=== PATIENT | female | born 1980 | race Caucasian/White ===

== ENCOUNTER 2016-09-23 16:18 | Emergency (ER) | payer OTHER ==
[~2016-09-23] VITALS: Ht 167.6 cm; Wt 101.0 kg
[~2016-09-23 16:18] MED LIST: ATV/1 PO; CHLO100T8 PO; FLUO40CA8 PO; PRVHFAIN INH; TRAM-10 PO
[2016-09-23 16:26] VITALS: TEMP 36.9; Ht 167.6 cm; Wt 101.0 kg
[2016-09-23] MEDS ORDERED: KETOROLAC TROMETHAMINE 30 MG/ML VIAL IV STA (18:27)
--- NOTE | 2016-09-23 18:39 | EMERGENCY ROOM VISIT NOTE ---
History Report prepared by Chris: Fran Campos Under the Supervision of: Dr. Fran Tate M.D. First contact with patient: 18:19 Chief Complaint: HYPERTENSION Stated Complaint: HTN, RT KNEE PAIN History of Present Illness The patient is a 35 year old female who presents to the Emergency Room with complaints of an episode of hypertension occurring earlier today. She notes she had right knee pain and had gone to the [facility] walk-in clinic. They noticed her blood pressure was elevated around 150/100. They told her to call her PCP. She notes her PCP was not able to see her until a few days from today and advised her to come to the ER. The patient notes she takes propanol 80 mg BID for her blood pressure management. She states she took her medications today, and that there have not been any recent changes in her medications. She notes she feels lightheaded, and that she has had swelling in her hands and feet for a couple of days. She reports having surgery of her right knee about 2.5 years ago, and has not re-injured it since the surgery. Source of History: patient Onset: earlier today Position: other (global) Symptom Intensity: blood pressure around 150/100 Quality: other (hypertension) Timing: other (episode) Note: The patient notes feeling lightheaded, and having swelling in her hands and feet. Review of Systems See HPI for pertinent positives & negatives. A total of 10 systems reviewed and were otherwise negative. 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 Nurse's notes were reviewed and I agree with. Family History Hypertension Kidney disease or stones Social History Smoking Status: Current Every Day Smoker Alcohol Use: none Marital Status: Housing Status: lives with significant other Occupation Status: disabled Current/Historical Medications Scheduled Clonazepam (Klonopin), 0.5 MG PO TID Propranolol (Inderal), 80 MG PO BID Scheduled PRN Albuterol (Ventolin Hfa), 3-4 PUFFS INH QID PRN for Shortness of Breath Oxycodone Immediate Rel Tab (Roxicodone Ir), 1-2 TAB PO Q4H PRN for Severe Pain Allergies Coded Allergies: Sulfa Drugs (Verified Allergy, Unknown, RASH, NAUSEA, 06/15/16) Physical Exam Vital Signs Date Time Temp Pulse Resp B/P Pulse Ox O2 Delivery O2 Flow Rate FiO2 09/23/16 21:19 86 18 142/100 96 Room Air 09/23/16 19:43 90 18 131/96 94 Room Air 09/23/16 18:20 104 20 165/115 95 Room Air 09/23/16 16:26 36.9 85 20 151/97 Physical Exam General: Non ill appearing young female in no acute distress. HEENT: Normal cephalic atraumatic. Pupils are equal round and reactive to light. Extraocular movements are intact. Oropharynx is pink with moist mucous membranes. No swelling of the mouth lips or tongue. Neck: Supple with a midline trachea. No meningeal signs or stiffness, no JVD or bruits. No Stridor. Chest: Clear to auscultation bilaterally. No wheezes or rhonchi. No increased work of breathing. Heart: regular rate and rhythm. Abdomen: Soft nontender, nondistended without rebound guarding or rigidity. Extremities: Right knee is not red or warm; tenderness to the medial aspect of right knee. No significant calf swelling or tenderness. FROM of right knee. Spine/Back. Non tender to palpation. No CVA tenderness Skin: Good turgor without rashes. Neurologic exam: Cranial nerves two through 12 are intact. Motor and sensation are intact and symmetrical throughout. Medical Decision & Procedures ER Provider Diagnostic Interpretation: X ray results as stated below per my interpretation and radiologist interpretation. Other radiology results as stated below per my review and radiologist interpretation: RIGHT KNEE 2 VIEWS FINDINGS: There is no fracture or dislocation. Soft tissues are unremarkable. Patellofemoral joint prosthesis remains intact. There is a trace knee effusion. IMPRESSION: No fractures. Trace knee effusion. Electronically signed by: Diego Cheng M.D. 09/23/2016 7:06 PM Dictated Date/Time: 09/23/2016 7:04 PM Laboratory Results 09/23/16 18:38 Red Blood Count 4.26, Mean Corpuscular Volume 90.8, Mean Corpuscular Hemoglobin 31.2, Mean Corpuscular Hemoglobin Concent 34.4, Mean Platelet Volume 9.4, Neutrophils (%) (Auto) 54.6, Lymphocytes (%) (Auto) 33.9, Monocytes (%) (Auto) 10.5, Eosinophils (%) (Auto) 0.0, Basophils (%) (Auto) 0.9, Neutrophils # (Auto ) 3.64, Lymphocytes # (Auto) 2.26, Monocytes # (Auto) 0.70, Eosinophils # (Auto ) 0.00, Basophils # (Auto) 0.06 09/23/16 18:38 Test 09/23/16 18:38 White Blood Count 6.67 K/uL (4.8-10.8) Red Blood Count 4.26 M/uL (4.2-5.4) Hemoglobin 13.3 g/dL (12.0-16.0) Hematocrit 38.7 % (37-47) Mean Corpuscular Volume 90.8 fL (80-100) Mean Corpuscular Hemoglobin 31.2 pg (25-34) Mean Corpuscular Hemoglobin Concent 34.4 g/dl (32-36) Platelet Count 365 K/uL (130-400) Mean Platelet Volume 9.4 fL (7.4-10.4) Neutrophils (%) (Auto) 54.6 % Lymphocytes (%) (Auto) 33.9 % Monocytes (%) (Auto) 10.5 % Eosinophils (%) (Auto) 0.0 % Basophils (%) (Auto) 0.9 % Neutrophils # (Auto) 3.64 K/uL (1.4-6.5) Lymphocytes # (Auto) 2.26 K/uL (1.2-3.4) Monocytes # (Auto) 0.70 K/uL (0.11-0.59) Eosinophils # (Auto) 0.00 K/uL (0-0.5) Basophils # (Auto) 0.06 K/uL (0-0.2) RDW Standard Deviation 44.2 fL (36.4-46.3) RDW Coefficient of Variation 13.4 % (11.5-14.5) Immature Granulocyte % (Auto) 0.1 % Immature Granulocyte # (Auto) 0.01 K/uL (0.00-0.02) Red Blood Cell Morphology Unremarkable Erythrocyte Sedimentation Rate 31 mm/hr (0-21) Anion Gap 9.0 mmol/L (3-11) Est Creatinine Clear Calc Drug Dose 131.4 ml/min Estimated GFR () 127.0 Estimated GFR (Non- 109.6 BUN/Creatinine Ratio 16.5 (10-20) Calcium Level 9.4 mg/dl (8.5-10.1) Total Bilirubin 0.3 mg/dl (0.2-1) Direct Bilirubin < 0.1 mg/dl (0-0.2) Aspartate Amino Transf (AST/SGOT) 16 U/L (15-37) Alanine Aminotransferase (ALT/SGPT) 25 U/L (12-78) Alkaline Phosphatase 87 U/L (45-117) Total Protein 7.9 gm/dl (6.4-8.2) Albumin 4.0 gm/dl (3.4-5.0) Lipase 123 U/L (73-393) Laboratory studies as stated above per my review. Medications Administered Medications (Trade) Dose Ordered Sig/Carol Route Start Time Stop Time Status Last Admin Dose Admin Ketorolac Tromethamine (Toradol Inj) 30 mg NOW STAT IV 09/23/16 18:27 09/23/16 18:31 DC 09/23/16 18:46 30 MG Oxycodone HCl (Roxicodone Immediate Rel 5MG Home Pack) 1 homepack UD ONCE PO 09/23/16 21:15 09/23/16 21:16 DC 09/23/16 21:25 1 HOMEPACK ED Course 1819: Past medical records reviewed. The patient was evaluated in room C6, and a complete history and physical examination were performed. 1826: Ordered Toradol Inj 30 mg IV. 2114: Ordered Oxycodone HCl 1 homepack PO. 2119: Upon reevaluation, the patient is doing well. I discussed the results and treatment plan with the patient. She verbalized agreement of the treatment plan. The patient was discharged home. Medical Decision Differentials include hypertensive urgency, electrolyte or metabolic abnormality , infection, or arthritis. This patient comes in as described above. She was placed in room C6. She has 2 problems. #1 she has knee pain and she's had this chronically. And the second is high blood pressure which she is also being treated for. She looks well on exam. She has no evidence to suggest any end organ damage from her high blood pressure and no evidence of a hypertensive emergency. Her blood pressure does seem to go up and down. She is on medication for this. Her knee is not red or warm and is minimally tenderness here and she has nothing to suggest infection or neurologically neurovascular compromise. She was observed in the ER. Blood work was obtained and she has nothing to suggest infection or electrolyte or metabolic abnormalities. She has nothing to suggest acute or cardiac disease acutely. She was given Toradol 30 mg IV for pain is resting comfortably. I recommend she keep her appointment with her doctor on Thursday and check her blood pressure frequently log it to get a trend and therefore they could see her blood pressures at home. She can use ibuprofen for the pain in her knee and for breakthrough pain shecan use OxyIR 5 mg, one or 2 pills every 4-6 hours as needed. She was warned that this could make her drowsy and do not take before drinking, driving, working. She should be careful getting up and down. She should return if: numbness weakness, worsening symptoms, fever chills, any new problems concerns. She is happy with plan and discharged to home. Impression Primary Impression: Right knee pain Additional Impression: Hypertension Scribe Attestation The scribe's documentation has been prepared under my direction and personally reviewed by me in its entirety. I confirm that the note above accurately reflects all work, treatment, procedures, and medical decision making performed by me. Departure Information Dispostion Home / Self-Care Prescriptions Oxycodone Immediate Rel Tab (ROXICODONE IR) 5 Mg Tab 1-2 TAB PO Q4H Y for Severe Pain, #14 TAB Prov: Fran Tate M.D. 09/23/16 Referrals Osvaldo Park M.D. (PCP) Patient Instructions My [facility] Additional Instructions Rest Drink plenty of fluids Use Nick wrap as needed For pain, use OxyIR 5 mg, one or 2 pills every 4-6 hours as needed OxyIR may make you drowsy and do not take before drinking, driving, working Check-in and log you blood pressures frequently and follow-up with your doctor on Thursday. You may ultimately need to increase her blood pressure medicines. Return to ER if: Fever, worsening symptoms, any new problems concerns. Problem Qualifiers
[2016-09-23 18:52] LABS: HEMATOCRIT 38.7 % (37-47); MEAN CELL VOLUME 90.8 fL (80-100); MEAN CORPUSCULAR HEMOGLOBIN 31.2 pg (25-34); MEAN CORPUSCULAR HGB CONC 34.4 g/dl (32-36); MEAN PLATELET VOLUME 9.4 fL (7.4-10.4); PLATELET COUNT 365 K/uL (130-400); RED BLOOD COUNT 4.26 M/uL (4.2-5.4); WHITE BLOOD COUNT 6.67 K/uL (4.8-10.8)
--- NOTE | 2016-09-23 19:07 | DIAGNOSTIC IMAGING REPORT ---
RIGHT KNEE 2 VIEWS HISTORY: eval for knee pain Right COMPARISON: Right knee 12/21/2013. FINDINGS: There is no fracture or dislocation. Soft tissues are unremarkable. Patellofemoral joint prosthesis remains intact. There is a trace knee effusion. IMPRESSION: No fractures. Trace knee effusion. Electronically signed by: Diego Cheng M.D. 09/23/2016 7:06 PM Dictated Date/Time: 09/23/2016 7:04 PM
[2016-09-23 19:10] LABS: ALT/SGPT 25 U/L (12-78); AST/SGOT 16 U/L (15-37); BLOOD UREA NITROGEN 12 mg/dl (7-18); BUN/CREATININE RATIO 16.5 (10-20); CALCIUM 9.4 mg/dl (8.5-10.1); CARBON DIOXIDE 29 mmol/L (21-32); CHLORIDE 99 mmol/L (98-107); CREATININE 0.71 mg/dl (0.60-1.20); GLUCOSE 88 mg/dl (70-99); POTASSIUM 3.8 mmol/L (3.5-5.1); SODIUM 137 mmol/L (136-145)
[2016-09-23 19:13] LABS: ALKALINE PHOSPHATASE 87 U/L (45-117)
[2016-09-23 19:31] LABS: BASO % 0.9 %; BASO ABS # 0.06 K/uL (0-0.2); COMPLETE YES; IG% 0.1 %; LYMPH % 33.9 %; LYMPH ABS # 2.26 K/uL (1.2-3.4); MONO % 10.5 %; NEUT % 54.6 %
[2016-09-23] MEDS ORDERED: OXYC1TAB3 PO (21:14)
[2016-09-23] MEDS ORDERED: OXYCODONE IR HOME PACK PO ONE (21:15)
[2016-09-23 21:19] VITALS: BP 142/100; PULSE 86; O2SAT 96
[2016-12-22] MEDS ORDERED: BUPR200T2 PO (10:57)
[2016-12-22] MEDS ORDERED: ATV/1 PO (10:57)
[2017-01-08] MEDS ORDERED: OXYC-57 PO (09:45)
[2017-01-31] MEDS ORDERED: ATOR10TA88 PO (10:57)
[2017-01-31] MEDS ORDERED: MAGN1TAB41 PO (10:57)
[2017-01-31] MEDS ORDERED: CHLO100T8 PO (10:57)
[2017-01-31] MEDS ORDERED: LURA80TA PO (10:57)
[2017-01-31] MEDS ORDERED: PROP80TA2 PO (13:48)
== END 2016-09-23 21:26 | disposition home or self-care (01) ==
LOC: C.EDB 16:19 → C.EDC 21:26
DX: M25.561 Pain in right knee (principal); I10 Essential (primary) hypertension; Z98.890 Other specified postprocedural states; Z90.710 Acquired absence of both cervix and uterus; F17.200 Nicotine dependence, unspecified, uncomplicated; Z88.2 Allergy status to sulfonamides

== ENCOUNTER 2016-10-10 15:42 | Emergency (ER) | payer OTHER ==
[~2016-10-10] VITALS: Ht 167.6 cm; Wt 96.8 kg
[~2016-10-10 15:42] MED LIST changes: -ATV/1 PO; -CHLO100T8 PO; -FLUO40CA8 PO; +OXYC1TAB3 PO; -PRVHFAIN INH; -TRAM-10 PO
[2016-10-10 15:45] VITALS: Ht 167.6 cm; Wt 96.8 kg
[2016-10-10] MEDS ORDERED: LSN5 PO (16:05)
[2016-10-10] MEDS ORDERED: BUPRTAB51 PO (16:05)
--- NOTE | 2016-10-10 16:14 | EMERGENCY ROOM VISIT NOTE ---
History Report prepared by Chris: Xuan Gallegos Under the Supervision of: Dr. Hilario Mortensen M.D. First contact with patient: 15:49 Chief Complaint: HYPERTENSION Stated Complaint: LIGHTHEADED,HIGH BP History of Present Illness The patient is a 35 year old female who presents to the Emergency Room with complaints of persistent hypertension for the past week. The patient notes a history of hypertension and states that she was evaluated in [facility] last week for her hypertension. She states that each time she stands up she becomes lightheaded and additionally has difficulty catching her breath. The patient notes a blood pressure reading of 150/100 mmHg. She states that she was supposed to see a ship construction teacher for a stress test, but states that the ship construction teacher had an emergency and her appointment got cancelled. The patient states that she has been on propranolol for her hypertension for several years and states that she was recently started on 5 mg of Lisinopril daily. She states that today she feels increasingly weak. The patient additionally notes increased swelling to her bilateral ankles. She states that she is on 20 mg of Lasix twice per week, but states that the swelling has worsened with her hypertension. Source of History: patient Onset: past week Position: other (global) Symptom Intensity: 150/100 mmHg Quality: other (hypertension) Timing: other (persistent) Associated Symptoms: + SOB, + weakness Note: Associated Symptoms: increased swelling to bilateral ankles, lightheaded Review of Systems All systems have been listed, reviewed, and are negative other than those previously mentioned. Please see Additional Medical History Sheet. 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 (5) Kidney stone (6) Kidney stone (7) Left knee DJD (8) Migraine (9) Painful orthopaedic hardware (10) Somnolence (11) UTI (urinary tract infection) Surgical Problems: (1) Robotic hysterectomy (2) S/P hysterectomy Family History Cancer Diabetes mellitus Gallbladder disease Heart disease Hypertension Kidney disease or stones Lung disease Seizures Social History Smoking Status: Current Every Day Smoker Alcohol Use: none Marital Status: Housing Status: lives with significant other Occupation Status: disabled Current/Historical Medications Scheduled Bupropion (Wellbutrin-Xl), 300 MG PO DAILY Clonazepam (Klonopin), 0.5 MG PO TID Lisinopril (Lisinopril), 5 MG PO DAILY Propranolol (Inderal), 80 MG PO BID Scheduled PRN Albuterol (Ventolin Hfa), 3-4 PUFFS INH QID PRN for Shortness of Breath Allergies Coded Allergies: Sulfa Drugs (Verified Allergy, Unknown, RASH, NAUSEA, 06/15/16) Physical Exam Vital Signs Date Time Temp Pulse Resp B/P Pulse Ox O2 Delivery O2 Flow Rate FiO2 10/10/16 17:19 95 18 93/61 100 10/10/16 16:24 101 18 105/72 100 Room Air 10/10/16 16:22 98 Room Air 10/10/16 16:22 93 107/67 99 105/72 105 90/71 10/10/16 15:45 103 18 95/66 96 Room Air Physical Exam GENERAL: Patient awake, alert, oriented x 3. Patient follows commands. Patient does not appear toxic. Patient is adequately hydrated and well- nourished. SKIN: No erythema, pallor, cyanosis or rash HEENT: Normal head, pupils equal, reactive to light and accommodation. Neck: Without adenopathy, no neck vein distention. LUNGS: Clear to auscultation. No wheezes, no rales, no rhonchi. HEART: No murmurs. No gallops. No rubs ABDOMEN: Obese. No masses, no rebound, no hepatomegaly or splenomegaly. EXTREMITIES: No signs of trauma. No pedal or pretibial edema. No calf or thigh tenderness. NEUROLOGIC: Cranial nerves II-XII within normal limits. No gross motor sensory function deficits. Medical Decision & Procedures Laboratory Results 10/10/16 16:05 10/10/16 16:05 Test 10/10/16 16:05 Red Blood Count 4.43 M/uL (4.2-5.4) Mean Corpuscular Volume 90.7 fL (80-100) Mean Corpuscular Hemoglobin 33.0 pg (25-34) Mean Corpuscular Hemoglobin Concent 36.3 g/dl (32-36) RDW Standard Deviation 43.4 fL (36.4-46.3) RDW Coefficient of Variation 13.1 % (11.5-14.5) Mean Platelet Volume 9.8 fL (7.4-10.4) Anion Gap 11.0 mmol/L (3-11) Est Creatinine Clear Calc Drug Dose 82.9 ml/min Estimated GFR () 74.8 Estimated GFR (Non- 64.5 BUN/Creatinine Ratio 15.2 (10-20) Calcium Level 9.5 mg/dl (8.5-10.1) Troponin I < 0.015 ng/ml (0-0.045) Laboratory results as stated above per my review. ECG Indication: other (hypertension) Rate (beats per minute): 93 Rhythm: normal sinus Findings: nonspecific-ST abn, prolonged QT, no ectopy ED Course 1551: Past medical records reviewed. The patient was evaluated in room C7. A complete history and physical examination was performed. 1706: I reevaluated the patient and she is resting comfortably. I discussed the exam findings with her and I discussed the treatment plan. She verbalized complete understanding and agreement. She is ready to go home. Medical Decision Nurses notes reviewed. Medical history sheet reviewed. Differential diagnosis includes but is not limited to: hypertension, hypotension, orthostasis, anemia, metabolic disorder. The patient complains of lightheadedness and weakness which she attributes to hypertension but in fact she is hypotensive. The patient's blood pressure falls to 90/71 when she stands up. Blood work and EKG were evaluated. Please see above. The patient is safe to return home. We will stop the lisinopril. She'll continue taking metoprolol. She is to have her blood pressure rechecked next week. Impression Primary Impression: Hypotension, iatrogenic Scribe Attestation The scribe's documentation has been prepared under my direction and personally reviewed by me in its entirety. I confirm that the note above accurately reflects all work, treatment, procedures, and medical decision making performed by me. Departure Information Dispostion Home / Self-Care Referrals Osvaldo Park M.D. (PCP) Forms HOME CARE DOCUMENTATION FORM, IMPORTANT VISIT INFORMATION Patient Instructions My [facility] Additional Instructions Stop lisinopril. Continue taking metoprolol as prescribed. Have your blood pressure rechecked within the next 5 days.
[2016-10-10 16:25] LABS: HEMATOCRIT 40.2 % (37-47); MEAN CELL VOLUME 90.7 fL (80-100); MEAN CORPUSCULAR HGB CONC 36.3 g/dl (32-36); MEAN PLATELET VOLUME 9.8 fL (7.4-10.4); PLATELET COUNT 346 K/uL (130-400); RED BLOOD COUNT 4.43 M/uL (4.2-5.4); WHITE BLOOD COUNT 14.89 K/uL (4.8-10.8)
[2016-10-10 16:42] LABS: BLOOD UREA NITROGEN 17 mg/dl (7-18); BUN/CREATININE RATIO 15.2 (10-20); CALCIUM 9.5 mg/dl (8.5-10.1); CARBON DIOXIDE 23 mmol/L (21-32); CHLORIDE 99 mmol/L (98-107); GLUCOSE 98 mg/dl (70-99); POTASSIUM 3.8 mmol/L (3.5-5.1); SODIUM 133 mmol/L (136-145)
[2016-10-10 17:19] VITALS: BP 93/61; PULSE 95; O2SAT 100
[2016-10-10] MEDS ORDERED: CLON0.5T3 PO (19:52)
[2016-12-22] MEDS ORDERED: ATV/1 PO (10:57)
[2016-12-22] MEDS ORDERED: BUPR200T2 PO (10:57)
[2017-01-08] MEDS ORDERED: OXYC-57 PO (09:45)
[2017-01-31] MEDS ORDERED: ATOR10TA88 PO (10:57)
[2017-01-31] MEDS ORDERED: MAGN1TAB41 PO (10:57)
[2017-01-31] MEDS ORDERED: LURA80TA PO (10:57)
[2017-01-31] MEDS ORDERED: CHLO100T8 PO (10:57)
[2017-01-31] MEDS ORDERED: PROP80TA2 PO (13:48)
== END 2016-10-10 17:19 | disposition home or self-care (01) ==
LOC: C.EDB 15:43 → C.EDC 17:19
DX: I95.89 Other hypotension (principal); F31.9 Bipolar disorder, unspecified; Z87.442 Personal history of urinary calculi; M17.9 Osteoarthritis of knee, unspecified; G43.909 Migraine, unspecified, not intractable, without status migrainosus; Z80.9 Family history of malignant neoplasm, unspecified; Z83.3 Family history of diabetes mellitus; Z83.79 Family history of other diseases of the digestive system; Z82.49 Family history of ischemic heart disease and other diseases of the circulatory system; Z83.6 Family history of other diseases of the respiratory system; F17.210 Nicotine dependence, cigarettes, uncomplicated; Z79.899 Other long term (current) drug therapy

== ENCOUNTER → 2016-11-11 | Outpatient (CLI) | payer OTHER ==
[~2016-11-11] MED LIST changes: +ACET-1256 PO; +ATOR10TA82 PO; +ATV/1 PO; +BUPR200T2 PO; +BUPRTAB51 PO; +CHLO100T8 PO; +CLON0.5T3 PO; +HYDR-5688 PO; +IBUP-1050 PO; +LEVO-366 PO; +LSN5 PO; +LURA80TA PO; +MAGN1TAB41 PO; +ONDA4TAB10 SL; +OXCA150T2 PO; +OXCA300T4 PO; +OXYC-57 PO; +PENI500T2 PO; +PROP80TA2 PO; +PRVHFAIN INH
--- NOTE | 2016-11-11 08:06 | DIAGNOSTIC IMAGING REPORT ---
CT SCAN OF THE PARANASAL SINUSES CLINICAL HISTORY: Chronic sinusitis. COMPARISON STUDY: MRI of the brain dated 01/16/2016. TECHNIQUE: High-resolution CT scan of the paranasal sinuses is performed. Images are reviewed in the axial, sagittal, and coronal planes. IV contrast was not administered for this examination. CT DOSE: 797.61 mGy.cm FINDINGS: Postoperative change: There are changes from bilateral maxillary antrectomy with antrostomy formation as well as ethmoid sinus resection. Maxillary antra: There is trace mucosal thickening within the maxillary antra bilaterally. A 2.4 cm retention cyst is noted on the left. Ethmoid cavities: Clear. Sphenoid sinuses: Clear. Frontal sinuses: Clear. Ostiomeatal complexes: The antrostomies are widely patent bilaterally. Frontoethmoidal and sphenoethmoidal recesses: Patent bilaterally. Carotid arteries: The carotid arteries are protuberant but covered and without septal attachments. Ethmoid roofs: The ethmoid roofs are symmetric. Nasal turbinates: Normal in appearance. Nasal septum: There is minimal rightward deviation of the bony nasal septum. There is a bony defect in the nasal septum seen on axial image #170. Optic nerves: Covered. Orbits: The bony orbits are intact. Orbital contents are normal in appearance. Calvarium: The imaged calvarium is normal in appearance Mastoid air cells: Well pneumatized. Brain parenchyma: Partially visualized brain parenchyma is within normal limits. IMPRESSION: Postoperative change and minimal paranasal sinus disease as above. Electronically signed by: Prem Rao M.D. 11/11/2016 8:04 AM Dictated Date/Time: 11/11/2016 8:01 AM
== END | disposition home or self-care (01) ==
LOC: C.CTS 07:48
PROVIDERS: ATTEND Otolaryngology
DX: J32.9 Chronic sinusitis, unspecified (principal)

== ENCOUNTER → 2017-01-08 | Day surgery (SDC) | payer OTHER ==
[2016-12-22 10:58] VITALS: Ht 167.6 cm; Wt 88.2 kg
[~2017-01-08] VITALS: Ht 167.6 cm; Wt 88.2 kg
[~2017-01-08] MED LIST changes: +ATROPINE SULFATE 0.1 MG/ML 5ML SYR IV PRN; -BUPRTAB51 PO; +CEFAZOLIN 2000 MG/60 ML D5W IV SCH; -CLON0.5T3 PO; +DEXAMETHASONE SOD INJ 4 MG/ML VIAL ONE; +EpHEDrine SULFATE INJ 50 MG/ML AMP IV PRN; +EpINEphrine INJ 1MG/ML AMP 1 MG/ML AMP ONE; +FENTANYL CITRATE INJ 50 MCG/1 ML 2 ML VIAL ONE; +FLUMAZENIL 0.1 MG/1 ML 10 ML VIAL IV PRN; +HYDROCODONE/ACETAMOPHEN 5/325MG TAB PO PRN; +LABETALOL HCL IV 5 MG/ML 20ML IV PRN; +LACTATED RINGER'S 1000ML 1,000 ML IV SCH; +LIDO 2%/EPINEPHRINE 1:100000 20 ML VIAL INFIL ONE; +LIDOCAINE 4% MPF SOAK 5 ML = 1 DOSE TOP ONE; +LIDOCAINE HCL 2% 2 ML VIAL (20MG/ML) ONE; -LSN5 PO; +MIDAZOLAM HCL 1 MG/ML 2ML VIAL ONE; +NALOXONE HCL 0.4 MG/1 ML VIAL/CARP IV PRN; +ONDANSETRON INJ 2 MG/ML 2 ML VIAL IV PRN; +ONDANSETRON INJ 2 MG/ML 2 ML VIAL ONE; +PROMETHAZINE HCL INJ 12.5 MG in SODIUM CHLORIDE 0.9% 50ML 50 ML IV PRN; +PROPOFOL IV EMULSION 10 MG/ML 20 ML VIAL IV ONE; +SODIUM CHLORIDE 0.9% 1000ML 1,000 ML IV SCH; +SUCCINYLCHOLINE CHLORIDE 20 MG/ML 10 ML VIAL IV ONE
--- NOTE | 2017-01-08 08:07 | History and Physical: Surg Cnt ---
History & Physical Date Jan 08, 2017. 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 (5) Kidney stone (6) Kidney stone (7) Left knee DJD (8) Migraine (9) Painful orthopaedic hardware (10) Somnolence (11) UTI (urinary tract infection) Surgical Problems: (1) Robotic hysterectomy (2) S/P hysterectomy Additional History Hepatic Disease: No Endocrine Disorder: No Kidney Disease: No Hypertension: No Heart Disease: No Bleeding Tendencies: No Infectious Diseases: No Allergies Coded Allergies: Sulfa Drugs (Verified Allergy, Unknown, RASH, NAUSEA, 01/08/17) Home Medications Scheduled Atorvastatin (Lipitor), 10 MG PO QAM Bupropion (Wellbutrin Sr), 200 MG PO QAM Chlorpromazine Hcl (Thorazine), 300 MG PO HS Lurasidone Hcl (Latuda), 80 MG PO QAM Magnesium Oxide (Magnesium), 1 TAB PO QAM Propranolol (Inderal), 80 MG PO BID Scheduled PRN Albuterol (Ventolin Hfa), 3-4 PUFFS INH QID PRN for Shortness of Breath Lorazepam (Ativan), 1 MG PO TID PRN for Anxiety Physical Examination Skin: warm/dry, no rash Eyes: normal inspection, EOMI, sclerae normal ENT: normal ENT inspection, pharynx normal Head: normocephalic, atraumatic Neck: supple, no adenopathy, trachea midline Respiratory/Chest: lungs clear, normal breath sounds, no respiratory distress Cardiovascular: regular rate, rhythm, no edema, no murmur Abdomen / GI: normal bowel sounds, non tender Back: normal inspection Extremities: normal inspection, normal range of motion Neurologic/Psych: no motor/sensory deficits, alert, normal reflexes, oriented x 3 Plan of Treatment endoscopic sinus surgery
--- NOTE | 2017-01-08 08:08 | History & Physical Bridge Note ---
H&P Re-Evaluation Bridge Note: I have examined the patient, reviewed the History & Physical and in the interval since the performance of the History & Physical I have noted the following changes of clinical significance: No changes noted
--- NOTE | 2017-01-08 09:47 | Discharge Instructions-SurgCtr ---
Discharge Instructions Date of Service Jan 08, 2017. Visit Reason for Visit: Chronic Sinusitis Discharge Discharge Diagnosis / Problem: same Discharge Goals Goal(s): Therapeutic intervention Activity Recommendations Activity Limitations: resume your previous activity Anesthesia . Post Anesthesia Instructions: If you have had General Anesthesia or IV Sedation: * Do not drive today. * Resume driving when surgeon permits. * Do not make important decisions or sign legal documents today. * Call surgeon for: 1. Temperature elevations greater than 101 degrees F. 2. Uncontrollable pain. 3. Excessive bleeding. 4. Persistent nausea and vomiting. 5. Medication intolerance (nausea, vomiting or rash). * For nausea and vomiting use only clear liquids such as: tea, soda, bouillon until nausea subsides, then gradually increase diet as tolerated. * If you have any concerns or questions, call your surgeon's office. If physician is unavailable and it is an emergency, call 911 or go to the nearest emergency room. . Instructions / Follow-Up Instructions / Follow-Up ACTIVITY RECOMMENDATIONS: * Being up and around is good, but no strenuous activity, heavy lifting or physical exertion for one week. * Keep your head elevated 30 degrees when lying down or sleeping. * Do not blow your nose for 48 hours, sniff back instead. * Avoid hot showers. OVER THE COUNTER MEDICATIONS: * You may use Tylenol * Avoid aspirin or aspirin containing products, e.g. as they may increase bleeding. SPECIAL CARE INSTRUCTIONS: * Expect to have bloody drainage from your nose and/or down your throat for one to three days. Change drip pad as needed. * Begin irrigating your nose with saline solution today, at least six to ten times per day and sniff back to help remove old clots or crust. * You may experience nasal and facial congestion, pain and pressure, this is normal. * Please call with any significant and/or progressive pain, redness, swelling around the eyes, visual changes, fever of 101.5 degrees F, active bleeding or any problems or concerns. * If active bleeding occurs, spray the nose three times at one minute intervals with Afrin spray and call or cell phone: . If unable to reach the doctor, go to the nearest Emergency Department. Special Diet: * Avoid extremely hot fluids. FOLLOW UP VISIT: Follow-up Visit with Dr. Hollis If not already scheduled, please call to schedule. Diet Recommendations Home Diet: no limitations Procedures Procedures Performed: Endoscopic Sinus Surgery, Right & Left Frontal Sinus, Right & Left Total Ethmoidectomies Pending Studies Studies pending at discharge: no Medical Emergencies . Who to Call and When: Medical Emergencies: If at any time you feel your situation is an emergency, please call 911 immediately. . Non-Emergent Contact Non-Emergency issues call your: Primary Care Provider . . "Provider Documentation" section prepared by Quiana Hollis. .
[2017-01-08] MEDS: FENTANYL CITRATE INJ 50 MCG/1 ML 2 ML VIAL IV PRN ×2 (10:01→10:13)
[2017-01-08 10:35] VITALS: TEMP 36.7
--- NOTE | 2017-01-08 10:36 | Anesthesia Progress Nt - [facility] ---
Anesthesia Post Op Note Date & Time Jan 08, 2017 at 10:36 Vital Signs Pain Intensity: 4 Vital Signs Past 12 Hours Date Time Temp Pulse Resp B/P (MAP) Pulse Ox O2 Delivery O2 Flow Rate FiO2 01/08/17 10:29 80 19 94 01/08/17 10:29 80 19 01/08/17 10:27 142/93 01/08/17 10:27 142/93 01/08/17 10:24 87 25 01/08/17 10:24 90 25 95 01/08/17 10:24 90 25 95 01/08/17 10:24 87 25 01/08/17 10:24 36.3 81 16 142/93 94 Room Air 01/08/17 10:22 133/99 01/08/17 10:22 133/99 01/08/17 10:19 83 20 96 01/08/17 10:19 85 20 01/08/17 10:19 83 20 96 01/08/17 10:19 85 20 01/08/17 10:17 139/94 01/08/17 10:17 139/94 01/08/17 10:14 72 23 01/08/17 10:14 72 23 100 01/08/17 10:14 72 23 01/08/17 10:14 72 23 100 01/08/17 10:12 144/91 01/08/17 10:12 144/91 01/08/17 10:09 88 28 100 01/08/17 10:09 88 28 100 01/08/17 10:09 89 28 01/08/17 10:09 89 28 01/08/17 10:07 142/98 01/08/17 10:07 142/98 01/08/17 10:04 78 21 100 01/08/17 10:04 78 21 01/08/17 10:04 78 21 01/08/17 10:04 78 21 100 01/08/17 10:02 141/83 01/08/17 10:02 141/83 01/08/17 10:00 131/84 01/08/17 10:00 131/84 01/08/17 09:59 79 23 100 01/08/17 09:59 79 23 01/08/17 09:59 79 23 100 01/08/17 09:59 79 23 01/08/17 09:54 79 20 01/08/17 09:54 79 20 01/08/17 09:54 78 20 100 01/08/17 09:54 78 20 100 01/08/17 09:52 144/90 01/08/17 09:52 144/90 01/08/17 09:49 78 17 01/08/17 09:49 75 17 100 01/08/17 09:49 75 17 100 01/08/17 09:49 78 17 01/08/17 09:47 141/94 01/08/17 09:47 141/94 01/08/17 09:44 86 18 01/08/17 09:44 86 18 100 01/08/17 09:44 86 18 100 01/08/17 09:44 86 18 01/08/17 09:43 130/84 01/08/17 09:41 36.3 81 16 130/84 100 Humidified Oxygen Mask 01/08/17 06:52 36.4 87 18 131/89 (103) 96 Room Air Notes Mental Status: alert / awake / arousable, participated in evaluation Pt Amnestic to Procedure: Yes Nausea / Vomiting: adequately controlled Pain: adequately controlled Airway Patency, RR, SpO2: stable & adequate BP & HR: stable & adequate Hydration State: stable & adequate Anesthetic Complications: no major complications apparent
--- NOTE | 2017-01-08 10:55 | OPERATIVE REPORT ---
DATE OF OPERATION: 01/08/2017 PREOPERATIVE DIAGNOSIS: Chronic sinusitis. POSTOPERATIVE DIAGNOSIS: Same. PROCEDURE: Right and left frontal, right and left total ethmoid, and right and left maxillary sinus antrostomies. SURGEON: Dr. Hollis. ANESTHESIA: General endotracheal. COMPLICATIONS: None. BLOOD LOSS: 50 mL HISTORY: A 36-year-old lady with recurrent chronic sinusitis. She had turbinate resection and antrostomies in 1999 and then had to have revision surgery by me in 2003, but again has recurrent acute sinusitis with persistent frontal headaches. PROCEDURE IN DETAIL: The patient brought to the operating room and placed in supine position. General endotracheal anesthesia was induced, prepped and draped in usual sterile manner. Nose was decongested using topical anesthetic solution. Injection of 2% Xylocaine with 1:100,000 strength epinephrine was also used. [employer] device calibrated and used for the entire procedure. The left nasofrontal duct was stenotic. This was cannulated with a guidewire with [employer] computer guidance and then dilated using the 6 mm balloon. The guidewire was left in place as a marker and frontal sinusotomy was performed by removing the residual anterior wall and then the residual posterior wall of the agger nasi cell. There were adhesions from the middle turbinate laterally. These adhesions were lysed using the shaver, opening up the maxillary ostia, opening up the anterior and posterior ethmoid air cells. There was residual ethmoid air cell laterally toward the lamina papyracea. This was located using the [employer] device and then opened using the seeker and then using the shaver, opening up the entire ethmoid cavity. Maxillary sinus was opened by removing the adhesions extending to the middle turbinate. This was wide antrostomy from the previous surgery. The right frontal sinusotomy, total ethmoidectomy, and maxillary sinus antrostomy were performed in a similar manner. Propel stents were placed. There was a Contour stent in the nasofrontal ducts, one on each side, and then regular Propel stents in the middle meatus area and the ethmoid area. The patient tolerated the procedure well and was taken to recovery area in satisfactory condition. I attest to the content of the Intraoperative Record and any orders documented therein. Any exception s are noted below.
--- NOTE | 2017-01-08 11:05 | HISTORY & PHYSICAL EXAMINATION ---
DATE OF ADMISSION: 01/08/2017 DIAGNOSIS: Chronic sinusitis. HISTORY OF PRESENT ILLNESS: This 36-year-old lady presented with recurrent chronic sinusitis. She had sinus surgery in the year 1999 by another surgeon with a septoplasty and submucous resection of middle and inferior turbinates and also antrostomies. This required a revision by me in 2003; however, she continued to have recurrent acute sinusitis and desires definitive treatment because of the persistent headaches. PAST MEDICAL HISTORY: MEDICAL PROBLEMS: Hypertension, hypercholesterolemia and depression. MEDICATIONS: Thorazine, Ativan, Neurontin, Lipitor, Lasix and Latuda. SURGERIES: Hysterectomy, tubal ligation, hernia repair, knee surgeries and also endoscopic sinus surgery in 1999 and also 2003. ALLERGIES: SULFA. FAMILY HISTORY: Negative. SOCIAL HISTORY: Positive for smoking 1 pack per day. REVIEW OF SYSTEMS: Positive for obesity and neck problems. PHYSICAL EXAMINATION: GENERAL: WNWD female. VITAL SIGNS: 5 feet, 6 inches, 222 pounds. HEAD: Normocephalic. EYES: Normal. EARS: Tympanic membranes intact. NOSE: Nasal passages - there is a blocked left nasofrontal duct that could not be cannulated with the guidewire. THROAT: Oropharynx normal. NECK: Supple. HEART: RRR. LUNGS: Clear. ABDOMEN: Soft. GENITOURINARY: Deferred. EXTREMITIES: Full range of motion. IMPRESSION: Chronic sinusitis. PLAN: For endoscopic sinus surgery.
[2017-01-08 11:08] VITALS: BP 127/81; PULSE 75; O2SAT 95
== END | disposition home or self-care (01) ==
LOC: X.SURG 06:32
PROVIDERS: ATTEND Otolaryngology
DX: J32.9 Chronic sinusitis, unspecified (principal); F31.9 Bipolar disorder, unspecified; Z79.899 Other long term (current) drug therapy

== ENCOUNTER 2017-01-31 18:53 | Emergency (ER) | payer OTHER ==
[~2017-01-31] VITALS: Ht 167.6 cm; Wt 100.1 kg
[~2017-01-31 18:53] MED LIST changes: -ACET-1256 PO; -ATOR10TA82 PO; +ATOR10TA88 PO; -ATROPINE SULFATE 0.1 MG/ML 5ML SYR IV PRN; -CEFAZOLIN 2000 MG/60 ML D5W IV SCH; -DEXAMETHASONE SOD INJ 4 MG/ML VIAL ONE; -EpHEDrine SULFATE INJ 50 MG/ML AMP IV PRN; -EpINEphrine INJ 1MG/ML AMP 1 MG/ML AMP ONE; -FENTANYL CITRATE INJ 50 MCG/1 ML 2 ML VIAL ONE; -FLUMAZENIL 0.1 MG/1 ML 10 ML VIAL IV PRN; -HYDR-5688 PO; -HYDROCODONE/ACETAMOPHEN 5/325MG TAB PO PRN; -IBUP-1050 PO; -LABETALOL HCL IV 5 MG/ML 20ML IV PRN; -LACTATED RINGER'S 1000ML 1,000 ML IV SCH; -LEVO-366 PO; -LIDO 2%/EPINEPHRINE 1:100000 20 ML VIAL INFIL ONE; -LIDOCAINE 4% MPF SOAK 5 ML = 1 DOSE TOP ONE; -LIDOCAINE HCL 2% 2 ML VIAL (20MG/ML) ONE; -MIDAZOLAM HCL 1 MG/ML 2ML VIAL ONE; -NALOXONE HCL 0.4 MG/1 ML VIAL/CARP IV PRN; -ONDA4TAB10 SL; -ONDANSETRON INJ 2 MG/ML 2 ML VIAL IV PRN; -ONDANSETRON INJ 2 MG/ML 2 ML VIAL ONE; -OXCA150T2 PO; -OXCA300T4 PO; -OXYC1TAB3 PO; -PENI500T2 PO; -PROMETHAZINE HCL INJ 12.5 MG in SODIUM CHLORIDE 0.9% 50ML 50 ML IV PRN; -PROPOFOL IV EMULSION 10 MG/ML 20 ML VIAL IV ONE; -PRVHFAIN INH; -SODIUM CHLORIDE 0.9% 1000ML 1,000 ML IV SCH; -SUCCINYLCHOLINE CHLORIDE 20 MG/ML 10 ML VIAL IV ONE
[2017-01-31 18:55] VITALS: TEMP 36.7; Ht 167.6 cm; Wt 100.1 kg
[2017-01-31] MEDS ORDERED: ACET-1256 PO (19:08)
[2017-01-31] MEDS ORDERED: IBUP-1050 PO (19:08)
[2017-01-31] MEDS ORDERED: OXYC1TAB3 PO (19:15)
[2017-01-31] MEDS ORDERED: OXYCODONE IR HOME PACK PO ONE (19:15)
[2017-01-31] MEDS ORDERED: PENI500T2 PO (19:15)
[2017-01-31] MEDS ORDERED: PENICILLIN V POTASSIUM 250 MG TAB PO ONE (19:15)
--- NOTE | 2017-01-31 19:22 | EMERGENCY ROOM VISIT NOTE ---
History Report prepared by Chris: Elke Hughes Under the Supervision of: Dr. Rashawn Hewitt M.D. First contact with patient: 19:04 Chief Complaint: DENTAL PAIN Stated Complaint: BAD TOOTHACHE Nursing Triage Summary: Right lower toothache, ongoing for 1 week. Pt trying otc meds, Orajel with no relief. Dentist cannot get pt in until end of January. History of Present Illness The patient is a 36 year old female who presents to the Emergency Room with complaints of constant dental pain beginning 1 week ago. The patient states that she has a right lower toothache that is worsened with chewing or hot or cold liquids. She notes that she had sinus surgery on January 08 and has had some vomiting after the surgery. The patient denies any fever or injury to the tooth. She notes that she does have a filling in the tooth. She reports a history of hypertension. Source of History: patient Onset: 1 week ago Position: other (right lower tooth) Timing: constant Modifying Factors (Worsening): other (chewing) Associated Symptoms: + vomiting, No fevers Review of Systems See HPI for pertinent positives & negatives. A total of 4 systems reviewed and were otherwise negative. 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 (5) Kidney stone (6) Kidney stone (7) Left knee DJD (8) Migraine (9) Painful orthopaedic hardware (10) Somnolence (11) UTI (urinary tract infection) Surgical Problems: (1) Robotic hysterectomy (2) S/P hysterectomy Family History Cancer Diabetes mellitus Gallbladder disease Heart disease Hypertension Kidney disease or stones Lung disease Seizures Social History Smoking Status: Current Every Day Smoker Alcohol Use: none Marital Status: Housing Status: lives with significant other Occupation Status: disabled Current/Historical Medications Scheduled Atorvastatin (Lipitor), 10 MG PO QAM Chlorpromazine Hcl (Thorazine), 300 MG PO HS Lurasidone Hcl (Latuda), 80 MG PO QAM Magnesium Oxide (Magnesium), 400 MG PO QAM Penicillin V Potassium (Veetids), 500 MG PO TID Propranolol (Inderal), 80 MG PO BID Scheduled PRN Acetaminophen (Tylenol), 1,000 MG PO Q6H PRN for Pain Albuterol (Ventolin Hfa), 3-4 PUFFS INH QID PRN for Shortness of Breath Ibuprofen (Advil), 400-600 MG PO Q6H PRN for Pain Oxycodone Ir (Roxicodone Ir), 5 MG PO Q4H PRN for Pain Allergies Coded Allergies: Sulfa Drugs (Verified Allergy, Unknown, RASH, NAUSEA, 01/08/17) Physical Exam Vital Signs Date Time Temp Pulse Resp B/P (MAP) Pulse Ox O2 Delivery O2 Flow Rate FiO2 01/31/17 18:55 36.7 81 16 134/91 97 Room Air Physical Exam Constitutional: Vital signs reviewed. Eyes: Pupils are equal round reactive to light. Conjunctiva are noninjected. ENT: Pharynx is clear without erythema or exudate. Mucous membranes are moist. Minimal percussion tenderness to the right maxillary molar. Filling is in place. No gingival hyperemia or swelling. No swelling to the neck or face. Neck supple without meningeal signs. Neurological: The patient is awake and alert. No focal deficits. Psychiatric: Normal affect. Medical Decision & Procedures ED Course 1903: The patient was evaluated in room D7. A complete history and physical exam was performed. 1914: Veetids Tab 500mg PO, Oxycodone HCl 1 homepack PO. 1918: Upon reevaluation, the patient appeared to have improvement of her symptoms. I discussed tonight's findings with the patient. She verbalized agreement of the treatment plan. The patient was discharged home. Medical Decision This is a 36-year-old female who presents with a toothache. Differential diagnoses considered included periapical abscess and dental caries I did perform a limited focused review of portions of the patient's old chart on the electronic medical record. The patient had sinus surgery on January 08. Medication Reconciliation: I attest that I have personally reviewed the patient' s current medication list. Blood Pressure Screening: Patient was found to have an elevated blood pressure and was referred to their primary doctor for recheck and further treatment. I did evaluate the patient as noted above. The patient has pain to her right maxillary molar. She has no facial swelling or signs of obvious abscess. I did recommend treatment with antibiotics and follow up with her dentist as soon as possible. She was given a prescription for penicillin and OxyIR for breakthrough pain. She was given precautions regarding this medication. She was discharged in good condition. [place] Drug Monitoring Program Search Results: patient reviewed within database Drug Monitoring Findings: The patient got 12 tablets of Tylenol with Codeine on January 29 and 30 tablets of Percocet on January 08. Impression Primary Impression: Odontalgia Scribe Attestation The scribe's documentation has been prepared under my direct and personally reviewed by me in its entirety. I confirm that the note above accurately reflects all work, treatment, procedures, and medical decision making performed by me. Departure Information Dispostion Home / Self-Care Prescriptions Oxycodone Ir (Roxicodone Ir) 5 Mg Tab 5 MG PO Q4H Y for Pain, #14 TAB Prov: Rashawn Hewitt M.D. 01/31/17 Penicillin V Potassium (VEETIDS) 500 Mg Tab 500 MG PO TID for 10 Days, #30 TAB Prov: Rashawn Hewitt M.D. 01/31/17 Referrals No Doctor, Assigned (PCP) Forms HOME CARE DOCUMENTATION FORM, IMPORTANT VISIT INFORMATION Patient Instructions My [facility], Toothache - [facility] Additional Instructions You have been examined and treated today on an emergency basis only. This is not a substitute for, or an effort to provide, complete comprehensive medical care. It is impossible to recognize and treat all injuries or illnesses in a single emergency department visit. It is therefore important that you follow up closely with your dentist. Call as soon as possible for an appointment. Return for worsening symptoms or if you develop fever, facial swelling, difficulty swallowing or breathing or any other concerning symptoms.
[2017-01-31 19:28] VITALS: BP 131/79; PULSE 73; O2SAT 98
[2017-01-31] MEDS ORDERED: PRVHFAIN INH (19:52)
== END 2017-01-31 19:25 | disposition home or self-care (01) ==
LOC: C.EDB 18:54 → C.EDD 19:25
DX: K08.89 Other specified disorders of teeth and supporting structures (principal); R11.10 Vomiting, unspecified; F31.9 Bipolar disorder, unspecified; Z79.899 Other long term (current) drug therapy; Z87.440 Personal history of urinary (tract) infections; Z87.442 Personal history of urinary calculi; Z82.0 Family history of epilepsy and other diseases of the nervous system; Z82.49 Family history of ischemic heart disease and other diseases of the circulatory system; Z83.3 Family history of diabetes mellitus; Z83.79 Family history of other diseases of the digestive system; Z83.6 Family history of other diseases of the respiratory system; Z84.1 Family history of disorders of kidney and ureter

== ENCOUNTER 2017-05-24 13:53 | Emergency (ER) | payer OTHER ==
[~2017-05-24] VITALS: Ht 167.6 cm; Wt 101.3 kg
[~2017-05-24 13:53] MED LIST changes: +ACET-1256 PO; +ATOR10TA82 PO; -ATOR10TA88 PO; -ATV/1 PO; -BUPR200T2 PO; +IBUP-1050 PO; -OXYC-57 PO; +OXYC1TAB3 PO; +PRVHFAIN INH
[2017-05-24 14:10] VITALS: TEMP 36.5; Ht 167.6 cm; Wt 101.3 kg
[2017-05-24] MEDS ORDERED: SODIUM CHLORIDE 0.9% 1000ML 1,000 ML IV STA (15:25)
[2017-05-24 15:39] LABS: BASO % 0.1 %; BASO ABS # 0.02 K/uL (0-0.2); COMPLETE YES; HEMATOCRIT 39.2 % (37-47); IG% 0.4 %; LYMPH % 6.9 %; LYMPH ABS # 1.16 K/uL (1.2-3.4); MEAN CELL VOLUME 94.5 fL (80-100); MEAN CORPUSCULAR HEMOGLOBIN 32.3 pg (25-34); MEAN CORPUSCULAR HGB CONC 34.2 g/dl (32-36); MEAN PLATELET VOLUME 9.1 fL (7.4-10.4); MONO % 2.4 %; NEUT % 90.2 %; PLATELET COUNT 303 K/uL (130-400); RED BLOOD COUNT 4.15 M/uL (4.2-5.4)
--- NOTE | 2017-05-24 15:52 | DIAGNOSTIC IMAGING REPORT ---
CHEST ONE VIEW PORTABLE CLINICAL HISTORY: Flank pain hematuria COMPARISON STUDY: 04/22/2016 FINDINGS: The cardiac and mediastinal contours are normal. There is no evidence of focal pulmonary consolidation. There is no evidence of failure. No pleural effusions are visualized.[ IMPRESSION: No active disease in the chest. Electronically signed by: Osbaldo Pino M.D. 05/24/2017 3:51 PM Dictated Date/Time: 05/24/2017 3:50 PM
[2017-05-24 15:56] LABS: ALT/SGPT 37 U/L (12-78); BLOOD UREA NITROGEN 9 mg/dl (7-18); BUN/CREATININE RATIO 8.9 (10-20); CALCIUM 8.6 mg/dl (8.5-10.1); CARBON DIOXIDE 24 mmol/L (21-32); CHLORIDE 106 mmol/L (98-107); CREATININE 0.99 mg/dl (0.60-1.20); GLUCOSE 198 mg/dl (70-99); POTASSIUM 3.5 mmol/L (3.5-5.1); SODIUM 139 mmol/L (136-145)
[2017-05-24 15:59] LABS: ALKALINE PHOSPHATASE 91 U/L (45-117); AST/SGOT 17 U/L (15-37)
[2017-05-24] MEDS ORDERED: ATV/1 PO (16:00)
[2017-05-24] MEDS ORDERED: OXCA150T2 PO (16:00)
[2017-05-24 16:01] LABS: URINE APPEARANCE CLEAR (CLEAR); URINE BILIRUBIN NEG (NEG); URINE COLOR YELLOW; URINE NITRITE NEG (NEG); URINE SPECIFIC GRAVITY 1.015 (1.000-1.030); UROBILINOGEN NEG (NEG)
[2017-05-24 16:03] LABS: MANUAL MICROSCOPIC REQUIRED? NO; REVIEW REQ? NO
--- NOTE | 2017-05-24 16:10 | DIAGNOSTIC IMAGING REPORT ---
CT SCAN OF THE ABDOMEN AND PELVIS WITHOUT CONTRAST CLINICAL HISTORY: Right flank pain COMPARISON STUDY: 05/19/2016 TECHNIQUE: CT scan of the abdomen and pelvis was performed from the lung bases to the proximal femurs. Images are reviewed in the axial, sagittal, and coronal planes. IV contrast was not administered for this examination. A dose lowering technique was utilized adhering to the principles of ALARA. CT DOSE: 1693.12 mGy.cm FINDINGS: Lower chest: There are trace bilateral pleural effusions Liver: There is borderline hepatomegaly. No hepatic masses are visualized in this noncontrast study. Gallbladder: Unremarkable. Spleen: Normal in size and attenuation. Pancreas: Unremarkable. Adrenal glands: Unremarkable. Kidneys: There are 2 lower pole left renal calculi, the largest of which measures 3 mm. There is a punctate lower pole right renal calculus. No ureteral or bladder calculi are visualized area there is mild prominence the right renal pelvis unchanged from the prior 2015 study. There is no significant perinephric edema. Bowel: There are no transition zones indicate bowel obstruction. The appendix appears normal. There is no acute diverticulitis. Peritoneum: There is no intraperitoneal free air or abdominal ascites. Vasculature: The abdominal aorta is normal in course and caliber. Adenopathy: None. Pelvic viscera: The uterus appears surgically absent. Skeletal structures: No destructive osseous lesions are seen. IMPRESSION: 1. Bilateral nonobstructing renal calculi 2. No evidence of bowel obstruction. No evidence of free air 3. Normal appendix. No evidence of diverticulitis. Electronically signed by: Osbaldo Pino M.D. 05/24/2017 4:09 PM Dictated Date/Time: 05/24/2017 4:05 PM
[2017-05-24] MEDS ORDERED: CEFTRIAXONE SOD INJ 1 GM ADDVIAL IV STA (16:32)
[2017-05-24] MEDS ORDERED: LEVO-366 PO (16:53)
[2017-05-24] MEDS ORDERED: OXYCODONE IR HOME PACK PO ONE (17:00)
[2017-05-24] MEDS ORDERED: PHENERGAN 25MG HOMEPACK PO ONE (17:00)
[2017-05-24 17:48] VITALS: BP 139/87; PULSE 105; O2SAT 95
--- NOTE | 2017-05-24 18:38 | EMERGENCY ROOM VISIT NOTE ---
History Report prepared by Chris: Aguila Ocampo Under the Supervision of: Dr. Juancho Sanchez M.D. First contact with patient: 15:09 Chief Complaint: BACK PAIN Stated Complaint: BACK PAIN,COUGH History of Present Illness The patient is a 36 year old female with a history of kidney stones who presents to the Emergency Room with complaints of persistent low right back pain that started a week ago. She notes that she then started having burning with urination a couple days after the back pain started. She adds that the low back pain feels like putting "Icy-Hot on it". The patient says that she has never had anything like this before. She adds that the pain radiates down her right leg. She states that the symptoms came "out of the blue". The patient notes that she has been dealing with bronchitis over the past month, and has been treated twice for it with Amoxicillin and Augmentin. Pt denies LOC, headache, fevers, chills, diaphoresis, visual changes, neck pain, chest pain, breathing difficulties, nausea, vomiting, abdominal pain, melena, hematochezia, numbness, weakness, lymphadenopathy, rash, or other complaints. Source of History: patient Onset: A week ago Position: back (low right) Timing: other (persistent) Associated Symptoms: + urinary symptoms Note: Associated symptoms: Pain radiating down right leg. Review of Systems See HPI for pertinent positives and negatives. A total of ten systems were reviewed and were otherwise negative. 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 (5) Kidney stone (6) Kidney stone (7) Left knee DJD (8) Migraine (9) Painful orthopaedic hardware (10) Somnolence (11) UTI (urinary tract infection) Surgical Problems: (1) Robotic hysterectomy (2) S/P hysterectomy Family History Cancer Diabetes mellitus Gallbladder disease Heart disease Hypertension Kidney disease or stones Lung disease Seizures Social History Smoking Status: Current Every Day Smoker Alcohol Use: none Marital Status: Housing Status: lives with significant other Occupation Status: disabled Current/Historical Medications Scheduled Atorvastatin (Lipitor), 10 MG PO QAM Chlorpromazine Hcl (Thorazine), 300 MG PO HS Levofloxacin (Levaquin), 500 MG PO DAILY Oxcarbazepine (Trileptal), 150 MG PO BID Propranolol (Inderal), 80 MG PO BID Scheduled PRN Acetaminophen (Tylenol), 1,000 MG PO Q6H PRN for Pain Albuterol (Ventolin Hfa), 3-4 PUFFS INH QID PRN for Shortness of Breath Ibuprofen (Advil), 400-600 MG PO Q6H PRN for Pain Lorazepam (Ativan), 1 MG PO Q6H PRN for Anxiety Oxycodone Ir (Roxicodone Ir), 5 MG PO Q4H PRN for Pain Allergies Coded Allergies: Sulfa Drugs (Verified Allergy, Unknown, RASH, NAUSEA, 05/24/17) Tramadol (Unverified Allergy, Unknown, RASH,NAUSEA, 05/24/17) Physical Exam Vital Signs Date Time Temp Pulse Resp B/P (MAP) Pulse Ox O2 Delivery O2 Flow Rate FiO2 05/24/17 17:48 105 20 139/87 95 05/24/17 17:09 109 20 133/89 94 Room Air 05/24/17 16:11 105 05/24/17 16:10 106 18 137/83 96 Room Air 05/24/17 14:10 36.5 112 20 127/78 97 Room Air Physical Exam GENERAL: Awake, alert, uncomfortable-appearing, in no distress HENT: Normocephalic, atraumatic. Oropharynx unremarkable. EYES: Normal conjunctiva. Sclera non-icteric. NECK: Supple. No nuchal rigidity. FROM. No JVD. RESPIRATORY: Scattered rhonchi. CARDIAC: Regular rate, normal rhythm. Extremities warm and well perfused. Pulses equal. ABDOMEN: Soft, non-distended. No tenderness to palpation. No rebound or guarding. No masses. RECTAL: Deferred. MUSCULOSKELETAL: Chest examination reveals no tenderness. The back is symmetrical on inspection without obvious abnormality. There is right CVA and right flank tenderness. No joint edema. LOWER EXTREMITIES: Calves are equal size bilaterally and non-tender. No edema. No discoloration. NEURO: Normal sensorium. No sensory or motor deficits noted. SKIN: No rash or jaundice noted. Medical Decision & Procedures ER Provider Diagnostic Interpretation: Radiology results as stated below per my review and radiologist interpretation: CHEST ONE VIEW PORTABLE CLINICAL HISTORY: Flank pain hematuria COMPARISON STUDY: 04/22/2016 FINDINGS: The cardiac and mediastinal contours are normal. There is no evidence of focal pulmonary consolidation. There is no evidence of failure. No pleural effusions are visualized.[ IMPRESSION: No active disease in the chest. Electronically signed by: Osbaldo Pino M.D 05/24/2017 3:51 PM Dictated Date/Time: 05/24/2017 3:[address] SCAN OF THE ABDOMEN AND PELVIS WITHOUT CONTRAST CLINICAL HISTORY: Right flank pain COMPARISON STUDY: 05/19/2016 TECHNIQUE: CT scan of the abdomen and pelvis was performed from the lung bases to the proximal femurs. Images are reviewed in the axial, sagittal, and coronal planes. IV contrast was not administered for this examination. A dose lowering technique was utilized adhering to the principles of ALARA. CT DOSE: 1693.12 mGy.cm FINDINGS: Lower chest: There are trace bilateral pleural effusions Liver: There is borderline hepatomegaly. No hepatic masses are visualized in this noncontrast study. Gallbladder: Unremarkable. Spleen: Normal in size and attenuation. Pancreas: Unremarkable. Adrenal glands: Unremarkable. Kidneys: There are 2 lower pole left renal calculi, the largest of which measures 3 mm. There is a punctate lower pole right renal calculus. No ureteral or bladder calculi are visualized area there is mild prominence the right renal pelvis unchanged from the prior 2016 study. There is no significant perinephric edema. Bowel: There are no transition zones indicate bowel obstruction. The appendix appears normal. There is no acute diverticulitis. Peritoneum: There is no intraperitoneal free air or abdominal ascites. Vasculature: The abdominal aorta is normal in course and caliber. Adenopathy: None. Pelvic viscera: The uterus appears surgically absent. Skeletal structures: No destructive osseous lesions are seen. IMPRESSION: 1. Bilateral nonobstructing renal calculi 2. No evidence of bowel obstruction. No evidence of free air 3. Normal appendix. No evidence of diverticulitis. Electronically signed by: Osbaldo Pino M.D. 05/24/2017 4:09 PM Dictated Date/Time: 05/24/2017 4:05 PM Laboratory Results 05/24/17 15:30 Red Blood Count 4.15, Mean Corpuscular Volume 94.5, Mean Corpuscular Hemoglobin 32.3, Mean Corpuscular Hemoglobin Concent 34.2, Mean Platelet Volume 9.1, Neutrophils (%) (Auto) 90.2, Lymphocytes (%) (Auto) 6.9, Monocytes (%) (Auto) 2.4, Eosinophils (%) (Auto) 0.0, Basophils (%) (Auto) 0.1, Neutrophils # (Auto) 15.24, Lymphocytes # (Auto) 1.16, Monocytes # (Auto) 0.41, Eosinophils # (Auto) 0.00, Basophils # (Auto) 0.02 05/24/17 15:30 Test 05/24/17 15:30 05/24/17 15:35 White Blood Count 16.90 K/uL (4.8-10.8) Red Blood Count 4.15 M/uL (4.2-5.4) Hemoglobin 13.4 g/dL (12.0-16.0) Hematocrit 39.2 % (37-47) Mean Corpuscular Volume 94.5 fL (80-100) Mean Corpuscular Hemoglobin 32.3 pg (25-34) Mean Corpuscular Hemoglobin Concent 34.2 g/dl (32-36) Platelet Count 303 K/uL (130-400) Mean Platelet Volume 9.1 fL (7.4-10.4) Neutrophils (%) (Auto) 90.2 % Lymphocytes (%) (Auto) 6.9 % Monocytes (%) (Auto) 2.4 % Eosinophils (%) (Auto) 0.0 % Basophils (%) (Auto) 0.1 % Neutrophils # (Auto) 15.24 K/uL (1.4-6.5) Lymphocytes # (Auto) 1.16 K/uL (1.2-3.4) Monocytes # (Auto) 0.41 K/uL (0.11-0.59) Eosinophils # (Auto) 0.00 K/uL (0-0.5) Basophils # (Auto) 0.02 K/uL (0-0.2) RDW Standard Deviation 48.0 fL (36.4-46.3) RDW Coefficient of Variation 14.0 % (11.5-14.5) Immature Granulocyte % (Auto) 0.4 % Immature Granulocyte # (Auto) 0.07 K/uL (0.00-0.02) Anion Gap 10.0 mmol/L (3-11) Est Creatinine Clear Calc Drug Dose 93.4 ml/min Estimated GFR () 84.4 Estimated GFR (Non- 72.8 BUN/Creatinine Ratio 8.9 (10-20) Calcium Level 8.6 mg/dl (8.5-10.1) Total Bilirubin 0.1 mg/dl (0.2-1) Direct Bilirubin < 0.1 mg/dl (0-0.2) Aspartate Amino Transf (AST/SGOT) 17 U/L (15-37) Alanine Aminotransferase (ALT/SGPT) 37 U/L (12-78) Alkaline Phosphatase 91 U/L (45-117) Total Protein 7.6 gm/dl (6.4-8.2) Albumin 3.7 gm/dl (3.4-5.0) Lipase 181 U/L (73-393) Urine Color YELLOW Urine Appearance CLEAR (CLEAR) Urine pH 6.0 (4.5-7.5) Urine Specific [place] 1.015 (1.000-1.030) Urine Protein NEG (NEG) Urine Glucose (UA) 1+ (NEG) Urine Ketones NEG (NEG) Urine Occult Blood 1+ (NEG) Urine Nitrite NEG (NEG) Urine Bilirubin NEG (NEG) Urine Urobilinogen NEG (NEG) Urine Leukocyte Esterase TRACE (NEG) Urine WBC (Auto) 1-5 /hpf (0-5) Urine RBC (Auto) 0-4 /hpf (0-4) Urine Hyaline Casts (Auto) 0 /lpf (0-5) Urine Epithelial Cells (Auto) 10-20 /lpf (0-5) Urine Bacteria (Auto) NEG (NEG) Urine Test NEG (NEG) Laboratory results reviewed by me Medications Administered Medications (Trade) Dose Ordered Sig/Carol Route Start Time Stop Time Status Last Admin Dose Admin Sodium Chloride 1,000 ml @ 999 mls/hr Q1H1M STAT IV 05/24/17 15:25 05/24/17 16:25 DC 05/24/17 15:37 999 MLS/HR Ceftriaxone Sodium (Rocephin Inj) 1 gm NOW STAT IV 05/24/17 16:32 05/24/17 16:33 DC 05/24/17 16:45 1 GM Oxycodone HCl (Roxicodone Immediate Rel 5MG Home Pack) 1 homepack UD ONCE PO 05/24/17 17:00 05/24/17 17:01 DC 05/24/17 17:42 1 HOMEPACK Promethazine HCl (Phenergan 25MG Home Pack) 1 homepack UD ONCE PO 05/24/17 17:00 05/24/17 17:01 DC 05/24/17 17:43 1 HOMEPACK ED Course 1524: The patient was evaluated in room B2. A complete history and physical exam was performed. 1525: Ordered NSS 1000 ml @ 999 mls/hr IV. 1632: Ordered Rocephin Inj 1 gm IV. I reevaluated the patient and she is doing better, and will follow-up in the office this week. Discussed results and discharge instructions: she verbalized understanding and agreement. The patient is ready for discharge. 1700: Ordered Phenergan 25MG Home Pack 1 homepack PO, Roxicodone Immediate Rel 5MG Home Pack 1 homepack PO. Medical Decision Triage Nursing notes reviewed. The patient's presentation and history were concerning for flank pain and urinary symptoms Etiologies such as renal colic, appendicitis, diverticulitis, mesenteric ischemia, aortic pathology, infections, inflammatory bowel disease, PUD, biliary pathology, UTI, as well as others were entertained. The patient was evaluated. She was uncomfortable. She had right CVA tenderness. Her urinary symptoms were concerning that infection may be present. She has had a moderate cough. This is been going on and did not respond to Augmentin as an outpatient. She is a smoker. The patient had chest x-ray performed and there is no evidence of pneumonia. I suspect a chronic bronchitis given her history of smoking and her examination. The patient had a leukocytosis on CBC. Her chemistry panel was unremarkable except for mild hyperglycemia. The patient had a slightly abnormal urinalysis but given the symptoms a culture was sent. She was hydrated. She did drive herself to the emergency department and therefore pain medicine was not given in the Emergency Room. She was given a dose of IV Rocephin. The patient will be treated with Levaquin as an outpatient. This will cover both her kidney and pulmonary symptoms. She is allergic to sulfa. The patient was given a home pack of oxycodone. She was instructed not to mix this with her outpatient psychiatric medications. She will need close outpatient follow-up. She will also need a repeat glucose check her PCP. The patient was notified. By the evaluation outlined above other emergent etiologies such as those listed in the differential, as well as others, were deemed relatively unlikely. The patient was educated about the findings as listed above. All questions were answered and the patient was pleased with the treatment. Return instructions were outlined and the patient was discharged in stable condition. The patient was referred to to her PCP for follow-up for a recheck of the current condition. [place] Drug [place] Search Results: patient reviewed within database Drug Monitoring Findings: Patient has multiple prescriptions noted, most of them are from her psychiatrist. Medication Reconcilliation Current Medication List: was personally reviewed by me Blood Pressure Screening Patient's blood pressure: Elevated blood pressure Blood pressure disposition: Elevated BP felt to be situational Impression Primary Impression: Pyelonephritis Additional Impression: Bronchitis Scribe Attestation The scribe's documentation has been prepared under my direction and personally reviewed by me in its entirety. I confirm that the note above accurately reflects all work, treatment, procedures, and medical decision making performed by me. Departure Information Dispostion Home / Self-Care Prescriptions Levofloxacin (Levaquin) 500 Mg Tab 500 MG PO DAILY for 7 Days, #7 TAB Prov: Juancho Sanchez MD 05/24/17 Referrals No Doctor, Assigned (PCP) Jocelyne Burr D.O. Forms HOME CARE DOCUMENTATION FORM, IMPORTANT VISIT INFORMATION, Work Instructions Patient Instructions My [facility] Additional Instructions Levaquin 500mg: Take one pill daily. All antibiotics can cause diarrhea. If this occurs and you feel worse or it does not resolve in 1-2 days follow up with your doctor or return to the Emergency Department as this could be signs of serious underlying problems. If you experience any pain in your tendons or any tendon injury return to the ER for re-evaluation. Any medication can cause an allergic reaction, stop the pills immediately and return to the ER for rash, hives, breathing difficulties, or swelling. Oxycodone (OxyIR) 5mg: Take 1-2 pills every four hours as needed for breakthrough pain. Avoid alcohol, operating machinery or dangerous equipment, working on ladders or roofs, DRIVING, or situations where being under the influence may be dangerous. It is recommended to use a stool softener such as Colace, 100mg twice daily while taking this medication to avoid constipation. Phenergan 25mg tabs, one every six hours for nausea. Ibuprofen(Motrin, Advil) may be used for fever or pain. Use 600mg every six hours as needed. Take with food. Avoid using more than 2400mg in a 24 hour period. Do not use 2400mg per day for more than three consecutive days without physician direction. Prolonged inappropriate use can lead to stomach upset or ulcers. (AND/OR) Acetaminophen(Tylenol) may be used for fever or pain. Use 1000mg every six hours as needed. Avoid using more than 4000mg in a 24 hour period. Use your inhaler 2 puffs 4 times a day for the next 5 days. Stop smoking. Rest and drink plenty of fluids. Continue current medications. Return to the ER immediately for worsening or persistent abdominal pain, vomiting, fevers, back or flank pain, worsening of your condition, or as needed. Follow up with your primary physician within 2-3 days for a recheck of the current condition. Problem Qualifiers
[2017-06-09] MEDS ORDERED: OXCA300T4 PO (14:21)
[2017-06-09] MEDS ORDERED: HYDR-5688 PO (16:07)
[2017-06-09] MEDS ORDERED: ONDA4TAB10 SL (16:07)
== END 2017-05-24 17:50 | disposition home or self-care (01) ==
LOC: C.EDB 13:55
DX: N12 Tubulo-interstitial nephritis, not specified as acute or chronic (principal); J40 Bronchitis, not specified as acute or chronic; F31.9 Bipolar disorder, unspecified; M17.12 Unilateral primary osteoarthritis, left knee; F17.200 Nicotine dependence, unspecified, uncomplicated; Z87.442 Personal history of urinary calculi; Z90.710 Acquired absence of both cervix and uterus; Z83.3 Family history of diabetes mellitus; Z82.49 Family history of ischemic heart disease and other diseases of the circulatory system; Z84.1 Family history of disorders of kidney and ureter; Z82.0 Family history of epilepsy and other diseases of the nervous system

== ENCOUNTER → 2017-06-15 | Outpatient (CLI) | payer OTHER ==
[~2017-06-15] MED LIST changes: -ACET-1256 PO; +ATV/1 PO; +HYDR-5688 PO; -IBUP-1050 PO; -LURA80TA PO; -MAGN1TAB41 PO; +ONDA4TAB10 SL; +OXCA300T4 PO; -OXYC1TAB3 PO
[2017-06-19 00:33] LABS: CHLAMYDIA TRACH RNA*** NOT DETECTED (NOT DETECTED); GC (NEIS GONORRHOEAE)RNA** NOT DETECTED (NOT DETECTED); TRICHOMONAS VAGINALIS RNA** DETECTED (NOT DETECTED)
== END | disposition home or self-care (01) ==
LOC: C.LABSPEC 15:36
PROVIDERS: ATTEND Obstetrics & Gynecology
DX: R10.2 Pelvic and perineal pain (principal)

== ENCOUNTER 2017-12-02 08:55 | Emergency (ER) | payer OTHER ==
[~2017-12-02] VITALS: Ht 167.6 cm; Wt 100.0 kg
[2017-12-02 09:04] VITALS: Ht 167.6 cm; Wt 100.0 kg
[2017-12-02] MEDS ORDERED: DiphenhydrAMINE HCL 50 MG/ML VIAL IV STA (09:21)
[2017-12-02] MEDS ORDERED: SODIUM CHLORIDE 0.9% 500ML 500 ML IV STA (09:21)
[2017-12-02] MEDS ORDERED: KETOROLAC TROMETHAMINE 30 MG/ML VIAL IV STA (09:21)
[2017-12-02] MEDS ORDERED: METOCLOPRAMIDE HCL INJ 5 MG/ML 2 ML VIAL IV. STA (09:21)
--- NOTE | 2017-12-02 09:27 | EMERGENCY ROOM VISIT NOTE ---
History Report prepared by Grayibkrystian: Arianne Hawk Under the Supervision of: Dr. Tavon Orona M.D. First contact with patient: 09:05 Chief Complaint: NECK PAIN Stated Complaint: NECK STIFFNESS, PAIN History of Present Illness The patient is a 37 year old white female with a past medical history of migraine headaches who presents to the ED with a cc of persistent neck pain beginning 1 week ago. She rates her pain as an 8/10 in severity and describes it as feeling "sharp" in nature. Positive recent cough from bronchitis. Negative fevers, chills, abdominal pain, recent trauma, heavy lifting or known injuries. The patient notes she did recently have an MRI of the neck and is scheduled to see a headache specialist this coming fall. 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 A total of ten systems were reviewed and were otherwise negative. 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 (5) Kidney stone (6) Kidney stone (7) Left knee DJD (8) Migraine (9) Painful orthopaedic hardware (10) Somnolence (11) UTI (urinary tract infection) Surgical Problems: (1) Robotic hysterectomy (2) S/P hysterectomy Family History Cancer Diabetes mellitus Gallbladder disease Heart disease Hypertension Kidney disease or stones Lung disease Seizures Social History Smoking Status: Current Every Day Smoker Alcohol Use: none Drug Use: none Marital Status: Housing Status: lives with significant other Occupation Status: disabled Current/Historical Medications Scheduled Amitriptyline HCl (Amitriptyline HCl), 1 TAB HS Atorvastatin (Lipitor), 10 MG PO QAM Lamotrigine (Lamictal), 100 MG PO DAILY Propranolol (Inderal), 80 MG PO BID Scheduled PRN Albuterol (Ventolin Hfa), 3-4 PUFFS INH QID PRN for Shortness of Breath Lorazepam (Ativan), 1 MG PO Q6H PRN for Anxiety Allergies Coded Allergies: Sulfa Drugs (Verified Allergy, Unknown, RASH, NAUSEA, 12/02/17) Tramadol (Unverified Allergy, Unknown, RASH,NAUSEA, 12/02/17) Physical Exam Vital Signs Date Time Temp Pulse Resp B/P (MAP) Pulse Ox O2 Delivery O2 Flow Rate FiO2 12/02/17 11:11 36.7 77 18 106/64 96 12/02/17 10:41 77 18 106/64 96 Room Air 12/02/17 10:02 79 18 101/61 95 Room Air 12/02/17 09:04 36.7 77 16 147/90 96 Room Air Physical Exam GENERAL: Awake, alert, obese-appearing, NAD HENT: Normocephalic, atraumatic. EYES: Normal conjunctiva. Sclera non-icteric. PERRL. No anisocoria. NECK: Supple. No nuchal rigidity. FROM. Some paraspinal cervical discomfort, pain along right trapezius. RESPIRATORY: CTAB, no rhonchi, wheezing, crackles CARDIAC: RRR, no MRG ABDOMEN: Soft, NTND, BS+ MSK: No chest wall TTP, no LE edema NEURO: CN 2-12 intact, 5/5 upper and lower extremity strength, no dysmetria, no drift, good finger to nose, no sensory deficits. Finger count grossly normal. SKIN: No rash or jaundice noted. B/l incisional scars over anterior knees, CDI Medical Decision & Procedures Medications Administered Medications (Trade) Dose Ordered Sig/Carol Route Start Time Stop Time Status Last Admin Dose Admin Diphenhydramine HCl (Benadryl Inj) 25 mg NOW STAT IV 12/02/17 09:21 12/02/17 09:23 DC 12/02/17 09:44 25 MG Metoclopramide HCl (Reglan Inj) 10 mg NOW STAT IV. 12/02/17 09:21 12/02/17 09:23 DC 12/02/17 09:43 10 MG Ketorolac Tromethamine (Toradol Inj) 30 mg NOW STAT IV 12/02/17 09:21 12/02/17 09:23 DC 12/02/17 09:44 30 MG Sodium Chloride 500 ml @ 999 mls/hr Q31M STAT IV 12/02/17 09:21 12/02/17 09:51 DC 12/02/17 09:43 999 MLS/HR Cyclobenzaprine HCl (Flexeril Tab) 10 mg ONE STAT PO 12/02/17 10:11 12/02/17 10:12 DC 12/02/17 10:15 10 MG ED Course 0913: The patient was evaluated in room B9. A complete history and physical exam was performed. 1015: I reevaluated the patient. She is still in some pain but feeling a little better. 1038: Nursing informed me the patient is feeling better. 1045: I reevaluated the patient. She is feeling well and resting comfortably. I discussed her results and discharge instructions and she verbalized complete understanding and agreement. Medical Decision The patient is a 37 year old white female with a past medical history of migraine headaches who presents to the ED with a cc of persistent neck pain beginning 1 week ago. Triage Nursing notes reviewed. The patient's presentation and history were concerning for neck pain. Differential diagnosis: Etiologies such as fracture, dislocation, neurovascular compromise, compartment syndrome, soft tissue injury, as well as others were entertained. Nursing notes reviewed. Ancillary studies and prior records reviewed. Patient was seen and evaluated the bedside. Patient does have a prior history of migraine headaches. Patient noted that she has had some persistent neck pain located in the lateral area of the C-spine on the right side. On exam she does have some paraspinal cervical spine tenderness as well as some right trapezius tenderness. Patient does have an issue that with her neck pain she will develop migraine headaches. Patient is scheduled to see a headache specialist and does follow with neurology. On exam the patient otherwise has a nonfocal neurologic exam. The patient has good range of motion no signs of meningismus. I do not believe the patient requires imaging as she had a recent MRI that she states did not have any acute findings. Patient denies trauma and has a nonfocal neurologic exam. I do not believe that she requires any imaging or blood work at this time. Patient was stating that she still was not feeling as comfortable. Patient was given some Flexeril. Patient was told that she needs to follow-up with pain management as well as her headache specialist. Patient was given strict follow- up, discharge, and return precautions. All questions were answered. Patient was deemed suitable for outpatient follow-up at this time. Patient agreed with the plan of care and was safely discharged home. [place] Results: patient reviewed within database, no issues identified Medication Reconcilliation Current Medication List: was personally reviewed by me Blood Pressure Screening Patient's blood pressure: Elevated blood pressure Blood pressure disposition: Elevated BP felt to be situational Impression Primary Impression: Neck pain Additional Impression: Encounter for smoking cessation counseling Scribe Attestation The scribe's documentation has been prepared under my direction and personally reviewed by me in its entirety. I confirm that the note above accurately reflects all work, treatment, procedures, and medical decision making performed by me. Departure Information Dispostion Home / Self-Care Referrals Jocelyne Burr D.O. (PCP) Patient Instructions ED Smoking Cessation, My [facility] Additional Instructions Please return to the emergency department if you have worsening or recurrent symptoms not amenable to at-home treatment. Please call for a follow-up appointment with her primary care physician. Please take your medications as prescribed. If you have other concerns and/or complaints please feel free to also call your primary care physician's office or return the ED for further evaluation, management, and treatment. You may take 800 mg Ibuprofen every 6 hours as needed for pain/fever with food unless told by your physician not to take NSAIDs. You may take tylenol 1000 mg every 6 hours as needed for pain/fever unless told by your physician to not take it or have liver problems. You may take motrin and tylenol separately or at the same time. Take your medications as prescribed. Consider moist heat. Please follow-up with your PCP and discuss further treatments with pain management. Please follow-up with her headache specialist. You have been examined and treated today on an emergency basis only. This is not a substitute for, or an effort to provide, complete comprehensive medical care. It is impossible to recognize and treat all injuries or illnesses in a single emergency department visit. It is therefore important that you follow up closely with [facility], your PCP, and/or your specialist(s). Call as soon as possible for an appointment. Thank you for your time and consideration. I look forward to speaking with you again soon. Please don't hesitate to call us if you have any questions. Problem Qualifiers
[2017-12-02] MEDS ORDERED: CYCLOBENZAPRINE HCL 5 MG TAB PO STA (10:11)
[2017-12-02] MEDS ORDERED: AMT25 (10:11)
[2017-12-02] MEDS ORDERED: LAMO100T16 PO (10:12)
[2017-12-02 11:11] VITALS: BP 106/64; PULSE 77; TEMP 36.7; O2SAT 96
== END 2017-12-02 11:05 | disposition home or self-care (01) ==
LOC: C.EDB 08:56
DX: M54.2 Cervicalgia (principal); Z71.6 Tobacco abuse counseling; F31.9 Bipolar disorder, unspecified; M17.12 Unilateral primary osteoarthritis, left knee; Z87.440 Personal history of urinary (tract) infections; Z90.710 Acquired absence of both cervix and uterus; Z87.442 Personal history of urinary calculi; Z80.9 Family history of malignant neoplasm, unspecified; Z83.3 Family history of diabetes mellitus; Z82.49 Family history of ischemic heart disease and other diseases of the circulatory system; Z84.1 Family history of disorders of kidney and ureter; Z82.0 Family history of epilepsy and other diseases of the nervous system; Z79.899 Other long term (current) drug therapy; Z88.2 Allergy status to sulfonamides; Z88.8 Allergy status to other drugs, medicaments and biological substances

== ENCOUNTER 2017-12-16 16:11 | Emergency (ER) | payer OTHER ==
[~2017-12-16] VITALS: Ht 167.6 cm; Wt 106.5 kg
[~2017-12-16 16:11] MED LIST changes: +AMT25; -CHLO100T8 PO; -HYDR-5688 PO; +LAMO100T16 PO; -ONDA4TAB10 SL; -OXCA300T4 PO
[2017-12-16 16:14] VITALS: TEMP 36.7; Ht 167.6 cm; Wt 106.5 kg
[2017-12-16] MEDS ORDERED: ALBUT/IPRATROP 3MG/0.5MG NEB 3 ML VIAL INH STA (16:32)
--- NOTE | 2017-12-16 16:39 | EMERGENCY ROOM VISIT NOTE ---
History Report prepared by Chris: Melvin Lam Under the Supervision of: Dr. Mark Anthony Portillo D.O. First contact with patient: 16:29 Chief Complaint: COUGH Stated Complaint: COUGH, WHEEZING, CHEST TIGHT Nursing Triage Summary: c/o cough, sob, tightness in chest, wheezing, headache. History of Present Illness The patient is a 37 year old female who presents to the Emergency Room with complaints of a persistent dry cough beginning four days ago. The patient states that she thinks that she may have bronchitis as she has a cough, chest tightness, and SOB. She notes that her chest tightness worsens when she coughs. She reports that she has had bronchitis before and has similar symptoms. The patient states that when she had bronchitis, she was started on prednisone and Augmentin, but did not receive any breathing treatments. She notes that she has been using Robitussin and a rescue inhaler at home with no relief of her symptoms. She denies any fever, rhinorrhea, sore throat, and known sick contacts. She reports that she does not have a history of blood clots and cancer , but has had a hysterectomy. The patient states that she smokes cigarettes but does not drink alcohol. Source of History: patient Onset: four days ago Position: chest Quality: other (dry cough) Timing: other (persistent) Associated Symptoms: + SOB, No fevers, No sorethroat Note: The patient also complains of chest tightness. She denies any rhinorrhea. Review of Systems See HPI for pertinent positives & negatives. A total of 10 systems reviewed and were otherwise negative. 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 (12) Migraine (13) Painful orthopaedic hardware (14) Somnolence (15) UTI (urinary tract infection) Surgical Problems: (1) Robotic hysterectomy (2) S/P hysterectomy Family History Cancer Diabetes mellitus Gallbladder disease Heart disease Hypertension Kidney disease or stones Lung disease Seizures Social History Smoking Status: Current Some Day Smoker Alcohol Use: none Drug Use: none Marital Status: Housing Status: lives with significant other Occupation Status: disabled Current/Historical Medications Scheduled Albuterol Hfa (Ventolin Hfa), 1 PUFF INH Q4 Amitriptyline HCl (Amitriptyline HCl), 1 TAB HS Amoxicillin & Pot Clavulanate (Augmentin 875-125 mg), 875 MG PO BID Atorvastatin (Lipitor), 10 MG PO QAM Lamotrigine (Lamictal), 100 MG PO DAILY Prednisone (Prednisone Tab), 40 MG PO DAILY Propranolol (Inderal), 80 MG PO BID Scheduled PRN Albuterol (Ventolin Hfa), 3-4 PUFFS INH QID PRN for Shortness of Breath Lorazepam (Ativan), 1 MG PO Q6H PRN for Anxiety Allergies Coded Allergies: Sulfa Drugs (Verified Allergy, Unknown, RASH, NAUSEA, 12/02/17) Tramadol (Unverified Allergy, Unknown, RASH,NAUSEA, 12/02/17) Physical Exam Vital Signs Date Time Temp Pulse Resp B/P (MAP) Pulse Ox O2 Delivery O2 Flow Rate FiO2 12/16/17 17:13 96 18 136/85 96 12/16/17 16:39 Room Air 12/16/17 16:14 36.7 99 18 120/73 97 Room Air Physical Exam GENERAL: Patient is awake, alert, and in no acute distress. Patient is resting comfortably and showing no signs of anxiety EYES: The conjunctivae are clear. The pupils are round and reactive. EARS, NOSE, MOUTH AND THROAT: The nose is without any evidence of any deformity. Mucous membranes are moist tongue is midline NECK: The neck is nontender and supple. RESPIRATORY: Diminished breath sounds throughout with expiratory wheezing in both lung zamora, no pursed lip breathing noted. CARDIOVASCULAR: Regular rate and rhythm noted there no murmurs rubs or gallops normal S1 normal S2 GASTROINTESTINAL: The abdomen is soft. Bowel sounds are present in all quadrants. Abdomen is nontender MUSCULOSKELETAL/EXTREMITIES: There is no evidence of gross deformity full range of motion is noted in the hips and shoulders SKIN: There is no obvious evidence of any rash. There are no petechiae, pallor or cyanosis noted. NEUROLOGIC: Patient is awake alert and oriented x3 Medical Decision & Procedures ER Provider Diagnostic Interpretation: Radiology results as stated below per my review and radiologist interpretation: CHEST 2 VIEWS ROUTINE FINDINGS: The lungs are clear. Cardiac silhouette is normal in size. No pleural effusions. No pneumothorax. IMPRESSION: No acute process. Electronically signed by: Diego Cheng M.D. 12/16/2017 5:13 PM Medications Administered Medications (Trade) Dose Ordered Sig/Carol Route Start Time Stop Time Status Last Admin Dose Admin Prednisone (PredniSONE TAB) 60 mg NOW STAT PO 12/16/17 16:32 12/16/17 16:34 DC 12/16/17 16:36 60 MG Amoxicillin/ Clavulanate Potassium (Augmentin Tab) 875 mg ONE ONCE PO 12/16/17 16:45 12/16/17 16:46 DC 12/16/17 16:36 875 MG Albuterol/ Ipratropium (Duoneb) 3 ml NOW STAT INH 12/16/17 16:32 12/16/17 16:34 DC 12/16/17 16:36 3 ML ED Course 1630: The patient was evaluated in room B12. A complete history and physical examination were performed. 1632: DuoNeb 3ml INH, Prednisone 60mg PO 1645: Augmentin Tab 875mg PO 1707: Upon reevaluation, the patient is stable. I discussed the results and treatment plan with her. She verbalized agreement of the treatment plan. The patient was discharged home. Medical Decision Prior records/ancillary studies reviewed. Triage Nursing notes reviewed. Additional history obtained from the family. The patient's PERC score was zero. The patient's history was concerning for respiratory difficulties. Differential diagnosis: Etiologies such as infections, reactive airway disease, pneumonia, pneumothorax , COPD, CHF, cardiac ischemia, pulmonary embolism, musculoskeletal, gastrointestinal, as well as others were entertained. The patient is a 37-year-old female who presented to the emergency department for an evaluation of cough. The patient had a nonproductive cough. Her history and physical exam appear to be consistent with a bronchospastic process. She states that she has had problems with bronchitis in the past. The patient was not tachycardic. She was not hypoxic. She was treated with bronchodilator therapy as well as prednisone and Augmentin in the emergency department. I discussed patient's radiographic studies with her. She was encouraged to rest and avoid any strenuous activity. She was also encouraged to continue all medications as prescribed and follow-up with her primary care physician as soon as possible. She was encouraged to return the emergency department immediately if symptoms change worsen or the need arises. Medication Reconcilliation Current Medication List: was personally reviewed by me Blood Pressure Screening Patient's blood pressure: Normal blood pressure Blood pressure disposition: Did not require urgent referral Impression Primary Impression: Bronchitis Scribe Attestation The scribe's documentation has been prepared under my direction and personally reviewed by me in its entirety. I confirm that the note above accurately reflects all work, treatment, procedures, and medical decision making performed by me. Departure Information Dispostion Home / Self-Care Prescriptions Amoxicillin & Pot Clavulanate (Augmentin 875-125 mg) 1 Tab Tab 875 MG PO BID for 7 Days, #14 TAB Prov: Mark Anthony Portillo, DO 12/16/17 Prednisone (Prednisone Tab) 20 Mg Tab 40 MG PO DAILY, #10 TAB Prov: Mark Anthony Portillo, DO 12/16/17 Albuterol Hfa (VENTOLIN HFA) 200 Puffs/86167 Mcg Aers 1 PUFF INH Q4, #1 INHALER Prov: Mark Anthony Portillo, DO 12/16/17 Referrals Jocelyne Burr D.O. (PCP) Forms HOME CARE DOCUMENTATION FORM, IMPORTANT VISIT INFORMATION Patient Instructions My [facility] Additional Instructions Continue all medications as prescribed. Continue using Tylenol as directed for pain. Rest and avoid any strenuous activity. Follow-up with your family doctor this week for reevaluation. Return to the emergency department immediately if symptoms change worsen or the need arises.
[2017-12-16] MEDS ORDERED: AMOXICILLIN/CLAVULANATE TAB 875 MG TAB PO ONE (16:45)
[2017-12-16] MEDS ORDERED: PRED20TA2 PO (16:51)
[2017-12-16] MEDS ORDERED: VNTHFA/IN INH (16:51)
[2017-12-16] MEDS ORDERED: AMOX875T PO (16:51)
[2017-12-16 17:13] VITALS: BP 136/85; PULSE 96; O2SAT 96
--- NOTE | 2017-12-16 17:14 | DIAGNOSTIC IMAGING REPORT ---
CHEST 2 VIEWS ROUTINE HISTORY: cough COMPARISON: Chest 05/24/2017. FINDINGS: The lungs are clear. Cardiac silhouette is normal in size. No pleural effusions. No pneumothorax. IMPRESSION: No acute process. Electronically signed by: Diego Cheng M.D. 12/16/2017 5:13 PM Dictated Date/Time: 12/16/2017 5:12 PM
== END 2017-12-16 17:15 | disposition home or self-care (01) ==
LOC: C.EDB 16:12
DX: J40 Bronchitis, not specified as acute or chronic (principal); Z90.710 Acquired absence of both cervix and uterus; F17.210 Nicotine dependence, cigarettes, uncomplicated; F41.9 Anxiety disorder, unspecified; F31.9 Bipolar disorder, unspecified; M17.10 Unilateral primary osteoarthritis, unspecified knee; Z87.442 Personal history of urinary calculi; Z87.440 Personal history of urinary (tract) infections; M79.7 Fibromyalgia; Z80.9 Family history of malignant neoplasm, unspecified; Z83.3 Family history of diabetes mellitus; Z82.49 Family history of ischemic heart disease and other diseases of the circulatory system; Z84.1 Family history of disorders of kidney and ureter; Z82.0 Family history of epilepsy and other diseases of the nervous system; Z79.899 Other long term (current) drug therapy; Z88.2 Allergy status to sulfonamides; Z88.8 Allergy status to other drugs, medicaments and biological substances

== ENCOUNTER 2019-11-25 11:27 | Observation (INO) ==
[2019-11-25] MEDS ORDERED: LORazepam 1 MG TAB SL STA (11:58)
--- NOTE | 2019-11-25 12:03 | Emergency Department Note ---
History of Present Illness General Chief complaint: Chest Pain Stated complaint: CHEST PAIN, REF'D BY Time Seen by Provider: 11/25/19 11:47 History of Present Illness Maximum Pain Intensity: 8 This is a 39-year-old female that presents to the emergency department via private vehicle referred by cardiology office with complaints of "chest pain". The patient notes that around 4-5 AM today she noticed a squeezing sensation in the chest. She describes the pain as intermittent. She states that it is a squeezing-like sensation and it is random. There is no exacerbating factors. No alleviating factors. She states that she follows with cardiology for history of abnormal EKGs. She states that she called the cardiology office and was referred here today given her symptoms. She quit smoking 2 months ago. She denies any personal history of VA or PE. No recent cough, fever or sore throat. Of additional note, she stopped taking Klonopin 2 months ago. Home Medications Home Medications Medication Instructions Recorded Confirmed Type sumatriptan succinate 6 mg SUBCUT UD PRN 09/11/18 11/25/19 History tizanidine 4 mg PO Q6H PRN 09/11/18 11/25/19 History propranolol 80 mg PO BID 10/12/18 11/25/19 History dexlansoprazole [Dexilant] 60 mg PO DAILY 10/26/18 11/25/19 History quetiapine [Seroquel] 400 mg PO HS 10/26/18 11/25/19 History acetaminophen [Tylenol Extra 500 mg PO Q6H PRN 08/15/19 11/25/19 History Strength] sertraline 200 mg PO QAM 08/15/19 11/25/19 History ibuprofen 200 mg PO Q6H PRN 08/22/19 11/25/19 History ondansetron 4 mg PO Q8H PRN #8 tab 08/22/19 11/25/19 Rx albuterol sulfate 90 mcg/actuation 1 puffs INH Q4H PRN gm 10/20/19 11/25/19 History aerosol inhaler fluticasone 250 mcg-salmeterol 50 1 puffs INH BID 10/20/19 11/25/19 History mcg/dose blistr powdr for inhalation prochlorperazine maleate 10 mg 10 mg PO UD PRN tab 10/20/19 11/25/19 History tablet topiramate 100 mg tablet 100 mg PO BID 10/20/19 11/25/19 History atorvastatin 20 mg PO DAILY 11/25/19 11/25/19 History doxepin 150 mg PO HS 11/25/19 11/25/19 History loratadine 10 mg PO QAM 11/25/19 11/25/19 History Allergies Allergy/AdvReac Type Severity Reaction Status Date / Time ketorolac [From Toradol] Allergy Mild Rash Verified 11/25/19 13:29 Sulfa (Sulfonamide Allergy Mild RASH, Verified 11/25/19 13:29 Antibiotics) NAUSEA tramadol Allergy Mild RASH,NAUSEA Verified 11/25/19 13:29 Past Med/Surg History Medical History Abdominal pain (Resolved) Abdominal pain (Resolved) Anemia (Resolved) Anxiety (Chronic) Bipolar disorder (Chronic) Bronchitis (Resolved) Constipation (Resolved) Depression (Chronic) DJD (degenerative joint disease) of knee (Resolved 09/07/13) Fibromyalgia (Chronic) Flank pain (Resolved) Headache (Resolved) Hypertension (Chronic) Kidney stone (Resolved) 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) Lumbar pain (Resolved) Migraine (Chronic) Painful orthopaedic hardware (Resolved 12/21/13) Pyelonephritis (Resolved) Right foot pain (Resolved) Right knee pain (Resolved) Sinusitis (Resolved) Somnolence (Chronic) Urinary tract infection (Resolved) Surgical History History of hysterectomy History of knee surgery (Resolved) S/P colonoscopy S/P inguinal hernia repair S/P sinus surgery Family History Daughter Allergies Depression Grandmother (Paternal) Arthritis Grandfather (Paternal) Arthritis Diabetes Grandmother (Maternal) Diabetes Hypertension Grandfather (Maternal) Diabetes Hypertension Sister Hypertension Kidney stones Mother Thyroid disorder Social History Preferred Language: Fijian Communication Ability: Effective Beliefs That Will Affect Care: None marital status: Current Living Situation: Family current occupational status: disabled Other Information That Helps Us Care for You: No Feels Safe at Home: Yes Safety Concerns: Feels Safe At This Time Smoking Status: Former smoker Cigarettes Per Day: Quit 09/2019. Smoked 0.5-1ppd x 5 years ; Second Hand Exposure: No ; Tobacco Cessation Education Requested by Patient: No Hx Alcohol Use: No Hx Substance Use: No Review of Systems A total of 10 systems reviewed and were otherwise negative Physical Exam Vital Signs Vital Signs - 24 hr 11/25/19 11:29 11/25/19 11:39 11/25/19 12:00 Temperature 36.5 C Temperature Source Oral Pulse Rate 80 76 75 Pulse Rate from SpO2 Sensor 76 75 Respiratory Rate 20 26 H 23 Respiratory Effort / Characteristics Non-Labored Spontaneous Respiratory Depth Normal Respiratory Pattern Regular Blood Pressure 149/97 H 155/94 H 132/78 Blood Pressure Mean 114 101 89 Pulse Oximetry 99 98 98 Oxygen Delivery Method Room Air Room Air Sepsis Recent Fever Within 48 Hours No Sepsis Action Taken by Nursing No Action Required 11/25/19 12:26 11/25/19 12:30 11/25/19 12:52 Temperature Temperature Source Pulse Rate 69 71 70 Pulse Rate from SpO2 Sensor 71 69 Respiratory Rate 20 24 22 Respiratory Effort / Characteristics Respiratory Depth Respiratory Pattern Blood Pressure 137/79 Blood Pressure Mean 94 Pulse Oximetry 99 97 96 Oxygen Delivery Method Room Air Room Air Sepsis Recent Fever Within 48 Hours Sepsis Action Taken by Nursing 11/25/19 12:53 11/25/19 13:00 11/25/19 13:01 Temperature Temperature Source Pulse Rate 89 74 75 Pulse Rate from SpO2 Sensor 83 76 74 Respiratory Rate 18 22 20 Respiratory Effort / Characteristics Respiratory Depth Respiratory Pattern Blood Pressure 111/67 Blood Pressure Mean 79 Pulse Oximetry 98 94 97 Oxygen Delivery Method Sepsis Recent Fever Within 48 Hours Sepsis Action Taken by Nursing 11/25/19 13:30 11/25/19 14:00 Temperature Temperature Source Pulse Rate 72 73 Pulse Rate from SpO2 Sensor 72 73 Respiratory Rate 16 23 Respiratory Effort / Characteristics Respiratory Depth Respiratory Pattern Blood Pressure 123/79 127/86 Blood Pressure Mean 91 94 Pulse Oximetry 98 97 Oxygen Delivery Method Sepsis Recent Fever Within 48 Hours Sepsis Action Taken by Nursing VITAL SIGNS - Vital signs and nursing notes were reviewed. Stable and afebrile. GENERAL -39-year-old female appearing her stated age who is in no acute distress. Communicates well with provider and answers questions appropriately. SKIN - Without rashes. No meningeal or petechial rash. HEAD - NC/AT. EYES - PERRL with EOMI bilaterally. Sclera anicteric. EARS - No deformities of external structures noted on gross examination bilaterally. NOSE - Midline and without cyanosis. No epistaxis or purulent drainage noted. MOUTH/OROPHARYNX - Without perioral cyanosis. NECK - Neck with FROM. No nuchal rigidity. LUNGS - Chest wall symmetric without accessory muscle use, intercostals retractions, or central cyanosis. Normal vesicular breath sounds CTA B/L. No wheezes, rales, or rhonchi appreciated. CARDIAC - RRR with S1/S2. No murmur, rubs, or gallops appreciated. ABDOMEN - Abdominal contour normal without pulsations or visible masses. BS normoactive all four quadrants. No tenderness, palpable masses, hepatosplenomegaly, or ascites noted. EXTREMITIES - No clubbing or peripheral cyanosis. +5/5 strength noted in UE/LE bilaterally. NEUROLOGIC - Cranial nerves II through XII grossly intact. PSYCH - A&O, and cooperates fully with examiner. Pt is very pleasant and interacts well with examiner. Course Administered Medications Discontinued Medications Aspirin (Aspirin) 324 mg PO NOW STA Stop: 11/25/19 12:41 Last Admin: 11/25/19 12:46 Dose: 324 mg Documented by: [id number] Lorazepam (Ativan) 1 mg SL NOW STA Stop: 11/25/19 11:59 Last Admin: 11/25/19 12:23 Dose: 1 mg Documented by: [id number] Morphine Sulfate (Morphine Sulfate) 4 mg IV NOW STA Stop: 11/25/19 12:41 Last Admin: 11/25/19 12:47 Dose: 4 mg Documented by: [id number] Nitroglycerin (Nitro-Bid 2%) 0.5 inch EXT NOW ONE Stop: 11/25/19 13:46 Last Admin: 11/25/19 13:52 Dose: 0.5 inch Documented by: [id number] Medical Decision Making Laboratory Data Result diagrams: 11/25/19 12:15 11/25/19 12:18 Lab Results 11/25/19 11/25/19 11/25/19 Range/Units 12:15 12:18 12:18 WBC 5.54 (4.8-10.8) K/uL RBC 3.90 L (4.2-5.4) M/uL Hgb 12.6 (12.0-16.0) g/dL Hct 36.6 L (37-47) % MCV 93.8 (80-100) fL MCH 32.3 (25-34) pg MCHC 34.4 (32-36) g/dL RDW Std Deviation 43.8 (36.4-46.3) fL RDW Coeff of Nate 12.8 (11.5-14.5) % Plt Count 345 (130-400) K/uL MPV 9.2 (7.4-10.4) fL Immature Gran % (Auto) 0.4 % Neut % (Auto) 60.4 % Lymph % (Auto) 30.9 % Dillon % (Auto) 6.9 % Eos % (Auto) 0.5 % Baso % (Auto) 0.9 % Immature Gran # (Auto) 0.02 (0.00-0.02) K/uL Neut # (Auto) 3.35 (1.4-6.5) K/uL Lymph # (Auto) 1.71 (1.2-3.4) K/uL Dillon # (Auto) 0.38 (0.11-0.59) K/uL Eos # (Auto) 0.03 (0-0.5) K/uL Baso # (Auto) 0.05 (0-0.2) K/uL PT 10.7 (9.0-12.0) Seconds INR 1.0 (0.9-1.1) APTT 31.5 H (21.0-31.0) Seconds PTT Ratio 1.1 D-Dimer 420 (0-500) ug/L FEU Sodium 138 (136-145) mmol/L Potassium 3.6 (3.5-5.1) mmol/L Chloride 110 H (98-107) mmol/L Carbon Dioxide 22 (21-32) mmol/L Anion Gap 6.0 (3-11) BUN 8 (7-18) mg/dl Creatinine 0.80 (0.6-1.2) mg/dl Est Cr Clr Drug Dosing 105.8 ml/min Est GFR ( Amer) 106.9 Est GFR (Non-Af Amer) 92.2 BUN/Creatinine Ratio 9.9 L (10-20) Glucose 108 H (70-99) mg/dl Calcium 8.7 (8.5-10.1) mg/dl Magnesium 2.1 (1.8-2.4) mg/dl Total Bilirubin 0.3 (0.2-1) mg/dl AST 16 (15-37) U/L ALT 31 (12-78) U/L Alkaline Phosphatase 94 (45-117) U/L Troponin I < 0.015 (0-0.045) ng/ml Total Protein 7.1 (6.4-8.2) gm/dl Albumin 3.6 (3.4-5.0) gm/dl Globulin 3.5 (2.5-4.0) gm/dl Albumin/Globulin Ratio 1.0 (0.9-2) Lipase 86 (73-393) U/L TSH 0.522 (0.300-4.500) uIu/ml Urine Color Urine Appearance (Clear) Urine pH (4.5-7.5) Ur Specific [place] (1.000-1.030) Urine Protein (Negative) Urine Glucose (UA) (Negative) Urine Ketones (Negative) Urine Blood (Negative) Urine Nitrite (Negative) Urine Bilirubin (Negative) Urine Urobilinogen (Negative) Ur Leukocyte Esterase (Negative) Urine WBC (Auto) (0-5) /hpf Urine RBC (Auto) (0-4) /hpf U Hyaline Cast (Auto) (0-5) /lpf U Epithel Cells (Auto) (0-5) /lpf Urine Bacteria (Auto) (Negative) Granular Casts (0) /lpf Urine Yeast 11/25/19 Range/Units 12:50 WBC (4.8-10.8) K/uL RBC (4.2-5.4) M/uL Hgb (12.0-16.0) g/dL Hct (37-47) % MCV (80-100) fL MCH (25-34) pg MCHC (32-36) g/dL RDW Std Deviation (36.4-46.3) fL RDW Coeff of Nate (11.5-14.5) % Plt Count (130-400) K/uL MPV (7.4-10.4) fL Immature Gran % (Auto) % Neut % (Auto) % Lymph % (Auto) % Dillon % (Auto) % Eos % (Auto) % Baso % (Auto) % Immature Gran # (Auto) (0.00-0.02) K/uL Neut # (Auto) (1.4-6.5) K/uL Lymph # (Auto) (1.2-3.4) K/uL Dillon # (Auto) (0.11-0.59) K/uL Eos # (Auto) (0-0.5) K/uL Baso # (Auto) (0-0.2) K/uL PT (9.0-12.0) Seconds INR (0.9-1.1) APTT (21.0-31.0) Seconds PTT Ratio D-Dimer (0-500) ug/L FEU Sodium (136-145) mmol/L Potassium (3.5-5.1) mmol/L Chloride (98-107) mmol/L Carbon Dioxide (21-32) mmol/L Anion Gap (3-11) BUN (7-18) mg/dl Creatinine (0.6-1.2) mg/dl Est Cr Clr Drug Dosing ml/min Est GFR ( Amer) Est GFR (Non-Af Amer) BUN/Creatinine Ratio (10-20) Glucose (70-99) mg/dl Calcium (8.5-10.1) mg/dl Magnesium (1.8-2.4) mg/dl Total Bilirubin (0.2-1) mg/dl AST (15-37) U/L ALT (12-78) U/L Alkaline Phosphatase (45-117) U/L Troponin I (0-0.045) ng/ml Total Protein (6.4-8.2) gm/dl Albumin (3.4-5.0) gm/dl Globulin (2.5-4.0) gm/dl Albumin/Globulin Ratio (0.9-2) Lipase (73-393) U/L TSH (0.300-4.500) uIu/ml Urine Color Yellow Urine Appearance Clear (Clear) Urine pH 6.0 (4.5-7.5) Ur Specific [place] 1.016 (1.000-1.030) Urine Protein Negative (Negative) Urine Glucose (UA) Negative (Negative) Urine Ketones Negative (Negative) Urine Blood Negative (Negative) Urine Nitrite Negative (Negative) Urine Bilirubin Negative (Negative) Urine Urobilinogen Negative (Negative) Ur Leukocyte Esterase Trace H (Negative) Urine WBC (Auto) 10-30 H (0-5) /hpf Urine RBC (Auto) 5-10 H (0-4) /hpf U Hyaline Cast (Auto) 1-5 (0-5) /lpf U Epithel Cells (Auto) >30 H (0-5) /lpf Urine Bacteria (Auto) Negative (Negative) Granular Casts 1-5 H (0) /lpf Urine Yeast Not Reportable Imaging Data Radiologist's Impression: XR chest 1V portable CLINICAL HISTORY: Chest pain. COMPARISON STUDY: Chest radiograph August 22, 2019. FINDINGS: Lung volumes are at the lower limits of normal. Lungs are clear. There is no pneumothorax or pleural effusion. Cardiac size is normal. Mediastinal contours are normal. There is no evidence for pulmonary edema. IMPRESSION: No acute cardiopulmonary findings. ACT 112: Negative or not required by law. Electronically signed by: John Donnelly M.D. 11/25/2019 12:58 PM MDM Narrative Patient was seen and evaluated as above in room C7. Review was performed of nursing notes and vital signs. I did review pertinent previous visits and patient history. After obtaining a thorough history and physical examination the above work up was performed. She presents to us today with chest pain. She was referred here by cardiology office. She has a history abnormal EKGs of which she states has been ongoing. I will note that on arrival I did review her previous EKG in our system that was performed August 222019 and compared to the EKG performed at bedside at 11:37 AM. This revealed normal sinus rhythm, there is new T wave inversion in lead II, aVF, V1 through V6. This is a significant change. This is in the setting of chest pain. Troponin and d-dimer are negative. There is no leukocytosis or significant anemia. No emergent metabolic disturbance. Urinalysis reveals likely contaminated sample. She notes a history of hysterectomy. Given the distribution of the changes on the EKG a posterior EKG was obtained. This was obtained at 12:34 PM. This revealed normal sinus rhythm at a rate of 69 bpm. This was normal. A repeat EKG was then performed at 1310. This revealed persistence of the T wave abnormalities. In the setting of the patient's chest pain with EKG change I do believe that further evaluation and management in the inpatient setting would be reasonable and in discussing this with the attending physician he was in agreement. Although I did speak with the patient about her history of abnormal EKGs and she states this has been ongoing even before August of this year, with our most recent EKG performed being abnormal compared to previous and therefore it is felt that these are indeed new changes. I did compare this to her other EKGs in the past and although some of them did have T wave inversions it is felt that with the patient's most recent EKG in our system being fairly normal and with her presentation EKG being significantly changed it is felt that she may benefit from inpatient management. I will note that the second EKG performed today it was posteriorly placed. Patient was educated upon recommendations and was in agreement. While here she was medicated with Ativan, morphine, nitroglycerin paste, and aspirin. Case discussed with the hospitalist. Please refer to further documentation regarding her stay. Case was discussed with the attending physician. EKG #1 performed at 11:37 AM was reviewed by myself and found to be Normal Sinus Rhythm at a rate of 64 bpm and per my interpretation reveals ST and 2 of abnormality, with EKG changes noted in leads II, V3 through V6. QTC is 437. No ST elevation. EKG #2 performed at 12:34 PM was reviewed by myself and found to be Normal Sinus Rhythm at a rate of 69 beats per minute and per my interpretation reveals no ST elevation. QTc 467. This is a posteriorly placed EKG. EKG #3 performed at 1310 was reviewed by myself and found to be Normal Sinus Rhythm at a rate of 73 beats per minute and per my interpretation reveals persistence of the T wave abnormality and mild ST change. There is no ST elevation. QTc 449. An order was placed for continuous cardiac monitoring. The monitor shows a rate of 73 with normal sinus rhythm. I attest that I have personally reviewed the patient medication list. I attest that I have reviewed the patient's blood pressure and it was found to be slightly elevated. GCS: 15 IMPRESSION: Chest Pain In the evaluation and treatment of this patient, the following differential diagnoses were considered: VA, ASC, Dysrhythmia, Angina, Mediastinitis, GERD, Esophagitis, PE, Pneumonia, Bronchitis, Costochondritis, Rib Fracture, Zoster. Impression & Plan Chest pain, Abnormal EKG Discharge Plan Visit Data *Final* Discharge Date/Time: 11/25/19 15:30 Chief Complaint: Chest Pain Stated Complaint: CHEST PAIN, REF'D BY ED Provider: Johnson Freedman ED Midlevel Provider: Dougie Shaver Discharge Problem: Chest pain, Abnormal EKG Patient Disposition: Admitted As Inpatient Condition: Good Discharge Instructions Interventions: ED Discharge Assessment Last Done: 11/25/19 15:30
[2019-11-25 12:35] LABS: Basophils # (auto) 0.05 K/uL (0-0.2); Basophils % (auto) 0.9 %; Eosinophils # (auto) 0.03 K/uL (0-0.5); Eosinophils % (auto) 0.5 %; Hematocrit (blood only) 36.6 % (37-47); Hemoglobin 12.6 g/dL (12.0-16.0); Immature Granulocytes # (auto) 0.02 K/uL (0.00-0.02); Immature Granulocytes % (auto) 0.4 %; Lymphocytes # (auto) 1.71 K/uL (1.2-3.4); Lymphocytes % (auto) 30.9 %; Mean Corpuscular Hemoglobin 32.3 pg (25-34); Mean Corpuscular Hgb Conc 34.4 g/dL (32-36); Mean Corpuscular Volume 93.8 fL (80-100); Mean Platelet Volume 9.2 fL (7.4-10.4); Monocytes # (auto) 0.38 K/uL (0.11-0.59); Monocytes % (auto) 6.9 %; Neutrophils # (auto) 3.35 K/uL (1.4-6.5); Neutrophils % (auto) 60.4 %; Platelet Count 345 K/uL (130-400); RDW Coefficient of Variation 12.8 % (11.5-14.5); RDW Standard Deviation 43.8 fL (36.4-46.3); White Blood Count 5.54 K/uL (4.8-10.8)
[2019-11-25] MEDS ORDERED: ASPIRIN CHEW 324 MG PO STA (12:40)
[2019-11-25] MEDS ORDERED: MoRPHine SULFATE 4 MG/ML 1 ML CARP\\VIAL IV STA (12:40)
[2019-11-25 12:52] LABS: Alanine Aminotransferase 31 U/L (12-78); Albumin Level 3.6 gm/dl (3.4-5.0); Aspartate Aminotransferase 16 U/L (15-37); BUN Creatinine Ratio 9.9 (10-20); Blood Urea Nitrogen 8 mg/dl (7-18); Calcium 8.7 mg/dl (8.5-10.1); Carbon Dioxide 22 mmol/L (21-32); Chloride 110 mmol/L (98-107); Creatinine Clr Calc Pharmacy 105.8 ml/min; Est GFR (African American) 106.9; Est GFR (Non-African American) 92.2; Glucose 108 mg/dl (70-99); Lipase 86 U/L (73-393); Magnesium 2.1 mg/dl (1.8-2.4); Potassium 3.6 mmol/L (3.5-5.1); Sodium 138 mmol/L (136-145)
[2019-11-25 12:53] LABS: D Dimer 420 ug/L FEU (0-500); Partial Thromboplastin Ratio 1.1; Partial Thromboplastin Time 31.5 Seconds (21.0-31.0); Prothrombin Time 10.7 Seconds (9.0-12.0)
--- NOTE | 2019-11-25 12:59 | XRay Report ---
XR chest 1V portable CLINICAL HISTORY: Chest pain. COMPARISON STUDY: Chest radiograph August 22, 2019. FINDINGS: Lung volumes are at the lower limits of normal. Lungs are clear. There is no pneumothorax o r pleural effusion. Cardiac size is normal. Mediastinal contours are normal. There is no evidence for pulmonary edema. IMPRESSION: No acute cardiopulmonary findings. ACT 112: Negative or not required by law. Electronically signed by: John Donnelly M.D. 11/25/2019 12:58 PM
[2019-11-25 13:04] LABS: Alkaline Phosphatase 94 U/L (45-117); Bilirubin,Total 0.3 mg/dl (0.2-1); Globulin 3.5 gm/dl (2.5-4.0); Thyroid Stimulating Hormone 0.522 uIu/ml (0.300-4.500); Total Protein 7.1 gm/dl (6.4-8.2); Troponin I < 0.015 ng/ml (0-0.045)
[2019-11-25 13:12] LABS: Appearance Urine Clear (Clear); Bacteria Urine Automated Negative (Negative); Bilirubin Urine Negative (Negative); Blood Urine Negative (Negative); Color Urine Yellow; Epithelial Cell Urine Auto >30 /lpf (0-5); Glucose Urine UA Negative (Negative); Ketones Urine Negative (Negative); Leukocyte Esterase Urine Trace (Negative); Nitrite Urine Negative (Negative); Protein Urine Negative (Negative); Specific Gravity Urine 1.016 (1.000-1.030); Urobilinogen Urine Negative (Negative)
--- NOTE | 2019-11-25 13:28 | Emergency Department Note ---
ED Visit Note The patient was seen and examined with bamat. I agree with the history, physical and findings. Please see the note for disposition and details. .
[2019-11-25] MEDS ORDERED: NITROGLYCERIN 2% OINTMENT 30GM TUBE EXT ONE (13:45)
--- NOTE | 2019-11-25 14:29 | History & Physical Report ---
Date of Service November 25, 2019 Assessment & Plan (1) Chest pain: (2) Abnormal EKG: Pt is 39 y/o F with PMH HTN, dyslipidemia, migraine, bipolar, anxiety, asthma, fibromyalgia, history of abnormal EKG presented to ER with complaint of intermittent left anterior squeezing type chest pain started around 4-5AM today. Denies associated SOB, diaphoresis, palpitations, dizziness today. H/O atypical CP and h/o abnormal EKGs. 10/2018, 11/[address] T wave abnormalities. 01/2019 stress echo negative for inducible ischemia. 01/[address] normal cardiac studies. In ER afebrile, P: 80, R: 20, BP: 149/97, 99% on RA. Today EKG T wave inversion septal anterolateral, nonspecific t wave abnormality inferior. EKG from 10/12/2018 with t wave inversion septal and anterior Negative initial troponin, D-Dimer WNL. CXR: no acute changes CHEST PAIN R/O ACS. Risk factors: HTN, hyperlipidemia, obesity, tobacco use. CP seems more atypical at this time. DDX: musculoskeletal, anxiety, -In ER CP is intermittent. Received Ativan 1mg SL, ASA 324mg po, Morphine 4mg IV, Nitropaste 0.5" with some relief of chest discomfort -Pain is reproducible upon palpation -Monitor Vitals -Repeat EKG in am -Will trend troponin -continue statin, lipid panel in am -aspirin -continue nitropaste for now -scheduled tylenol, norco prn pain -Cardiology consult (3) Abnormal urinalysis: UA with trace leuk esterase, 10-30 WBC, >30 epithelial No urinary symptoms Suspect contamination Urine culture pending (4) Hypertension: -Continue propranolol (5) Dyslipidemia: -Continue atorvastatin (6) Anxiety: -Continue Seroquel, sertraline, doxepin (7) Asthma: No acute exacerbation -Continue home inhalers (8) Migraine: -Continue topiramate (9) Chronic neck pain: -Hold muscle relaxant currently DVT Prophylaxis -Low risk, ambulate Full Code Follows with Dr Burr for routine care Pt was seen and care coordinated with Dr Cano. See addendum History of Present Illness Chief Complaint: CP Primary Care Provider: Jocelyne Burr, Pt is 39 y/o F with PMH HTN, dyslipidemia, migraine, bipolar, anxiety, asthma, fibromyalgia, history of abnormal EKG presented to ER with complaint of chest pain. Patient states this morning around 4:00-5:00 AM woke up with left-sided chest pain described as squeezing and has been intermittent all morning. Denies any associated palpitations, shortness of breath or lightheaded with this today. No prior treatment prior to ER arrival. Patient with history of atypical chest pain which she describes as constant squeezing pain. She has been seen by cardiology-Dr. Hampton in 11/2018. Has abnormal EKGs with diffuse ST T wave abnormalities. 01/2019 stress echo negative for inducible ischemia. 01/[address] normal cardiac studies. Patient reports has been having diarrhea with eating for the past week. She also reports intermittent nausea for the past several days. Has not been eating or drinking as much. States his been feeling lightheaded with standing intermittently for the past week. Denies any syncope. Patient reports chronic left-sided neck pain for at least 1 year and uses muscle relaxers as needed. She reports that she was taken off her Klonopin the beginning of October 2019 which she had been on 0.5 mg 3 times daily for many years. Reports has some swelling to BLE, left worse than right for years, no significant increased edema, no erythema or leg pain. Reports stopped smoking 2 months ago, was smoking 0.5-1ppd x 5 years. Denies fever/chills, diaphoresis, vomiting, melena, hematochezia, RIZO, syncope, vision changes, orthopnea, palpitations, cough, sore throat, choking, otalgia, rhinorrhea, abdominal pain, paresthesias, weakness, extremity weakness, rashes, urinary symptoms. Denies recent travel, ill contacts, known COVID-19 exposures. FH: grandfather "phantom heart attack" Allergies Allergy/AdvReac Type Severity Reaction Status Date / Time ketorolac [From Toradol] Allergy Mild Rash Verified 11/25/19 13:29 Sulfa (Sulfonamide Allergy Mild RASH, Verified 11/25/19 13:29 Antibiotics) NAUSEA tramadol Allergy Mild RASH,NAUSEA Verified 11/25/19 13:29 Home Medications Home Medications Medication Instructions Recorded Confirmed Type sumatriptan succinate 6 mg SUBCUT UD PRN 09/11/18 11/25/19 History tizanidine 4 mg PO Q6H PRN 09/11/18 11/25/19 History propranolol 80 mg PO BID 10/12/18 11/25/19 History dexlansoprazole [Dexilant] 60 mg PO DAILY 10/26/18 11/25/19 History quetiapine [Seroquel] 400 mg PO HS 10/26/18 11/25/19 History acetaminophen [Tylenol Extra 500 mg PO Q6H PRN 08/15/19 11/25/19 History Strength] sertraline 200 mg PO QAM 08/15/19 11/25/19 History ibuprofen 200 mg PO Q6H PRN 08/22/19 11/25/19 History ondansetron 4 mg PO Q8H PRN #8 tab 08/22/19 11/25/19 Rx albuterol sulfate 90 mcg/actuation 1 puffs INH Q4H PRN gm 10/20/19 11/25/19 History aerosol inhaler fluticasone 250 mcg-salmeterol 50 1 puffs INH BID 10/20/19 11/25/19 History mcg/dose blistr powdr for inhalation prochlorperazine maleate 10 mg 10 mg PO UD PRN tab 10/20/19 11/25/19 History tablet topiramate 100 mg tablet 100 mg PO BID 10/20/19 11/25/19 History atorvastatin 20 mg PO DAILY 11/25/19 11/25/19 History doxepin 150 mg PO HS 11/25/19 11/25/19 History loratadine 10 mg PO QAM 11/25/19 11/25/19 History Past Med/Surg History Medical History Abdominal pain (Resolved) Abdominal pain (Resolved) Anemia (Resolved) Anxiety (Chronic) Bipolar disorder (Chronic) Bronchitis (Resolved) Constipation (Resolved) Depression (Chronic) DJD (degenerative joint disease) of knee (Resolved 09/07/13) Fibromyalgia (Chronic) Flank pain (Resolved) Headache (Resolved) Hypertension (Chronic) Kidney stone (Resolved) 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) Lumbar pain (Resolved) Migraine (Chronic) Painful orthopaedic hardware (Resolved 12/21/13) Pyelonephritis (Resolved) Right foot pain (Resolved) Right knee pain (Resolved) Sinusitis (Resolved) Somnolence (Chronic) Urinary tract infection (Resolved) Surgical History History of hysterectomy History of knee surgery (Resolved) S/P colonoscopy S/P inguinal hernia repair S/P sinus surgery Family History Daughter Allergies Depression Grandmother (Paternal) Arthritis Grandfather (Paternal) Arthritis Diabetes Grandmother (Maternal) Diabetes Hypertension Grandfather (Maternal) Diabetes Hypertension Sister Hypertension Kidney stones Mother Thyroid disorder Social History Preferred Language: [place] Communication Ability: Effective Beliefs That Will Affect Care: None marital status: Current Living Situation: Family current occupational status: disabled Other Information That Helps Us Care for You: No Feels Safe at Home: Yes Safety Concerns: Feels Safe At This Time Smoking Status: Former smoker Cigarettes Per Day: Quit 09/2019. Smoked 0.5-1ppd x 5 years ; Second Hand Exposure: No ; Tobacco Cessation Education Requested by Patient: No Hx Alcohol Use: No Hx Substance Use: No Review of Systems Review of Systems: All systems reviewed & are unremarkable except as noted in HPI & below Physical Exam Physical Exam: General: no distress, overweight Head: normocephalic, atraumatic Eyes: PERRL, EOM's intact, conjunctiva non-injected, anicteric ENT: normal inspection external ears, nose, mucous membranes moist Neck: supple, trachea midline Lungs: clear, no respiratory distress, no wheezing/rhonchi/rales CV: RRR, no murmur, no pretibial edema Chest wall: No rashes, +tenderness to palpation left anterior chest Abd: normal BS, soft, non-tender Ext: no cyanosis, no calf tenderness Neuro: A&O x 3, no focal deficits noted, normal affect Skin: warm, dry Results & Data Results & Data ([facility]) Vital Signs (Past 12 Hours) Vital Signs Temp Pulse Resp BP Pulse Ox 11/25/19 13:30 72 16 123/79 98 11/25/19 13:01 75 20 111/67 97 11/25/19 13:00 74 22 94 11/25/19 12:53 89 18 98 11/25/19 12:52 70 22 137/79 96 11/25/19 12:30 71 24 97 11/25/19 12:26 69 20 99 11/25/19 12:00 75 23 132/78 98 11/25/19 11:39 76 26 H 155/94 H 98 11/25/19 11:29 36.5 C 80 20 149/97 H 99 Laboratory Results Short CBC 11/25/19 Range/Units 12:15 WBC 5.54 (4.8-10.8) K/uL Hgb 12.6 (12.0-16.0) g/dL Hct 36.6 L (37-47) % Plt Count 345 (130-400) K/uL BMP 11/25/19 12:18 Sodium 138 Potassium 3.6 Chloride 110 H Carbon Dioxide 22 BUN 8 Creatinine 0.80 Glucose 108 H Calcium 8.7 Cardiac Enzymes 11/25/19 Range/Units 12:18 Troponin I < 0.015 (0-0.045) ng/ml Liver Function 11/25/19 Range/Units 12:18 Total Bilirubin 0.3 (0.2-1) mg/dl AST 16 (15-37) U/L ALT 31 (12-78) U/L Alkaline Phosphatase 94 (45-117) U/L Albumin 3.6 (3.4-5.0) gm/dl Urine 11/25/19 Range/Units 12:50 Urine Color Yellow Urine Appearance Clear (Clear) Urine pH 6.0 (4.5-7.5) Ur Specific [place] 1.016 (1.000-1.030) Urine Protein Negative (Negative) Urine Glucose (UA) Negative (Negative) Diagnostic Findings CXR: IMPRESSION: No acute cardiopulmonary findings. ECG Rhythm: sinus rhythm Findings: + nonspecific-ST abn and + T-wave inversion (Anterolateral, septal) Supervising Physician Co-Signing Physician Notes Attending Addendum: care coordinated with KALI Velez please refer to her notes for full details, I agree with her notes patient seen and examined, records reviewed by myself as well on exam, patient seen resting in bed, not in distress states left sided chest pain seems to be improving has left posterior neck discomfort, radiating to left arm, worse with neck rotation no dyspnea, dizziness, nausea, diaphoresis no fever/chills no other symptoms VS noted and reviewed oriented x 3 , not in distress, speaks in sentences with no effort nor accessory muscle use normal rate, regular rhythm, no murmurs; chest pain not reproducible clear breath sounds bilaterally non distended, soft, nontender no bipedal edema, erythema, warmth no neuro deficits WBC 5.5 Hg 12.6 Crea 0.8 troponin negative EKG non specific T wave changes v1-v5 ASSESSMENT AND PLAN 39 year old female with history of HTN, Asthma, Depression, and other problems noted above presenting with chest pain. CHEST PAIN, R/O ACS, VASOSPASTIC ANGINA? could also be costochondritis trend troponin, echo Nitropaste ordered already given ASA at the ER PRN [facility] consulted HYPERTENSION stable continue Propranolol other diagnoses and plan of care as per KALI Velez notes Jefferson Cano MD (1) Migraine Intractability: not intractable Migraine type: unspecified Status migrainosus presence: without status migrainosus Qualified Code(s): G43.909 - Migraine, unspecified, not intractable, without status migrainosus
--- NOTE | 2019-11-25 15:31 | Electrocardiogram Report ---
Test Reason : Blood Pressure : / mmHG Vent. Rate : 069 BPM Atrial Rate : 069 BPM P-R Int : 148 ms QRS Dur : 080 ms QT Int : 436 ms P-R-T Axes : 020 009 -24 degrees QTc Int : 467 ms Normal sinus rhythm Low voltage QRS Cannot rule out Anteroseptal infarct , age undetermined Abnormal ECG When compared with ECG of 25-NOV-2019 11:37, (unconfirmed) Minimal criteria for Anteroseptal infarct are now Present ST no longer depressed in Anterior leads T wave inversion no longer evident in Anterolateral leads Confirmed by Izaiah Bishop ([id number]) on 11/25/2019 3:31:25 PM Referred By: Rashawn Hampton Confirmed By:Lit Bishop
--- NOTE | 2019-11-25 15:32 | Electrocardiogram Report ---
Test Reason : Blood Pressure : / mmHG Vent. Rate : 064 BPM Atrial Rate : 064 BPM P-R Int : 132 ms QRS Dur : 096 ms QT Int : 424 ms P-R-T Axes : 039 044 -32 degrees QTc Int : 437 ms Normal sinus rhythm Abnormal ECG When compared with ECG of 22-AUG-2019 16:45, Nonspecific T wave abnormality, worse in Inferior leads T wave inversion more evident in Anterolateral leads Confirmed by Izaiah Bishop ([id number]) on 11/25/2019 3:32:10 PM Referred By: Rashawn Hampton Confirmed By:Lit Bishop
--- NOTE | 2019-11-25 15:33 | Electrocardiogram Report ---
Test Reason : Blood Pressure : / mmHG Vent. Rate : 073 BPM Atrial Rate : 073 BPM P-R Int : 144 ms QRS Dur : 092 ms QT Int : 408 ms P-R-T Axes : 030 025 -20 degrees QTc Int : 449 ms Normal sinus rhythm Abnormal ECG When compared with ECG of 25-NOV-2019 12:34, (unconfirmed) ST now depressed in Anterior leads T wave inversion now evident in Anterior leads Confirmed by Izaiah Bishop ([id number]) on 11/25/2019 3:32:46 PM Referred By: Rashawn Hampton Confirmed By:Lit Bishop
[2019-11-25] MEDS ORDERED: HYDROCODONE/ACETAMOPHEN 5/325MG TAB PO PRN (15:54)
[2019-11-25] MEDS: ACETAMINOPHEN 325 MG TAB PO SCH ×2 (16:22→22:49)
[2019-11-25] MEDS: NITROGLYCERIN 2% OINTMENT 30GM TUBE EXT SCH (20:12)
[2019-11-25] MEDS: PROPRANOLOL HCL 80 MG TAB PO SCH (20:39)
[2019-11-25] MEDS: TOPIRAMATE 100 MG TAB PO SCH (20:41)
[2019-11-25] MEDS ORDERED: DOXEPIN HCL 75 MG CAPSULE PO SCH (21:00)
[2019-11-25] MEDS ORDERED: QUETIAPINE FUMARATE 200 MG TAB PO SCH (21:00)
[2019-11-26] MEDS: NITROGLYCERIN 2% OINTMENT 30GM TUBE EXT SCH ×3 (00:17→12:17)
[2019-11-26] MEDS: ACETAMINOPHEN 325 MG TAB PO SCH ×2 (05:16→13:07)
[2019-11-26 06:16] LABS: Hematocrit (blood only) 36.2 % (37-47); Hemoglobin 12.1 g/dL (12.0-16.0); Mean Corpuscular Hemoglobin 31.4 pg (25-34); Mean Corpuscular Hgb Conc 33.4 g/dL (32-36); Mean Platelet Volume 9.4 fL (7.4-10.4); Platelet Count 319 K/uL (130-400); RDW Coefficient of Variation 12.9 % (11.5-14.5); RDW Standard Deviation 44.4 fL (36.4-46.3); Red Blood Count 3.85 M/uL (4.2-5.4); White Blood Count 5.19 K/uL (4.8-10.8)
[2019-11-26 06:58] LABS: BUN Creatinine Ratio 12.9 (10-20); Calcium 8.8 mg/dl (8.5-10.1); Creatinine Clr Calc Pharmacy 106.3 ml/min; Est GFR (African American) 110.2; Est GFR (Non-African American) 95.1; Potassium 3.6 mmol/L (3.5-5.1)
[2019-11-26] MEDS: PROPRANOLOL HCL 80 MG TAB PO SCH (08:02)
[2019-11-26] MEDS: TOPIRAMATE 100 MG TAB PO SCH (08:02)
[2019-11-26] MEDS ORDERED: ASPIRIN 81 MG ECTAB PO SCH (09:00)
[2019-11-26] MEDS ORDERED: PANTOprazole 40 MG TAB PO SCH (09:00)
[2019-11-26] MEDS ORDERED: SERTRALINE HCL 100 MG TABLET PO SCH (09:00)
[2019-11-26] MEDS ORDERED: FLUTICASONE/VILANTEROL 200/25MCG 14 PUFFS/INHALER INH SCH (09:00)
[2019-11-26] MEDS ORDERED: LORATADINE 10 MG TAB PO SCH (09:00)
[2019-11-26] MEDS ORDERED: ATORVASTATIN 20 MG TAB PO SCH (09:00)
--- NOTE | 2019-11-26 10:58 | Cardiology Consultation ---
Date of Consultation November 26, 2019 Assessment & Plan (1) Atypical chest pain: (2) Abnormal EKG: (3) Anxiety: No evidence of acute coronary syndrome with undetectable cardiac enzymes. Her ECG is abnormal, however, unchanged dating back to October of last year which prompted cardiac evaluation as noted above. I discussed the results of her cardiac enzyme test as well as her recent cardiac CT demonstrating normal coronary arteries and January 2019. Cardiac etiology of discomfort is unlikely. Preliminary review of resting 2D transthoracic echocardiogram demonstrates normal wall motion. Recommend evaluation for noncardiac sources of discomfort including possible musculoskeletal or anxiety-induced etiologies. All questions answered to patient satisfaction. No further inpatient testing/evaluation at this time. Thank you for allowing to participate in the care of your patient. History of Present Illness Reason for Consultation: chest pain Requesting Physician: Dr. Cano Attending Physician: Jefferson Cano MD History of Present Illness 39-year-old female presented to the emergency department with chest discomfort. Patient contacted the cardiology office yesterday with complaints of waxing and waning chest discomfort for more than 4 weeks. Her prescription for benzodiazepines was discontinued approximately 6 weeks ago by her mental health professional. She has noted increased anxiety and stress. Describes chest discomfort as a tightness. Discomfort typically occurs at rest and is not associated with activity or exertion. She became increasingly anxious at home. In the emergency department patient noted to have mild to moderate intermittent chest pain. Her ECG is abnormal, however, unchanged when compared to prior ECGs dating back to October 2018. Currently patient is resting comfortably. Chest discomfort is somewhat reproducible with palpation. Denies associated shortness of breath, lightheadedness, palpitations, syncope, or near syncope. Cardiac enzymes are undetectable. Telemetry monitoring demonstrates sinus rhythm. Patient denies orthopnea, PND, lower extremity edema, claudication, or weight gain. Quit smoking cigarettes approximately 2 months ago. Symptoms recently evaluated in summer 2018 with both exercise stress echocardiography and ultimately leading to cardiac CT due to ongoing symptoms. Her cardiac CT demonstrates an Agatston score of 0 with normal coronary arteries. Allergies Allergy/AdvReac Type Severity Reaction Status Date / Time ketorolac [From Toradol] Allergy Mild Rash Verified 11/25/19 13:29 Sulfa (Sulfonamide Allergy Mild RASH, Verified 11/25/19 13:29 Antibiotics) NAUSEA tramadol Allergy Mild RASH,NAUSEA Verified 11/25/19 13:29 Home Medications Home Medications Medication Instructions Recorded Confirmed Type sumatriptan succinate 6 mg SUBCUT UD PRN 09/11/18 11/25/19 History tizanidine 4 mg PO Q6H PRN 09/11/18 11/25/19 History propranolol 80 mg PO BID 10/12/18 11/25/19 History dexlansoprazole [Dexilant] 60 mg PO DAILY 10/26/18 11/25/19 History quetiapine [Seroquel] 400 mg PO HS 10/26/18 11/25/19 History acetaminophen [Tylenol Extra 500 mg PO Q6H PRN 08/15/19 11/25/19 History Strength] sertraline 200 mg PO QAM 08/15/19 11/25/19 History ibuprofen 200 mg PO Q6H PRN 08/22/19 11/25/19 History ondansetron 4 mg PO Q8H PRN #8 tab 08/22/19 11/25/19 Rx albuterol sulfate 90 mcg/actuation 1 puffs INH Q4H PRN gm 10/20/19 11/25/19 History aerosol inhaler fluticasone 250 mcg-salmeterol 50 1 puffs INH BID 10/20/19 11/25/19 History mcg/dose blistr powdr for inhalation prochlorperazine maleate 10 mg 10 mg PO UD PRN tab 10/20/19 11/25/19 History tablet topiramate 100 mg tablet 100 mg PO BID 10/20/19 11/25/19 History atorvastatin 20 mg PO DAILY 11/25/19 11/25/19 History doxepin 150 mg PO HS 11/25/19 11/25/19 History loratadine 10 mg PO QAM 11/25/19 11/25/19 History Patient History Medical History Abdominal pain (Resolved) Abdominal pain (Resolved) Anemia (Resolved) Anxiety (Chronic) Bipolar disorder (Chronic) Bronchitis (Resolved) Constipation (Resolved) Depression (Chronic) DJD (degenerative joint disease) of knee (Resolved 09/07/13) Fibromyalgia (Chronic) Flank pain (Resolved) Headache (Resolved) Hypertension (Chronic) Kidney stone (Resolved) 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) Lumbar pain (Resolved) Migraine (Chronic) Painful orthopaedic hardware (Resolved 12/21/13) Pyelonephritis (Resolved) Right foot pain (Resolved) Right knee pain (Resolved) Sinusitis (Resolved) Somnolence (Chronic) Urinary tract infection (Resolved) Surgical History History of hysterectomy History of knee surgery (Resolved) S/P colonoscopy S/P inguinal hernia repair S/P sinus surgery Family History Daughter Allergies Depression Grandmother (Paternal) Arthritis Grandfather (Paternal) Arthritis Diabetes Grandmother (Maternal) Diabetes Hypertension Grandfather (Maternal) Diabetes Hypertension Sister Hypertension Kidney stones Mother Thyroid disorder Social History Preferred Language: [place] Communication Ability: Effective Beliefs That Will Affect Care: None marital status: Current Living Situation: Family current occupational status: disabled Other Information That Helps Us Care for You: No Feels Safe at Home: Yes Safety Concerns: Feels Safe At This Time Smoking Status: Former smoker Cigarettes Per Day: Quit 09/2019. Smoked 0.5-1ppd x 5 years ; Second Hand Exposure: No ; Tobacco Cessation Education Requested by Patient: No Hx Alcohol Use: No Hx Substance Use: No Review of Systems Review of Systems: All systems reviewed & are unremarkable except as noted in HPI & below Physical Exam Constitutional: well nourished and + obese Respiratory: normal respiratory effort; no respiratory distress and no labored breathing Auscultation: no crackles, no rales, no rhonchi and no wheezes Cardiovascular: Rate/Rhythm: regular rate and regular rhythm Heart Sounds: normal S1 and normal S2; no gallop, no murmur and no cardiac rub Palpation: normal PMI Vessels: radial pulses present; no JVD and no carotid bruit Gastrointestinal (Abdomen): Inspection/Auscultation: abdomen normal to inspection and normal bowel sounds; abdomen not distended Percussi on/Palpation: abdomen soft; abdomen nontender, no guarding and abdomen not rigid Musculoskeletal: Head/Neck/Chest: normocephalic and head atraumatic Extremities: strength 5/5 throughout; no cyanosis and no clubbing Skin: no rashes, warm and dry Neurologic: moves all extremities; no focal motor deficits Speech / Cognition: normal speech Psychiatric: Orientation: alert and oriented x 3 Mood: + anxious mood Results & Data ([facility]) Vital Signs (Past 12 Hours) Vital Signs Temp Pulse Pulse Resp BP Pulse Ox 11/26/19 07:00 36.5 C 80 18 103/69 96 11/26/19 04:00 36.7 C 93 H 17 111/74 97 11/25/19 23:12 36.5 C 90 16 101/63 96 11/25/19 23:09 82
--- NOTE | 2019-11-26 11:27 | Hospitalist Progress Note ---
Date of Service November 26, 2019 Assessment & Plan (1) Chest pain: (2) Abnormal EKG: Pt is 39 y/o F with PMH HTN, dyslipidemia, migraine, bipolar, anxiety, asthma, fibromyalgia, history of abnormal EKG presented to ER with complaint of intermittent left anterior squeezing type chest pain started around 4-5AM today. Denies associated SOB, diaphoresis, palpitations, dizziness today. H/O atypical CP and h/o abnormal EKGs. 10/2018, 11/[address] T wave abnormalities. 01/2019 stress echo negative for inducible ischemia. 01/[address] normal cardiac studies. In ER afebrile, P: 80, R: 20, BP: 149/97, 99% on RA. Today EKG T wave inversion septal anterolateral, nonspecific t wave abnormality inferior. EKG from 10/12/2018 with t wave inversion septal and anterior Negative initial troponin, D-Dimer WNL. CXR: no acute changes 11/26/19 troponins negative echo no wall motion abnormality discussed with Dr. Hampton- Bank Officer, atypical chest pain likely musculoskeletal etiology, no further cardiac testing at this time recommend PRN Tylenol, and ice pack ff up with PCP this week (3) Abnormal urinalysis: no urinary symptoms (4) Hypertension: -Continue propranolol (5) Dyslipidemia: TG 167 Cholesterol 224 LDL 138 - monitor and ff up as outpatient -Continue atorvastatin (6) Anxiety: - mood stable per patient - Continue Seroquel, sertraline, doxepin (7) Asthma: - No acute exacerbation - Continue home inhalers (8) Migraine: -Continue topiramate (9) Chronic neck pain: - resolving d/c home today ff up with PCP this week case and plan of care discussed with patient in detail and at length all questions answered she is understanding, agreeable, comfortable with the plan of care Admission and Anticipated Discharge Date Admission Date: November 25, 2019 Subjective ff up for atypical chest pain seen resting in bed, not in distress, watching video on her phone comfortable, very pleasant states chest discomfort is improved compared to yesterday, intermittent posterior neck pain improving denies dizziness, headache, cough, abdominal pain denies other symptoms re-evaluated in the afternoon states she feels better overall states she is agreeable for discharge today Review of Systems Review of Systems: All systems reviewed & are unremarkable except as noted in HPI & below Physical Exam Physical Exam: General- oriented x 3, not in distress, speaks in sentences with no effort or accessory muscle use Eyes- anicteric Neck- no JVD Lungs- clear breath sounds bilaterally, no rales/wheezes Heart- normal rate, regular rhythm; no murmurs Abdomen- normal bowel sounds, nondistended, soft, nontender Extremities- no pretibial edema, no calf tenderness Neuro- alert, oriented x 3; no gross focal neurologic deficits Skin- warm & dry Results & Data Results & Data ([facility]) Vital Signs (Past 12 Hours) Vital Signs Temp Pulse Resp BP Pulse Ox 11/26/19 11:00 36.6 C 81 14 99/65 L 98 11/26/19 07:00 36.5 C 80 18 103/69 96 11/26/19 04:00 36.7 C 93 H 17 111/74 97 (1) Migraine Intractability: not intractable Migraine type: unspecified Status migrainosus presence: without status migrainosus Qualified Code(s): G43.909 - Migraine, unspecified, not intractable, without status migrainosus
--- NOTE | 2019-11-26 12:48 | Electrocardiogram Report ---
Test Reason : Blood Pressure : / mmHG Vent. Rate : 065 BPM Atrial Rate : 065 BPM P-R Int : 148 ms QRS Dur : 096 ms QT Int : 424 ms P-R-T Axes : 036 040 -55 degrees QTc Int : 440 ms Normal sinus rhythm Abnormal ECG When compared with ECG of 25-NOV-2019 13:10, Inverted T waves have replaced nonspecific T wave abnormality in Lateral leads Confirmed by Mark Anthony Lucas ([id number]) on 11/26/2019 12:48:19 PM Referred By: Rashawn Hampton Confirmed By:Mark Anthony Lucas
--- NOTE | 2019-11-26 12:49 | Electrocardiogram Report ---
Test Reason : Blood Pressure : / mmHG Vent. Rate : 086 BPM Atrial Rate : 086 BPM P-R Int : 180 ms QRS Dur : 092 ms QT Int : 400 ms P-R-T Axes : 033 040 008 degrees QTc Int : 478 ms Normal sinus rhythm Prolonged QT Abnormal ECG When compared with ECG of 25-NOV-2019 20:09, (unconfirmed) Nonspecific T wave abnormality has replaced inverted T waves in Inferior leads Confirmed by Mark Anthony Lucas ([id number]) on 11/26/2019 12:49:29 PM Referred By: Rashawn Hampton Confirmed By:Mark Anthony Lucas
--- NOTE | 2019-11-26 13:12 | XCELERA ---
[id number]
--- NOTE | 2019-11-26 15:28 | Discharge Summary ---
Date of Service November 26, 2019 Admission HPI Per Admitting Provider Pt is 39 y/o F with PMH HTN, dyslipidemia, migraine, bipolar, anxiety, asthma, fibromyalgia, history of abnormal EKG presented to ER with complaint of chest pain. Patient states this morning around 4:00-5:00 AM woke up with left-sided chest pain described as squeezing and has been intermittent all morning. Denies any associated palpitations, shortness of breath or lightheaded with this today. No prior treatment prior to ER arrival. Patient with history of atypical chest pain which she describes as constant squeezing pain. She has been seen by cardiology-Dr. Hampton in 11/2018. Has abnormal EKGs with diffuse ST T wave abnormalities. 01/2019 stress echo negative for inducible ischemia. 01/[address] normal cardiac studies. Patient reports has been having diarrhea with eating for the past week. She also reports intermittent nausea for the past several days. Has not been eating or drinking as much. States his been feeling lightheaded with standing intermittently for the past week. Denies any syncope. Patient reports chronic left-sided neck pain for at least 1 year and uses muscle relaxers as needed. She reports that she was taken off her Klonopin the beginning of October 2019 which she had been on 0.5 mg 3 times daily for many years. Reports has some swelling to BLE, left worse than right for years, no significant increased edema, no erythema or leg pain. Reports stopped smoking 2 months ago, was smoking 0.5-1ppd x 5 years. Denies fever/chills, diaphoresis, vomiting, melena, hematochezia, RIZO, syncope, vision changes, orthopnea, palpitations, cough, sore throat, choking, otalgia, rhinorrhea, abdominal pain, paresthesias, weakness, extremity weakness, rashes, urinary symptoms. Denies recent travel, ill contacts, known COVID-19 exposures. FH: grandfather "phantom heart attack" Admission Exam Per Admitting Provider General: no distress, overweight Head: normocephalic, atraumatic Eyes: PERRL, EOM's intact, conjunctiva non-injected, anicteric ENT: normal inspection external ears, nose, mucous membranes moist Neck: supple, trachea midline Lungs: clear, no respiratory distress, no wheezing/rhonchi/rales CV: RRR, no murmur, no pretibial edema Chest wall: No rashes, +tenderness to palpation left anterior chest Abd: normal BS, soft, non-tender Ext: no cyanosis, no calf tenderness Neuro: A&O x 3, no focal deficits noted, normal affect Skin: warm, dry Principal Diagnosis ATYPICAL CHEST PAIN LIKELY MUSCULOSKELETAL PAIN, COSTOCHONDRITIS Discharge Exam General- oriented x 3, not in distress, speaks in sentences with no effort or accessory muscle use Eyes- anicteric Neck- no JVD Lungs- clear breath sounds bilaterally, no rales/wheezes Heart- normal rate, regular rhythm; no murmurs Abdomen- normal bowel sounds, nondistended, soft, nontender Extremities- no pretibial edema, no calf tenderness Neuro- alert, oriented x 3; no gross focal neurologic deficits Skin- warm & dry Discharge Data Allergies Allergy/AdvReac Type Severity Reaction Status Date / Time ketorolac [From Toradol] Allergy Mild Rash Verified 11/25/19 13:29 Sulfa (Sulfonamide Allergy Mild RASH, Verified 11/25/19 13:29 Antibiotics) NAUSEA tramadol Allergy Mild RASH,NAUSEA Verified 11/25/19 13:29 Consultations 11/25/19 13:23 ED Decision to Admit Stat 11/25/19 15:54 Consult Cardiology Routine Hospital Course (1) Chest pain: (2) Abnormal EKG: ATYPICAL CHEST PAIN, LIKELY MUSCULOSKELETAL ETIOLOGY ACUTE CORONARY SYNDROME RULED OUT per Admitting PA note: Pt is 39 y/o F with PMH HTN, dyslipidemia, migraine, bipolar, anxiety, asthma, fibromyalgia, history of abnormal EKG presented to ER with complaint of intermittent left anterior squeezing type chest pain started around 4-5AM today. Denies associated SOB, diaphoresis, palpitations, dizziness today. H/O atypical CP and h/o abnormal EKGs. 10/2018, 11/[address] T wave abnormalities. 01/2019 stress echo negative for inducible ischemia. 01/[address] normal cardiac studies. In ER afebrile, P: 80, R: 20, BP: 149/97, 99% on RA. EKG T wave inversion septal anterolateral, nonspecific t wave abnormality inferior. EKG from 10/12/2018 with t wave inversion septal and anterior Negative initial troponin, D-Dimer WNL. CXR: no acute changes troponin x 3 negative repeat EKG non specific T wave inversion in the V1-v5 echo: no significant change from prior study, LV systolic function is normal, EF 60-65%, LV wall motion is normal, no signficant valvular pathology given PRN [place], Nitropaste chest pain improved discussed with Dr. Hampton- [employer]ician, atypical chest pain likely musculoske letal etiology, no further cardiac testing at this time recommend PRN Tylenol, and ice pack ff up with PCP this week (3) Abnormal urinalysis: no urinary symptoms (4) Hypertension: -Continue propranolol (5) Dyslipidemia: TG 167 Cholesterol 224 LDL 138 - monitor and ff up as outpatient -Continue atorvastatin (6) Anxiety: - mood stable per patient - Continue Seroquel, sertraline, doxepin (7) Asthma: - No acute exacerbation - Continue home inhalers (8) Migraine: -Continue topiramate (9) Chronic neck pain: - resolving d/c home today ff up with PCP this week case and plan of care discussed with patient in detail and at length all questions answered she is understanding, agreeable, comfortable with the plan of care Total Time Total Time Spent Total Time Spent (In Minutes): 50 minutes Discharge Plan Discharge Items Patient Disposition: Home - Self-Care Reason For Visit: CHEST PAIN Discharge Diagnosis: ATYPICAL CHEST PAIN Condition on Discharge: Good Activity: As commented below Activity Comment: RESUME ACTIVITY GRADUALLY TOLERATED Lifting: Wait until after follow-up appointment Exercise/Sports: Wait until after follow-up appointment Driving/Machine Use: NO DRIVING UNTIL RE-EVALUATED AND ALLOWED BY PRIMARY CARE PHYSICIAN Non-emergency contact: Primary Care Provider Call non-emergency contact if: you have any medication questions, your symptoms worsen, your pain is not controlled, your pain is worsening, your pain is unusual for you, your pain is concerning for you and you have a fever Follow-up/Referrals: Jocelyne Burr, [Primary Care Provider] - Diet: Heart Healthy Addtl Attending Provider Instructions: YOU CAN TAKE TYLENOL (ACETAMINOPHEN) 650MG EVERY 4-6 HOURS NEEDED FOR PAIN. DO NOT TAKE MORE THAN 3,000MG OF TYLENOL (ACETAMINOPHEN) PER DAY. APPLY ICE PACK GENTLY ON THE AFFECTED AREA 2-3X A DAY. FOLLOW UP WITH PRIMARY CARE PHYSICIAN THIS WEEK. THE CLINIC WILL BE CALLING YOU FOR THE APPOINTMENT. CALL PRIMARY CARE PHYSICIAN OR RETURN TO THE ER IMMEDIATELY IF WITH WORSENING OF SYMPTOMS. Pending Studies at Discharge: No Stand-Alone Forms: My [facility], Smoking Cessation Medications and DC Order Prescriptions: Continued topiramate 100 mg tablet 100 mg PO BID RF: 0 albuterol sulfate 90 mcg/actuation HFA aerosol inhaler 1 puffs INH Q4H PRN (Reason: Shortness Of Breath Or Wheezing) RF: 0 prochlorperazine maleate [Compazine] 10 mg tablet 10 mg PO UD PRN (Reason: Nausea) RF: 0 fluticasone propion-salmeterol [Advair Diskus] 250-50 mcg/dose blister with device 1 puffs INH BID RF: 0 tizanidine 4 mg tablet 4 mg PO Q6H PRN (Reason: Muscle Spasm) RF: 0 sumatriptan succinate 6 mg/0.5 mL pen injector 6 mg subcut UD PRN (Reason: Migraine Headache) RF: 0 propranolol 80 mg tablet 80 mg PO BID RF: 0 ibuprofen 200 mg Tablet 200 mg PO Q6H PRN (Reason: Pain) RF: 0 ondansetron 4 mg tablet,disintegrating 4 mg PO Q8H PRN (Reason: nausea and vomiting) Qty: 8 RF: 0 loratadine 10 mg Tablet 10 mg PO QAM RF: 0 doxepin 150 mg capsule 150 mg PO HS RF: 0 atorvastatin 20 mg tablet 20 mg PO DAILY RF: 0 quetiapine [Seroquel] 400 mg tablet 400 mg PO HS RF: 0 Dexilant 60 mg capsule,biphase delayed releas 60 mg PO DAILY RF: 0 sertraline 100 mg tablet 200 mg PO QAM RF: 0 acetaminophen [Tylenol Extra Strength] 500 mg Tablet 500 mg PO Q6H PRN (Reason: Pain) RF: 0 Discharge Orders: Discharge Order (Routine); Ordered 11/26/19 Ordered By: Jefferson Cano Admission Data Admit Date/Time: 11/25/19 14:05 Attending Provider: Jefferson Cano Admit Provider: Jefferson Cano Primary Care Provider: Jocelyne Burr Other Providers: Jefferson Cano ; Rashawn Hampton
== END 2019-11-26 15:42 | disposition home or self-care (01) ==
LOC: 2S 11:27 → ED 11:27 → 2S 15:30

== ENCOUNTER 2019-12-02 16:30 | Inpatient (IN) ==
[2019-12-02] MEDS ORDERED: ASPIRIN CHEW 324 MG PO STA (17:07)
--- NOTE | 2019-12-02 17:11 | Emergency Department Note ---
History of Present Illness General Chief complaint: Shortness of Breath/Dyspnea Stated complaint: chest tightness, sob, dizzy Time Seen by Provider: 12/02/19 17:06 History of Present Illness Maximum Pain Intensity: 8 Home Medications Home Medications Medication Instructions Recorded Confirmed Type sumatriptan succinate 6 mg SUBCUT UD PRN 09/11/18 11/27/19 History tizanidine 4 mg PO Q6H PRN 09/11/18 11/27/19 History propranolol 80 mg PO BID 10/12/18 11/27/19 History Dexilant 60 mg PO DAILY 10/26/18 11/27/19 History quetiapine [Seroquel] 400 mg PO HS 10/26/18 11/27/19 History acetaminophen [Tylenol Extra 500 mg PO Q6H PRN 08/15/19 11/27/19 History Strength] sertraline 200 mg PO QAM 08/15/19 11/27/19 History ibuprofen 400 mg PO Q6H PRN 08/22/19 11/27/19 History ondansetron 4 mg PO Q8H PRN #8 tab 08/22/19 11/27/19 Rx albuterol sulfate 90 mcg/actuation 1 puffs INH Q4H PRN gm 10/20/19 11/27/19 History aerosol inhaler fluticasone 250 mcg-salmeterol 50 1 puffs INH BID 10/20/19 11/27/19 History mcg/dose blistr powdr for inhalation prochlorperazine maleate 10 mg 10 mg PO UD PRN tab 10/20/19 11/27/19 History tablet topiramate 100 mg tablet 100 mg PO BID 10/20/19 11/27/19 History atorvastatin 20 mg PO DAILY 11/25/19 11/27/19 History doxepin 150 mg PO HS 11/25/19 11/27/19 History loratadine 10 mg PO QAM 11/25/19 11/27/19 History Allergies Allergy/AdvReac Type Severity Reaction Status Date / Time ketorolac [From Toradol] Allergy Mild Rash Verified 11/27/19 15:46 Sulfa (Sulfonamide Allergy Mild RASH, Verified 11/27/19 15:46 Antibiotics) NAUSEA tramadol Allergy Mild RASH,NAUSEA Verified 11/27/19 15:46 Past Med/Surg History Social History Preferred Language: Emirati Communication Ability: Effective Beliefs That Will Affect Care: None marital status: Current Living Situation: Family current occupational status: disabled Feels Safe at Home: Yes Smoking Status: Never smoker Cigarettes Per Day: Quit 09/2019. Smoked 0.5-1ppd x 5 years ; Second Hand Exposure: No ; Hx Alcohol Use: No Hx Substance Use: No Physical Exam Vital Signs Vital Signs - 24 hr 12/02/19 16:36 Temperature 36.4 C L Temperature Source Oral Pulse Rate 92 H Respiratory Rate 19 Blood Pressure 129/89 Blood Pressure Mean 102 Pulse Oximetry 98 Sepsis Recent Fever Within 48 Hours No Sepsis Action Taken by Nursing No Action Required Course Course 1708: The patient was evaluated in room C4. A complete history and physical exam was performed. EMR reviewed. This is the patient's third visit to the emergency department in the last 7 days. She was admitted from November 24 to [address] For chest pain. In the last week the patient has had a negative CTA of the chest as well as negative cardiac enzymes. Patient had an echo done on November 26, 2019 which showed a systolic ejection fraction of 60 to 65% with no valvular pathology or wall motion abnormality. Patient was re-seen in the emergency department after she was discharged the day after on November 27, 2019. On that time she had a negative CT of the chest as well as CT of the head. Discharge Plan Visit Data Chief Complaint: Shortness of Breath/Dyspnea Stated Complaint: chest tightness, sob, dizzy ED Provider: Johnson Freedman Prescriptions Prescriptions: No Action topiramate 100 mg tablet 100 mg PO BID RF: 0 albuterol sulfate 90 mcg/actuation HFA aerosol inhaler 1 puffs INH Q4H PRN (Reason: Shortness Of Breath Or Wheezing) RF: 0 prochlorperazine maleate [Compazine] 10 mg tablet 10 mg PO UD PRN (Reason: Nausea) RF: 0 fluticasone propion-salmeterol [Advair Diskus] 250-50 mcg/dose blister with device 1 puffs INH BID RF: 0 tizanidine 4 mg tablet 4 mg PO Q6H PRN (Reason: Muscle Spasm) RF: 0 sumatriptan succinate 6 mg/0.5 mL pen injector 6 mg subcut UD PRN (Reason: Migraine Headache) RF: 0 propranolol 80 mg tablet 80 mg PO BID RF: 0 ibuprofen 200 mg Tablet 400 mg PO Q6H PRN (Reason: Pain) RF: 0 ondansetron 4 mg tablet,disintegrating 4 mg PO Q8H PRN (Reason: nausea and vomiting) Qty: 8 RF: 0 loratadine 10 mg Tablet 10 mg PO QAM RF: 0 doxepin 150 mg capsule 150 mg PO HS RF: 0 atorvastatin 20 mg tablet 20 mg PO DAILY RF: 0 quetiapine [Seroquel] 400 mg tablet 400 mg PO HS RF: 0 Dexilant 60 mg capsule,biphase delayed releas 60 mg PO DAILY RF: 0 sertraline 100 mg tablet 200 mg PO QAM RF: 0 acetaminophen [Tylenol Extra Strength] 500 mg Tablet 500 mg PO Q6H PRN (Reason: Pain) RF: 0
[2019-12-02 17:28] LABS: Basophils # (auto) 0.06 K/uL (0-0.2); Basophils % (auto) 0.9 %; Eosinophils # (auto) 0.04 K/uL (0-0.5); Eosinophils % (auto) 0.6 %; Hematocrit (blood only) 35.8 % (37-47); Hemoglobin 12.4 g/dL (12.0-16.0); Immature Granulocytes # (auto) 0.01 K/uL (0.00-0.02); Immature Granulocytes % (auto) 0.2 %; Lymphocytes # (auto) 2.02 K/uL (1.2-3.4); Lymphocytes % (auto) 31.7 %; Mean Corpuscular Hemoglobin 32.4 pg (25-34); Mean Corpuscular Hgb Conc 34.6 g/dL (32-36); Mean Corpuscular Volume 93.5 fL (80-100); Mean Platelet Volume 9.4 fL (7.4-10.4); Monocytes # (auto) 0.56 K/uL (0.11-0.59); Monocytes % (auto) 8.8 %; Neutrophils # (auto) 3.68 K/uL (1.4-6.5); Neutrophils % (auto) 57.8 %; Platelet Count 321 K/uL (130-400); RDW Standard Deviation 44.9 fL (36.4-46.3); Red Blood Count 3.83 M/uL (4.2-5.4); White Blood Count 6.37 K/uL (4.8-10.8)
[2019-12-02 17:39] LABS: Partial Thromboplastin Ratio 1.1; Partial Thromboplastin Time 31.9 Seconds (21.0-31.0); Prothrombin Time 10.7 Seconds (9.0-12.0)
--- NOTE | 2019-12-02 17:43 | Emergency Department Note ---
History of Present Illness General Chief Complaint: Shortness of Breath/Dyspnea Stated Complaint: chest tightness, sob, dizzy Time Seen by Provider: 12/02/19 17:06 History of Present Illness Provider Complaint: chest pain Onset (ago): week(s) Onset (Weeks): 1 Duration: intermittent Pain Location: substernal and left chest Pain Radiation: LUE Severity: moderate Maximum Pain Intensity: 8 Current Pain Intensity: 8 Quality: + tightness, + aching and + dull Relieved By: + nothing Exacerbated By: + nothing Context: no recent travel and no history of DVT/PE Associated symptoms: + nausea, + dyspnea, + syncope and + other (Shortness of breath); no fever and no cough No anosmia or loss of taste. No exposure to any known COVID-19 patient's or COVID-19 patient of interest. Patient states when she was discharged she thought she felt better however the cardiology team wanted to do more tests on her. Home Medications Home Medications Medication Instructions Recorded Confirmed Type sumatriptan succinate 6 mg SUBCUT UD PRN 09/11/18 11/27/19 History tizanidine 4 mg PO Q6H PRN 09/11/18 11/27/19 History propranolol 80 mg PO BID 10/12/18 11/27/19 History Dexilant 60 mg PO DAILY 10/26/18 11/27/19 History quetiapine [Seroquel] 400 mg PO HS 10/26/18 11/27/19 History acetaminophen [Tylenol Extra 500 mg PO Q6H PRN 08/15/19 11/27/19 History Strength] sertraline 200 mg PO QAM 08/15/19 11/27/19 History ibuprofen 400 mg PO Q6H PRN 08/22/19 11/27/19 History ondansetron 4 mg PO Q8H PRN #8 tab 08/22/19 11/27/19 Rx albuterol sulfate 90 mcg/actuation 1 puffs INH Q4H PRN gm 10/20/19 11/27/19 History aerosol inhaler fluticasone 250 mcg-salmeterol 50 1 puffs INH BID 10/20/19 11/27/19 History mcg/dose blistr powdr for inhalation prochlorperazine maleate 10 mg 10 mg PO UD PRN tab 10/20/19 11/27/19 History tablet topiramate 100 mg tablet 100 mg PO BID 10/20/19 11/27/19 History atorvastatin 20 mg PO DAILY 11/25/19 11/27/19 History doxepin 150 mg PO HS 11/25/19 11/27/19 History loratadine 10 mg PO QAM 11/25/19 11/27/19 History Allergies Allergy/AdvReac Type Severity Reaction Status Date / Time ketorolac [From Toradol] Allergy Mild Rash Verified 11/27/19 15:46 Sulfa (Sulfonamide Allergy Mild RASH, Verified 11/27/19 15:46 Antibiotics) NAUSEA tramadol Allergy Mild RASH,NAUSEA Verified 11/27/19 15:46 Past Med/Surg History Medical History Abdominal pain (Resolved) Abdominal pain (Resolved) Anemia (Resolved) Anxiety (Chronic) Bipolar disorder (Chronic) Bronchitis (Resolved) Constipation (Resolved) Depression (Chronic) DJD (degenerative joint disease) of knee (Resolved 09/07/13) Fibromyalgia (Chronic) Flank pain (Resolved) Headache (Resolved) Hypertension (Chronic) Kidney stone (Resolved) 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) Lumbar pain (Resolved) Migraine (Chronic) Painful orthopaedic hardware (Resolved 12/21/13) Pyelonephritis (Resolved) Right foot pain (Resolved) Right knee pain (Resolved) Sinusitis (Resolved) Somnolence (Chronic) Urinary tract infection (Resolved) Surgical History History of hysterectomy History of knee surgery (Resolved) S/P colonoscopy S/P inguinal hernia repair S/P sinus surgery Family History Daughter Allergies Depression Grandmother (Paternal) Arthritis Grandfather (Paternal) Arthritis Diabetes Grandmother (Maternal) Diabetes Hypertension Grandfather (Maternal) Diabetes Hypertension Sister Hypertension Kidney stones Mother Thyroid disorder Social History Preferred Language: Maltese Communication Ability: Effective Beliefs That Will Affect Care: None marital status: Current Living Situation: Family current occupational status: disabled Feels Safe at Home: Yes Smoking Status: Never smoker Cigarettes Per Day: Quit 09/2019. Smoked 0.5-1ppd x 5 years ; Second Hand Exposure: No ; Hx Alcohol Use: No Hx Substance Use: No Review of Systems A total of 10 systems reviewed and were otherwise negative Physical Exam Vital Signs Vital Signs - 24 hr 12/02/19 16:36 12/02/19 17:54 Temperature 36.4 C L Temperature Source Oral Pulse Rate 92 H Respiratory Rate 19 Blood Pressure 129/89 Blood Pressure Mean 102 Pulse Oximetry 98 97 Oxygen Delivery Method Room Air Sepsis Recent Fever Within 48 Hours No Sepsis Action Taken by Nursing No Action Required Physical Exam GENERAL: She is oriented to person, place, and time. She appears well-developed and well-nourished. She does not appear distressed. HENT: Exam performed. -Head: Normocephalic and atraumatic. -Right Ear: External ear normal. No mastoid tenderness. -Left Ear: External ear normal. No mastoid tenderness. -Mouth/Throat: The oropharynx is clear and moist. No trismus in the jaw. No dental abscesses or uvula swelling. No oropharyngeal exudate or tonsillar abscesses. EYES: Conjunctivae and EOM are normal. Pupils are equal, round, and reactive to light. Right eye exhibits no discharge. Left eye exhibits no discharge. No scleral icterus. NECK: Normal range of motion. Neck supple. No JVD present. No spinous process tenderness present. No carotid bruit present. No rigidity. No tracheal deviation and normal range of motion present. No Brudzinski's sign and no Kernig's sign noted. CV: Normal rate, regular rhythm, normal heart sounds and intact distal pulses. There is no peripheral edema. Palpable radial pulses bue. PULM/CHEST: Effort normal and breath sounds normal. No respiratory distress. No stridor. She has no wheezes. She has no rales. -Chest Wall: She exhibits no tenderness. ABD: The abdomen is soft. Bowel sounds are normal. She has no distension. No mass is present. There is no tenderness. There is no rebound, no guarding, no Archibald's sign and no tenderness at McBurney's point. Rovsig negative MUSC/SKEL: Normal range of motion. There is no peripheral edema, tenderness or deformity. LYMPH: No cervical adenopathy. NEURO: She is alert and oriented to person, place, and time. She has normal strength. No cranial nerve deficit or sensory deficit. Coordination and gait normal. GCS eye subscore is 4. GCS verbal subscore is 5. GCS motor subscore is 6. Cerebellar tests wnl. SKIN: Skin is warm and dry. She is not diaphoretic. PSYCH: She has a normal mood and affect. Behavior is normal. Judgment and thought content normal. Course Course 1707: The patient was evaluated in room C4. A complete history and physical exam was performed. EMR reviewed. This is the patient's third visit to the emergency department in the last 7 days. She was admitted from November 24 to November 25. For chest pain. In the last week the patient has had a negative CTA of the chest as well as negative cardiac enzymes. Patient had an echo done on November 26, 2019 which showed a systolic ejection fraction of 60 to 65% with no valvular pathology or wall motion abnormality. Patient was re-seen in the emergency department after she was discharged the day after on November 27, 2019. On that time she had a negative CT of the chest as well as CT of the head. EKG done today shows no change from her EKG on November 27, 2019. Cardiac monitoring: An order was placed for continuous cardiac monitoring. The monitor shows a rate of 96 with sinus rhythm 1804: Vital signs stable. Labs within normal limits with the exception of potassium of 3.2. Replaced in the emergency department. Troponin negative. Patient will be admitted to the hospitalist service for cardiology consultation and possible stress test as well as possible cardiac catheterization. Patient is in agreement with this plan. Discussed with Shanika Lindsey who states to admit to Dr. Millan Administered Medications Discontinued Medications Aspirin (Aspirin) 324 mg PO NOW STA Stop: 12/02/19 17:08 Last Admin: 12/02/19 17:27 Dose: 324 mg Documented by: [id number] Medical Decision Making Laboratory Data Result diagrams: 12/02/19 17:18 12/02/19 17:18 Labs: Lab Results 12/02/19 12/02/19 12/02/19 Range/Units 17:18 17:18 17:18 WBC 6.37 (4.8-10.8) K/uL RBC 3.83 L (4.2-5.4) M/uL Hgb 12.4 (12.0-16.0) g/dL Hct 35.8 L (37-47) % MCV 93.5 (80-100) fL MCH 32.4 (25-34) pg MCHC 34.6 (32-36) g/dL RDW Std Deviation 44.9 (36.4-46.3) fL RDW Coeff of Nate 13.0 (11.5-14.5) % Plt Count 321 (130-400) K/uL MPV 9.4 (7.4-10.4) fL Immature Gran % (Auto) 0.2 % Neut % (Auto) 57.8 % Lymph % (Auto) 31.7 % Shackelford % (Auto) 8.8 % Eos % (Auto) 0.6 % Baso % (Auto) 0.9 % Immature Gran # (Auto) 0.01 (0.00-0.02) K/uL Neut # (Auto) 3.68 (1.4-6.5) K/uL Lymph # (Auto) 2.02 (1.2-3.4) K/uL Shackelford # (Auto) 0.56 (0.11-0.59) K/uL Eos # (Auto) 0.04 (0-0.5) K/uL Baso # (Auto) 0.06 (0-0.2) K/uL PT 10.7 (9.0-12.0) Seconds INR 1.0 (0.9-1.1) APTT 31.9 H (21.0-31.0) Seconds PTT Ratio 1.1 Sodium 135 L (136-145) mmol/L Potassium 3.2 L (3.5-5.1) mmol/L Chloride 107 (98-107) mmol/L Carbon Dioxide 19 L (21-32) mmol/L Anion Gap 10.0 (3-11) BUN 7 (7-18) mg/dl Creatinine 0.96 (0.6-1.2) mg/dl Est Cr Clr Drug Dosing 87.9 ml/min Est GFR ( Amer) 85.7 Est GFR (Non-Af Amer) 74.0 BUN/Creatinine Ratio 7.7 L (10-20) Glucose 118 H (70-99) mg/dl Calcium 8.3 L (8.5-10.1) mg/dl Troponin I < 0.015 (0-0.045) ng/ml Lipase 94 (73-393) U/L Imaging Data Chest x-ray: Radiologist's impression: XR chest 1V portable CLINICAL HISTORY: Chest Pain COMPARISON STUDY: Chest radiograph and chest CT November 27, 2019. FINDINGS: Lung volumes are at the lower limits of normal. Lungs are clear. There is no pneumothorax or pleural effusion. Cardiac size is normal. Mediastinal contours are normal. There is no evidence for pulmonary edema. IMPRESSION: No acute cardiopulmonary findings. ACT 112: Negative or not required by law. Electronically signed by: John Donnelly M.D. 12/02/2019 5:41 PM Dictated: 12/02/191739 Transcribed: 12/02/191739 ECG Data Rate (beats per minute): 79 Rhythm: normal sinus Findings: + T-wave inversion (Leads II, III, aVF, V2 through V6); no ST depression and no ST elevation Change: no significant change (From the EKG done on November 27, 2019.) [facility] Narrative 1708: The patient was evaluated in room C4. A complete history and physical exam was performed. EMR reviewed. This is the patient's third visit to the emergency department in the last 7 days. She was admitted from November 24 to November 25. For chest pain. In the last week the patient has had a negative CTA of the chest as well as negative cardiac enzymes. Patient had an echo done on November 26, 2019 which showed a systolic ejection fraction of 60 to 65% with no valvular pathology or wall motion abnormality. Patient was re-seen in the emergency department after she was discharged the day after on November 27, 2019. On that time she had a negative CT of the chest as well as CT of the head. EKG done today shows no change from her EKG on November 27, 2019. Cardiac monitoring: An order was placed for continuous cardiac monitoring. The monitor shows a rate of 96 with sinus rhythm 1804: Vital signs stable. Labs within normal limits with the exception of potassium of 3.2. Replaced in the emergency department. Troponin negative. Patient will be admitted to the hospitalist service for cardiology consultation and possible stress test as well as possible cardiac catheterization. Patient is in agreement with this plan. Discussed with Shanika Lindsey who states to admit to Dr. Millan Impression & Plan Chest pain, Acute hypokalemia Discharge Plan Visit Data Chief Complaint: Shortness of Breath/Dyspnea Stated Complaint: chest tightness, sob, dizzy ED Provider: Johnson Freedman Discharge Problem: Chest pain, Acute hypokalemia Patient Disposition: Being Evaluated by Hospitalist Forms Stand Alone Forms: My [facility] Prescriptions Prescriptions: No Action topiramate 100 mg tablet 100 mg PO BID RF: 0 albuterol sulfate 90 mcg/actuation HFA aerosol inhaler 1 puffs INH Q4H PRN (Reason: Shortness Of Breath Or Wheezing) RF: 0 prochlorperazine maleate [Compazine] 10 mg tablet 10 mg PO UD PRN (Reason: Nausea) RF: 0 fluticasone propion-salmeterol [Advair Diskus] 250-50 mcg/dose blister with device 1 puffs INH BID RF: 0 tizanidine 4 mg tablet 4 mg PO Q6H PRN (Reason: Muscle Spasm) RF: 0 sumatriptan succinate 6 mg/0.5 mL pen injector 6 mg subcut UD PRN (Reason: Migraine Headache) RF: 0 propranolol 80 mg tablet 80 mg PO BID RF: 0 ibuprofen 200 mg Tablet 400 mg PO Q6H PRN (Reason: Pain) RF: 0 ondansetron 4 mg tablet,disintegrating 4 mg PO Q8H PRN (Reason: nausea and vomiting) Qty: 8 RF: 0 loratadine 10 mg Tablet 10 mg PO QAM RF: 0 doxepin 150 mg capsule 150 mg PO HS RF: 0 atorvastatin 20 mg tablet 20 mg PO DAILY RF: 0 quetiapine [Seroquel] 400 mg tablet 400 mg PO HS RF: 0 Dexilant 60 mg capsule,biphase delayed releas 60 mg PO DAILY RF: 0 sertraline 100 mg tablet 200 mg PO QAM RF: 0 acetaminophen [Tylenol Extra Strength] 500 mg Tablet 500 mg PO Q6H PRN (Reason: Pain) RF: 0 Referrals Referrals: Bryce Magana MD [Primary Care Provider] - Discharge Problem: Chest pain Qualifiers: Chest pain type: unspecified Qualified Code(s): R07.9 - Chest pain, unspecified
[2019-12-02 17:44] LABS: BUN Creatinine Ratio 7.7 (10-20); Blood Urea Nitrogen 7 mg/dl (7-18); Calcium 8.3 mg/dl (8.5-10.1); Carbon Dioxide 19 mmol/L (21-32); Chloride 107 mmol/L (98-107); Creatinine Clr Calc Pharmacy 87.9 ml/min; Est GFR (African American) 85.7; Glucose 118 mg/dl (70-99); Lipase 94 U/L (73-393); Potassium 3.2 mmol/L (3.5-5.1); Sodium 135 mmol/L (136-145)
[2019-12-02 17:49] LABS: Troponin I < 0.015 ng/ml (0-0.045)
[2019-12-02] MEDS ORDERED: POTASSIUM CHLORIDE 10 MEQ TABCR PO STA (18:06)
--- NOTE | 2019-12-02 18:52 | History & Physical Report ---
Date of Service December 02, 2019 Assessment & Plan (1) Atypical chest pain: This is a 39 year old F with a significant PMH of HTN, dyslipidemia, migraine, bipolar, anxiety, asthma, fibromyalgia, history of abnormal EKG presented to ER with complaint of chest pain, sob, lightheaded and dizziness that started this morning. In ED pt remained hemodynamically stable. Lab work notable for Sodium 135, K3.2, BUN 7, creatinine 0.96, glucose 118, troponin WNL, lipase WNL. H&H stable at 12.4 and 35.8. She received ASA 325mg in ED along with potassium supplementation ECG continues to revealed T wave inversions anterior, laterally and inferiorly with a mild prolonged QTC at 474ms admit to PCU IVF 100cc/hr +KCL cycle troponin and repeat ecg had echocardiogram 1 week ago which was WNL EF 55-60% consult cardiology obtain ESR, CRP, Mag pt already on PPI therapy does not appear to be MSK etiology She does not appear to be overtly anxious and no acute lung pathology noted (2) Lightheadedness: may be secondary to orthostasis obtain orthostatic VS continue IVF, GERARDO stockings monitor (3) Acute hypokalemia: received 40meq KCL in ED continue IVF +20meq KCL monitor (4) Asthma: no acute exacerbation continue advair (5) Bipolar I disorder, single manic episode: continue topamax, seroquel, doxepin mood is stable (6) Dyslipidemia: continue statin recent lipid profile 11/2019 Total chol 224, Trig 167, LDL 130, HDL 53 (7) Hypertension: blood pressure stable in ED reports +orthostasis in clinic this past week which resulted in a reduction of her propranolol 80mg bid to 40mg bid States she has been on for years (8) Fibromyalgia: stable (9) Migraine: continue topamax prn imitrex (10) DVT prophylaxis: SCD/TEDS Disposition: admit to TELE Follow up: PCP Dr. Magana upon discharge Pt was seen and examined in collaboration with Dr. Millan, please see addendum History of Present Illness Chief Complaint: Chest pain and SOB x several hours Primary Care Provider: Bryce Magana MD This is a 39 year old F with a significant PMH of HTN, dyslipidemia, migraine, bipolar, anxiety, asthma, fibromyalgia, history of abnormal EKG presented to ER with complaint of chest pain, sob, lightheaded and dizziness that started this morning. Patient states that she awoke this morning with substernal chest pain lasting minutes. She complains of having a constant chest pressure but will get intermittent chest pain that last several minutes. Symptoms can occur at rest or with exertion. She also complains of PEÑA even with minimal exertion. She also gets substernal chest pain with minimal exertion. Symptoms usually resolve immediately with rest. She also complains of dizziness, lightheadedness, chills, nausea and one episode of diarrhea today. Over the past few weeks she has not felt well. She was recently admitted and discharged approximately 1 week ago for similar symptoms. Her EKG at that time revealed worsening T wave inversions. ACS was ruled out and she had echocardiogram which was unremarkable. Her symptoms improved and she was discharged home in good condition. Unfortunately 2 days after she represented back to the ED secondary to a syncopal episode. "I am not exactly sure if I passed out." She explains feeling dizzy and lightheaded and having tunnel vision which resulted in her blacking out for several seconds. She came to ED where she had CT scan of head which was unremarkable, CTA of chest which was negative for PE and work-up was generally unremarkable therefore she was discharged back to home. Unfortunately due to her recurrence of chest pain she presents again today at the recommendation of cardiology. She did seen provider in PCP office 4 days ago who discontinued her zanaflex and reduced her propranolol to 40mg bid due to orthostatic hypotension. She also reached out to cardiology who recommend she try compression stockings at HS which she states she has. Of significance she has been seen by cardiology-Dr. Hampton in 11/2018. Had abnormal EKGs with diffuse ST T wave abnormalities. 01/2019 stress echo negative for inducible ischemia. 01/[address] normal cardiac studies. She reports she stopped smoking 2 months ago cold turkey, was smoking 0.5-1ppd x 5 years. Denies recent travel, ill contacts, known COVID-19 exposures. FH: grandfather "phantom heart attack" Allergies Allergy/AdvReac Type Severity Reaction Status Date / Time ketorolac [From Toradol] Allergy Mild Rash Verified 11/27/19 15:46 Sulfa (Sulfonamide Allergy Mild RASH, Verified 11/27/19 15:46 Antibiotics) NAUSEA tramadol Allergy Mild RASH,NAUSEA Verified 11/27/19 15:46 Home Medications Home Medications Medication Instructions Recorded Confirmed Type sumatriptan succinate 6 mg SUBCUT UD PRN 09/11/18 12/02/19 History propranolol 40 mg PO BID 10/12/18 12/02/19 History Dexilant 60 mg PO DAILY 10/26/18 12/02/19 History quetiapine [Seroquel] 400 mg PO HS 10/26/18 12/02/19 History acetaminophen [Tylenol Extra 500 mg PO Q6H PRN 08/15/19 12/02/19 History Strength] sertraline 200 mg PO QAM 08/15/19 12/02/19 History ibuprofen 400 mg PO Q6H PRN 08/22/19 12/02/19 History ondansetron 4 mg PO Q8H PRN #8 tab 08/22/19 12/02/19 Rx albuterol sulfate 90 mcg/actuation 1 puffs INH Q4H PRN gm 10/20/19 12/02/19 History aerosol inhaler fluticasone 250 mcg-salmeterol 50 1 puffs INH BID 10/20/19 12/02/19 History mcg/dose blistr powdr for inhalation prochlorperazine maleate 10 mg 10 mg PO UD PRN tab 10/20/19 12/02/19 History tablet topiramate 100 mg tablet 100 mg PO BID 10/20/19 12/02/19 History atorvastatin 20 mg PO DAILY 11/25/19 12/02/19 History doxepin 150 mg PO HS 11/25/19 12/02/19 History loratadine 10 mg PO QAM 11/25/19 12/02/19 History Past Med/Surg History Medical History (Updated 12/03/19 @ 00:00 by Shelley Salinas) Anxiety (Chronic) Constipation (Resolved) Depression (Chronic) DJD (degenerative joint disease) of knee (Resolved 09/07/13) Fibromyalgia (Chronic) Headache (Resolved) Hypertension (Chronic) Kidney stone (Resolved) 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) Lumbar pain (Resolved) Migraine (Chronic) Painful orthopaedic hardware (Resolved 12/21/13) Pyelonephritis (Resolved) Urinary tract infection (Resolved) Surgical History History of hysterectomy History of knee surgery (Resolved) History of tubal ligation S/P colonoscopy S/P inguinal hernia repair S/P sinus surgery Family History Daughter Allergies Depression Grandmother (Paternal) Arthritis Grandfather (Paternal) Arthritis Diabetes Grandmother (Maternal) Diabetes Hypertension Grandfather (Maternal) Diabetes Hypertension Sister Hypertension Kidney stones Mother Thyroid disorder Social History Preferred Language: Telugu Communication Ability: Effective [employer] Worker Required: No Beliefs That Will Affect Care: None marital status: Current Living Situation: Family current occupational status: disabled Other Information That Helps Us Care for You: No Feels Safe at Home: Yes Safety Concerns: Feels Safe At This Time Smoking Status: Former smoker Cigarettes Per Day: Quit 09/2019. Smoked 0.5-1ppd x 5 years ; Second Hand Exposure: No ; Hx Alcohol Use: No Hx Substance Use: No Review of Systems Review of Systems: All systems reviewed & are unremarkable except as noted in HPI & below Physical Exam Physical Exam: Constitutional: WD/WN, ill appearing, vitals as above, NAD, lying in bed but upon leaning forward she got dizzy, pleasant, conversing easily Head: Normocephalic, Atraumatic Eyes: PERRL, conjunctivae normal, anicteric sclerae ENMT: external ear and nose normal, oropharynx normal Neck: trachea midline, no thyromegaly normal visual inspection Respiratory: normal respiratory effort, lungs clear to auscultation, no wheeze, rales, rhonchi. Normal insp/exp effort, no accessory muscle use Cardiovascular: RRR, no murmur, no edema Vessels: no JVD or carotid bruit Chest: normal inspection of chest Abdomen: normal bowel sounds, soft, nontender, no hepatosplenomegaly Musculoskeletal: no cyanosis or clubbing, extremities motor strength 5/5 Skin: no rashes, warm and dry normal turgor, + tattoos b/l Neurologic: PERRL, EOMI, accommodation nl, no face palsy, no dysarthria CN's II-XI intact bilaterally and moves all extremities Psychiatric: A+Ox3, euthymic affect Lymphatic: no cervical or axillary lymphadenopathy : deferred Results & Data Results & Data ([facility]) Vital Signs (Past 12 Hours) Vital Signs Temp Pulse Resp BP BP Pulse Ox 12/02/19 18:42 19 136/75 97 12/02/19 17:54 97 12/02/19 16:36 36.4 C L 92 H 19 129/89 98 Laboratory Results Short CBC 12/02/19 Range/Units 17:18 WBC 6.37 (4.8-10.8) K/uL Hgb 12.4 (12.0-16.0) g/dL Hct 35.8 L (37-47) % Plt Count 321 (130-400) K/uL [facility] 12/02/19 17:18 Sodium 135 L Potassium 3.2 L Chloride 107 Carbon Dioxide 19 L BUN 7 Creatinine 0.96 Glucose 118 H Calcium 8.3 L Cardiac Enzymes 12/02/19 Range/Units 17:18 Troponin I < 0.015 (0-0.045) ng/ml Diagnostic Findings CXR: IMPRESSION: No acute cardiopulmonary findings. Medications Administered Short CBC 12/02/19 Range/Units 17:18 WBC 6.37 (4.8-10.8) K/uL Hgb 12.4 (12.0-16.0) g/dL Hct 35.8 L (37-47) % Plt Count 321 (130-400) K/uL [facility] 12/02/19 17:18 Sodium 135 L Potassium 3.2 L Chloride 107 Carbon Dioxide 19 L BUN 7 Creatinine 0.96 Glucose 118 H Calcium 8.3 L Cardiac Enzymes 12/02/19 Range/Units 17:18 Troponin I < 0.015 (0-0.045) ng/ml Code Status & VTE Plan Code Status Full Code VTE Prophylaxis Plan VTE Prophylaxis will be ordered: Yes Supervising Physician Co-Signing Physician Notes Attending addendum Patient is seen and examined in emergency room on 12/02/2019 She was brought into the ER with complaints of chest pain/pressure which has been going on for the last 2 days The symptoms are associated with dizziness and near syncope episode as well She has had recent hospital admission for chest pain and relevant investigations were unremarkable Denies any symptoms during examination in the emergency room On examination No apparent distress at rest Hemodynamically stable with blood pressure at the lower side of normal Chest-clear to auscultate bilaterally Heart-S1-S2, regular, no murmur appreciated Abdomen-benign Extremities-negative for any edema Admission labs, EKG and imaging studies reviewed Has atypical chest pain with recurrence of symptoms, to rule out ACS and cardiology evaluation Presyncope likely secondary to postural hypotension-has been on propranolol for blood pressure control Agree with assessment and plan as outlined above by CORINA Portillo DR (1) Migraine Intractability: not intractable Migraine type: unspecified Status migrainosus presence: without status migrainosus Qualified Code(s): G43.909 - Migraine, unspecified, not intractable, without status migrainosus
[2019-12-02] MEDS ORDERED: ALBUTEROL HFA 8 GM INHALER INH PRN (19:55)
[2019-12-02] MEDS ORDERED: POLYETHYLENE (MIRALAX) 17 GM PACK PO PRN (19:55)
[2019-12-02] MEDS ORDERED: ALUMINUM/MAGNESIUM SUSP 30 ML UDC PO PRN (19:55)
[2019-12-02] MEDS ORDERED: ONDANSETRON INJ 2 MG/ML 2 ML VIAL IV PRN (19:55)
[2019-12-02] MEDS ORDERED: NITROGLYCERIN SL 0.4 MG/TAB TAB SL PRN (19:55)
[2019-12-02 20:01] LABS: C Reactive Protein < 0.29 mg/dl (0-0.29); Magnesium 1.7 mg/dl (1.8-2.4)
[2019-12-02] MEDS: TOPIRAMATE 100 MG TAB PO SCH (21:12)
[2019-12-02] MEDS: QUETIAPINE FUMARATE 200 MG TAB PO SCH (21:12)
[2019-12-02] MEDS: PROPRANOLOL HCL 80 MG TAB PO SCH (21:13)
[2019-12-02] MEDS: DOXEPIN HCL 75 MG CAPSULE PO SCH (21:13)
[2019-12-02] MEDS: NSS + 20MEQ KCL 20 MEQ/1,000 ML BAG IV SCH (22:44)
[2019-12-03 07:19] LABS: Estimated Average Glucose 111 mg/dl; Hemoglobin A1C 5.5 % (4.5-5.6)
[2019-12-03] MEDS: LORATADINE 10 MG TAB PO SCH (07:53)
--- NOTE | 2019-12-03 07:53 | Electrocardiogram Report ---
Test Reason : Blood Pressure : / mmHG Vent. Rate : 079 BPM Atrial Rate : 079 BPM P-R Int : 132 ms QRS Dur : 094 ms QT Int : 414 ms P-R-T Axes : 048 056 263 degrees QTc Int : 474 ms Normal sinus rhythm Abnormal ECG When compared with ECG of 27-NOV-2019 17:21, No significant change was found Confirmed by Zane Garnica ([id number]) on 12/03/2019 7:53:04 AM Referred By: REFERRED SELF Confirmed By:Zane Garnica
[2019-12-03] MEDS: SERTRALINE HCL 100 MG TABLET PO SCH (07:54)
[2019-12-03] MEDS: ATORVASTATIN 20 MG TAB PO SCH (07:54)
[2019-12-03] MEDS: PANTOprazole 40 MG TAB PO SCH (07:54)
[2019-12-03] MEDS: TOPIRAMATE 100 MG TAB PO SCH ×2 (07:54→22:02)
[2019-12-03] MEDS: PROPRANOLOL HCL 80 MG TAB PO SCH (07:54)
[2019-12-03] MEDS: FLUTICASONE/VILANTEROL 200/25MCG 14 PUFFS/INHALER INH SCH (07:55)
--- NOTE | 2019-12-03 10:51 | Hospitalist Progress Note ---
Date of Service December 03, 2019 Assessment & Plan (1) Atypical chest pain: This is a 39 year old F with a significant PMH of HTN, dyslipidemia, migraine, bipolar, anxiety, asthma, fibromyalgia, history of abnormal EKG presented to ER with complaint of chest pain, sob, lightheaded and dizziness t hat started in the morning of admission Serial troponins have been negative and EKG remains unchanged compared with prior Has had echocardiogram 1 week ago which was WNL EF 55-60% Recent cardiac CT unremarkable Inflammatory markers ESR and CRP have been negative Has been taking antipsychotic medications from outpatient psychiatrist and her medications have been reevaluated in late April She will keep an appointment with a psychiatrist as an outpatient on discharge Awaiting cardiology evaluation for further guidance (2) Lightheadedness: May be secondary to orthostasis No orthostatic hypotension noted Continue IVF, GERARDO stockings Please advise increase ambulation (3) Acute hypokalemia: received 40meq KCL in ED continue IVF +20meq KCL We will check PRP (4) Asthma: no acute exacerbation continue advair (5) Bipolar I disorder, single manic episode: Continue topamax, seroquel, doxepin Mood is stable We will have outpatient appointment with her psychiatrist to adjust antipsychotic medications (6) Dyslipidemia: continue statin recent lipid profile 11/2019 Total chol 224, Trig 167, LDL 130, HDL 53 (7) Hypertension: blood pressure stable in ED reports +orthostasis in clinic this past week which resulted in a reduction of her propranolol 80mg bid to 40mg bid States she has been on for years (8) Fibromyalgia: stable (9) Migraine: continue topamax prn imitrex (10) DVT prophylaxis: SCD/TEDS-we will start heparin subcu Disposition: admit to TELE Follow up: PCP Dr. Magana upon discharge Admission and Anticipated Discharge Date Admission Date: December 02, 2019 Subjective 12/03/2019 The patient was seen and examined in telemetry unit She is a 39 year old F with a significant PMH of HTN, dyslipidemia, migraine, bipolar, anxiety, asthma, fibromyalgia, history of abnormal EKG presented to ER with complaint of chest pain, sob, lightheaded and dizziness that started since the morning of admission Still has precordial discomfort without any shortness of breath and/or palpitation Review of Systems Review of Systems: All systems reviewed and are unremarkable except as noted below Cardiovascular: + problem reported (Precordial chest pressure and discomfort without any significant pain); no palpitations Physical Exam Physical Exam: Lying in bed comfortably Constitutional: well developed and well nourished; no acute distress and not ill appearing Eyes: PERRL, conjunctivae normal, anicteric sclerae ENMT: external ear and nose normal, oropharynx normal Neck: trachea midline, no thyromegaly Respiratory: normal respiratory effort; no respiratory distress Auscultation: lungs clear to auscultation bilaterally Cardiovascular: Rate/Rhythm: regular rate and regular rhythm Heart Sounds: no murmur Extremities: no edema Gastrointestinal (Abdomen): Inspection/Auscultation: abdomen normal to inspection and normal bowel sounds; abdomen not distended Percussion/Palpation: abdomen soft; abdomen nontender Musculoskeletal: Tenderness over costochondral junctions more on the left than the right side Neurologic: moves all extremities; no focal motor deficits Results & Data Results & Data ([facility]) Vital Signs (Past 12 Hours) Vital Signs Temp Pulse Pulse Resp BP Pulse Ox 12/03/19 08:00 98 H 12/03/19 06:56 36.6 C 20 98 12/03/19 03:19 36.4 C L 76 18 102/65 96 12/02/19 23:12 36.6 C 76 16 111/61 99 Laboratory Results Short CBC 12/02/19 Range/Units 17:18 WBC 6.37 (4.8-10.8) K/uL Hgb 12.4 (12.0-16.0) g/dL Hct 35.8 L (37-47) % Plt Count 321 (130-400) K/uL BMP 12/02/19 17:18 Sodium 135 L Potassium 3.2 L Chloride 107 Carbon Dioxide 19 L BUN 7 Creatinine 0.96 Glucose 118 H Calcium 8.3 L Cardiac Enzymes 12/02/19 12/02/19 12/03/19 Range/Units 17:18 22:42 04:29 Troponin I < 0.015 < 0.015 < 0.015 (0-0.045) ng/ml Medications Administered Current Inpatient Medications Acetaminophen (Tylenol) 650 mg PO Q4H PRN PRN Reason: Pain or Fever Stop: 01/01/20 19:54 Al Hydrox/Mg Hydrox/Simethicone (Maalox) 15 ml PO Q4H PRN PRN Reason: Dyspepsia Stop: 01/01/20 19:54 Last Admin: 12/03/19 07:59 Dose: 15 ml Documented by: Albuterol (Ventolin Hfa) 1 puffs INH Q4H PRN; Protocol PRN Reason: Shortness Of Breath Or Wheezin Stop: 01/01/20 19:54 Atorvastatin Calcium (Lipitor) 20 mg PO DAILY [facility] Stop: 01/02/20 08:59 Last Admin: 12/03/19 07:54 Dose: 20 mg Documented by: Doxepin HCl (Sinequan) 150 mg PO HS [facility] Stop: 01/01/20 20:59 Last Admin: 12/02/19 21:13 Dose: 150 mg Documented by: Fluticasone/Vilanterol (Breo Ellipta 200/25 Mcg Inh) 1 puffs INH DAILY [facility] Stop: 01/02/20 08:59 Last Admin: 12/03/19 07:55 Dose: 1 puffs Documented by: Potassium Chloride/Sodium Chloride (Normal Saline W/20 Meq Kcl) 20 meq in 1,000 mls @ 75 mls/hr IV .[id number] [facility] Stop: 12/03/19 22:34 Last Admin: 12/02/19 22:44 Dose: 75 mls/hr Documented by: Loratadine (Claritin) 10 mg PO QAM [facility] Stop: 01/02/20 08:59 Last Admin: 12/03/19 07:53 Dose: 10 mg Documented by: Nitroglycerin (Nitrostat) 0.4 mg SL UD PRN PRN Reason: Chest Pain Stop: 01/01/20 19:54 Ondansetron HCl (Zofran) 4 mg IV Q6H PRN PRN Reason: Nausea Stop: 01/01/20 19:54 Pantoprazole Sodium (Protonix) 40 mg PO DAILY [facility] Stop: 01/02/20 08:59 Last Admin: 12/03/19 07:54 Dose: 40 mg Documented by: Polyethylene Glycol (Miralax Powder Packet) 17 gm PO DAILY PRN PRN Reason: Constipation Stop: 01/01/20 19:54 Propranolol HCl (Inderal) 40 mg PO BID [facility] Stop: 01/01/20 20:59 Last Admin: 12/03/19 07:54 Dose: 40 mg Documented by: Quetiapine Fumarate (Seroquel) 400 mg PO HS [facility] Stop: 01/01/20 20:59 Last Admin: 12/02/19 21:12 Dose: 400 mg Documented by: Sertraline HCl (Zoloft) 200 mg PO QAM [facility] Stop: 01/02/20 08:59 Last Admin: 12/03/19 07:54 Dose: 200 mg Documented by: Topiramate (Topamax) 100 mg PO BID [facility] Stop: 01/01/20 20:59 Last Admin: 12/03/19 07:54 Dose: 100 mg Documented by: (1) Migraine Intractability: not intractable Migraine type: unspecified Status migrainosus presence: without status migrainosus Qualified Code(s): G43.909 - Migraine, unspecified, not intractable, without status migrainosus
[2019-12-03] MEDS: NSS + 20MEQ KCL 20 MEQ/1,000 ML BAG IV SCH (10:57)
[2019-12-03 11:55] LABS: BUN Creatinine Ratio 10.6 (10-20); Calcium 8.3 mg/dl (8.5-10.1); Creatinine Clr Calc Pharmacy 120.7 ml/min; Est GFR (African American) 125.6; Est GFR (Non-African American) 108.4; Magnesium 2.1 mg/dl (1.8-2.4)
--- NOTE | 2019-12-03 14:08 | Cardiology Consultation ---
Date of Consultation December 03, 2019 Assessment & Plan (1) Non-cardiac chest pain: Patient once again presents with jabbing sharp chest pain not consistent with acute ischemia in the setting of well evaluated past cardiac history. Cardiac enzymes as in past negative for injury or ischemia. EKG with chronic ST segment abnormalities. Laboratory studies reflect hypokalemia on presentation blood pressure is labile Recommendations: Discontinue propanolol, add Toprol-XL 25 mg/day for blood pre ssure control, spironolactone 25 mg p.o. daily. If blood pressure increases further would likely add low-dose calcium channel tanya with amlodipine 2.5 mg/day Patient still using Zanaflex, will need to review current medications she is on multiple therapies which can lead increase QT prolongation No indications for diagnostic cardiac catheterization (2) Lightheadedness: (3) Abnormal EKG: History of Present Illness Reason for Consultation: Sharp chest pain Requesting Physician: Dr. Millan Attending Physician: Jaya Millan MD History of Present Illness Patient is a 39-year-old female complex constellation of issues which include 1. Chronic fibromyalgia 2. Hypertension 3. Chronically abnormal EKG 4. Chronic atypical chest discomfort with past extensive evaluations including stress testing and cardiac CTA with normal finding 5. Chronic anxiety Please further recent full evaluation in chart 11/26/2019. Patient re-presents with symptoms of weakness fatigue sharp jabbing chest pain and shoulder and neck. Blood pressures were low as an outpatient on recent evaluation and recommendations made to reduce propanolol and discontinue Zanaflex. She does note she still taking Zanaflex. She denies fevers chills or productive cough. Notes no bleeding difficulties notes no melena medication dysuria hematuria Chronic pain remains an issue neck shoulders and back as well as chest wall. Patient strongly concerned regarding chronically abnormal EKG. Allergies Allergy/AdvReac Type Severity Reaction Status Date / Time ketorolac [From Toradol] Allergy Mild Rash Verified 11/27/19 15:46 Sulfa (Sulfonamide Allergy Mild RASH, Verified 11/27/19 15:46 Antibiotics) NAUSEA tramadol Allergy Mild RASH,NAUSEA Verified 11/27/19 15:46 Home Medications Home Medications Medication Instructions Recorded Confirmed Type sumatriptan succinate 6 mg SUBCUT UD PRN 09/11/18 12/02/19 History propranolol 40 mg PO BID 10/12/18 12/02/19 History Dexilant 60 mg PO DAILY 10/26/18 12/02/19 History quetiapine [Seroquel] 400 mg PO HS 10/26/18 12/02/19 History acetaminophen [Tylenol Extra 500 mg PO Q6H PRN 08/15/19 12/02/19 History Strength] sertraline 200 mg PO QAM 08/15/19 12/02/19 History ibuprofen 400 mg PO Q6H PRN 08/22/19 12/02/19 History ondansetron 4 mg PO Q8H PRN #8 tab 08/22/19 12/02/19 Rx albuterol sulfate 90 mcg/actuation 1 puffs INH Q4H PRN gm 10/20/19 12/02/19 History aerosol inhaler fluticasone 250 mcg-salmeterol 50 1 puffs INH BID 10/20/19 12/02/19 History mcg/dose blistr powdr for inhalation prochlorperazine maleate 10 mg 10 mg PO UD PRN tab 10/20/19 12/02/19 History tablet topiramate 100 mg tablet 100 mg PO BID 10/20/19 12/02/19 History atorvastatin 20 mg PO DAILY 11/25/19 12/02/19 History doxepin 150 mg PO HS 11/25/19 12/02/19 History loratadine 10 mg PO QAM 11/25/19 12/02/19 History Patient History Medical History Anxiety (Chronic) Constipation (Resolved) Depression (Chronic) DJD (degenerative joint disease) of knee (Resolved 09/07/13) Fibromyalgia (Chronic) Headache (Resolved) Hypertension (Chronic) Kidney stone (Resolved) 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) Lumbar pain (Resolved) Migraine (Chronic) Painful orthopaedic hardware (Resolved 12/21/13) Pyelonephritis (Resolved) Urinary tract infection (Resolved) Surgical History History of hysterectomy History of knee surgery (Resolved) History of tubal ligation S/P colonoscopy S/P inguinal hernia repair S/P sinus surgery Family History Daughter Allergies Depression Grandmother (Paternal) Arthritis Grandfather (Paternal) Arthritis Diabetes Grandmother (Maternal) Diabetes Hypertension Grandfather (Maternal) Diabetes Hypertension Sister Hypertension Kidney stones Mother Thyroid disorder Social History Preferred Language: [place] Communication Ability: Effective Supervising 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 Smoked 0.5-1ppd x 5 years ; Second Hand Exposure: No ; Hx Alcohol Use: No Hx Substance Use: No Physical Exam Constitutional: + obese; no acute distress Eyes: PERRL, conjunctivae normal, anicteric sclerae ENMT: external ear and nose normal, oropharynx normal Neck: trachea midline, no thyromegaly Respiratory: normal respiratory effort, lungs clear to auscultation Cardiovascular: Rate/Rhythm: regular rate and regular rhythm Heart Sounds: normal S1 and normal S2; no gallop, no murmur and no cardiac rub Palpation: no heave Vessels: normal peripheral pulses; no JVD, no carotid bruit, no abdominal aortic bruit and no femoral bruit Extremities: no edema Gastrointestinal (Abdomen): normal bowel sounds, soft, nontender, no hepatosplenomegaly Musculoskeletal: Tenderness to chest on palpation Skin: no rashes, warm and dry Results & Data ([facility]) Vital Signs (Past 12 Hours) Vital Signs Temp Pulse Pulse Resp BP Pulse Ox 12/03/19 12:00 37.0 C 68 20 107/64 96 12/03/19 08:00 98 H 12/03/19 06:56 36.6 C 20 98 12/03/19 03:19 36.4 C L 76 18 102/65 96 Laboratory Results Laboratory Results - last 24 hr 12/02/19 12/02/19 12/02/19 17:18 17:18 17:18 WBC 6.37 RBC 3.83 L Hgb 12.4 Hct 35.8 L MCV 93.5 MCH 32.4 MCHC 34.6 RDW Std Deviation 44.9 RDW Coeff of Nate 13.0 Plt Count 321 MPV 9.4 Immature Gran % (Auto) 0.2 Neut % (Auto) 57.8 Lymph % (Auto) 31.7 [place] % (Auto) 8.8 Eos % (Auto) 0.6 Baso % (Auto) 0.9 Immature Gran # (Auto) 0.01 Neut # (Auto) 3.68 Lymph # (Auto) 2.02 [place] # (Auto) 0.56 Eos # (Auto) 0.04 Baso # (Auto) 0.06 ESR PT 10.7 INR 1.0 APTT 31.9 H PTT Ratio 1.1 Sodium 135 L Potassium 3.2 L Chloride 107 Carbon Dioxide 19 L Anion Gap 10.0 BUN 7 Creatinine 0.96 Est Cr Clr Drug Dosing 87.9 Est GFR ( Amer) 85.7 Est GFR (Non-Af Amer) 74.0 BUN/Creatinine Ratio 7.7 L Glucose 118 H Estimat Average Glucose Hemoglobin A1c Calcium 8.3 L Phosphorus Magnesium 1.7 L Troponin I < 0.015 C-Reactive Protein < 0.29 Lipase 94 12/02/19 12/02/19 12/02/19 17:18 17:18 22:42 WBC RBC Hgb Hct MCV MCH MCHC RDW Std Deviation RDW Coeff of Nate Plt Count MPV Immature Gran % (Auto) Neut % (Auto) Lymph % (Auto) [place] % (Auto) Eos % (Auto) Baso % (Auto) Immature Gran # (Auto) Neut # (Auto) Lymph # (Auto) [place] # (Auto) Eos # (Auto) Baso # (Auto) ESR 19 PT INR APTT PTT Ratio Sodium Potassium Chloride Carbon Dioxide Anion Gap BUN Creatinine Est Cr Clr Drug Dosing Est GFR ( Amer) Est GFR (Non-Af Amer) BUN/Creatinine Ratio Glucose Estimat Average Glucose Hemoglobin A1c Calcium Phosphorus Magnesium Cancelled Troponin I < 0.015 C-Reactive Protein Cancelled Lipase 12/03/19 12/03/19 12/03/19 04:29 04:29 11:22 WBC RBC Hgb Hct MCV MCH MCHC RDW Std Deviation RDW Coeff of Nate Plt Count MPV Immature Gran % (Auto) Neut % (Auto) Lymph % (Auto) [place] % (Auto) Eos % (Auto) Baso % (Auto) Immature Gran # (Auto) Neut # (Auto) Lymph # (Auto) [place] # (Auto) Eos # (Auto) Baso # (Auto) ESR PT INR APTT PTT Ratio Sodium 141 Potassium 4.0 D Chloride 113 H Carbon Dioxide 24 Anion Gap 4.0 BUN 7 Creatinine 0.70 Est Cr Clr Drug Dosing 120.7 Est GFR ( Amer) 125.6 Est GFR (Non-Af Amer) 108.4 BUN/Creatinine Ratio 10.6 Glucose 104 H Estimat Average Glucose 111 Hemoglobin A1c 5.5 Calcium 8.3 L Phosphorus 2.0 L Magnesium 2.1 Troponin I < 0.015 C-Reactive Protein Lipase
[2019-12-03] MEDS: ACETAMINOPHEN 325 MG TAB PO PRN (15:23)
[2019-12-03] MEDS ORDERED: methylPREDNISolone 20 MG in SYRINGE 0 ML IV ONE (17:15)
[2019-12-03] MEDS: METOPROLOL SUCC 25MG EXT REL TAB PO SCH (21:59)
[2019-12-03] MEDS: QUETIAPINE FUMARATE 200 MG TAB PO SCH (22:01)
[2019-12-03] MEDS: DOXEPIN HCL 75 MG CAPSULE PO SCH (22:03)
[2019-12-04] MEDS ORDERED: LORazepam 0.5 MG TAB PO STA (01:48)
[2019-12-04] MEDS ORDERED: LORazepam 0.5 MG TAB ONE (01:51)
[2019-12-04] MEDS: ACETAMINOPHEN 325 MG TAB PO PRN ×2 (02:03→15:51)
[2019-12-04] MEDS: SPIRONOLACTONE 25 MG TAB PO SCH (08:15)
[2019-12-04] MEDS: ATORVASTATIN 20 MG TAB PO SCH (08:16)
[2019-12-04] MEDS: LORATADINE 10 MG TAB PO SCH (08:16)
[2019-12-04] MEDS: PANTOprazole 40 MG TAB PO SCH (08:17)
[2019-12-04] MEDS ORDERED: SODIUM PHOSPHATE 3 MMOL/1 ML 5 ML VIAL IV ONE (08:17)
[2019-12-04] MEDS: TOPIRAMATE 100 MG TAB PO SCH ×2 (08:17→20:06)
[2019-12-04] MEDS: METOPROLOL SUCC 25MG EXT REL TAB PO SCH ×2 (08:18→20:07)
[2019-12-04] MEDS: SERTRALINE HCL 100 MG TABLET PO SCH (08:18)
[2019-12-04] MEDS: FLUTICASONE/VILANTEROL 200/25MCG 14 PUFFS/INHALER INH SCH (08:22)
[2019-12-04] MEDS ORDERED: SODIUM PHOSPHATE 30 MMOL in SODIUM CHLORIDE 0.9% 500 ML IV ONE (08:30)
--- NOTE | 2019-12-04 08:53 | Electrocardiogram Report ---
Test Reason : Blood Pressure : / mmHG Vent. Rate : 077 BPM Atrial Rate : 077 BPM P-R Int : 140 ms QRS Dur : 092 ms QT Int : 400 ms P-R-T Axes : 036 052 007 degrees QTc Int : 453 ms Poor data quality, interpretation may be adversely affected Normal sinus rhythm Abnormal ECG When compared with ECG of 02-DEC-2019 16:43, (unconfirmed) T wave inversion no longer evident in Inferior leads Confirmed by Zane Garnica ([id number]) on 12/04/2019 8:53:29 AM Referred By: REFERRED SELF Confirmed By:Zane Garnica
[2019-12-04] MEDS: NITROGLYCERIN 2% OINTMENT 30GM TUBE EXT SCH ×3 (09:45→21:46)
--- NOTE | 2019-12-04 09:52 | Electrocardiogram Report ---
Test Reason : Blood Pressure : / mmHG Vent. Rate : 083 BPM Atrial Rate : 083 BPM P-R Int : 138 ms QRS Dur : 088 ms QT Int : 402 ms P-R-T Axes : 045 038 004 degrees QTc Int : 472 ms Normal sinus rhythm Prolonged QT Abnormal ECG When compared with ECG of 03-DEC-2019 06:37, (unconfirmed) No significant change was found Confirmed by Zane Garnica ([id number]) on 12/04/2019 9:52:09 AM Referred By: REFERRED SELF Confirmed By:Zane Garnica
--- NOTE | 2019-12-04 10:52 | Hospitalist Progress Note ---
Date of Service December 04, 2019 Assessment & Plan (1) Atypical chest pain: This is a 39 year old F with a significant PMH of HTN, dyslipidemia, migraine, bipolar, anxiety, asthma, fibromyalgia, history of abnormal EKG presented to ER with complaint of chest pain, sob, lightheaded and dizziness t hat started in the morning of admission Serial troponins have been negative and EKG remains unchanged compared with prior Has had echocardiogram 1 week ago which was WNL EF 55-60% Recent cardiac CT unremarkable Inflammatory markers ESR and CRP have been negative Has been taking antipsychotic medications from outpatient psychiatrist and her medications have been reevaluated in late April She will keep an appointment with a psychiatrist as an outpatient on discharge Appreciate cardiology input and recommendation Medications have been adjusted Continues to have chest pain-we will try small dose of Nitropaste Advised more ambulation and likely discharge tomorrow (2) Lightheadedness: May be secondary to orthostasis No orthostatic hypotension noted Continue IVF, GERARDO stockings Advised more ambulation (3) Acute hypokalemia: received 40meq KCL in ED continue IVF +20meq KCL We will check PRP (4) Asthma: no acute exacerbation continue advair (5) Bipolar I disorder, single manic episode: Continue topamax, seroquel, doxepin Mood is stable We will have outpatient appointment with her psychiatrist to adjust antipsychotic medications (6) Dyslipidemia: continue statin recent lipid profile 11/2019 Total chol 224, Trig 167, LDL 130, HDL 53 (7) Hypertension: blood pressure stable in ED reports +orthostasis in clinic this past week which resulted in a reduction of her propranolol 80mg bid to 40mg bid States she has been on for years (8) Fibromyalgia: stable (9) Migraine: continue topamax prn imitrex (10) DVT prophylaxis: SCD/TEDS-we will start heparin subcu Disposition: admit to TELE Follow up: PCP Dr. Magana upon discharge Likely discharge tomorrow Admission and Anticipated Discharge Date Admission Date: December 02, 2019 Subjective 12/03/2019 The patient was seen and examined in telemetry unit She is a 39 year old F with a significant PMH of HTN, dyslipidemia, migraine, bipolar, anxiety, asthma, fibromyalgia, history of abnormal EKG presented to ER with complaint of chest pain, sob, lightheaded and dizziness that started since the morning of admission Still has precordial discomfort without any shortness of breath and/or palpitation 12/04/2019 The patient was seen and examined in telemetry unit She complains today of ongoing upper chest pressure/pain No associated symptoms with the pain No improvement with single dose of intravenous Solu-Medrol and cannot take any anti-inflammatory medications which do not work Will try small dose of Nitropaste Review of Systems Review of Systems: All systems reviewed and are unremarkable except as noted below Cardiovascular: + problem reported (Precordial chest pressure and discomfort without any significant pain); no palpitations Physical Exam Physical Exam: Lying in bed comfortably Constitutional: well developed, well nourished and + ill appearing; no acute distress Eyes: PERRL, conjunctivae normal, anicteric sclerae ENMT: external ear and nose normal, oropharynx normal Neck: trachea midline, no thyromegaly Respiratory: normal respiratory effort; no respiratory distress Auscultation: lungs clear to auscultation bilaterally Cardiovascular: Rate/Rhythm: regular rate and regular rhythm Heart Sounds: no murmur Extremities: no edema Gastrointestinal (Abdomen): Inspection/Auscultation: abdomen normal to inspection and normal bowel sounds; abdomen not distended Percussion/Palpation: abdomen soft; abdomen nontender Musculoskeletal: Precordial tenderness on palpation. No acute arthritis involving any joints Neurologic: moves all extremities; no focal motor deficits Results & Data Results & Data ([facility]) Vital Signs (Past 12 Hours) Vital Signs Temp Pulse Resp BP BP Pulse Ox 12/04/19 09:40 90 16 122/87 96 12/04/19 07:15 36.4 C L 89 18 130/87 97 12/04/19 04:00 36.5 C 86 16 121/81 98 12/03/19 23:21 36.7 C 70 22 95 Laboratory Results [facility] 12/03/19 11:22 Sodium 141 Potassium 4.0 D Chloride 113 H Carbon Dioxide 24 BUN 7 Creatinine 0.70 Glucose 104 H Calcium 8.3 L Medications Administered Current Inpatient Medications Acetaminophen (Tylenol) 650 mg PO Q4H PRN PRN Reason: Pain or Fever Stop: 01/01/20 19:54 Last Admin: 12/04/19 02:03 Dose: 650 mg Documented by: Al Hydrox/Mg Hydrox/Simethicone (Maalox) 15 ml PO Q4H PRN PRN Reason: Dyspepsia Stop: 01/01/20 19:54 Last Admin: 12/03/19 07:59 Dose: 15 ml Documented by: Albuterol (Ventolin Hfa) 1 puffs INH Q4H PRN; Protocol PRN Reason: Shortness Of Breath Or Wheezin Stop: 01/01/20 19:54 Atorvastatin Calcium (Lipitor) 20 mg PO DAILY [facility] Stop: 01/02/20 08:59 Last Admin: 12/04/19 08:16 Dose: 20 mg Documented by: Doxepin HCl (Sinequan) 150 mg PO HS [facility] Stop: 01/01/20 20:59 Last Admin: 12/03/19 22:03 Dose: 150 mg Documented by: Fluticasone/Vilanterol (Breo Ellipta 200/25 Mcg Inh) 1 puffs INH DAILY [facility] Stop: 01/02/20 08:59 Last Admin: 12/04/19 08:22 Dose: 1 puffs Documented by: Sodium Phosphate 30 mmol/ (Sodium Chloride) 510 mls @ 88 mls/hr IV ONE ONE Stop: 12/04/19 14:17 Last Admin: 12/04/19 09:30 Dose: 88 mls/hr Documented by: Loratadine (Claritin) 10 mg PO QAM [facility] Stop: 01/02/20 08:59 Last Admin: 12/04/19 08:16 Dose: 10 mg Documented by: Metoprolol Succinate (Toprol Xl) 25 mg PO DAILY [facility] Stop: 01/02/20 20:49 Last Admin: 12/04/19 08:18 Dose: 25 mg Documented by: Nitroglycerin (Nitrostat) 0.4 mg SL UD PRN PRN Reason: Chest Pain Stop: 01/01/20 19:54 Nitroglycerin (Nitro-Bid 2%) 0.5 inch EXT Q6H LUIS M Stop: 01/03/20 09:59 Last Admin: 12/04/19 09:45 Dose: 0.5 inch Documented by: Ondansetron HCl (Zofran) 4 mg IV Q6H PRN PRN Reason: Nausea Stop: 01/01/20 19:54 Pantoprazole Sodium (Protonix) 40 mg PO DAILY [facility] Stop: 01/02/20 08:59 Last Admin: 12/04/19 08:17 Dose: 40 mg Documented by: Polyethylene Glycol (Miralax Powder Packet) 17 gm PO DAILY PRN PRN Reason: Constipation Stop: 01/01/20 19:54 Quetiapine Fumarate (Seroquel) 400 mg PO [facility] Stop: 01/01/20 20:59 Last Admin: 12/03/19 22:01 Dose: 400 mg Documented by: Sertraline HCl (Zoloft) [facility] Stop: 01/02/20 08:59 Last Admin: 12/04/19 08:18 Dose: 200 mg Documented by: Spironolactone (Aldactone) 25 mg PO QAM [facility] Stop: 01/03/20 08:59 Last Admin: 12/04/19 08:15 Dose: 25 mg Documented by: Topiramate (Topamax) 100 mg PO BID [facility] Stop: 01/01/20 20:59 Last Admin: 12/04/19 08:17 Dose: 100 mg Documented by: (1) Migraine Intractability: not intractable Migraine type: unspecified Status migrainosus presence: without status migrainosus Qualified Code(s): G43.909 - Migraine, unspecified, not intractable, without status migrainosus
--- NOTE | 2019-12-04 13:23 | Cardiology Progress Note ---
Date of Service December 04, 2019 Assessment & Plan (1) Non-cardiac chest pain: Patient once again presents with jabbing sharp chest pain not consistent with acute ischemia in the setting of well evaluated past cardiac history. Cardiac enzymes as in past negative for injury or ischemia. EKG with chronic ST segment abnormalities. Laboratory studies reflect hypokalemia on presentation blood pressure is labile Recommendations: Increase Toprol-XL 25 mg twice per day, continue spironolactone for chronic hypokalemia Topical nitrates ordered likely changed to amlodipine on discharge (2) Lightheadedness: (3) Abnormal EKG: Subjective Patient seen and examined, chart, medications, telemetry reviewed. Still with multiple concerns including fleeting jabbing chest discomfort difficulty sleeping, headache. Heart rates variable Physical Exam Constitutional: + obese; no acute distress Eyes: PERRL, conjunctivae normal, anicteric sclerae ENMT: external ear and nose normal, oropharynx normal Neck: trachea midline, no thyromegaly Respiratory: normal respiratory effort, lungs clear to auscultation Cardiovascular: Rate/Rhythm: regular rate and regular rhythm Heart Sounds: normal S1 and normal S2; no gallop, no murmur and no cardiac rub Palpation: no heave Vessels: normal peripheral pulses; no JVD, no carotid bruit, no abdominal aortic bruit and no femoral bruit Extremities: no edema Gastrointestinal (Abdomen): normal bowel sounds, soft, nontender, no hepatosplenomegaly Skin: no rashes, warm and dry Results & Data Vital Signs (Past 12 Hours) Vital Signs Temp Pulse Resp BP BP Pulse Ox 12/04/19 11:44 36.3 C L 111 H 18 139/95 98 12/04/19 09:40 90 16 122/87 96 12/04/19 07:15 36.4 C L 89 18 130/87 97 12/04/19 04:00 36.5 C 86 16 121/81 98
[2019-12-04] MEDS: QUETIAPINE FUMARATE 200 MG TAB PO SCH (20:06)
[2019-12-04] MEDS: DOXEPIN HCL 75 MG CAPSULE PO SCH (20:06)
[2019-12-05] MEDS: NITROGLYCERIN 2% OINTMENT 30GM TUBE EXT SCH (03:35)
[2019-12-05 05:43] LABS: Basophils # (auto) 0.06 K/uL (0-0.2); Basophils % (auto) 0.9 %; Eosinophils # (auto) 0.03 K/uL (0-0.5); Eosinophils % (auto) 0.5 %; Hematocrit (blood only) 37.1 % (37-47); Hemoglobin 12.3 g/dL (12.0-16.0); Immature Granulocytes # (auto) 0.03 K/uL (0.00-0.02); Immature Granulocytes % (auto) 0.5 %; Lymphocytes # (auto) 2.54 K/uL (1.2-3.4); Lymphocytes % (auto) 38.4 %; Mean Corpuscular Hemoglobin 31.3 pg (25-34); Mean Corpuscular Hgb Conc 33.2 g/dL (32-36); Mean Corpuscular Volume 94.4 fL (80-100); Mean Platelet Volume 9.6 fL (7.4-10.4); Monocytes # (auto) 0.62 K/uL (0.11-0.59); Monocytes % (auto) 9.4 %; Neutrophils # (auto) 3.34 K/uL (1.4-6.5); Neutrophils % (auto) 50.3 %; Platelet Count 287 K/uL (130-400); RDW Coefficient of Variation 13.1 % (11.5-14.5); RDW Standard Deviation 45.4 fL (36.4-46.3); Red Blood Count 3.93 M/uL (4.2-5.4); White Blood Count 6.62 K/uL (4.8-10.8)
[2019-12-05 06:09] LABS: BUN Creatinine Ratio 12.1 (10-20); Calcium 8.6 mg/dl (8.5-10.1); Creatinine Clr Calc Pharmacy 114.5 ml/min; Est GFR (African American) 119.4; Magnesium 2.2 mg/dl (1.8-2.4); Potassium 3.7 mmol/L (3.5-5.1)
[2019-12-05] MEDS: PANTOprazole 40 MG TAB PO SCH (08:44)
[2019-12-05] MEDS: FLUTICASONE/VILANTEROL 200/25MCG 14 PUFFS/INHALER INH SCH (08:44)
[2019-12-05] MEDS: METOPROLOL SUCC 25MG EXT REL TAB PO SCH (08:44)
[2019-12-05] MEDS: SPIRONOLACTONE 25 MG TAB PO SCH (08:45)
[2019-12-05] MEDS: SERTRALINE HCL 100 MG TABLET PO SCH (08:45)
[2019-12-05] MEDS: ATORVASTATIN 20 MG TAB PO SCH (08:45)
[2019-12-05] MEDS: LORATADINE 10 MG TAB PO SCH (08:45)
[2019-12-05] MEDS: TOPIRAMATE 100 MG TAB PO SCH (08:45)
[2019-12-05] MEDS ORDERED: AMLODIPINE BESYLATE 5 MG TAB PO SCH (09:30)
--- NOTE | 2019-12-05 11:35 | Hospitalist Progress Note ---
Date of Service December 05, 2019 Assessment & Plan (1) Atypical chest pain: This is a 39 year old F with a significant PMH of HTN, dyslipidemia, migraine, bipolar, anxiety, asthma, fibromyalgia, history of abnormal EKG presented to ER with complaint of chest pain, sob, lightheaded and dizziness t hat started in the morning of admission Serial troponins have been negative and EKG remains unchanged compared with prior Has had echocardiogram 1 week ago which was WNL EF 55-60% Recent cardiac CT unremarkable Inflammatory markers ESR and CRP have been negative Has been taking antipsychotic medications from outpatient psychiatrist and her medications have been reevaluated in late April She will keep an appointment with a psychiatrist as an outpatient on discharge Appreciate cardiology input and recommendation Medications have been adjusted Continues to have chest pain-we will try small dose of Nitropaste Advised more ambulation and likely discharge tomorrow No more chest pain since last night Will DC Nitropaste and start with amlodipine 5 mg a day Likely discharge this afternoon (2) Lightheadedness: May be secondary to orthostasis No orthostatic hypotension noted Continue IVF, GERARDO stockings Advised more ambulation Denies any more lightheadedness (3) Acute hypokalemia: received 40meq KCL in ED continue IVF +20meq KCL We will check PRP-electrolytes have been normal (4) Asthma: no acute exacerbation continue advair (5) Bipolar I disorder, single manic episode: Continue topamax, seroquel, doxepin Mood is stable We will have outpatient appointment with her psychiatrist to adjust antipsychotic medications (6) Dyslipidemia: continue statin recent lipid profile 11/2019 Total chol 224, Trig 167, LDL 130, HDL 53 (7) Hypertension: blood pressure stable in ED reports +orthostasis in clinic this past week which resulted in a reduction of her propranolol 80mg bid to 40mg bid States she has been on for years Blood pressure medications have been changed to Toprol-XL 25 twice daily and amlodipine 5 mg daily (8) Fibromyalgia: stable (9) Migraine: continue topamax prn imitrex (10) DVT prophylaxis: SCD/TEDS-we will start heparin subcu Disposition: admit to TELE Follow up: PCP Dr. Magana upon discharge Likely discharge this afternoon Admission and Anticipated Discharge Date Admission Date: December 04, 2019 Subjective 12/03/2019 The patient was seen and examined in telemetry unit She is a 39 year old F with a significant PMH of HTN, dyslipidemia, migraine, bipolar, anxiety, asthma, fibromyalgia, history of abnormal EKG presented to ER with complaint of chest pain, sob, lightheaded and dizziness that started since the morning of admission Still has precordial discomfort without any shortness of breath and/or palpitation 12/04/2019 The patient was seen and examined in telemetry unit She complains today of ongoing upper chest pressure/pain No associated symptoms with the pain No improvement with single dose of intravenous Solu-Medrol and cannot take any anti-inflammatory medications which do not work Will try small dose of Nitropaste 12/05/2019 The patient was seen and examined in telemetry unit She denies any more chest pain and/or palpitation She has been ambulating without any difficulty She will be discharged home this afternoon Review of Systems Review of Systems: All systems reviewed and are unremarkable except as noted below Cardiovascular: no palpitations and no problem reported (Precordial chest pressure and discomfort without any significant pain) Physical Exam Physical Exam: Lying in bed comfortably Constitutional: well developed and well nourished; no acute distress and not ill appearing Eyes: PERRL, conjunctivae normal, anicteric sclerae ENMT: external ear and nose normal, oropharynx normal Neck: trachea midline, no thyromegaly Respiratory: normal respiratory effort; no respiratory distress Auscultation: lungs clear to auscultation bilaterally Cardiovascular: Rate/Rhythm: regular rate and regular rhythm Heart Sounds: no murmur Extremities: no edema Gastrointestinal (Abdomen): Inspection/Auscultation: abdomen normal to inspection and normal bowel sounds; abdomen not distended Percussion/Palpation: abdomen soft; abdomen nontender Musculoskeletal: No acute arthritis involving any joints Neurologic: moves all extremities; no focal motor deficits Results & Data Results & Data ([facility]) Vital Signs (Past 12 Hours) Vital Signs Temp Pulse Pulse Resp BP BP Pulse Ox 12/05/19 11:15 36.7 C 82 16 138/86 98 12/05/19 08:00 85 12/05/19 07:02 36.4 C L 89 18 138/88 137/97 98 12/05/19 03:51 36.6 C 100 H 18 142/93 H 96 12/04/19 23:43 36.7 C 98 H 17 144/101 H 96 Laboratory Results Short CBC 12/05/19 Range/Units 05:28 WBC 6.62 (4.8-10.8) K/uL Hgb 12.3 (12.0-16.0) g/dL Hct 37.1 (37-47) % Plt Count 287 (130-400) K/uL BMP 12/05/19 05:28 Sodium 140 Potassium 3.7 Chloride 111 H Carbon Dioxide 23 BUN 9 Creatinine 0.73 Glucose 94 Calcium 8.6 Medications Administered Current Inpatient Medications Acetaminophen (Tylenol) 650 mg PO Q4H PRN PRN Reason: Pain or Fever Stop: 01/01/20 19:54 Last Admin: 12/04/19 15:51 Dose: 650 mg Documented by: Al Hydrox/Mg Hydrox/Simethicone (Maalox) 15 ml PO Q4H PRN PRN Reason: Dyspepsia Stop: 01/01/20 19:54 Last Admin: 12/03/19 07:59 Dose: 15 ml Documented by: Albuterol (Ventolin Hfa) 1 puffs INH Q4H PRN; Protocol PRN Reason: Shortness Of Breath Or Wheezin Stop: 01/01/20 19:54 Amlodipine Besylate (Norvasc) 5 mg PO QAM [facility] Stop: 01/04/20 09:29 Last Admin: 12/05/19 09:27 Dose: 5 mg Documented by: Atorvastatin Calcium (Lipitor) 20 mg PO DAILY [facility] Stop: 01/02/20 08:59 Last Admin: 12/05/19 08:45 Dose: 20 mg Documented by: Doxepin HCl (Sinequan) 150 mg PO HS [facility] Stop: 01/01/20 20:59 Last Admin: 12/04/19 20:06 Dose: 150 mg Documented by: Fluticasone/Vilanterol (Breo Ellipta 200/25 Mcg Inh) 1 puffs INH DAILY [facility] Stop: 01/02/20 08:59 Last Admin: 12/05/19 08:44 Dose: 1 puffs Documented by: Loratadine (Claritin) 10 mg PO QAM [facility] Stop: 01/02/20 08:59 Last Admin: 12/05/19 08:45 Dose: 10 mg Documented by: Metoprolol Succinate (Toprol Xl) 25 mg PO BID [facility] Stop: 01/03/20 20:59 Last Admin: 12/05/19 08:44 Dose: 25 mg Documented by: Nitroglycerin (Nitrostat) 0.4 mg SL UD PRN PRN Reason: Chest Pain Stop: 01/01/20 19:54 Ondansetron HCl (Zofran) 4 mg IV Q6H PRN PRN Reason: Nausea Stop: 01/01/20 19:54 Pantoprazole Sodium (Protonix) 40 mg PO DAILY [facility] Stop: 01/02/20 08:59 Last Admin: 12/05/19 08:44 Dose: 40 mg Documented by: Polyethylene Glycol (Miralax Powder Packet) 17 gm PO DAILY PRN PRN Reason: Constipation Stop: 01/01/20 19:54 Quetiapine Fumarate (Seroquel) 400 mg PO HS [facility] Stop: 01/01/20 20:59 Last Admin: 12/04/19 20:06 Dose: 400 mg Documented by: Sertraline HCl (Zoloft) 200 mg PO QAM [facility] Stop: 01/02/20 08:59 Last Admin: 12/05/19 08:45 Dose: 200 mg Documented by: Spironolactone (Aldactone) 25 mg PO QAM [facility] Stop: 01/03/20 08:59 Last Admin: 12/05/19 08:45 Dose: 25 mg Documented by: Topiramate (Topamax) 100 mg PO BID [facility] Stop: 01/01/20 20:59 Last Admin: 12/05/19 08:45 Dose: 100 mg Documented by: (1) Migraine Intractability: not intractable Migraine type: unspecified Status migrainosus presence: without status migrainosus Qualified Code(s): G43.909 - Migraine, unspecified, not intractable, without status migrainosus
--- NOTE | 2019-12-06 08:11 | Discharge Summary ---
Date of Service December 06, 2019 Admission HPI Per Admitting Provider This is a 39 year old F with a significant PMH of HTN, dyslipidemia, migraine, bipolar, anxiety, asthma, fibromyalgia, history of abnormal EKG presented to ER with complaint of chest pain, sob, lightheaded and dizziness that started this morning. Patient states that she awoke this morning with substernal chest pain lasting minutes. She complains of having a constant chest pressure but will get intermittent chest pain that last several minutes. Symptoms can occur at rest or with exertion. She also complains of PEÑA even with minimal exertion. She also gets substernal chest pain with minimal exertion. Symptoms usually resolve immediately with rest. She also complains of dizziness, lightheadedness, chills, nausea and one episode of diarrhea today. Over the past few weeks she has not felt well. She was recently admitted and discharged approximately 1 week ago for similar symptoms. Her EKG at that time revealed worsening T wave inversions. ACS was ruled out and she had echocardiogram which was unremar kable. Her symptoms improved and she was discharged home in good condition. Unfortunately 2 days after she represented back to the ED secondary to a syncopal episode. "I am not exactly sure if I passed out." She explains feeling dizzy and lightheaded and having tunnel vision which resulted in her blacking out for several seconds. She came to ED where she had CT scan of head which was unremarkable, CTA of chest which was negative for PE and work-up was generally unremarkable therefore she was discharged back to home. Unfortunately due to her recurrence of chest pain she presents again today at the recommendation of cardiology. She did seen provider in PCP office 4 days ago who discontinued her zanaflex and reduced her propranolol to 40mg bid due to orthostatic hypotension. She also reached out to cardiology who recommend she try compression stockings at HS which she states she has. Of significance she has been seen by cardiology-Dr. Hampton in 11/2018. Had abnormal EKGs with diffuse ST T wave abnormalities. 01/2019 stress echo negative for inducible ischemia. 01/[address] normal cardiac studies. She reports she stopped smoking 2 months ago cold turkey, was smoking 0.5-1ppd x 5 years. Denies recent travel, ill contacts, known COVID-19 exposures. FH: grandfather "phantom heart attack" Admission Exam Per Admitting Provider Physical Exam: Constitutional: WD/WN, ill appearing, vitals as above, NAD, lying in bed but upon leaning forward she got dizzy, pleasant, conversing easily Head: Normocephalic, Atraumatic Eyes: PERRL, conjunctivae normal, anicteric sclerae ENMT: external ear and nose normal, oropharynx normal Neck: trachea midline, no thyromegaly normal visual inspection Respiratory: normal respiratory effort, lungs clear to auscultation, no wheeze, rales, rhonchi. Normal insp/exp effort, no accessory muscle use Cardiovascular: RRR, no murmur, no edema Vessels: no JVD or carotid bruit Chest: normal inspection of chest Abdomen: normal bowel sounds, soft, nontender, no hepatosplenomegaly Musculoskeletal: no cyanosis or clubbing, extremities motor strength 5/5 Skin: no rashes, warm and dry normal turgor, + tattoos b/l Neurologic: PERRL, EOMI, accommodation nl, no face palsy, no dysarthria CN's II-XI intact bilaterally and moves all extremities Psychiatric: A+Ox3, euthymic affect Lymphatic: no cervical or axillary lymphadenopathy : deferred Principal Diagnosis Atypical chest pain, lightheadedness-resolved, controlled asthma, bipolar 1 disorder Discharge Exam Constitutional well developed and well nourished; no acute distress and not ill appearing Eyes PERRL, conjunctivae normal, anicteric sclerae ENMT external ear and nose normal, oropharynx normal Neck trachea midline, no thyromegaly Respiratory normal respiratory effort; no respiratory distress Auscultation: lungs clear to auscultation bilaterally Cardiovascular Rate/Rhythm: regular rate and regular rhythm Heart Sounds: no murmur Extremities: no edema Gastrointestinal (Abdomen) Inspection/Auscultation: abdomen normal to inspection and normal bowel sounds; abdomen not distended Percussion/Palpation: abdomen soft; abdomen nontender Neurologic moves all extremities; no focal motor deficits Discharge Data Allergies Allergy/AdvReac Type Severity Reaction Status Date / Time ketorolac [From Toradol] Allergy Mild Rash Verified 11/27/19 15:46 Sulfa (Sulfonamide Allergy Mild RASH, Verified 11/27/19 15:46 Antibiotics) NAUSEA tramadol Allergy Mild RASH,NAUSEA Verified 11/27/19 15:46 Consultations 12/02/19 17:56 ED Decision to Admit Stat 12/02/19 19:55 Consult Cardiology Routine Hospital Course (1) Atypical chest pain: This is a 39 year old F with a significant PMH of HTN, dyslipidemia, migraine, bipolar, anxiety, asthma, fibromyalgia, history of abnormal EKG presented to ER with complaint of chest pain, sob, lightheaded and dizziness that started in the morning of admission Serial troponins have been negative and EKG remains unchanged compared with prior Has had echocardiogram 1 week ago which was WNL EF 55-60% Recent cardiac CT unremarkable Inflammatory markers ESR and CRP have been negative Has been taking antipsychotic medications from outpatient psychiatrist and her medications have been reevaluated in late April She will keep an appointment with a psychiatrist as an outpatient on discharge Appreciate cardiology input and recommendation Medications have been adjusted Continues to have chest pain-we will try small dose of Nitropaste Advised more ambulation and likely discharge tomorrow No more chest pain since last night Will DC Nitropaste and start with amlodipine 5 mg a day Likely discharge this afternoon (2) Lightheadedness: May be secondary to orthostasis No orthostatic hypotension noted Continue IVF, GERARDO stockings Advised more ambulation Denies any more lightheadedness (3) Acute hypokalemia: received 40meq KCL in ED continue IVF +20meq KCL We will check PRP-electrolytes have been normal (4) Asthma: no acute exacerbation continue advair (5) Bipolar I disorder, single manic episode: Continue topamax, seroquel, doxepin Mood is stable We will have outpatient appointment with her psychiatrist to adjust antipsychotic medications (6) Dyslipidemia: continue statin recent lipid profile 11/2019 Total chol 224, Trig 167, LDL 130, HDL 53 (7) Hypertension: blood pressure stable in ED reports +orthostasis in clinic this past week which resulted in a reduction of her propranolol 80mg bid to 40mg bid States she has been on for years Blood pressure medications have been changed to Toprol-XL 25 twice daily and amlodipine 5 mg daily (8) Fibromyalgia: stable (9) Migraine: continue topamax prn imitrex (10) DVT prophylaxis: SCD/TEDS-we will start heparin subcu Disposition: admit to TELE Follow up: PCP Dr. Magana upon discharge Likely discharge this afternoon Total Time Total Time Spent Total Time Spent (In Minutes): 35 minutes Total Time Includes: Examination of the Patient, Discharge Planning, Medication Reconciliation and Communication With Other Providers Discharge Plan Discharge Items Patient Disposition: Home - Self-Care Reason For Visit: CHEST PAIN, SOB, LIGHTHEADED Discharge Diagnosis: Atypical chest pain, lightheadedness-resolved, controlled asthma, bipolar 1 disorder Condition on Discharge: Good Activity: Resume your previous activity Non-emergency contact: Primary Care Provider Call non-emergency contact if: you have any medication questions Follow-up/Referrals: Bryce Magana MD [Primary Care Provider] - 12/08/19 2:20 pm (Please keep appoint ment with your psychiatrist) Diet: Heart Healthy Addtl Attending Provider Instructions: Please take precaution to avoid falls Please make an appointment with your outpatient psychiatrist as soon as possible Pending Studies at Discharge: No Stand-Alone Forms: My [employer]Magic, Smoking Cessation Medications and DC Order Prescriptions: New amlodipine [Norvasc] 5 mg Tablet 5 mg PO QAM 30 Days Qty: 30 RF: 0 spironolactone 25 mg Tablet 25 mg PO QAM 30 Days Qty: 30 RF: 0 metoprolol succinate 25 mg Tablet Extended Release 24 Hr 25 mg PO BID 30 Days Qty: 60 RF: 0 Continued topiramate 100 mg tablet 100 mg PO BID RF: 0 albuterol sulfate 90 mcg/actuation HFA aerosol inhaler 1 puffs INH Q4H PRN (Reason: Shortness Of Breath Or Wheezing) RF: 0 prochlorperazine maleate [Compazine] 10 mg tablet 10 mg PO UD PRN (Reason: Nausea) RF: 0 fluticasone propion-salmeterol [Advair Diskus] 250-50 mcg/dose blister with device 1 puffs INH BID RF: 0 sumatriptan succinate 6 mg/0.5 mL pen injector 6 mg subcut UD PRN (Reason: Migraine Headache) RF: 0 ibuprofen 200 mg Tablet 400 mg PO Q6H PRN (Reason: Pain) RF: 0 ondansetron 4 mg tablet,disintegrating 4 mg PO Q8H PRN (Reason: nausea and vomiting) Qty: 8 RF: 0 loratadine 10 mg Tablet 10 mg PO QAM RF: 0 doxepin 150 mg capsule 150 mg PO HS RF: 0 atorvastatin 20 mg tablet 20 mg PO DAILY RF: 0 quetiapine [Seroquel] 400 mg tablet 400 mg PO HS RF: 0 Dexilant 60 mg capsule,biphase delayed releas 60 mg PO DAILY RF: 0 sertraline 100 mg tablet 200 mg PO QAM RF: 0 acetaminophen [Tylenol Extra Strength] 500 mg Tablet 500 mg PO Q6H PRN (Reason: Pain) RF: 0 Discontinued propranolol 80 mg tablet 40 mg PO BID RF: 0 Discharge Orders: Discharge Order (Routine); Ordered 12/05/19 Ordered By: Jaya Millan Admission Data Admit Date/Time: 12/04/19 12:19 Attending Provider: Jaya Millan Admit Provider: Jaya Millan Primary Care Provider: Bryce Magana Other Providers: Jaya Millan ; Marty Henson Other Interventions: Discharge Summary Assessment (RN) Last Done: 12/05/19 14:01 DC Date/Time DO NOT enter until pt leaves facility: 12/05/19 14:32
== END 2019-12-05 14:32 | disposition home or self-care (01) | DRG 313 ==
LOC: 2S 16:30 → ED 16:30 → 2S 19:28

== ENCOUNTER 2020-04-26 13:37 | Inpatient (IN) ==
[2020-04-26] MEDS ORDERED: MoRPHine SULFATE 4 MG/ML 1 ML CARP\\VIAL IV STA (13:57)
[2020-04-26] MEDS ORDERED: ONDANSETRON INJ 2 MG/ML 2 ML VIAL IV STA (13:57)
[2020-04-26] MEDS ORDERED: SODIUM CHLORIDE 0.9% 1000ML 1,000 ML IV SCH (14:00)
--- NOTE | 2020-04-26 14:01 | Emergency Department Note ---
History of Present Illness General Chief complaint: Knee Injury/Pain Stated complaint: LEFT KNEE PAIN Time Seen by Provider: 04/26/20 13:46 History of Present Illness Maximum Pain Intensity: 8 This is a 39-year-old female that presents to the emergency department via private vehicle with complaints of "left knee pain". The patient states that she had surgery on the left knee March 08. This was a total knee replacement. This was performed by Dr. Elizalde at [facility]. The patient states that she was referred there from an orthopedist locally to have this procedure performed. This is her third ER visit she notes for elevated heart rate and increased left knee pain in the postoperative setting. Most recently she saw her PCP today who referred her here for further evaluation and management. Patient denies any chest pain or shortness of breath at this time. Current d iscomfort in the left knee is an 8/10 at this time. She notes decrease in ability to flex the left knee noting that not long ago in the postoperative states she was able to flex it more and now pain is worse with ambulation. Home Medications Home Medications Medication Instructions Recorded Confirmed Type Dexilant 60 mg PO DAILY 10/26/18 04/26/20 History quetiapine [Seroquel] 400 mg PO HS 10/26/18 04/26/20 History sertraline 200 mg PO QAM 08/15/19 04/26/20 History albuterol sulfate 90 mcg/actuation 2 puffs INH Q4H PRN gm 10/20/19 04/26/20 History aerosol inhaler topiramate 100 mg tablet 100 mg PO BID 10/20/19 04/26/20 History doxepin 300 mg PO HS 11/25/19 04/26/20 History loratadine 10 mg PO QAM 11/25/19 04/26/20 History amlodipine 2.5 mg PO DAILY 01/14/20 04/26/20 History metoprolol succinate 25 mg PO BID 01/14/20 04/26/20 History ondansetron 4 mg PO Q8H PRN 01/14/20 04/26/20 History spironolactone 25 mg PO DAILY 01/14/20 04/26/20 History tizanidine 4 mg PO Q6H PRN 01/14/20 04/26/20 History topiramate [Topamax] 25 mg PO BID 01/14/20 04/26/20 History sumatriptan succinate [Imitrex] 6 mg SQ DIRECTED PRN 04/19/20 04/26/20 History erenumab-aooe [Aimovig 70 mg SQ MONTHLY 04/21/20 04/26/20 History Autoinjector] atorvastatin 20 mg PO DAILY 04/26/20 04/26/20 History Allergies Allergy/AdvReac Type Severity Reaction Status Date / Time ketorolac [From Toradol] Allergy Mild Rash Verified 04/26/20 15:28 Sulfa (Sulfonamide Allergy Mild RASH, Verified 04/26/20 15:28 Antibiotics) NAUSEA tramadol Allergy Mild RASH,NAUSEA Verified 04/26/20 15:28 Past Med/Surg History Medical History Anxiety Bipolar 1 disorder Constipation Depression 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) Dyslipidemia Fibromyalgia Headache Hypertension IBS (irritable bowel syndrome) Kidney stone Left knee DJD (09/07/13) Lumbar pain Migraine Painful orthopaedic hardware (12/21/13) Pyelonephritis Urinary tract infection Vitamin D deficiency Surgical History History of hysterectomy History of knee surgery History of tubal ligation S/P colonoscopy S/P inguinal hernia repair S/P sinus surgery Family History Daughter Allergies Depression Grandmother (Paternal) Arthritis Grandfather (Paternal) Arthritis Diabetes Grandmother (Maternal) Diabetes Hypertension Grandfather (Maternal) Diabetes Hypertension Sister Hypertension Kidney stones Mother Thyroid disorder Social History Smoking Status: Former smoker Tobacco Type: Cigarettes Cigarettes Per Day: Quit 09/2019. Smoked 0.5-1ppd x 5 years; Smoking End Date: 10/12/19; Second Hand Exposure: No; Hx Alcohol Use: No Hx Substance Use: No Preferred Language: Sudanese Communication Ability: Effective Consultants Intern Required: No Beliefs That Will Affect Care: None marital status: Current Living Situation: Alone and Family current occupational status: disabled Feels Safe at Home: Yes Safety Concerns: Feels Safe At This Time Assistive Devices: None Review of Systems A total of 10 systems reviewed and were otherwise negative Physical Exam Vital Signs Vital Signs - 24 hr 04/26/20 13:38 04/26/20 14:39 04/26/20 14:42 Temperature 36.9 C Temperature Source Oral Pulse Rate 134 H 123 H 126 H Pulse Rate [Apical] Respiratory Rate 18 14 17 Blood Pressure 132/71 143/95 H Blood Pressure [Right Arm] Blood Pressure Mean 91 101 Blood Pressure Mean [Right Arm] Pulse Oximetry 100 Oxygen Delivery Method Room Air Sepsis Recent Fever Within 48 Hours No Sepsis New/Unexplained Change in Mental Status N/A Sepsis Action Taken by Nursing No Action Required 04/26/20 14:50 04/26/20 15:00 04/26/20 15:10 Temperature Temperature Source Pulse Rate 119 H 113 H 103 H Pulse Rate [Apical] Respiratory Rate 19 18 18 Blood Pressure 139/98 Blood Pressure [Right Arm] Blood Pressure Mean 103 Blood Pressure Mean [Right Arm] Pulse Oximetry Oxygen Delivery Method Sepsis Recent Fever Within 48 Hours Sepsis New/Unexplained Change in Mental Status Sepsis Action Taken by Nursing 04/26/20 15:20 04/26/20 15:30 04/26/20 15:40 Temperature Temperature Source Pulse Rate 104 H 106 H 110 H Pulse Rate [Apical] Respiratory Rate 18 20 26 H Blood Pressure Blood Pressure [Right Arm] Blood Pressure Mean Blood Pressure Mean [Right Arm] Pulse Oximetry Oxygen Delivery Method Sepsis Recent Fever Within 48 Hours Sepsis New/Unexplained Change in Mental Status Sepsis Action Taken by Nursing 04/26/20 15:50 04/26/20 16:00 04/26/20 16:10 Temperature Temperature Source Pulse Rate 116 H 118 H 119 H Pulse Rate [Apical] Respiratory Rate 25 H 24 20 Blood Pressure 127/92 Blood Pressure [Right Arm] Blood Pressure Mean 103 Blood Pressure Mean [Right Arm] Pulse Oximetry Oxygen Delivery Method Sepsis Recent Fever Within 48 Hours Sepsis New/Unexplained Change in Mental Status Sepsis Action Taken by Nursing 04/26/20 16:20 04/26/20 16:30 04/26/20 16:40 Temperature Temperature Source Pulse Rate 110 H 120 H 119 H Pulse Rate [Apical] Respiratory Rate 21 19 21 Blood Pressure 153/87 H Blood Pressure [Right Arm] Blood Pressure Mean 104 Blood Pressure Mean [Right Arm] Pulse Oximetry Oxygen Delivery Method Sepsis Recent Fever Within 48 Hours Sepsis New/Unexplained Change in Mental Status Sepsis Action Taken by Nursing 04/26/20 16:50 04/26/20 17:00 04/26/20 17:02 Temperature Temperature Source Pulse Rate 106 H 110 H Pulse Rate [Apical] 112 H Respiratory Rate 22 22 18 Blood Pressure 137/94 Blood Pressure [Right Arm] 137/94 Blood Pressure Mean 102 Blood Pressure Mean [Right Arm] 108 Pulse Oximetry 98 Oxygen Delivery Method Room Air Sepsis Recent Fever Within 48 Hours Sepsis New/Unexplained Change in Mental Status Sepsis Action Taken by Nursing 04/26/20 17:10 04/26/20 17:20 04/26/20 17:30 Temperature Temperature Source Pulse Rate 115 H 115 H 112 H Pulse Rate [Apical] Respiratory Rate 21 25 H 22 Blood Pressure Blood Pressure [Right Arm] Blood Pressure Mean Blood Pressure Mean [Right Arm] Pulse Oximetry Oxygen Delivery Method Sepsis Recent Fever Within 48 Hours Sepsis New/Unexplained Change in Mental Status Sepsis Action Taken by Nursing VITAL SIGNS - Vital signs and nursing notes were reviewed. Tachycardic and afebrile. GENERAL -39-year-old female appearing her stated age who is in no acute distress. Communicates well with provider and answers questions appropriately. SKIN - Without rashes. No meningeal or petechial rash. HEAD - NC/AT. EYES - PERRL with EOMI bilaterally. Sclera anicteric. EARS - No deformities of external structures noted on gross examination bilaterally. NECK - Neck with FROM. No nuchal rigidity. LUNGS - Chest wall symmetric without accessory muscle use, intercostals retractions, or central cyanosis. Normal vesicular breath sounds CTA B/L. No whe ezes, rales, or rhonchi appreciated. CARDIAC - tachycardia with S1/S2. No murmur, rubs, or gallops appreciated. EXTREMITIES - No clubbing or peripheral cyanosis. No pretibial edema present. Skin as above. Left dorsalis pedis pulse intact. Mild tenderness over the left anterior knee. No dehiscence of the wound. Mild increased warmth to palpation of the left anterior knee. There is overall decreased active flexion of the patient's left knee as well as extension. +5/5 strength noted in UE/LE bilaterally. NEUROLOGIC - Cranial nerves II through XII grossly intact. PSYCH - A&O, and cooperates fully with examiner. Pt is very pleasant and interacts well with examiner. Course Administered Medications Acetaminophen (Acetaminophen 325 Mg Tab) 650 mg PO Q4H PRN PRN Reason: Pain or Fever Stop: 05/26/20 18:48 Last Admin: 04/26/20 21:19 Dose: 650 mg Documented by: [id number] Doxepin HCl (Doxepin Hcl 75 Mg Capsule) 300 mg PO HS [facility] Stop: 05/26/20 20:59 Last Admin: 04/26/20 20:19 Dose: 300 mg Documented by: [id number] Enoxaparin Sodium (Enoxaparin Inj 40 Mg/0.4 Ml Syr) 40 mg SQ QPM LUIS M Stop: 05/26/20 20:59 Last Admin: 04/26/20 20:18 Dose: 40 mg Documented by: [id number] Metoprolol Succinate (Metoprolol Succ 25mg Ext Rel Tab) 25 mg PO BID LUIS M Stop: 05/26/20 20:59 Last Admin: 04/26/20 20:20 Dose: 25 mg Documented by: [id number] Quetiapine Fumarate (Quetiapine Fumarate 200 Mg Tab) 400 mg PO HS [facility] Stop: 05/26/20 20:59 Last Admin: 04/26/20 20:19 Dose: 400 mg Documented by: [id number] Topiramate (Topiramate 25 Mg Tab) 25 mg PO BID LUIS M Stop: 05/26/20 20:59 Last Admin: 04/26/20 20:21 Dose: 25 mg Documented by: [id number] Topiramate (Topiramate 100 Mg Tab) 100 mg PO BID LUIS M Stop: 05/26/20 20:59 Last Admin: 04/26/20 20:21 Dose: 100 mg Documented by: [id number] Discontinued Medications Sodium Chloride (Nss 1000ml) 1,000 mls @ 999 mls/hr IV .Q1H1M LUIS M Stop: 04/26/20 15:00 Last Infusion: 04/26/20 15:43 Dose: 0 mls/hr Documented by: [id number] Admin: 04/26/20 14:36 Dose: 999 mls/hr Documented by: [id number] Potassium Chloride (K Lefty / Wtr) 10 meq in 100 mls @ 100 mls/hr IV Q1H LUIS M Stop: 04/26/20 16:59 Last Infusion: 04/26/20 17:14 Dose: 0 mls/hr Documented by: [id number] Admin: 04/26/20 16:01 Dose: 100 mls/hr Documented by: [id number] Infusion: 04/26/20 16:01 Dose: 100 mls/hr Documented by: [id number] Admin: 04/26/20 15:02 Dose: 100 mls/hr Documented by: [id number] Lidocaine HCl (Lidocaine Hcl 1% 20 Ml Vial) Confirm Administered Dose 20 ml .ROUTE .STK-MED ONE Stop: 04/26/20 14:58 Last Admin: 04/26/20 15:42 Dose: 20 ml Documented by: [id number] Morphine Sulfate (Morphine Sulfate 4 Mg/Ml 1 Ml Carp\\Vial) 4 mg IV NOW STA Stop: 04/26/20 13:58 Last Admin: 04/26/20 14:36 Dose: 4 mg Documented by: [id number] Ondansetron HCl (Ondansetron Inj 2 Mg/Ml 2 Ml Vial) 4 mg IV NOW STA Stop: 04/26/20 13:58 Last Admin: 04/26/20 14:36 Dose: 4 mg Documented by: [id number] Potassium Chloride (Potassium Chloride 20 Meq Tabcr) 40 meq PO NOW STA Stop: 04/26/20 16:47 Last Admin: 04/26/20 17:02 Dose: 40 meq Documented by: [id number] Medical Decision Making Laboratory Data Result diagrams: 04/26/20 14:16 04/26/20 17:31 Lab Results 04/26/20 04/26/20 04/26/20 Range/Units 14:16 14:16 14:16 WBC 9.06 (4.8-10.8) K/uL RBC 3.85 L (4.2-5.4) M/uL Hgb 11.5 L (12.0-16.0) g/dL Hct 35.7 L (37-47) % MCV 92.7 (80-100) fL MCH 29.9 (25-34) pg MCHC 32.2 (32-36) g/dL RDW Std Deviation 45.0 (36.4-46.3) fL RDW Coeff of Nate 13.3 (11.5-14.5) % Plt Count 386 (130-400) K/uL MPV 8.9 (7.4-10.4) fL Immature Gran % (Auto) 0.3 % Neut % (Auto) 71.5 % Lymph % (Auto) 20.0 % [place] % (Auto) 7.4 % Eos % (Auto) 0.4 % Baso % (Auto) 0.4 % Neut # (Auto) 6.47 (1.4-6.5) K/uL Lymph # (Auto) 1.81 (1.2-3.4) K/uL [place] # (Auto) 0.67 H (0.11-0.59) K/uL Eos # (Auto) 0.04 (0-0.5) K/uL Baso # (Auto) 0.04 (0-0.2) K/uL Immature Gran # (Auto) 0.03 H (0.00-0.02) K/uL ESR 37 H (0-21) mm/hr Sodium 139 (136-145) mmol/L Potassium 2.9 L (3.5-5.1) mmol/L Chloride 111 H (98-107) mmol/L Carbon Dioxide 20 L (21-32) mmol/L Anion Gap 8.0 (3-11) BUN 8 (7-18) mg/dl Creatinine 0.84 (0.6-1.2) mg/dl Est Cr Clr Drug Dosing 101.2 ml/min Est GFR ( Amer) 100.8 Est GFR (Non-Af Amer) 86.9 BUN/Creatinine Ratio 9.1 L (10-20) Glucose 83 (70-99) mg/dl Lactate (0.4-2.0) mmol/L Calcium 9.1 (8.5-10.1) mg/dl Magnesium 2.1 (1.8-2.4) mg/dl Total Bilirubin 0.2 (0.2-1) mg/dl AST 9 L (15-37) U/L ALT 14 (12-78) U/L Alkaline Phosphatase 93 (45-117) U/L Troponin I < 0.015 (0-0.045) ng/ml C-Reactive Protein 0.46 H (0-0.29) mg/dl Total Protein 7.7 (6.4-8.2) gm/dl Albumin 3.6 (3.4-5.0) gm/dl Globulin 4.1 H (2.5-4.0) gm/dl Albumin/Globulin Ratio 0.9 (0.9-2) TSH 1.660 (0.300-4.500) uIu/ml Urine Color Urine Appearance (Clear) Urine pH (4.5-7.5) Ur Specific [place] (1.000-1.030) Urine Protein (Negative) Urine Glucose (UA) (Negative) Urine Ketones (Negative) Urine Blood (Negative) Urine Nitrite (Negative) Urine Bilirubin (Negative) Urine Urobilinogen (Negative) Ur Leukocyte Esterase (Negative) Urine Test (Negative) Synovial Source Synovial Color Synovial Appearance Synovial WBC (0-200) /ul Synovial RBC /uL Synovial Polynuclear % % Synovial Mononuclear % % Urine Opiates Screen (Neg) Ur Methadone, Qual (Neg) Urine Barbiturates (Neg) Ur Phencyclidine (PCP) (Neg) U Amphetamin/Meth Scrn (Neg) MDMA (Ecstasy) Screen (Neg) U Benzodiazepines Scrn (Neg) Ur Cocaine Metabolite (Neg) U Marijuana (THC) Screen (Neg) Lyme Disease IgG Ab (Negative) Lyme Disease IgM Ab (Negative) 04/26/20 04/26/20 04/26/20 Range/Units 14:16 14:16 15:05 WBC (4.8-10.8) K/uL RBC (4.2-5.4) M/uL Hgb (12.0-16.0) g/dL Hct (37-47) % MCV (80-100) fL MCH (25-34) pg MCHC (32-36) g/dL RDW Std Deviation (36.4-46.3) fL RDW Coeff of Nate (11.5-14.5) % Plt Count (130-400) K/uL MPV (7.4-10.4) fL Immature Gran % (Auto) % Neut % (Auto) % Lymph % (Auto) % [place] % (Auto) % Eos % (Auto) % Baso % (Auto) % Neut # (Auto) (1.4-6.5) K/uL Lymph # (Auto) (1.2-3.4) K/uL [place] # (Auto) (0.11-0.59) K/uL Eos # (Auto) (0-0.5) K/uL Baso # (Auto) (0-0.2) K/uL Immature Gran # (Auto) (0.00-0.02) K/uL ESR (0-21) mm/hr Sodium (136-145) mmol/L Potassium (3.5-5.1) mmol/L Chloride (98-107) mmol/L Carbon Dioxide (21-32) mmol/L Anion Gap (3-11) BUN (7-18) mg/dl Creatinine (0.6-1.2) mg/dl Est Cr Clr Drug Dosing ml/min Est GFR ( Amer) Est GFR (Non-Af Amer) BUN/Creatinine Ratio (10-20) Glucose (70-99) mg/dl Lactate 1.8 (0.4-2.0) mmol/L Calcium (8.5-10.1) mg/dl Magnesium (1.8-2.4) mg/dl Total Bilirubin (0.2-1) mg/dl AST (15-37) U/L ALT (12-78) U/L Alkaline Phosphatase (45-117) U/L Troponin I (0-0.045) ng/ml C-Reactive Protein (0-0.29) mg/dl Total Protein (6.4-8.2) gm/dl Albumin (3.4-5.0) gm/dl Globulin (2.5-4.0) gm/dl Albumin/Globulin Ratio (0.9-2) TSH (0.300-4.500) uIu/ml Urine Color Urine Appearance (Clear) Urine pH (4.5-7.5) Ur Specific [place] (1.000-1.030) Urine Protein (Negative) Urine Glucose (UA) (Negative) Urine Ketones (Negative) Urine Blood (Negative) Urine Nitrite (Negative) Urine Bilirubin (Negative) Urine Urobilinogen (Negative) Ur Leukocyte Esterase (Negative) Urine Test (Negative) Synovial Source KNEE Synovial Color RED Synovial Appearance BLOODY Synovial WBC 58775 H (0-200) /ul Synovial RBC [id number] /uL Synovial Polynuclear % 92.3 % Synovial Mononuclear % 7.7 % Urine Opiates Screen (Neg) Ur Methadone, Qual (Neg) Urine Barbiturates (Neg) Ur Phencyclidine (PCP) (Neg) U Amphetamin/Meth Scrn (Neg) MDMA (Ecstasy) Screen (Neg) U Benzodiazepines Scrn (Neg) Ur Cocaine Metabolite (Neg) U Marijuana (THC) Screen (Neg) Lyme Disease IgG Ab Negative (Negative) Lyme Disease IgM Ab Positive A (Negative) 04/26/20 04/26/20 04/26/20 Range/Units 15:35 15:35 15:35 WBC (4.8-10.8) K/uL RBC (4.2-5.4) M/uL Hgb (12.0-16.0) g/dL Hct (37-47) % MCV (80-100) fL MCH (25-34) pg MCHC (32-36) g/dL RDW Std Deviation (36.4-46.3) fL RDW Coeff of Nate (11.5-14.5) % Plt Count (130-400) K/uL MPV (7.4-10.4) fL Immature Gran % (Auto) % Neut % (Auto) % Lymph % (Auto) % [place] % (Auto) % Eos % (Auto) % Baso % (Auto) % Neut # (Auto) (1.4-6.5) K/uL Lymph # (Auto) (1.2-3.4) K/uL [place] # (Auto) (0.11-0.59) K/uL Eos # (Auto) (0-0.5) K/uL Baso # (Auto) (0-0.2) K/uL Immature Gran # (Auto) (0.00-0.02) K/uL ESR (0-21) mm/hr Sodium (136-145) mmol/L Potassium (3.5-5.1) mmol/L Chloride (98-107) mmol/L Carbon Dioxide (21-32) mmol/L Anion Gap (3-11) BUN (7-18) mg/dl Creatinine (0.6-1.2) mg/dl Est Cr Clr Drug Dosing ml/min Est GFR ( Amer) Est GFR (Non-Af Amer) BUN/Creatinine Ratio (10-20) Glucose (70-99) mg/dl Lactate (0.4-2.0) mmol/L Calcium (8.5-10.1) mg/dl Magnesium (1.8-2.4) mg/dl Total Bilirubin (0.2-1) mg/dl AST (15-37) U/L ALT (12-78) U/L Alkaline Phosphatase (45-117) U/L Troponin I (0-0.045) ng/ml C-Reactive Protein (0-0.29) mg/dl Total Protein (6.4-8.2) gm/dl Albumin (3.4-5.0) gm/dl Globulin (2.5-4.0) gm/dl Albumin/Globulin Ratio (0.9-2) TSH (0.300-4.500) uIu/ml Urine Color Yellow Urine Appearance Clear (Clear) Urine pH 6.5 (4.5-7.5) Ur Specific [place] 1.004 (1.000-1.030) Urine Protein Negative (Negative) Urine Glucose (UA) Negative (Negative) Urine Ketones Negative (Negative) Urine Blood Negative (Negative) Urine Nitrite Negative (Negative) Urine Bilirubin Negative (Negative) Urine Urobilinogen Negative (Negative) Ur Leukocyte Esterase Negative (Negative) Urine Test Negative (Negative) Synovial Source Synovial Color Synovial Appearance Synovial WBC (0-200) /ul Synovial RBC /uL Synovial Polynuclear % % Synovial Mononuclear % % Urine Opiates Screen Pos H (Neg) Ur Methadone, Qual Neg (Neg) Urine Barbiturates Neg (Neg) Ur Phencyclidine (PCP) Neg (Neg) U Amphetamin/Meth Scrn Neg (Neg) MDMA (Ecstasy) Screen Neg (Neg) U Benzodiazepines Scrn Neg (Neg) Ur Cocaine Metabolite Neg (Neg) U Marijuana (THC) Screen Neg (Neg) Lyme Disease IgG Ab (Negative) Lyme Disease IgM Ab (Negative) 04/26/20 Range/Units 17:31 WBC (4.8-10.8) K/uL RBC (4.2-5.4) M/uL Hgb (12.0-16.0) g/dL Hct (37-47) % MCV (80-100) fL MCH (25-34) pg MCHC (32-36) g/dL RDW Std Deviation (36.4-46.3) fL RDW Coeff of Nate (11.5-14.5) % Plt Count (130-400) K/uL MPV (7.4-10.4) fL Immature Gran % (Auto) % Neut % (Auto) % Lymph % (Auto) % [place] % (Auto) % Eos % (Auto) % Baso % (Auto) % Neut # (Auto) (1.4-6.5) K/uL Lymph # (Auto) (1.2-3.4) K/uL [place] # (Auto) (0.11-0.59) K/uL Eos # (Auto) (0-0.5) K/uL Baso # (Auto) (0-0.2) K/uL Immature Gran # (Auto) (0.00-0.02) K/uL ESR (0-21) mm/hr Sodium (136-145) mmol/L Potassium 4.1 D (3.5-5.1) mmol/L Chloride (98-107) mmol/L Carbon Dioxide (21-32) mmol/L Anion Gap (3-11) BUN (7-18) mg/dl Creatinine (0.6-1.2) mg/dl Est Cr Clr Drug Dosing ml/min Est GFR ( Amer) Est GFR (Non-Af Amer) BUN/Creatinine Ratio (10-20) Glucose (70-99) mg/dl Lactate (0.4-2.0) mmol/L Calcium (8.5-10.1) mg/dl Magnesium (1.8-2.4) mg/dl Total Bilirubin (0.2-1) mg/dl AST (15-37) U/L ALT (12-78) U/L Alkaline Phosphatase (45-117) U/L Troponin I (0-0.045) ng/ml C-Reactive Protein (0-0.29) mg/dl Total Protein (6.4-8.2) gm/dl Albumin (3.4-5.0) gm/dl Globulin (2.5-4.0) gm/dl Albumin/Globulin Ratio (0.9-2) TSH (0.300-4.500) uIu/ml Urine Color Urine Appearance (Clear) Urine pH (4.5-7.5) Ur Specific [place] (1.000-1.030) Urine Protein (Negative) Urine Glucose (UA) (Negative) Urine Ketones (Negative) Urine Blood (Negative) Urine Nitrite (Negative) Urine Bilirubin (Negative) Urine Urobilinogen (Negative) Ur Leukocyte Esterase (Negative) Urine Test (Negative) Synovial Source Synovial Color Synovial Appearance Synovial WBC (0-200) /ul Synovial RBC /uL Synovial Polynuclear % % Synovial Mononuclear % % Urine Opiates Screen (Neg) Ur Methadone, Qual (Neg) Urine Barbiturates (Neg) Ur Phencyclidine (PCP) (Neg) U Amphetamin/Meth Scrn (Neg) MDMA (Ecstasy) Screen (Neg) U Benzodiazepines Scrn (Neg) Ur Cocaine Metabolite (Neg) U Marijuana (THC) Screen (Neg) Lyme Disease IgG Ab (Negative) Lyme Disease IgM Ab (Negative) MDM Narrative Patient was seen and evaluated as above in room A3. review was performed of nursing notes and vital signs. I did review pertinent previous visits and patient history. After obtaining a thorough history and physical examination the above work up was performed. She presents to us today with left knee pain and significant tachycardia. She was found to be in normal sinus rhythm. EKG revealed sinus rhythm at a rate of 113 bpm. This was compared EKG of April 21, 2020 and there is T wave inversion noted in leads II, 3 and mild to inversion in aVF as well as T wave inversions throughout the remainder of the leads. Overall similar to previous. She underwent a PE work-up not long ago and this was negative for PE. I discussed presentation with the orthopedist, specifically spoke with Elise nurse practitioner with Dr. Elizalde. It was recommended to have our on-call orthopedist evaluate the knee and if felt reas onable to aspirate. I then spoke to Dr. King, who came to bedside. Please refer to his note. Labs reveal no leukocytosis. Mild anemia noted. No emergent metabolic disturbance and ESR and CRP are mildly elevated. Troponin negative. Urinalysis does not revealing infection. Potassium was found to be quite low here and she was repleted intravenously. Her heart rate seemed to improve however given the patient's presentation noting significant tachycardia on the past 3 visits without explained etiology in the setting of increasing left knee pain it was felt reasonable to discuss the case with the hospitalist for further evaluation and management of the patient's persistent tachycardia. Please refer to further documentation regarding her stay. Case was discussed with the attending physician. GCS: 15 In the evaluation and treatment of this patient, the following differential diagnoses were considered: Patellar Fracture, Tibial Plateau Fracture, Distal Femur Fracture, ACL Injury, PCL Injury, Collateral Ligament Injury, Pes Anserine Bursitis, [place] Fracture. Impression & Plan Left knee pain, Tachycardia Discharge Plan Visit Data Chief Complaint: Knee Injury/Pain Stated Complaint: LEFT KNEE PAIN ED Provider: Rashawn Hewitt ED Midlevel Provider: Dougie Shaver Discharge Problem: Left knee pain, Tachycardia Patient Disposition: Admitted As Inpatient Discharge Instructions Interventions: ED Discharge Assessment Last Done: 04/26/20 18:27
[2020-04-26 14:29] LABS: Basophils # (auto) 0.04 K/uL (0-0.2); Basophils % (auto) 0.4 %; Eosinophils # (auto) 0.04 K/uL (0-0.5); Eosinophils % (auto) 0.4 %; Hematocrit (blood only) 35.7 % (37-47); Hemoglobin 11.5 g/dL (12.0-16.0); Immature Granulocytes # (auto) 0.03 K/uL (0.00-0.02); Immature Granulocytes % (auto) 0.3 %; Lymphocytes # (auto) 1.81 K/uL (1.2-3.4); Mean Corpuscular Hemoglobin 29.9 pg (25-34); Mean Corpuscular Hgb Conc 32.2 g/dL (32-36); Mean Corpuscular Volume 92.7 fL (80-100); Mean Platelet Volume 8.9 fL (7.4-10.4); Monocytes # (auto) 0.67 K/uL (0.11-0.59); Monocytes % (auto) 7.4 %; Neutrophils # (auto) 6.47 K/uL (1.4-6.5); Neutrophils % (auto) 71.5 %; Platelet Count 386 K/uL (130-400); RDW Coefficient of Variation 13.3 % (11.5-14.5); Red Blood Count 3.85 M/uL (4.2-5.4); White Blood Count 9.06 K/uL (4.8-10.8)
[2020-04-26 14:44] LABS: Alanine Aminotransferase 14 U/L (12-78); Albumin Level 3.6 gm/dl (3.4-5.0); Aspartate Aminotransferase 9 U/L (15-37); BUN Creatinine Ratio 9.1 (10-20); Blood Urea Nitrogen 8 mg/dl (7-18); C Reactive Protein 0.46 mg/dl (0-0.29); Calcium 9.1 mg/dl (8.5-10.1); Carbon Dioxide 20 mmol/L (21-32); Chloride 111 mmol/L (98-107); Creatinine Clr Calc Pharmacy 101.2 ml/min; Est GFR (African American) 100.8; Est GFR (Non-African American) 86.9; Glucose 83 mg/dl (70-99); Magnesium 2.1 mg/dl (1.8-2.4); Potassium 2.9 mmol/L (3.5-5.1); Sodium 139 mmol/L (136-145)
[2020-04-26 14:54] LABS: Albumin Globulin Ratio 0.9 (0.9-2); Alkaline Phosphatase 93 U/L (45-117); Bilirubin,Total 0.2 mg/dl (0.2-1); Globulin 4.1 gm/dl (2.5-4.0); Total Protein 7.7 gm/dl (6.4-8.2); Troponin I < 0.015 ng/ml (0-0.045)
[2020-04-26] MEDS ORDERED: LIDOCAINE HCL 1% 20 ML VIAL ONE (14:57)
[2020-04-26] MEDS: POTASSIUM CHLORIDE / WTR 10 MEQ/100 ML PLCT IV SCH ×2 (15:02→16:01)
[2020-04-26 15:45] LABS: Appearance Urine Clear (Clear); Bilirubin Urine Negative (Negative); Blood Urine Negative (Negative); Color Urine Yellow; Glucose Urine UA Negative (Negative); Ketones Urine Negative (Negative); Leukocyte Esterase Urine Negative (Negative); Nitrite Urine Negative (Negative); Protein Urine Negative (Negative); Specific Gravity Urine 1.004 (1.000-1.030); Urobilinogen Urine Negative (Negative); pH Urine 6.5 (4.5-7.5)
[2020-04-26 15:47] LABS: Pregnancy Test, Urine Negative (Negative)
[2020-04-26 16:10] LABS: Amphetamines+Metham, Urine Neg (Neg); Barbiturates, Urine Neg (Neg); Benzodiazepine, Urine Neg (Neg); Cocaine, Urine Neg (Neg); MDMA (Ecstacy), Urine Neg (Neg); Methadone, Urine Neg (Neg); Opiate, Urine Pos (Neg); Phencyclidine, Urine Neg (Neg)
[2020-04-26 16:15] LABS: Appearance Synovial Fluid BLOODY; Color Synovial Fluid RED; Mononuclear WBC Synovial 7.7 %; Polynuclear WBC Synovial 92.3 %; RBC Synovial Fluid (A) 854000 /uL; Source Synovial Fluid KNEE; WBC Synovial Fluid (A) 19682 /ul (0-200)
--- NOTE | 2020-04-26 16:20 | Consultation Report ---
DATE OF CONSULTATION: 04/26/2020 ORTHOPEDIC CONSULTATION CHIEF COMPLAINT: Left knee pain and tachycardia. HISTORY OF PRESENT ILLNESS: Yuliya is a 39-year-old female with a medical history significant for anxiety, fibromyalgia, who underwent a total knee arthroplasty at the [facility] by Dr. Elizalde on 03/08/2020. Per the patient's report, she was doing well at her followup a couple of weeks ago with Dr. Elizalde. However, about a week after her followup with him, she just started to develop pain in the superolateral aspect of the knee. She says that she tried doing some ice and heat at home. This did not help her too much. She presented to the Emergency Room on 04/19/2020. The patient underwent a workup in the Emergency Room. She was able to walk without much discomfort at that time and her labs were unremarkable, so she was discharged. She subsequently re-presented to the Emergency Room 2 days later and underwent an ultrasound to rule out a DVT in her legs, which was negative. She also underwent a CT angiogram of her chest, which was negative for PE. She followed up with her primary care physician today. Her primary care physician was concerned that her knee might be infected and sent her to the Emergency Room. In the Emergency Room, they were able to contact Dr. Elizalde's office who asked that an orthopedic surgeon locally evaluate the patient since she is a [address] from his office. In speaking with the patient, she says that in her followup a couple of weeks ago, she was able to flex her knee up to 90 degrees and she feels like she is not able to bend it as well. She says she does have some pain at rest in the knee, but it is worse with weightbearing. She reports that she had a low-grade fever with the highest measured at 100.4 at a walk-in clinic. She has also felt shaky and somewhat nauseated. Not having any pain in any other locations. PAST MEDICAL HISTORY: Anxiety, constipation, depression, fibromyalgia, hypertension, history of kidney stone, migraine, history of urinary tract infection. PAST SURGICAL HISTORY: The patient reports she has undergone at least 15 knee arthroscopies, Antonieta osteotomy, and 2 partial knee arthroplasties prior to undergoing her recent left total knee arthroplasty done on 03/08/2020. Also, hysterectomy, tubal ligation, inguinal hernia repair, sinus surgery and colonoscopy. FAMILY HISTORY, SOCIAL HISTORY, MEDICATIONS AND ALLERGIES: All reviewed on the intake form. PHYSICAL EXAMINATION: GENERAL: Pleasant female, alert and oriented x3, in no acute distress. PSYCHIATRIC: Mood and affect are appropriate. VITAL SIGNS: Show a temperature of 36.9, heart rate is elevated at 134, blood pressure is 132/71, respiratory rate 18. She has 100% pulse ox on room air. EXTREMITIES: Left knee exam shows an anterior midline incision as well as a previous arthroscopic portal incisions that are all well healed. There is no erythema. There is no drainage from the wound. She does have some warmth around her knee. She has some tenderness to palpation around the knee including superior medially, superior laterally as well as along the medial and lateral joint lines. She does have a ballottable patella consistent with fluid in the joint. Range of motion shows her to be able to actively flex her knee up to approximately 70 degrees. When I take her through a 20-50 degree passive arc of motion, she tolerates this well and says she tolerates this better than when she tries to move the knee. Distally neurovascularly intact. RESULTS REVIEWED: X-rays that were done in the Emergency Room within the last week are reviewed. This demonstrates a total knee arthroplasty with hardware in good position. There is a single screw near the site of her previous Antonieta osteotomy. Minimal amount of fluid is appreciated on these films. ESR and CRP have been measured serially over the last week. The dates of these are 04/19, 04/21, and today, 04/26/2020. Her white cell count has been within normal limits in all of these and is 9 today. Her ESR has gone from 38 up to 47 and down to 37 today. Her CRP went from 0.49 up to 1.9 five days ago and down to 0.46 today. Also, of note her potassium was measured today and was low at 2.9. IMPRESSION: A 39-year-old female 6 weeks status post left total knee arthroplasty with left knee pain. She has tachycardia of unexplained origin at this point, although her potassium level is low and is being repleted in the Emergency Room. PLAN: Given the pain and warmth in her knee as well as the unexplained tachycardia, I offered to aspirate her knee. After verbal informed consent was obtained, the entirety of the knee was prepped with sterile prep using a Betadine scrub. Sterile blue towels were laid out for a sterile drape. I then numbed up the skin over the superolateral aspect of the knee with a total of 3 mL of 1% lidocaine without epinephrine. Once this had set up, an 18-gauge needle was inserted into the suprapatellar pouch of the knee through the numbed area of the skin. I was able to aspirate 15 mL of bloody fluid from the knee. There was no evidence of purulence. This fluid was sent off for Gram stain, culture and cell count. The patient tolerated the procedure well. A Band-Aid was applied. After the procedure, she had some improvement of her symptoms and was able to now flex her knee up to approximately 80 degrees before wanting to stop. I spoke with Dr. Elizalde over the phone about the results of my aspiration and consultation. He did not desire any further synovial fluid testing beyond what was mentioned above. She has a followup scheduled with him on Thursday next week. We will follow her cultures and should anything grow on her cultures, I will discuss this with Dr. Elizalde and determine the next best course of action. However, if her cultures remain negative, she can follow up with Dr. Elizalde as scheduled Thursday next . She may be admitted to the internal medicine service regarding her potassium and for further workup of her tachycardia. Based upon her exam and the gross appearance of her synovial fluid, my suspicion that the tachycardia is coming from her knee being infected is low at this point. ADDENDUM: Gram stain came back no organisms, moderate polys. Synovial fluid analysis showed 854,000 RBC, 19,682 WBC with 92% PMN's. I texted these results to Dr. Elizalde's cellphone. The elevated %PMN and WBC count is concerning, however, her negative gram stain and her decline in CRP and ESR off antibiotics in the last 5 days argues against infection, so I am uncertain at this point. Plan will be to follow her cultures which will give us the definitive answer on whether or not her knee is infected. HERI
[2020-04-26] MEDS ORDERED: POTASSIUM CHLORIDE 20 MEQ TABCR PO STA (16:46)
[2020-04-26] MEDS ORDERED: TIZANIDINE HCL 4 MG TABLET PO PRN (17:44)
--- NOTE | 2020-04-26 17:53 | History & Physical Report ---
Date of Service April 26, 2020 Assessment & Plan (1) Tachycardia: Appears to be improving with IVF and potassium repletion. Had extensive cardiac evaluation earlier this year when pt was admitted twice with non- specific chest pain. ED work-up on 04/21 negative for PE. - Monitor on telemetry - Continue outpatient beta-tanya - Outpatient cardiology follow-up unless worsening symptoms in which case cardiology consult while admitted (2) Left knee pain: Unclear etiology of increased pain and effusion are present although initial review of synovial fluid appears more consistent with inflammatory response than infection. - Await cultures. - Since currently afebrile with normal WBC count and negative Gran stain of fluid, will off on empiric antibiotics. - Keep appt with orthopedic surgeon on Thursday - Tylenol and prn oxycodone for pain (3) Bipolar I disorder, single manic episode: - Continue outpatient medication regimen - currently stable (4) Dyslipidemia: - Continue outpatient statin therapy (5) Hypertension: - Continue Toprol XL, aldactone and amlodipine - BP is mildly elevated at present but likely due to pain. Continue to monitor Patient seen and evaluated with collaborating physician, Dr. Mota. Plan of care discussed and as outlined above. Sejal Mireles PA-C (6) Hypokalemia: Given both IV and oral repletion in the ED. Magnesium was 2.1 in ED - Recheck this evening and in AM - Encourage oral intake History of Present Illness Primary Care Provider: Ghazala Guillermo, This is a 39 year old F s/p recent knee surgery who has a significant PMH of HTN, dyslipidemia, migraine, bipolar, anxiety, asthma, fibromyalgia, history of abnormal EKG and who presented to ED today after she was referred by her PCP for possible left knee infection and tachycardia. In March, pt underwent left knee surgery in [place]. Pt reports that she has not felt well for the past two weeks with a variety of symptoms. Most concerning to her is the progressive left knee pain and racing heart. She was seen in the ED on 04/19 and 04/21 for increased knee pain and was found to be tachycardic both visits, primarily attributed to pain as it improved with pain control. She did have a D-dimer checked at the second ED visit which was mildly elevated so she underwent a CTA chest that was negative for PE. She was not complaining of chest pain or dyspnea at the time and still denies both of these. On 04/23, she was seen at urgent care for ear pressure, cough, sore throat, chills and low-grade fever. She underwent testing for strep and COVID-19 which were both negative. Today, she followed up with her PCP and was noted to still be tachycardic with ongoing pain. Apparently, her PCP spoke with orthopedics at [facility], and both providers agreed that the patient may have a septic joint so she was referred to the ED for evaluation. In the ED she was found to be hypokalemic with a potassium of 2.9 although outpatient labs this AM showed a potassium of 3.6. She was given IVF and 20 mEq of potassium with improvement in her HR from 130s to 110s. She was seen by orthopedics risk and insurance consultant here in the ED today who collaborated with the patient's surgeon on the care plan. Dr. King did an arthocentesis and sent the synovial fluid for analysis. Results not definitive for infection so recommended to wait for cultures to determine care plan. Pt does have follow-up with the surgeon scheduled for Thursday. Since this is pt's third visit with left knee pain and tachycardia and she was noted to be hypokalemic she was referred for admission. Currently, pt reports feeling poorly overall with ongoing symptoms including the knee pain, fatigue, malaise, racing heart, nausea, loss of appetite, and congestion. She has been using alternating Tylenol 1000 mg and Ibuprofen 600 mg at home for pain. Allergies Allergy/AdvReac Type Severity Reaction Status Date / Time ketorolac [From Toradol] Allergy Mild Rash Verified 04/26/20 15:28 Sulfa (Sulfonamide Allergy Mild RASH, Verified 04/26/20 15:28 Antibiotics) NAUSEA tramadol Allergy Mild RASH,NAUSEA Verified 04/26/20 15:28 Home Medications Home Medications Medication Instructions Recorded Confirmed Type Dexilant 60 mg PO DAILY 10/26/18 04/26/20 History quetiapine [Seroquel] 400 mg PO HS 10/26/18 04/26/20 History sertraline 200 mg PO QAM 08/15/19 04/26/20 History albuterol sulfate 90 mcg/actuation 2 puffs INH Q4H PRN gm 10/20/19 04/26/20 History aerosol inhaler topiramate 100 mg tablet 100 mg PO BID 10/20/19 04/26/20 History doxepin 300 mg PO HS 11/25/19 04/26/20 History loratadine 10 mg PO QAM 11/25/19 04/26/20 History amlodipine 2.5 mg PO DAILY 01/14/20 04/26/20 History metoprolol succinate 25 mg PO BID 01/14/20 04/26/20 History ondansetron 4 mg PO Q8H PRN 01/14/20 04/26/20 History spironolactone 25 mg PO DAILY 01/14/20 04/26/20 History tizanidine 4 mg PO Q6H PRN 01/14/20 04/26/20 History topiramate [Topamax] 25 mg PO BID 01/14/20 04/26/20 History sumatriptan succinate [Imitrex] 6 mg SQ DIRECTED PRN 04/19/20 04/26/20 History erenumab-aooe [Aimovig 70 mg SQ MONTHLY 04/21/20 04/26/20 History Autoinjector] atorvastatin 20 mg PO DAILY 04/26/20 04/26/20 History Past Med/Surg History Medical History (Updated 04/26/20 @ 18:24 by Alla Mireles PA-C) Anxiety Bipolar 1 disorder Constipation Depression 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) Dyslipidemia Fibromyalgia Headache Hypertension IBS (irritable bowel syndrome) Kidney stone Left knee DJD (09/07/13) Lumbar pain Migraine Painful orthopaedic hardware (12/21/13) Pyelonephritis Urinary tract infection Vitamin D deficiency Surgical History History of hysterectomy History of knee surgery History of tubal ligation S/P colonoscopy S/P inguinal hernia repair S/P sinus surgery Family History Daughter Allergies Depression Grandmother (Paternal) Arthritis Grandfather (Paternal) Arthritis Diabetes Grandmother (Maternal) Diabetes Hypertension Grandfather (Maternal) Diabetes Hypertension Sister Hypertension Kidney stones Mother Thyroid disorder Social History Smoking Status: Former smoker Tobacco Type: Cigarettes Cigarettes Per Day: Quit 09/2019. Smoked 0.5-1ppd x 5 years; Smoking End Date: 10/12/19; Second Hand Exposure: No; Hx Alcohol Use: No Hx Substance Use: No Preferred Language: Sinhala Communication Ability: Effective Women'[facility] Nurse Practitioner Required: No Beliefs That Will Affect Care: None marital status: Current Living Situation: Alone and Family current occupational status: disabled Feels Safe at Home: Yes Safety Concerns: Feels Safe At This Time Assistive Devices: None Review of Systems Review of Systems: All systems reviewed & are unremarkable except as noted in HPI & below Constitutional: + fever, + chills, + fatigue, + malaise and + anorexia Eyes: no diplopia Ear, Nose, Mouth, Throat: + ear pain and + sore throat Respiratory: no cough, no dyspnea, no hemoptysis and no wheezing Cardiovascular: as per Subjective / HPI; no chest pain, no lightheadedness, no syncope and no edema Gastrointestinal: + nausea; no heartburn, no vomiting, no change in bowel habits and no diarrhea/loose stools Genitourinary: no dysuria, no urinary frequency and no hematuria Musculoskeletal: as per Subjective / HPI and + joint pain Integumentary: no rash and no skin ulcer Neurologic: no falls, no paresthesia, no seizure-like activity and no headache(s) Psychiatric: + anxiety Physical Exam Constitutional: WD/WN, vitals as above no acute distress Eyes: + anicteric sclerae; no conjunctival abnormality Neck: trachea midline Respiratory: Auscultation: lungs clear to auscultation bilaterally; no rales, no rhonchi and no wheezes Cardiovascular: Rate/Rhythm: regular rhythm and + tachycardic Heart Sounds: no gallop, no murmur and no cardiac rub Extremities: normal capillary refill; no pedal edema Gastrointestinal (Abdomen): Inspection/Auscultation: normal bowel sounds; abdomen not distended Percussion/Palpation: abdomen soft; abdomen nontender Musculoskeletal: left knee with mild effusion and warmth but no significant erythema, well-healed incision without open areas or drainage, tender on lateral aspect of joint Skin: no rashes, warm and dry Neurologic: moves all extremities; no focal motor deficits Speech / Cognition: normal speech Psychiatric: A+Ox3, euthymic affect Results & Data Results & Data ([facility]) Vital Signs (Past 12 Hours) Vital Signs Temp Pulse Pulse Resp BP BP Pulse Ox 04/26/20 17:30 112 H 22 04/26/20 17:20 115 H 25 H 04/26/20 17:10 115 H 21 04/26/20 17:02 112 H 18 137/94 98 04/26/20 17:00 110 H 22 137/94 04/26/20 16:50 106 H 22 04/26/20 16:40 119 H 21 04/26/20 16:30 120 H 19 153/87 H 04/26/20 16:20 110 H 21 04/26/20 16:10 119 H 20 04/26/20 16:00 118 H 24 127/92 04/26/20 15:50 116 H 25 H 04/26/20 15:40 110 H 26 H 04/26/20 15:30 106 H 20 04/26/20 15:20 104 H 18 04/26/20 15:10 103 H 18 04/26/20 15:00 113 H 18 139/98 04/26/20 14:50 119 H 19 04/26/20 14:42 126 H 17 04/26/20 14:39 123 H 14 143/95 H 04/26/20 13:38 36.9 C 134 H 18 132/71 100 Laboratory Results Laboratory Results - last 24 hr 04/26/20 04/26/20 04/26/20 14:16 14:16 14:16 WBC 9.06 RBC 3.85 L Hgb 11.5 L Hct 35.7 L MCV 92.7 MCH 29.9 MCHC 32.2 RDW Std Deviation 45.0 RDW Coeff of Nate 13.3 Plt Count 386 MPV 8.9 Immature Gran % (Auto) 0.3 Neut % (Auto) 71.5 Lymph % (Auto) 20.0 [place] % (Auto) 7.4 Eos % (Auto) 0.4 Baso % (Auto) 0.4 Neut # (Auto) 6.47 Lymph # (Auto) 1.81 [place] # (Auto) 0.67 H Eos # (Auto) 0.04 Baso # (Auto) 0.04 Immature Gran # (Auto) 0.03 H ESR 37 H Sodium 139 Potassium 2.9 L Chloride 111 H Carbon Dioxide 20 L Anion Gap 8.0 BUN 8 Creatinine 0.84 Est Cr Clr Drug Dosing 101.2 Est GFR ( Amer) 100.8 Est GFR (Non-Af Amer) 86.9 BUN/Creatinine Ratio 9.1 L Glucose 83 Lactate Calcium 9.1 Magnesium 2.1 Total Bilirubin 0.2 AST 9 L ALT 14 Alkaline Phosphatase 93 Troponin I < 0.015 C-Reactive Protein 0.46 H Total Protein 7.7 Albumin 3.6 Globulin 4.1 H Albumin/Globulin Ratio 0.9 TSH 1.660 Urine Color Urine Appearance Urine pH Ur Specific Duck Urine Protein Urine Glucose (UA) Urine Ketones Urine Blood Urine Nitrite Urine Bilirubin Urine Urobilinogen Ur Leukocyte Esterase Urine Test Synovial Source Synovial Color Synovial Appearance Synovial WBC Synovial RBC Synovial Polynuclear % Synovial Mononuclear % Urine Opiates Screen U Codeine Confrm GC/MS Ur Morphine (GC/MS) Ur Hydrocodone (GC/MS) Ur Norhydrocodone Ur Noroxycodone Urine Oxycodone (GC/MS) U Oxymorphone GC/MS Ur Methadone, Qual Ur Hydromorphone (GC/MS) Urine Barbiturates Ur Phencyclidine (PCP) U Amphetamin/Meth Scrn MDMA (Ecstasy) Screen U Benzodiazepines Scrn Ur Cocaine Metabolite U Marijuana (THC) Screen Drug Screen Comment 04/26/20 04/26/20 04/26/20 14:16 15:05 15:35 WBC RBC Hgb Hct MCV MCH MCHC RDW Std Deviation RDW Coeff of Nate Plt Count MPV Immature Gran % (Auto) Neut % (Auto) Lymph % (Auto) [place] % (Auto) Eos % (Auto) Baso % (Auto) Neut # (Auto) Lymph # (Auto) [place] # (Auto) Eos # (Auto) Baso # (Auto) Immature Gran # (Auto) ESR Sodium Potassium Chloride Carbon Dioxide Anion Gap BUN Creatinine Est Cr Clr Drug Dosing Est GFR ( Amer) Est GFR (Non-Af Amer) BUN/Creatinine Ratio Glucose Lactate 1.8 Calcium Magnesium Total Bilirubin AST ALT Alkaline Phosphatase Troponin I C-Reactive Protein Total Protein Albumin Globulin Albumin/Globulin Ratio TSH Urine Color Yellow Urine Appearance Clear Urine pH 6.5 Ur Specific Duck 1.004 Urine Protein Negative Urine Glucose (UA) Negative Urine Ketones Negative Urine Blood Negative Urine Nitrite Negative Urine Bilirubin Negative Urine Urobilinogen Negative Ur Leukocyte Esterase Negative Urine Test Synovial Source KNEE Synovial Color RED Synovial Appearance BLOODY Synovial WBC H Synovial RBC [id number] Synovial Polynuclear % 92.3 Synovial Mononuclear % 7.7 Urine Opiates Screen U Codeine Confrm GC/MS Ur Morphine (GC/MS) Ur Hydrocodone (GC/MS) Ur Norhydrocodone Ur Noroxycodone Urine Oxycodone (GC/MS) U Oxymorphone GC/MS Ur Methadone, Qual Ur Hydromorphone (GC/MS) Urine Barbiturates Ur Phencyclidine (PCP) U Amphetamin/Meth Scrn MDMA (Ecstasy) Screen U Benzodiazepines Scrn Ur Cocaine Metabolite U Marijuana (THC) Screen Drug Screen Comment 04/26/20 04/26/20 04/26/20 15:35 15:35 15:35 WBC RBC Hgb Hct MCV MCH MCHC RDW Std Deviation RDW Coeff of Nate Plt Count MPV Immature Gran % (Auto) Neut % (Auto) Lymph % (Auto) [place] % (Auto) Eos % (Auto) Baso % (Auto) Neut # (Auto) Lymph # (Auto) [place] # (Auto) Eos # (Auto) Baso # (Auto) Immature Gran # (Auto) ESR Sodium Potassium Chloride Carbon Dioxide Anion Gap BUN Creatinine Est Cr Clr Drug Dosing Est GFR ( Amer) Est GFR (Non-Af Amer) BUN/Creatinine Ratio Glucose Lactate Calcium Magnesium Total Bilirubin AST ALT Alkaline Phosphatase Troponin I C-Reactive Protein Total Protein Albumin Globulin Albumin/Globulin Ratio TSH Urine Color Urine Appearance Urine pH Ur Specific Duck Urine Protein Urine Glucose (UA) Urine Ketones Urine Blood Urine Nitrite Urine Bilirubin Urine Urobilinogen Ur Leukocyte Esterase Urine Test Negative Synovial Source Synovial Color Synovial Appearance Synovial WBC Synovial RBC Synovial Polynuclear % Synovial Mononuclear % Urine Opiates Screen Pos H U Codeine Confrm GC/MS Pending Ur Morphine (GC/MS) Pending Ur Hydrocodone (GC/MS) Pending Ur Norhydrocodone Pending Ur Noroxycodone Pending Urine Oxycodone (GC/MS) Pending U Oxymorphone GC/MS Pending Ur Methadone, Qual Neg Ur Hydromorphone (GC/MS) Pending Urine Barbiturates Neg Ur Phencyclidine (PCP) Neg U Amphetamin/Meth Scrn Neg MDMA (Ecstasy) Screen Neg U Benzodiazepines Scrn Neg Ur Cocaine Metabolite Neg U Marijuana (THC) Screen Neg Drug Screen Comment Pending 04/26/20 17:31 WBC RBC Hgb Hct MCV MCH MCHC RDW Std Deviation RDW Coeff of Nate Plt Count MPV Immature Gran % (Auto) Neut % (Auto) Lymph % (Auto) [place] % (Auto) Eos % (Auto) Baso % (Auto) Neut # (Auto) Lymph # (Auto) [place] # (Auto) Eos # (Auto) Baso # (Auto) Immature Gran # (Auto) ESR Sodium Potassium 4.1 D Chloride Carbon Dioxide Anion Gap BUN Creatinine Est Cr Clr Drug Dosing Est GFR ( Amer) Est GFR (Non-Af Amer) BUN/Creatinine Ratio Glucose Lactate Calcium Magnesium Total Bilirubin AST ALT Alkaline Phosphatase Troponin I C-Reactive Protein Total Protein Albumin Globulin Albumin/Globulin Ratio TSH Urine Color Urine Appearance Urine pH Ur Specific Duck Urine Protein Urine Glucose (UA) Urine Ketones Urine Blood Urine Nitrite Urine Bilirubin Urine Urobilinogen Ur Leukocyte Esterase Urine Test Synovial Source Synovial Color Synovial Appearance Synovial WBC Synovial RBC Synovial Polynuclear % Synovial Mononuclear % Urine Opiates Screen U Codeine Confrm GC/MS Ur Morphine (GC/MS) Ur Hydrocodone (GC/MS) Ur Norhydrocodone Ur Noroxycodone Urine Oxycodone (GC/MS) U Oxymorphone GC/MS Ur Methadone, Qual Ur Hydromorphone (GC/MS) Urine Barbiturates Ur Phencyclidine (PCP) U Amphetamin/Meth Scrn MDMA (Ecstasy) Screen U Benzodiazepines Scrn Ur Cocaine Metabolite U Marijuana (THC) Screen Drug Screen Comment Medications Administered Discontinued Medications Sodium Chloride (Nss 1000ml) 1,000 mls @ 999 mls/hr IV .Q1H1M LUIS M Stop: 04/26/20 15:00 Last Infusion: 04/26/20 15:43 Dose: 0 mls/hr Documented by: [id number] Admin: 04/26/20 14:36 Dose: 999 mls/hr Documented by: [id number] Potassium Chloride (K Lefty / Wtr) 10 meq in 100 mls @ 100 mls/hr IV Q1H LUIS M Stop: 04/26/20 16:59 Last Infusion: 04/26/20 17:14 Dose: 0 mls/hr Documented by: [id number] Admin: 04/26/20 16:01 Dose: 100 mls/hr Documented by: [id number] Infusion: 04/26/20 16:01 Dose: 100 mls/hr Documented by: [id number] Admin: 04/26/20 15:02 Dose: 100 mls/hr Documented by: [id number] Lidocaine HCl (Lidocaine Hcl 1% 20 Ml Vial) Confirm Administered Dose 20 ml .ROUTE .STK-MED ONE Stop: 04/26/20 14:58 Last Admin: 04/26/20 15:42 Dose: 20 ml Documented by: [id number] Morphine Sulfate (Morphine Sulfate 4 Mg/Ml 1 Ml Carp\Vial) 4 mg IV NOW STA Stop: 04/26/20 13:58 Last Admin: 04/26/20 14:36 Dose: 4 mg Documented by: [id number] Ondansetron HCl (Ondansetron Inj 2 Mg/Ml 2 Ml Vial) 4 mg IV NOW STA Stop: 04/26/20 13:58 Last Admin: 04/26/20 14:36 Dose: 4 mg Documented by: [id number] Potassium Chloride (Potassium Chloride 20 Meq Tabcr) 40 meq PO NOW STA Stop: 04/26/20 16:47 Last Admin: 04/26/20 17:02 Dose: 40 meq Documented by: [id number] Code Status & VTE Plan VTE Prophylaxis Plan VTE Prophylaxis will be ordered: Yes Supervising Physician Co-Signing Physician Notes Patient was seen and examined by me, care coordinated with Sejal Mireles PA-C. Please see her note above for further details. This is a 39 year old F s/p recent knee surgery who has a significant PMH of HTN, dyslipidemia, migraine, bipolar, anxiety, asthma, fibromyalgia, history of abnormal EKG and who presented to ED today after she was referred by her PCP for possible left knee infection and tachycardia. Pt underwent total knee arthroplasty with Dr. Elizalde on March 08, 2020. Orthopedics here was consulted, and Dr. King did an arthocentesis and sent the synovial fluid for analysis. Results not definitive for infection so recommended to wait for cultures to determine care plan. Blood cultures were also obtained. Pt does have follow-up with Dr. Elizalde scheduled for Thursday. Patient patient was found hypokalemic and tachycardic in the ED. Potassium was 2.9 however her potassium earlier this morning was normal. Tachycardia has most resolved after IV fluids and potassium given in the ED. Patient is currently lying in bed, in no acute distress. Says that her knee feels somewhat better after arthrocentesis. She does have significant swelling in her knee. Vertical scars well-healed noted over both knees. She continues any chest pain shortness of breath or cough, however she reports recent visit to urgent care center where she had flulike symptoms,/upper respiratory symptoms, with sore throat and feeling fatigued. She was reportedly tested for COVID and found to be negative. Once acute auscultation currently, without any wheezing rhonchi or crackles. Heart sounds are regular, mildly tachycardic. Abdomen is soft, nontender nondistended, positive bowel sounds. Patient is able to move all 4 extremities spontaneously without difficulty. Skin is warm dry, well- perfused. We will recheck potassium level and replace as needed. Admit for observation for telemetry given tachycardia. Will await cultures from synovial fluid and blood cultures, and will further discuss with orthopedics. Minda Mota MD (1) Left knee pain Chronicity: unspecified Qualified Code(s): M25.562 - Pain in left knee (2) Hypertension Hypertension type: essential hypertension Qualified Code(s): I10 - Essential (primary) hypertension
[2020-04-26] MEDS ORDERED: ACETAMINOPHEN 325 MG TAB PO PRN (18:49)
[2020-04-26] MEDS ORDERED: ONDANSETRON INJ 2 MG/ML 2 ML VIAL IV PRN (18:49)
[2020-04-26 19:43] LABS: Lyme Ab IgG w/WB Rflx Negative (Negative)
[2020-04-26 19:49] LABS: Lyme Ab IgM w/WB Rflx Positive (Negative)
[2020-04-26] MEDS: ENOXAPARIN INJ 40 MG/0.4 ML SYR SQ SCH (20:18)
[2020-04-26] MEDS: QUETIAPINE FUMARATE 200 MG TAB PO SCH (20:19)
[2020-04-26] MEDS: DOXEPIN HCL 75 MG CAPSULE PO SCH (20:19)
[2020-04-26] MEDS: METOPROLOL SUCC 25MG EXT REL TAB PO SCH (20:20)
[2020-04-26] MEDS: TOPIRAMATE 100 MG TAB PO SCH (20:21)
[2020-04-26] MEDS: TOPIRAMATE 25 MG TAB PO SCH (20:21)
[2020-04-27 06:32] LABS: Basophils # (auto) 0.04 K/uL (0-0.2); Basophils % (auto) 0.6 %; Eosinophils # (auto) 0.04 K/uL (0-0.5); Eosinophils % (auto) 0.6 %; Hematocrit (blood only) 34.5 % (37-47); Hemoglobin 11.2 g/dL (12.0-16.0); Immature Granulocytes # (auto) 0.02 K/uL (0.00-0.02); Immature Granulocytes % (auto) 0.3 %; Lymphocytes # (auto) 1.91 K/uL (1.2-3.4); Lymphocytes % (auto) 29.6 %; Mean Corpuscular Hemoglobin 30.1 pg (25-34); Mean Corpuscular Hgb Conc 32.5 g/dL (32-36); Mean Corpuscular Volume 92.7 fL (80-100); Mean Platelet Volume 9.1 fL (7.4-10.4); Monocytes % (auto) 7.8 %; Neutrophils # (auto) 3.94 K/uL (1.4-6.5); Neutrophils % (auto) 61.1 %; Platelet Count 338 K/uL (130-400); RDW Coefficient of Variation 13.3 % (11.5-14.5); RDW Standard Deviation 45.1 fL (36.4-46.3); Red Blood Count 3.72 M/uL (4.2-5.4); White Blood Count 6.45 K/uL (4.8-10.8)
[2020-04-27 07:06] LABS: BUN Creatinine Ratio 10.9 (10-20); Creatinine Clr Calc Pharmacy 121.4 ml/min; Est GFR (African American) 125.6; Est GFR (Non-African American) 108.4; Potassium 3.9 mmol/L (3.5-5.1)
[2020-04-27] MEDS: AMLODIPINE BESYLATE 5 MG TAB PO SCH (08:18)
[2020-04-27] MEDS: PANTOprazole 40 MG TAB PO SCH (08:20)
[2020-04-27] MEDS: LORATADINE 10 MG TAB PO SCH (08:21)
[2020-04-27] MEDS: TOPIRAMATE 100 MG TAB PO SCH ×2 (08:21→20:46)
[2020-04-27] MEDS: METOPROLOL SUCC 25MG EXT REL TAB PO SCH ×2 (08:21→20:46)
[2020-04-27] MEDS: SERTRALINE HCL 100 MG TABLET PO SCH (08:21)
[2020-04-27] MEDS: TOPIRAMATE 25 MG TAB PO SCH ×2 (08:22→20:46)
[2020-04-27] MEDS: OXYCODONE HCL IR 5 MG TAB (IMMEDIATE RELEASE) PO PRN (08:24)
[2020-04-27] MEDS ORDERED: SPIRONOLACTONE 25 MG TAB PO SCH (09:00)
[2020-04-27] MEDS ORDERED: ATORVASTATIN 20 MG TAB PO SCH (09:00)
--- NOTE | 2020-04-27 11:44 | Orthopedic Progress Note ---
Date of Service April 27, 2020 Assessment & Plan (1) Infection of prosthetic left knee joint: I spoke with Dr. Fide Olivares's PA, who spoke with Dr. Elizalde about her culture results. They asked to have her transferred to [facility] in [place]. I made her NPO and communicated the plan to the patient and to Dr. Cano, her internal medicine physician. She will likely be undergoing surgery to her left knee within the next 24 hours. Present on Admission?: Yes Admission and Anticipated Discharge Date Admission Date: April 26, 2020 Subjective Patient seen and examined on AM rounds. Denies f/c/cp/sob. Says her left knee feels about the same as yesterday. Heart rate has been better after potassium replacement. Results & Data ([facility]) Vital Signs (Past 12 Hours) Vital Signs Temp Pulse Pulse Resp BP BP Pulse Ox 04/27/20 11:14 36.3 C L 113 H 20 132/83 98 04/27/20 07:30 36.7 C 95 H 20 132/94 97 04/27/20 07:11 98 H 04/27/20 03:00 37 C 106 H 18 129/86 98 04/27/20 00:04 108 H Laboratory Results I spoke with the micro lab this morning. Vincenzo looked at her plates and she was starting to grow a non-specific colony. This growth in less than 24 hours is consistent with a prosthetic joint infection.
[2020-04-27] MEDS ORDERED: DAPTOMYCIN CONSULT ACTIVE PRN (11:51)
[2020-04-27] MEDS ORDERED: PIPERACILL/TAZOBAC CONSULT ACTIVE PRN (11:52)
[2020-04-27] MEDS ORDERED: PIPERACILLIN/TAZOBACTAM 3.375 GM in DEXTROSE 5% 100 ML IV ONE (12:15)
[2020-04-27] MEDS: D5NSS + 20MEQ KCL 20 MEQ/1,000 ML BAG IV SCH (12:46)
[2020-04-27] MEDS: DOXYCYCLINE HYCLATE 100 MG CAP PO SCH ×2 (12:46→20:46)
[2020-04-27] MEDS: LACTOBACILLUS ACIDOPHILUS (FLORANEX) TAB PO SCH ×3 (12:46→20:44)
[2020-04-27] MEDS: MoRPHine SULFATE 4 MG/ML 1 ML CARP\\VIAL IV PRN (12:47)
--- NOTE | 2020-04-27 12:56 | Electrocardiogram Report ---
Test Reason : Blood Pressure : / mmHG Vent. Rate : 113 BPM Atrial Rate : 113 BPM P-R Int : 132 ms QRS Dur : 088 ms QT Int : 344 ms P-R-T Axes : 034 044 029 degrees QTc Int : 471 ms Sinus tachycardia Low voltage QRS Nonspecific T wave abnormality Abnormal ECG When compared with ECG of 21-APR-2020 09:32, Nonspecific T wave abnormality has replaced inverted T waves in Inferior leads Nonspecific T wave abnormality, improved in Lateral leads Confirmed by Zane Garnica ([id number]) on 04/27/2020 12:56:20 PM Referred By: REFERRED SELF Confirmed By:Zane Garnica
[2020-04-27] MEDS: DAPTOmycin 350 MG in SYRINGE 0 ML IV SCH (13:46)
[2020-04-27] MEDS: HYDROmorphone INJ 0.5 MG/0.5 ML SYR IV PRN (14:54)
--- NOTE | 2020-04-27 18:21 | Hospitalist Progress Note ---
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 Tila Elizalde Presenting with 2-week history of progressive left knee pain and low-grade fever Status post arthrocentesis at the ER synovial fluid analysis showing WBC of 19,000, PMNs more than 90% Synovial fluid culture growing Staphylococcus species, sensitivities pending Lyme screen: Positive for IgM, Western blot pending Discussed with orthopedic surgeon Dr. Dudley, recommend transfer to [facility] for further evaluation and management, most likely will need I&D Spoke with Dr. Schmidt of [facility], who kindly started the patient Continue empiric daptomycin plus Zosyn IV, p.o. doxycycline for Lyme disease Sinus tachycardia Noted on admission, heart rate in the 130s to 140s In the setting of hypokalemia potassium 2.9, underlying infection Given IV fluids, potassium replaced Heart rate improving, continue to monitor in telemetry unit Continue usual metoprolol Hold usual spironolactone for possible component of dehydration Bipolar I disorder, single manic episode: - Continue outpatient medication regimen - currently stable Dyslipidemia: - Continue outpatient statin therapy Hypertension: - Continue Toprol XL,and amlodipine Transfer to [facility] today Plan of care discussed with patient in detail at length All questions were answered She is understanding, agreeable, comfortable plan of care Admission and Anticipated Discharge Date Admission Date: April 26, 2020 Subjective Follow-up for left knee septic arthritis, sinus tachycardia, etc. seen resting in bed, not in distress States left knee pain is 7 out of 10 in severity Denies fever/chills, chest pain, shortness of breath, palpitations, dizziness, abdominal pain, nausea or vomiting Denies headaches, myalgias, other arthralgias No other symptoms Review of Systems Review of Systems: All systems reviewed & are unremarkable except as noted in Subjective Physical Exam Physical Exam: General- oriented x 3, not in distress, speaks in sentences with no effort or accessory muscle use Head- atraumatic Eyes- PERRL, EOMI, anicteric ENT- oropharynx clear Neck- supple, no JVD, no adenopathy, no thyromegaly; carotids +2/2, no bruits appreciated Lungs- clear to auscultation bilaterally, no rales/wheezes Heart- normal rate, regular rhythm; no murmur, no gallop, no rub appreciated Abdomen- normal bowel sounds, nondistended, soft, nontender, no masses or hepatosplenomegaly Extremities- Left knee: Mild edema, mild warmth, mild tenderness, full range of motion secondary to pain no pretibial edema, no calf tenderness; peripheral pulses intact Neuro- alert, oriented x 3; CN 2-12 grossly intact; motor 5/5 [address]ally;sensation 100% on all extremities; no other gross focal neurologic deficits Skin- warm & dry Results & Data Results & Data ([facility]) Vital Signs (Past 12 Hours) Vital Signs Temp Pulse Pulse Resp BP BP Pulse Ox 04/27/20 16:24 101 H 04/27/20 15:01 36.5 C 100 H 20 125/86 98 04/27/20 11:14 36.3 C L 113 H 20 132/83 98 04/27/20 07:30 36.7 C 95 H 20 132/94 97 04/27/20 07:11 98 H Laboratory Results Laboratory Results - last 24 hr 04/26/20 04/26/20 04/27/20 14:16 14:16 06:04 WBC 6.45 RBC 3.72 L Hgb 11.2 L Hct 34.5 L MCV 92.7 MCH 30.1 MCHC 32.5 RDW Std Deviation 45.1 RDW Coeff of Nate 13.3 Plt Count 338 MPV 9.1 Immature Gran % (Auto) 0.3 Neut % (Auto) 61.1 Lymph % (Auto) 29.6 Wayne % (Auto) 7.8 Eos % (Auto) 0.6 Baso % (Auto) 0.6 Neut # (Auto) 3.94 Lymph # (Auto) 1.91 Wayne # (Auto) 0.50 Eos # (Auto) 0.04 Baso # (Auto) 0.04 Immature Gran # (Auto) 0.02 Sodium Potassium Chloride Carbon Dioxide Anion Gap BUN Creatinine Est Cr Clr Drug Dosing Est GFR ( Amer) Est GFR (Non-Af Amer) BUN/Creatinine Ratio Glucose Calcium Lyme Disease IgG Ab Negative Lyme IgG (Western Blot) Pending Lyme IgG 18 kDa Band Pending Lyme IgG 23 kDa Band Pending Lyme IgG 28 kDa Band Pending Lyme IgG 30 kDa Band Pending Lyme IgG 39 kDa Band Pending Lyme IgG 41 kDa Band Pending Lyme IgG 45 kDa Band Pending Lyme IgG 58 kDa Band Pending Lyme IgG 66 kDa Band Pending Lyme IgG 93 kDa Band Pending Lyme IgM Ab (WB) Pending Lyme Disease IgM Ab Positive A Lyme IgM 23 kDa Band Pending Lyme IgM 39 kDa Band Pending Lyme IgM 41 kDa Band Pending 04/27/20 06:04 WBC RBC Hgb Hct MCV MCH MCHC RDW Std Deviation RDW Coeff of Nate Plt Count MPV Immature Gran % (Auto) Neut % (Auto) Lymph % (Auto) Wayne % (Auto) Eos % (Auto) Baso % (Auto) Neut # (Auto) Lymph # (Auto) Wayne # (Auto) Eos # (Auto) Baso # (Auto) Immature Gran # (Auto) Sodium 142 Potassium 3.9 Chloride 114 H Carbon Dioxide 21 Anion Gap 8.0 BUN 8 Creatinine 0.70 Est Cr Clr Drug Dosing 121.4 Est GFR ( Amer) 125.6 Est GFR (Non-Af Amer) 108.4 BUN/Creatinine Ratio 10.9 Glucose 93 Calcium 9.0 Lyme Disease IgG Ab Lyme IgG (Western Blot) Lyme IgG 18 kDa Band Lyme IgG 23 kDa Band Lyme IgG 28 kDa Band Lyme IgG 30 kDa Band Lyme IgG 39 kDa Band Lyme IgG 41 kDa Band Lyme IgG 45 kDa Band Lyme IgG 58 kDa Band Lyme IgG 66 kDa Band Lyme IgG 93 kDa Band Lyme IgM Ab (WB) Lyme Disease IgM Ab Lyme IgM 23 kDa Band Lyme IgM 39 kDa Band Lyme IgM 41 kDa Band
[2020-04-27] MEDS: PIPERACILLIN/TAZOBACTAM 3.375 GM in DEXTROSE 5% 100 ML IV SCH (18:26)
--- NOTE | 2020-04-27 18:56 | Discharge Summary ---
Date of Service April 27, 2020 Admission HPI Per Admitting Provider This is a 39 year old F s/p recent knee surgery who has a significant PMH of HTN, dyslipidemia, migraine, bipolar, anxiety, asthma, fibromyalgia, history of abnormal EKG and who presented to ED today after she was referred by her PCP for possible left knee infection and tachycardia. In March, pt underwent left knee surgery in [place]. Pt reports that she has not felt well for the past two weeks with a variety of symptoms. Most concerning to her is the progressive left knee pain and racing heart. She was seen in the ED on 04/19 and 04/21 for increased knee pain and was found to be tachycardic both visits, primarily attributed to pain as it improved with pain control. She did have a D-dimer checked at the second ED visit which was mildly elevated so she underwent a CTA chest that was negative for PE. She was not complaining of chest pain or dyspnea at the time and still denies both of these. On 04/23, she was seen at urgent care for ear pressure, cough, sore throat, chills and low-grade fever. S he underwent testing for strep and COVID-19 which were both negative. Today, she followed up with her PCP and was noted to still be tachycardic with ongoing pain. Apparently, her PCP spoke with orthopedics at [facility], and both providers agreed that the patient may have a septic joint so she was referred to the ED for evaluation. In the ED she was found to be hypokalemic with a potassium of 2.9 although outpatient labs this AM showed a potassium of 3.6. She was given IVF and 20 mEq of potassium with improvement in her HR from 130s to 110s. She was seen by orthopedics box person here in the ED today who collaborated with the patient's surgeon on the care plan. Dr. King did an arthocentesis and sent the synovial fluid for analysis. Results not definitive for infection so recommended to wait for cultures to determine care plan. Pt does have follow-up with the surgeon scheduled for Thursday. Since this is pt's third visit with left knee pain and tachycardia and she was noted to be hypokalemic she was referred for admission. Currently, pt reports feeling poorly overall with ongoing symptoms including the knee pain, fatigue, malaise, racing heart, nausea, loss of appetite, and congestion. She has been using alternating Tylenol 1000 mg and Ibuprofen 600 mg at home for pain. Admission Exam Per Admitting Provider Constitutional: WD/WN, vitals as above no acute distress Eyes: + anicteric sclerae; no conjunctival abnormality Neck: trachea midline Respiratory: Auscultation: lungs clear to auscultation bilaterally; no rales, no rhonchi and no wheezes Cardiovascular: Rate/Rhythm: regular rhythm and + tachycardic Heart Sounds: no gallop, no murmur and no cardiac rub Extremities: normal capillary refill; no pedal edema Gastrointestinal (Abdomen): Inspection/Auscultation: normal bowel sounds; abdomen not distended Percussion/Palpation: abdomen soft; abdomen nontender Musculoskeletal: left knee with mild effusion and warmth but no significant erythema, well-healed incision without open areas or drainage, tender on lateral aspect of joint Skin: no rashes, warm and dry Neurologic: moves all extremities; no focal motor deficits Speech / Cognition: normal speech Psychiatric: A+Ox3, euthymic affect Principal Diagnosis Infection of the left knee prosthesis, Lyme disease Discharge Exam General- oriented x 3, not in distress, speaks in sentences with no effort or ac cessory muscle use Head- atraumatic Eyes- PERRL, EOMI, anicteric ENT- oropharynx clear Neck- supple, no JVD, no adenopathy, no thyromegaly; carotids +2/2, no bruits appreciated Lungs- clear to auscultation bilaterally, no rales/wheezes Heart- normal rate, regular rhythm; no murmur, no gallop, no rub appreciated Abdomen- normal bowel sounds, nondistended, soft, nontender, no masses or hepat osplenomegaly Extremities- Left knee: Mild edema, mild warmth, mild tenderness, full range of motion secondary to pain no pretibial edema, no calf tenderness; peripheral pulses intact Neuro- alert, oriented x 3; CN 2-12 grossly intact; motor 5/5 bilaterally;sensation 100% on all extremities; no other gross focal neurologic deficits Skin- warm & dry Discharge Data Allergies Allergy/AdvReac Type Severity Reaction Status Date / Time ketorolac [From Toradol] Allergy Mild Rash Verified 04/26/20 15:28 Sulfa (Sulfonamide Allergy Mild RASH, Verified 04/26/20 15:28 Antibiotics) NAUSEA tramadol Allergy Mild RASH,NAUSEA Verified 04/26/20 15:28 Consultations 04/26/20 16:44 ED Decision to Admit Stat 04/27/20 11:32 Burn CD for patient Routine Hospital Course (1) Infection of prosthetic left knee joint: 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 Tila Elizalde Presenting with 2-week history of progressive left knee pain and low-grade fever Status post arthrocentesis at the ER synovial fluid analysis showing WBC of 19,000, PMNs more than 90% Synovial fluid culture growing Staphylococcus species, sensitivities pending Lyme screen: Positive for IgM, Western blot pending Blood cultures: Pending Discussed with orthopedic surgeon Dr. Dudley, recommend transfer to [facility] for further evaluation and management, most likely will need I&D Spoke with Dr. Schmidt of [facility], who kindly started the patient Continue empiric daptomycin plus Zosyn IV, p.o. doxycycline for Lyme disease Sinus tachycardia Noted on admission, heart rate in the 130s to 140s, In the setting of hypokalemia potassium 2.9, underlying infection Had extensive cardiac evaluation earlier this year when pt was admitted twice with non-specific chest pain. ED work-up on 04/21 negative for PE. Given IV fluids, potassium replaced Heart rate improving, continue to monitor in telemetry unit Continue usual metoprolol Hold usual spironolactone for possible component of dehydration Bipolar I disorder, single manic episode: - Continue outpatient medication regimen - currently stable Dyslipidemia: - Continue outpatient statin therapy Hypertension: - Continue Toprol XL,and amlodipine Transfer to [facility] today Plan of care discussed with patient in detail at length All questions were answered She is understanding, agreeable, comfortable plan of care Total Time Total Time Spent Total Time Spent (In Minutes): 60 minutes Discharge Plan Discharge Items Patient Disposition: Transfer Acute Care Hospital Reason For Visit: TACHYCARDIA, HYPOKALEMIA Discharge Diagnosis: INFECTION OF LEFT KNEE PROSTHESIS LYME DISEASE Activity: As commented below Activity Comment: Follow orthopedic service recommendations Non-emergency contact: Primary Care Provider and Surgeon Call non-emergency contact if: you have any medication questions, your symptoms worsen, your pain is not controlled, your pain is worsening, your pain is unusual for you, your pain is concerning for you and you have a fever Follow-up/Referrals: Ghazala Guillermo DO [Primary Care Provider] - Diet: Heart Healthy Addtl Attending Provider Instructions: Please refer to accompanying hospital discharge summary for further details. Pending Studies at Discharge: Yes Studies:: Final synovial fluid cultures, Lyme disease Western blot results Stand-Alone Forms: My [facility] Skilled Items Patient informed of condition?: Yes DNR: No Discharge Level of Care: Other Communicable Disease: No Discharge Prognosis: Stable Lines: Peripheral IV Urinary Catheter: No Medications and DC Order Prescriptions: New doxycycline hyclate 100 mg Capsule 100 mg PO BID Qty: 51 RF: 0 daptomycin [Cubicin] 500 mg Recon Soln 350 mg Not Applicable DAILY Qty: 10 RF: 0 Lactobacillus acidoph-L.bulgar [Floranex] 1 million cell Tablet 4 tab PO QIDM Qty: 30 RF: 0 Piperacill/Tazobac Consult [Consult] solution 3.375 mg IV Q8H Qty: 14 RF: 1 Continued topiramate 100 mg tablet 100 mg PO BID RF: 0 albuterol sulfate 90 mcg/actuation HFA aerosol inhaler 2 puffs INH Q4H PRN (Reason: Shortness Of Breath Or Wheezing) RF: 0 loratadine 10 mg Tablet 10 mg PO QAM RF: 0 doxepin 150 mg capsule 300 mg PO HS RF: 0 tizanidine 4 mg tablet 4 mg PO Q6H PRN (Reason: Muscle Spasm) RF: 0 topiramate [Topamax] 25 mg tablet 25 mg PO BID RF: 0 amlodipine 5 mg tablet 2.5 mg PO DAILY RF: 0 metoprolol succinate 25 mg tablet extended release 24 hr 25 mg PO BID RF: 0 ondansetron 4 mg tablet,disintegrating 4 mg PO Q8H PRN (Reason: Nausea And Vomiting) RF: 0 sumatriptan succinate [Imitrex] 6 mg/0.5 mL solution 6 mg SQ DIRECTED PRN (Reason: migraine headache) RF: 0 quetiapine [Seroquel] 400 mg tablet 400 mg PO HS RF: 0 Dexilant 60 mg capsule,biphase delayed releas 60 mg PO DAILY RF: 0 sertraline 100 mg tablet 200 mg PO QAM RF: 0 Discontinued spironolactone 25 mg tablet 25 mg PO DAILY RF: 0 atorvastatin 20 mg tablet 20 mg PO DAILY RF: 0 Aimovig Autoinjector 70 mg/mL auto-injector 70 mg SQ MONTHLY RF: 0 Discharge Orders: Discharge Order (Routine); Ordered 04/27/20 Ordered By: Jefferson Cano Admission Data Admit Date/Time: 04/26/20 17:37 Attending Provider: Jefferson Cano Admit Provider: Riki Mota Primary Care Provider: Ghazala Guillermo Other Providers: Riki Mota
[2020-04-27] MEDS: ENOXAPARIN INJ 40 MG/0.4 ML SYR SQ SCH (20:44)
[2020-04-27] MEDS: QUETIAPINE FUMARATE 200 MG TAB PO SCH (20:46)
[2020-04-27] MEDS: DOXEPIN HCL 75 MG CAPSULE PO SCH (20:46)
[2020-04-28] MEDS: PIPERACILLIN/TAZOBACTAM 3.375 GM in DEXTROSE 5% 100 ML IV SCH ×3 (02:10→18:00)
[2020-04-28] MEDS: D5NSS + 20MEQ KCL 20 MEQ/1,000 ML BAG IV SCH (02:10)
[2020-04-28] MEDS: HYDROmorphone INJ 0.5 MG/0.5 ML SYR IV PRN ×2 (04:49→18:05)
[2020-04-28] MEDS: DOXYCYCLINE HYCLATE 100 MG CAP PO SCH ×2 (07:57→21:18)
[2020-04-28] MEDS: OXYCODONE HCL IR 5 MG TAB (IMMEDIATE RELEASE) PO PRN (07:57)
[2020-04-28] MEDS: METOPROLOL SUCC 25MG EXT REL TAB PO SCH ×2 (07:57→21:19)
[2020-04-28] MEDS: PANTOprazole 40 MG TAB PO SCH (07:58)
[2020-04-28] MEDS: LORATADINE 10 MG TAB PO SCH (07:58)
[2020-04-28] MEDS: SERTRALINE HCL 100 MG TABLET PO SCH (07:58)
[2020-04-28] MEDS: AMLODIPINE BESYLATE 5 MG TAB PO SCH (07:58)
[2020-04-28] MEDS: LACTOBACILLUS ACIDOPHILUS (FLORANEX) TAB PO SCH ×4 (07:59→21:16)
[2020-04-28] MEDS: TOPIRAMATE 25 MG TAB PO SCH ×2 (08:00→21:19)
[2020-04-28] MEDS: TOPIRAMATE 100 MG TAB PO SCH ×2 (08:00→21:18)
[2020-04-28] MEDS: MoRPHine SULFATE 4 MG/ML 1 ML CARP\\VIAL IV PRN (11:17)
[2020-04-28] MEDS: DAPTOmycin 350 MG in SYRINGE 0 ML IV SCH (11:59)
--- NOTE | 2020-04-28 19:13 | Hospitalist Progress Note ---
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 Tila Elizalde Presenting with 2-week history of progressive left knee pain and low-grade fever Status post arthrocentesis at the ER synovial fluid analysis showing WBC of 19,000, PMNs more than 90% Synovial fluid culture growing Staphylococcus species, sensitivities pending Lyme screen: Positive for IgM, Western blot pending Blood cultures: Pending Discussed with orthopedic surgeon Dr. Dudley, recommend transfer to [facility] for further evaluation and management, most likely will need I&D Spoke with Dr. Schmidt of [facility], who kindly started the patient Continue empiric daptomycin plus Zosyn IV, p.o. doxycycline for Lyme disease --> Afebrile, hemodynamically stable Awaiting acceptance to [facility] Continue antibiotic regimen Sinus tachycardia Noted on admission, heart rate in the 130s to 140s, In the setting of hypokalemia potassium 2.9, underlying infection Had extensive cardiac evaluation earlier this year when pt was admitted twice with non-specific chest pain. ED work-up on 04/21 negative for PE. Given IV fluids, potassium replaced Heart rate improving, continue to monitor in telemetry unit Continue usual metoprolol Hold usual spironolactone for possible component of dehydration --> Heart rate improved now in the 90s Asymptomatic Bipolar I disorder, single manic episode: - Continue outpatient medication regimen - currently stable Dyslipidemia: - Continue outpatient statin therapy Hypertension: - Continue Toprol XL,and amlodipine Transfer to [facility] today once accepted Plan of care discussed with patient in detail at length All questions were answered She is understanding, agreeable, comfortable plan of care Admission and Anticipated Discharge Date Admission Date: April 27, 2020 Subjective Follow-up for left knee septic arthritis, Lyme disease, sinus tachycardia Other problems noted below Seen resting in bed, comfortable, not in distress States left knee pain is controlled by PRN analgesics Denies fevers or chills No shortness of breath, chest pain, palpitations, dizziness No other symptoms Review of Systems Review of Systems: All systems reviewed & are unremarkable except as noted in Subjective Physical Exam Physical Exam: General- oriented x 3, not in distress, speaks in sentences with no effort or accessory muscle use Eyes- anicteric Neck- no JVD Lungs- clear breath sounds bilaterally, crackles or wheezing bilaterally Heart- normal rate, regular rhythm; no murmurs Abdomen- normal bowel sounds, nondistended, soft, nontender Extremities-left knee: Mild edema, erythema, warmth, tenderness No pretibial edema, no calf tenderness Neuro- alert, oriented x 3; no gross focal neurologic deficits Skin- warm & dry Results & Data Results & Data ([facility]) Vital Signs (Past 12 Hours) Vital Signs Temp Pulse Pulse Resp BP BP Pulse Ox 04/28/20 15:07 37.1 C 97 H 20 118/77 99 04/28/20 15:00 94 H 04/28/20 11:48 37.0 C 101 H 20 131/85 97 04/28/20 07:24 36.9 C 97 H 20 125/85 97
[2020-04-28] MEDS: ENOXAPARIN INJ 40 MG/0.4 ML SYR SQ SCH (21:17)
[2020-04-28] MEDS: QUETIAPINE FUMARATE 200 MG TAB PO SCH (21:17)
[2020-04-28] MEDS: DOXEPIN HCL 75 MG CAPSULE PO SCH (21:19)
[2020-04-29 00:08] LABS: Codeine Urine NEGATIVE ng/mL (<50); Hydrocodone Urine NEGATIVE ng/mL (<50); Hydromor Urine NEGATIVE ng/mL (<50); Morphine Urine 882 ng/mL (<50); Norhydrocodone Conf Ur NEGATIVE ng/mL (<50); Noroxycodone Urine NEGATIVE ng/mL (<50); Oxycodone Urine NEGATIVE ng/mL (<50); Oxymorph Urine NEGATIVE ng/mL (<50)
[2020-04-29] MEDS: PIPERACILLIN/TAZOBACTAM 3.375 GM in DEXTROSE 5% 100 ML IV SCH ×2 (02:21→09:31)
[2020-04-29] MEDS: AMLODIPINE BESYLATE 5 MG TAB PO SCH (09:33)
[2020-04-29] MEDS: LACTOBACILLUS ACIDOPHILUS (FLORANEX) TAB PO SCH (09:33)
[2020-04-29] MEDS: TOPIRAMATE 25 MG TAB PO SCH (09:34)
[2020-04-29] MEDS: TOPIRAMATE 100 MG TAB PO SCH (09:34)
[2020-04-29] MEDS: DOXYCYCLINE HYCLATE 100 MG CAP PO SCH (09:34)
[2020-04-29] MEDS: METOPROLOL SUCC 25MG EXT REL TAB PO SCH (09:34)
[2020-04-29] MEDS: PANTOprazole 40 MG TAB PO SCH (09:35)
[2020-04-29] MEDS: LORATADINE 10 MG TAB PO SCH (09:35)
[2020-04-29] MEDS: SERTRALINE HCL 100 MG TABLET PO SCH (09:35)
[2020-04-29] MEDS: MoRPHine SULFATE 4 MG/ML 1 ML CARP\\VIAL IV PRN (10:16)
[2020-05-01 18:51] LABS: 18KDIGG Band NON-REACTIVE; 23KDIGG Band NON-REACTIVE; 23KDIGM Band REACTIVE; 28KDIGG Band NON-REACTIVE; 30KDIGG Band NON-REACTIVE; 39KDIGG Band NON-REACTIVE; 39KDIGM Band NON-REACTIVE; 41KDIGG Band REACTIVE; 41KDIGM Band NON-REACTIVE; 45KDIGG Band NON-REACTIVE; 58KDIGG Band NON-REACTIVE; 66KDIGG Band NON-REACTIVE; 93KDIGG Band NON-REACTIVE; Lyme Antibodies, WB IgG NEGATIVE (NEGATIVE); Lyme Antibodies, WB IgM NEGATIVE (NEGATIVE)
--- NOTE | 2020-05-03 13:08 | Hospitalist Progress Note ---
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 Tila Elizalde Presenting with 2-week history of progressive left knee pain and low-grade fever Status post arthrocentesis at the ER synovial fluid analysis showing WBC of 19,000, PMNs more than 90% Synovial fluid culture growing Staphylococcus species, sensitivities pending Lyme screen: Positive for IgM, Western blot pending Blood cultures: Pending Discussed with orthopedic surgeon Dr. Dudley, recommend transfer to [facility] for further evaluation and management, most likely will need I&D Spoke with Dr. Schmidt of [facility], who kindly started the patient Continue empiric daptomycin plus Zosyn IV, p.o. doxycycline for Lyme disease --> Afebrile, hemodynamically stable Bed available at [facility] Continue antibiotic regimen Sinus tachycardia Noted on admission, heart rate in the 130s to 140s, In the setting of hypokalemia potassium 2.9, underlying infection Had extensive cardiac evaluation earlier this year when pt was admitted twice with non-specific chest pain. ED work-up on 04/21 negative for PE. Given IV fluids, potassium replaced Heart rate improving, continue to monitor in telemetry unit Continue usual metoprolol Hold usual spironolactone for possible component of dehydration --> Heart rate improved now in the 90s Asymptomatic Bipolar I disorder, single manic episode: - Continue outpatient medication regimen - currently stable Dyslipidemia: - Continue outpatient statin therapy Hypertension: - Continue Toprol XL,and amlodipine Transfer to [facility] Plan of care discussed with patient in detail at length All questions were answered She is understanding, agreeable, comfortable plan of care Admission and Anticipated Discharge Date Admission Date: April 27, 2020 Subjective ff up for left knee arthritis resting in bed, comfortable left knee pain manageable denies fever/chills, headache,dizziness, palpitations, chest pain, dyspnea, abdominal pain, nausea/vomiting no other symptoms Review of Systems Review of Systems: All systems reviewed & are unremarkable except as noted in Subjective Physical Exam Physical Exam: General- oriented x 3, not in distress, speaks in sentences with no effort or accessory muscle use Eyes- anicteric Neck- no JVD Lungs- clear breath sounds bilaterally, no crackles/wheezing Heart- normal rate, regular rhythm; no murmurs Abdomen- normal bowel sounds, nondistended, soft, nontender Extremities- left knee: mild edema/warmth/tenderness no pretibial edema, no calf tenderness Neuro- alert, oriented x 3; no gross focal neurologic deficits Skin- warm & dry Results & Data Results & Data ([facility]) Laboratory Results all noted and reviewed
== END 2020-04-29 10:45 | disposition short-term general hospital (02) | DRG 560 ==
LOC: 2W 13:37 → ED 13:37 → SUATTDRO 17:37 → 2W 18:27

== ENCOUNTER 2021-03-05 07:58 | Inpatient (IN) ==
--- NOTE | 2021-02-15 16:12 | PAT Medication Instructions ---
Medication Instructions Date of Service February 15, 2021 Home Medications Medication Instructions Recorded sumatriptan succinate 6 mg/0.5 mL 6 mg SQ DIRECTED PRN #3 ml 08/09/20 subcutaneous solution (Imitrex) albuterol sulfate 90 mcg/actuation aerosol inhaler 2 puffs INH Q4H PRN tizanidine 4 mg tablet 4 mg PO Q6H PRN sumatriptan succinate 6 mg/0.5 mL subcutaneous solution (Imitrex) 6 mg SQ DIRECTED PRN zolpidem 10 mg tablet (Ambien) 10 mg PO HS loratadine 10 mg tablet (Claritin) 10 mg PO QAM omeprazole magnesium 20 mg tablet,delayed release (Prilosec OTC) 20 mg PO QAM sertraline 100 mg tablet 200 mg PO QAM sertraline 50 mg tablet 50 mg PO QAM DO NOT take the morning of surgery tizanidine 4 mg tablet 4 mg PO Q6H PRN loratadine 10 mg tablet (Claritin) 10 mg PO QAM Take morning of surgery With a small sip of water, OTHERWISE NOTHING TO EAT OR DRINK AFTER MIDNIGHT: albuterol sulfate 90 mcg/actuation aerosol inhaler 2 puffs INH Q4H PRN (use if needed; please bring rescue inhaler with you to hospital day of surgery if possible) sumatriptan succinate 6 mg/0.5 mL subcutaneous solution (Imitrex) 6 mg SQ DIRECTED PRN (if needed) omeprazole magnesium 20 mg tablet,delayed release (Prilosec OTC) 20 mg PO QAM sertraline 100 mg tablet 200 mg PO QAM sertraline 50 mg tablet 50 mg PO QAM Take evening before surgery albuterol sulfate 90 mcg/actuation aerosol inhaler 2 puffs INH Q4H PRN (if needed) tizanidine 4 mg tablet 4 mg PO Q6H PRN (if needed) sumatriptan succinate 6 mg/0.5 mL subcutaneous solution (Imitrex) 6 mg SQ DIRECTED PRN (if needed) zolpidem 10 mg tablet (Ambien) 10 mg PO HS Other Notes If you have any questions please call us at [phone] or [phone] or [phone] or [phone]
--- NOTE | 2021-02-19 13:28 | Anesthesiology Consultation ---
Date of Service February 19, 2021 Assessment & Plan (1) Encounter for pre-operative examination: Chart Review Chart Review: Acceptable Risk for Surgery (pending preop Covid testing results ) and Patient seen in Pre Admission Testing Per PAT appointment 02/19/2021, patient denies any recent travel. No known Covid infection in the past 90 days. Patient is not vaccinated for Covid. No known Covid positive contacts or Covid related symptoms. Preop Covid testing scheduled 03/01/21= will await results. Educated on importance of self quarantining, social distancing and wearing mask in public both for the patient after Covid testing done History Surgery Operation Date: 03/05/21 10:05 Proposed Procedures p C5-C6 Anterior Cervical Discectomy and Fusion, Spinal Cord Monitoring - Henrique Webb DO Height/Weight Height: 5 ft 6 in Weight: 102.8 kg Allergies Allergy/AdvReac Type Severity Reaction Status Date / Time Sulfa (Sulfonamide Allergy Mild RASH, Verified 02/15/21 08:57 Antibiotics) NAUSEA Medications Home Medications Medication Instructions Recorded Confirmed Last Taken albuterol sulfate 90 mcg/actuation 2 puffs INH Q4H PRN gm 10/20/19 02/15/21 Unknown aerosol inhaler tizanidine 4 mg tablet 4 mg PO Q6H PRN 01/14/20 02/15/21 Unknown sumatriptan succinate 6 mg/0.5 mL 6 mg SQ DIRECTED PRN #3 ml 08/09/20 02/15/21 Unknown subcutaneous solution (Imitrex) zolpidem 10 mg tablet (Ambien) 10 mg PO HS 01/03/21 02/15/21 Unknown loratadine 10 mg tablet (Claritin) 10 mg PO QAM 02/15/21 02/15/21 Unknown omeprazole magnesium 20 mg 20 mg PO QAM 02/15/21 02/15/21 Unknown tablet,delayed release (Prilosec OTC) sertraline 100 mg tablet 200 mg PO QAM 02/15/21 02/15/21 Unknown sertraline 50 mg tablet 50 mg PO QAM 02/15/21 02/15/21 Unknown Past Medical History Medical History (Updated 02/19/21 @ 16:33 by Teresa Cortes PA-C) Allergy-induced asthma NO INHALER USED FOR >YEAR Well controlled and stable Anxiety and depression Bipolar 1 disorder Dyslipidemia Fibromyalgia History of high blood pressure History of kidney stones NO SURGERY No current issues IBS (irritable bowel syndrome) Combination of diarrhea and constipation Lumbar pain Migraine Rheumatoid arthritis Followed with rheum in the past (follows only with PCP currently) Exercise / Class Metabolic Activity II 4-5 Yardwork/Stairs/Walk up hill (one flight of stairs- no chest pain or SOB ) Past Family History Family History Daughter Depression Allergies Grandmother (Paternal) Arthritis Grandfather (Paternal) Diabetes Arthritis Grandmother (Maternal) Diabetes Hypertension Grandfather (Maternal) Diabetes Hypertension Sister Kidney stones Hypertension Mother Thyroid disorder Other No family history of adverse response to anesthesia Past Surgical History Surgical History History of arthroscopy MULTIPLE RT/LEFT KNEE SCOPES History of bilateral tubal ligation History of endometrial ablation History of esophagogastroduodenoscopy (EGD) History of hysterectomy History of partial knee replacement RT History of tonsillectomy and adenoidectomy History of total knee replacement LEFT S/P colonoscopy S/P inguinal hernia repair S/P sinus surgery [place] teeth removed Past Anesthesia History No Hx of Anesthesia Complications and No Family Hx of Anesthesia Complications History of PONV No Hx of PONV and No Hx of Motion Sickness Social History Smoking Status: Former smoker tobacco type: cigarettes Smoking cigarettes per day: Quit 09/2019. Smoked 0.5-1ppd x 5 years Do You Dip or Chew Tobacco: No Smoking End Date: 10/12/19 Hx Alcohol Use: Yes alcohol intake frequency: holidays/special occasions only Hx Substance Use: No substance use type: does not use Review of Systems Reflux - occ relieved by Omeprazole Patient denies chest pain, shortness of breath, dyspnea on exertion, cough, wheezing, palpitations. No hx of seizures, stroke, PR, apnea/snoring. No hx of blood clots or blood transfusions Physical Exam Vital Signs VITALS BP 125/71 P 105 TEMP 98.4 SP02 98% RESP 16 Constitutional no acute distress ENMT Mouth: no TMJ clicking Thyromental Distance: > or= 3.5 Finger Breadths (3.5) Mallampati Class: II Missing molar Neck + limited neck extension (significant ) Respiratory normal respiratory effort; no respiratory distress Auscultation: lungs clear to auscultation bilaterally; no wheezes Cardiovascular Rate/Rhythm: regular rate and regular rhythm Heart Sounds: no murmur Vessels: no carotid bruit Musculoskeletal Spine: + pain with cervical ROM (mild ) Extremities: extremities normal to inspection Psychiatric Orientation: alert Lab Results Anesthesia Preop Results Results Anesthesia Widget: WBC 6.25 K/uL (4.8-10.8) 02/19/21 Hgb 11.9 g/dL (12.0-16.0) L 02/19/21 Hct 35.5 % (37-47) L 02/19/21 Plt 331 K/uL (130-400) 02/19/21 Na 139 mmol/L (136-145) 02/19/21 K 3.7 mmol/L (3.5-5.1) 02/19/21 Cl 107 mmol/L (98-107) 02/19/21 CO2 25 mmol/L (21-32) 02/19/21 BUN 19 mg/dl (7-18) H 02/19/21 Creat 0.92 mg/dl (0.6-1.2) 02/19/21 Glucose Level 133 mg/dl (70-99) H 02/19/21 PT 9.3 Seconds (9.0-12.0) 02/19/21 PTT 28.0 Seconds (21.0-31.0) 02/19/21 INR 0.9 (0.9-1.1) 02/19/21 Urine Color Yellow 02/19/21 Urine Appearance Clear (Clear) 02/19/21 Urine pH 5.0 (4.5-7.5) 02/19/21 Urine Specific [place] 1.012 (1.000-1.030) 02/19/21 Urine Protein Negative (Negative) 02/19/21 Urine Glucose (UA) Negative (Negative) 02/19/21 Urine Ketones Negative (Negative) 02/19/21 Urine Blood Negative (Negative) 02/19/21 Urine Nitrite Negative (Negative) 02/19/21 Urine Bilirubin Negative (Negative) 02/19/21 Urine Urobilinogen Negative (Negative) 02/19/21 Urine Leukocyte Esterase Negative (Negative) 02/19/21 Blood Type A Positive 02/19/21 Antibody Screen NEGATIVE 02/19/21 Testing Electrocardiogram Date: 02/19/21 Findings: + NSR @ (95bpm) Prolonged QT When compared to EKG from May 30, 2020- no significant change was found per cardio. Echocardiogram Date: 11/26/19 EF: 60-65% LV Function: normal RWMA: + none Other Findings: + diastolic dysfunction (Grade 1); no LVH Valvular Disease: + no significant valvular disease Apical trabeculae. Other Testing Chest CTA 05/30/2020 = no evidence of acute pulmonary embolism. Trace bilateral pleural effusions. No evidence of focal pulmonary consolidation. Stable 4 mm left upper lobe nodule. In low risk patient, no further follow-up is indicated.
[~2021-03-05 07:58] MED LIST changes: +ACETAMINOPHEN 500 MG TAB PO SCH; -AMT25; -ATOR10TA82 PO; -ATV/1 PO; +GABAPENTIN 900 MG DOSE PO SCH; -LAMO100T16 PO; +LR 15ML/HR IV SCH; -PROP80TA2 PO; -PRVHFAIN INH; +ceFAZolin 2000MG 2,000 MG/15 ML SYR IV SCH
[2021-03-05] MEDS ORDERED: LIDOCAINE 2% 2 ML VIAL/AMP(20MG/ML) INFIL ONE (10:15)
[2021-03-05] MEDS ORDERED: HYDROmorphone INJ 2 MG/ML SYR/VIAL ONE (10:15)
[2021-03-05] MEDS ORDERED: ONDANSETRON INJ 2 MG/ML 2 ML VIAL ONE (10:15)
[2021-03-05] MEDS ORDERED: DEXAMETHASONE SOD INJ 4 MG/ML VIAL ONE (10:15)
[2021-03-05] MEDS ORDERED: fentaNYL citrate 100 MCG/2 ML VIAL ONE (10:15)
[2021-03-05] MEDS ORDERED: ROCURONIUM BROMIDE 10 MG/ML 5 ML VIAL IV ONE (10:15)
[2021-03-05] MEDS ORDERED: PROPOFOL IV EMULSION 10 MG/ML 20 ML VIAL IV ONE ×3 (10:15→12:50)
[2021-03-05] MEDS ORDERED: MIDAZOLAM HCL 1 MG/ML 2ML VIAL ONE (10:15)
[2021-03-05] MEDS ORDERED: SUCCINYLCHOLINE CHLORIDE 20 MG/ML 10 ML VIAL IV ONE (10:15)
--- NOTE | 2021-03-05 10:36 | History & Physical Bridge Note ---
Date of Service March 05, 2021 History & Physical Bridge Note I have examined the patient, reviewed the History & Physical and in the interval since the performance of the History & Physical I have noted the following changes of clinical significance: no changes noted
--- NOTE | 2021-03-05 10:37 | History & Physical Report ---
Date of Service March 05, 2021 Assessment & Plan (1) Cervical stenosis of spinal canal: Plan: C5-C6 anterior cervical discectomy and fusion History of Present Illness Chief Complaint: Neck and arm pain Primary Care Provider: Ghazala Guillermo DO This is a 40-year-old female who presents with chronic persistent neck and arm pain after failed extensive course of nonoperative care she is here for surgical invention. Allergies Allergy/AdvReac Type Severity Reaction Status Date / Time Sulfa (Sulfonamide Allergy Mild RASH, Verified 02/15/21 08:57 Antibiotics) NAUSEA Home Medications Medication Instructions Recorded Confirmed Type albuterol sulfate 90 mcg/actuation 2 puffs INH Q4H PRN gm 10/20/19 03/05/21 History aerosol inhaler tizanidine 4 mg tablet 4 mg PO Q6H PRN 01/14/20 03/05/21 History sumatriptan succinate 6 mg/0.5 mL 6 mg SQ DIRECTED PRN #3 ml 08/09/20 03/05/21 Rx subcutaneous solution (Imitrex) zolpidem 10 mg tablet (Ambien) 10 mg PO HS 01/03/21 03/05/21 History loratadine 10 mg tablet (Claritin) 10 mg PO QAM 02/15/21 03/05/21 History omeprazole magnesium 20 mg 20 mg PO QAM 02/15/21 03/05/21 History tablet,delayed release (Prilosec OTC) sertraline 100 mg tablet 200 mg PO QAM 02/15/21 03/05/21 History sertraline 50 mg tablet 50 mg PO QAM 02/15/21 03/05/21 History Past Med/Surg History Medical History (Updated 03/05/21 @ 10:37 by Henrique Webb DO) Allergy-induced asthma NO INHALER USED FOR >YEAR Well controlled and stable Anxiety and depression Bipolar 1 disorder Dyslipidemia Fibromyalgia History of high blood pressure History of kidney stones NO SURGERY No current issues IBS (irritable bowel syndrome) Combination of diarrhea and constipation Lumbar pain Migraine Rheumatoid arthritis Followed with rheum in the past (follows only with PCP currently) Surgical History History of arthroscopy MULTIPLE RT/LEFT KNEE SCOPES History of bilateral tubal ligation History of endometrial ablation History of esophagogastroduodenoscopy (EGD) History of hysterectomy History of partial knee replacement RT History of tonsillectomy and adenoidectomy History of total knee replacement LEFT S/P colonoscopy S/P inguinal hernia repair S/P sinus surgery [place] teeth removed Family History Daughter Depression Allergies Grandmother (Paternal) Arthritis Grandfather (Paternal) Diabetes Arthritis Grandmother (Maternal) Diabetes Hypertension Grandfather (Maternal) Diabetes Hypertension Sister Kidney stones Hypertension Mother Thyroid disorder Other No family history of adverse response to anesthesia Social History Smoking Status: Never smoker Tobacco Type: Cigarettes Cigarettes Per Day: Quit 09/2019. Smoked 0.5-1ppd x 5 years; Smoking End Date: 10/12/19; Second Hand Exposure: No; Do You Dip or Chew Tobacco: No; Tobacco Cessation Education Requested by Patient: No Hx Alcohol Use: No Hx Substance Use: No Preferred Language: Bulgarian Communication Ability: Effective Church Official Required: No Beliefs That Will Affect Care: None marital status: Current Living Situation: Alone and Family Current Living Situation Comment: BOYFRIEND AND DAUGHTER current occupational status: disabled Feels Safe at Home: Yes Safety Concerns: Feels Safe At This Time Assistive Devices: None Physical Exam Physical Exam: Patient is alert and oriented Heart regular in rhythm Lungs clear to auscultation Results & Data ([facility]) Vital Signs (Past 12 Hours) Vital Signs Temp Pulse Resp BP Pulse Ox 03/05/21 08:44 37.1 C 97 H 20 147/94 H 98
[2021-03-05] MEDS ORDERED: FLUMAZENIL 0.1 MG/1 ML 10 ML VIAL IV PRN (10:42)
[2021-03-05] MEDS ORDERED: HYDROmorphone INJ 1 MG/ML SYRINGE IV PRN ×2 (10:42→14:14)
[2021-03-05] MEDS ORDERED: ATROPINE SULFATE 0.1 MG/ML 10ML SYR IV PRN (10:42)
[2021-03-05] MEDS ORDERED: ONDANSETRON INJ 2 MG/ML 2 ML VIAL IV PRN ×2 (10:42→14:14)
[2021-03-05] MEDS ORDERED: ePHEDrine sulfate 50 MG/ML AMP IV PRN (10:42)
[2021-03-05] MEDS ORDERED: PROMETHAZINE HCL 12.5 MG in SODIUM CHLORIDE 0.9% 50 ML IV PRN ×2 (10:42→14:14)
[2021-03-05] MEDS ORDERED: NALOXONE HCL 0.4 MG/1 ML VIAL/CARP IV PRN ×2 (10:42→14:14)
[2021-03-05] MEDS ORDERED: LABETALOL HCL IV 5 MG/ML 20ML IV PRN (10:42)
[2021-03-05] MEDS ORDERED: FLOSEAL HEMOSTATIC MATRIX 10ML TOP ONE (12:20)
--- NOTE | 2021-03-05 12:28 | Operative Report ---
Post Operative Report Pre & Post Diagnosis Operation Date: 03/05/21 10:05 Pre-Op Diagnosis: Spinal Stenosis, Cervical Region Post-Op Diagnosis: Spinal Stenosis, Cervical Region I identified the patient and participated in the time-out.: Yes Procedure Operation Date: 03/05/21 10:05 Actual Procedures #1 anterior cervical discectomy with bilateral foraminotomies C5-C6. #2 anterior cervical arthrodesis C5-C6. #3 placement of 7 mm spiral cage filled I factor C5- C6. #4 placement of west plate and screws across C5-C6. Surgeon Henrique Webb, Audiology Director Yasmeen Veras Estimated Blood Loss 10 Findings Consistent with Post-Op Diagnosis Specimens None Indications This is a 40-year-old female who presents with above-mentioned diagnosis after extensive course of nonoperative care she is here for surgical intervention. Description of Procedure Patient was met with identified informed consent obtained. Patient was then taken to the operative suite placed in supine position Baldomero table with head Membreno lateral. All bony prominences well-padded eyes inspected to ensure no external pressure placed upon the. This point the anterior cervical spine was prepped and draped in a sterile fashion. The assistance of fluoroscopy identified the C5-C6 to space a transverse incision was placed along the right anterior aspect of the cervical spinal lines region. Sharp dissection with the assistance of bipolar electrocautery was performed down to and exposing the anterior cervical spine at C5-C6. Several 10 retractors placed. Then performed a complete discectomy of C5-C6 out to the uncovertebral joints bilaterally. This included removal of all posterior annular fibers and longitudinal ligament and bilateral foraminotomies for complete decompression. Endplates then burred to subcortically bone and a 7 mm spiral cage filled with I factor tapped in position. Distracting apparatus was removed and a west plate and screws applied with the assistance of fluoroscopy. The incision was then copiously irrigated explored to ensure no damage to surrounding structures remaining bleeding. 10 round OLYA drain inserted. The incision was then closed with 2 Vicryl in a fashion of 4 Monocryl for final skin closure. Steri-Strip sterile dressings placed. Patient will continue PACU stable condition. Please note spinal cord monitoring was utilized at the procedure no changes noted. Lastly Yasmeen Veras was present at the entire surgery while the patient positioning complex portions of the surgery and final skin closure. I attest to the content of the Intraoperative Record and any orders documented therein. Any exceptions are noted below.
[2021-03-05] MEDS ORDERED: ALBUTEROL HFA INHALER 8.5 GM ONE (12:50)
[2021-03-05] MEDS: fentaNYL citrate 100 MCG/2 ML VIAL IV PRN ×4 (13:01→13:18)
--- NOTE | 2021-03-05 13:01 | Fluoroscopy Report ---
INTRAOPERATIVE RADIOGRAPHS CLINICAL HISTORY: C5-C6 spinal fusion. Fluoroscopy time: 11 seconds. FINDINGS: 2 spot fluoroscopic views of the cervical spine are presented. There has been discectomy at C5-C6 with anterior fusion at this level. The orthopedic hardware appears intact. An endotracheal tu be is in place. A surgical drain is noted. IMPRESSION: Intraoperative images from cervical spinal fusion surgery as above. Electronically signed by: Prem Rao M.D. 03/05/2021 1:00 PM
--- NOTE | 2021-03-05 13:57 | Anesthesiology Progress Note ---
Date of Service March 05, 2021 Anesthesia Post Procedure Vital Signs Vital Signs: Temp Pulse Pulse Resp BP Pulse Ox 03/05/21 13:50 37.3 C 93 H 19 154/99 H 95 03/05/21 13:40 113 H 18 191/100 H 95 03/05/21 13:35 115 H 20 169/109 H 95 03/05/21 13:30 105 H 20 158/101 H 94 03/05/21 13:20 103 H 18 152/95 H 94 03/05/21 13:10 101 H 16 152/91 H 93 03/05/21 13:00 97 H 20 168/94 H 98 03/05/21 12:50 103 H 22 152/95 H 97 03/05/21 12:40 36.5 C 104 H 22 160/97 H 97 03/05/21 08:44 37.1 C 97 H 20 147/94 H 98 Pain Intensity Right Lower Neck: Pain Intensity: 6 Neck: Pain Intensity: 4 Transfer of Care Handoff Completed per policy Notes Mental Status: alert / awake / arousable Patient Amnestic to Procedure: Yes Nausea / Vomiting: adequately controlled Pain: adequately controlled Airway Patency, RR, SpO2: stable & adequate BP & HR: stable & adequate Hydration State: stable & adequate Anesthetic Complications: no major complications apparent
[2021-03-05] MEDS ORDERED: DO NOT ADMINISTER PNEUMOCOCCAL VACCINE PRN (14:14)
[2021-03-05] MEDS ORDERED: MAGNESIUM HYDROXIDE SUSP 30 ML UDC PO PRN (14:14)
[2021-03-05] MEDS ORDERED: dexAMETHasone 8 MG in SYRINGE 0 ML IV PRN (14:14)
[2021-03-05] MEDS ORDERED: LORazepam 0.5 MG/1 ML VIAL IV PRN (14:14)
[2021-03-05] MEDS ORDERED: ALBUTEROL HFA 8 GM INHALER INH PRN (14:14)
[2021-03-05] MEDS ORDERED: FAMOTIDINE 20 MG TAB PO PRN (14:14)
[2021-03-05] MEDS ORDERED: SUMAtriptan succinate 6 MG/0.5 ML VIAL SQ PRN (14:14)
[2021-03-05] MEDS ORDERED: LORazepam 0.5 MG TAB PO PRN (14:14)
[2021-03-05] MEDS ORDERED: METOCLOPRAMIDE HCL INJ 5 MG/ML 2 ML VIAL IV PRN (14:14)
[2021-03-05] MEDS ORDERED: tiZANidine HCL 4 MG TABLET PO PRN (14:14)
[2021-03-05] MEDS ORDERED: diphenhydrAMINE Capsule 25 MG CAP PO PRN (14:14)
[2021-03-05] MEDS ORDERED: ALUMINUM/MAGNESIUM SUSP 30 ML UDC PO PRN (14:14)
[2021-03-05] MEDS ORDERED: ACETAMINOPHEN 500 MG TAB PO PRN (14:14)
[2021-03-05] MEDS ORDERED: RACEPINEPHRINE 2.25% NEBU SOLN 0.5 ML VIAL INH PRN (14:14)
[2021-03-05] MEDS ORDERED: ACETAMINOPHEN 1,000 MG/100 ML VIAL IV PRN (14:14)
[2021-03-05] MEDS ORDERED: SOD PHOSPHATE/SOD BIPHOSPHATE ENEMA 132 ML BTL PR PRN (14:14)
[2021-03-05] MEDS ORDERED: hydrOXYzine HCl 25 MG TAB PO PRN (14:14)
[2021-03-05] MEDS ORDERED: traMADol HCL 50 MG TABLET PO PRN (14:14)
[2021-03-05] MEDS ORDERED: DO NOT ADMINISTER FLU VACCINE PRN (14:14)
[2021-03-05] MEDS ORDERED: ONDANSETRON 4 MG OD TAB PO PRN (14:14)
[2021-03-05] MEDS ORDERED: bisacodyL 10 MG SUPP PR PRN (14:14)
[2021-03-05] MEDS: LACTATED RINGER'S 1,000 ML IV SCH (14:30)
[2021-03-05] MEDS: HYDROmorphone INJ 0.5 MG/0.5 ML SYR IV PRN ×3 (14:40→23:11)
--- NOTE | 2021-03-05 15:28 | Hospitalist Consultation ---
Date of Consultation March 05, 2021 Assessment & Plan (1) S/P spinal surgery: This is a 40yo F with a PMH of hypertension, fibromyalgia, bipolar 2 disorder, generalized anxiety disorder and other medical problems listed below who is POD#0 s/p ACDF C5-C6 by Dr. Webb. POD#0 s/p ACDF C5-C6 by Dr. Webb Per ortho for pain control, wound care, anticoagulation and activities Continuous pulse ox - O2 ~96% during examination Monitor H&H (EBL 10ml, pre-op hgb 11.9), continue incentive spirometry, PT/OT when appropriate (2) Mood disorder: History of Bipolar disorder and anxiety, following closely with [facility] psychiatry Recently tapered off of Geodon Continue Zoloft daily (3) Insomnia: Current regimen includes Trazodone 100mg HS and 10mg Ambien HS States that medications have not been helping - sleep quality has remained poor Discussed plan to hold Trazodone and Ambien for now to avoid interaction with PRN narcotics prescribed post-operatively (4) Hypertension: Previously taking spironolactone and amlodipine but stopped 2 months ago Optimize pain control, add on amlodipine if needed (5) Migraine: Imitrex PRN (6) Fibromyalgia: Continue SSRI (7) Allergy-induced asthma: Asthma well controlled for past year. Albuterol inh PRN PCP: Mima Dispo: Per primary service Patient seen in collaboration with Dr Millan. Please see addendum. Supervising Physician Co-Signing Physician Notes Attending addendum: The patient was seen and examined in the medical floor She is a 40yo F with a PMH of hypertension, fibromyalgia, bipolar 2 disorder, generalized anxiety disorder and other medical problems listed below who is POD#0 s/p ACDF C5-C6 by Dr. Webb. Has been complaining of neck pain without radiation and without any numbness and or tingling involving the extremities Denies any other symptoms On examination Lying in bed comfortably Has the neck collar in situ Hemodynamically stable with blood pressure on the upper side at 149/94 Chestclear to auscultate bilaterally HeartS1, S2, regular Abdomenbenign Extremitiesno edema CNSalert, awake, oriented x3. No focal neuro deficit Her labs, EKG and imaging studies reviewed Remains stable following ACDF involving C5-C6 Other medical conditions remain stable We will monitor CBC and PRP electrolytes Agree with assessment and plan as outlined above by CORINA Luna DR History of Present Illness Reason for Consultation: post op medical mgmt Attending Physician: Henrique Webb DO History of Present Illness This is a 40yo F with a PMH of hypertension, fibromyalgia, bipolar 2 disorder, generalized anxiety disorder and other medical problems listed below who is POD#0 s/p ACDF C5-C6 by Dr. Webb. Patient is feeling okay postoperatively. Endorses anxiety, which is been worse for her in general lately. Is working closely with a psychiatrist to adjust medications and has a phone appointment scheduled for tomorrow. Denies any pain at surgical site or paresthesias in b ilateral arms. No fever, chills, lightheadedness, headache, chest pain, shortness of breath, nausea, vomiting, abdominal pain, diarrhea constipation. Urinating without issue postoperatively. Recently tapered off of Geodon. Follows with PCP Dr. Guillermo. Allergies Allergy/AdvReac Type Severity Reaction Status Date / Time Sulfa (Sulfonamide Allergy Mild RASH, Verified 02/15/21 08:57 Antibiotics) NAUSEA Home Medications Medication Instructions Recorded Confirmed Type albuterol sulfate 90 mcg/actuation 2 puffs INH Q4H PRN gm 10/20/19 03/05/21 History aerosol inhaler tizanidine 4 mg tablet 4 mg PO Q6H PRN 01/14/20 03/05/21 History sumatriptan succinate 6 mg/0.5 mL 6 mg SQ DIRECTED PRN #3 ml 08/09/20 03/05/21 Rx subcutaneous solution (Imitrex) zolpidem 10 mg tablet (Ambien) 10 mg PO HS 01/03/21 03/05/21 History loratadine 10 mg tablet (Claritin) 10 mg PO QAM 02/15/21 03/05/21 History omeprazole magnesium 20 mg 20 mg PO QAM 02/15/21 03/05/21 History tablet,delayed release (Prilosec OTC) sertraline 100 mg tablet 200 mg PO QAM 02/15/21 03/05/21 History sertraline 50 mg tablet 50 mg PO QAM 02/15/21 03/05/21 History oxycodone 5 mg tablet 5 mg PO Q6H PRN #20 tab 03/05/21 Rx tramadol 50 mg tablet 50 mg PO Q6H PRN #20 tab 03/05/21 Rx trazodone 100 mg tablet 100 mg PO HS 03/05/21 03/05/21 History Patient History Medical History (Updated 03/05/21 @ 16:13 by Ann Moore PA-C) Allergy-induced asthma NO INHALER USED FOR >YEAR Well controlled and stable Anxiety and depression Bipolar 1 disorder Dyslipidemia Fibromyalgia History of high blood pressure History of kidney stones NO SURGERY No current issues IBS (irritable bowel syndrome) Combination of diarrhea and constipation Lumbar pain Migraine Mood disorder Rheumatoid arthritis Followed with rheum in the past (follows only with PCP currently) Surgical History (Updated 03/05/21 @ 16:13 by Ann Moore PA-C) History of arthroscopy MULTIPLE RT/LEFT KNEE SCOPES History of bilateral tubal ligation History of endometrial ablation History of esophagogastroduodenoscopy (EGD) History of hysterectomy History of partial knee replacement RT History of tonsillectomy and adenoidectomy History of total knee replacement LEFT S/P colonoscopy S/P inguinal hernia repair S/P sinus surgery [place] teeth removed Family History Daughter Depression Allergies Grandmother (Paternal) Arthritis Grandfather (Paternal) Diabetes Arthritis Grandmother (Maternal) Diabetes Hypertension Grandfather (Maternal) Diabetes Hypertension Sister Kidney stones Hypertension Mother Thyroid disorder Other No family history of adverse response to anesthesia Social History Smoking Status: Never smoker Tobacco Type: Cigarettes Cigarettes Per Day: Quit 09/2019. Smoked 0.5-1ppd x 5 years; Smoking End Date: 10/12/19; Second Hand Exposure: No; Do You Dip or Chew Tobacco: No; Tobacco Cessation Education Requested by Patient: No Hx Alcohol Use: No Hx Substance Use: No Preferred Language: Palestinian Communication Ability: Effective Assistant Signal Maintainer Required: No Beliefs That Will Affect Care: None marital status: Current Living Situation: Alone and Family Current Living Situation Comment: BOYFRIEND AND DAUGHTER current occupational status: disabled Feels Safe at Home: Yes Safety Concerns: Feels Safe At This Time Assistive Devices: None Review of Systems Review of Systems: At least ten systems reviewed and negative except as noted in the HPI. Physical Exam Physical Exam: General Appearance: WD/WN, vitals as above, NAD, sitting up in bed, pleasant, conversing easily, anxious Head: normocephalic, atraumatic Eyes: normal inspection, PERRL, conjunctivae normal, anicteric sclerae ENT: external ear and nose normal, oropharynx normal Neck: + cervical surgical dressing intact anteriorly. Drain visualized. Dressing c/d/i. Trachea midline, no thyromegaly Respiratory: normal respiratory effort, lungs clear to auscultation, no wheeze, rales, rhonchi. No accessory muscle use Cardiovascular: regular rate, rhythm, no murmur, normal peripheral pulses, no BLE edema. Vessels: no JVD Chest: normal inspection of chest Abdomen/GI: normal bowel sounds, soft, nontender, no hepatosplenomegaly Extremities/Musculoskeletal: no cyanosis or clubbing, extremities motor strength 5/5 Neurologic: PERRL, EOMI, accommodation nl, no face palsy, no dysarthria, CN's II-XI intact bilaterally and moves all extremities Psychiatric: A+Ox3, anxious Skin: no rashes, normal color, warm/dry Results & Data Results & Data ([facility]) Vital Signs (Past 12 Hours) Vital Signs Temp Pulse Pulse Resp BP Pulse Ox 03/05/21 15:10 36.8 C 89 17 152/93 H 98 03/05/21 14:40 97 H 18 143/77 H 95 03/05/21 14:10 36.9 C 94 H 14 152/91 H 98 03/05/21 14:00 37.3 C 90 19 148/84 H 97 03/05/21 13:50 37.3 C 93 H 19 154/99 H 95 03/05/21 13:40 113 H 18 191/100 H 95 03/05/21 13:35 115 H 20 169/109 H 95 03/05/21 13:30 105 H 20 158/101 H 94 03/05/21 13:20 103 H 18 152/95 H 94 03/05/21 13:10 101 H 16 152/91 H 93 03/05/21 13:00 97 H 20 168/94 H 98 03/05/21 12:50 103 H 22 152/95 H 97 03/05/21 12:40 36.5 C 104 H 22 160/97 H 97 03/05/21 08:44 37.1 C 97 H 20 147/94 H 98 (1) Migraine Intractability: not intractable Migraine type: unspecified Status migrainosus presence: without status migrainosus Qualified Code(s): G43.909 - Migraine, unspecified, not intractable, without status migrainosus (2) Hypertension Hypertension type: essential hypertension Qualified Code(s): I10 - Essential (primary) hypertension
[2021-03-05] MEDS: oxyCODONE HCL IR 5 MG TAB (IMMEDIATE RELEASE) PO PRN ×2 (16:09→20:45)
[2021-03-05] MEDS: ceFAZolin 2000MG 2,000 MG/15 ML SYR IV SCH (18:55)
[2021-03-05] MEDS ORDERED: ZOLPIDEM TARTRATE 10 MG TAB PO SCH (21:00)
[2021-03-05] MEDS ORDERED: DOCUSATE SODIUM/SENNA 50/8.6MG TAB PO SCH (21:00)
[2021-03-05] MEDS ORDERED: amLODIPine BESYLATE 5 MG TAB PO SCH (23:00)
[2021-03-06] MEDS: LACTATED RINGER'S 1,000 ML IV SCH (00:37)
[2021-03-06] MEDS: oxyCODONE HCL IR 5 MG TAB (IMMEDIATE RELEASE) PO PRN ×3 (00:39→11:00)
[2021-03-06] MEDS: ceFAZolin 2000MG 2,000 MG/15 ML SYR IV SCH (03:16)
[2021-03-06] MEDS: POLYETHYLENE (MIRALAX) 17 GM PACK PO SCH ×2 (05:20→13:39)
[2021-03-06] MEDS ORDERED: LORATADINE 10 MG TAB PO SCH (09:00)
[2021-03-06] MEDS ORDERED: PANTOprazole 40 MG TAB PO SCH (09:00)
[2021-03-06] MEDS ORDERED: SERTRALINE HCL 100 MG TABLET PO SCH (09:00)
[2021-03-06] MEDS ORDERED: SERTRALINE HCL 50 MG TABLET PO SCH (09:00)
[2021-03-06 09:05] LABS: Hematocrit (blood only) 36.5 % (37-47); Hemoglobin 12.2 g/dL (12.0-16.0); Mean Corpuscular Hemoglobin 30.9 pg (25-34); Mean Corpuscular Hgb Conc 33.4 g/dL (32-36); Mean Corpuscular Volume 92.4 fL (80-100); Mean Platelet Volume 9.3 fL (7.4-10.4); Platelet Count 337 K/uL (130-400); RDW Coefficient of Variation 13.5 % (11.5-14.5); RDW Standard Deviation 45.9 fL (36.4-46.3); Red Blood Count 3.95 M/uL (4.2-5.4); White Blood Count 13.51 K/uL (4.8-10.8)
[2021-03-06 10:00] LABS: BUN Creatinine Ratio 12.4 (10-20); Calcium 9.2 mg/dl (8.5-10.1); Creatinine Clr Calc Pharmacy 135.1 ml/min; Est GFR (African American) 127.2 ml/min; Est GFR (Non-African American) 109.7 ml/min; Potassium 3.7 mmol/L (3.5-5.1)
[2021-03-06 11:04] VITALS: TEMP 97.9
[2021-03-06 13:00] VITALS: BP 144/89; O2SAT 97
[2021-03-06] MEDS ORDERED: dexAMETHasone 8 MG in SYRINGE 0 ML IV ONE (13:00)
[2021-03-06 13:59] VITALS: PULSE 78
--- NOTE | 2021-03-11 09:45 | Discharge Summary ---
Date of Service March 11, 2021 Admission HPI Per Admitting Provider This is a 40-year-old female who presents with chronic persistent neck and arm pain after failed extensive course of nonoperative care she is here for surgical invention. Admission Exam (Per Admitting) Constitutional WD/WN, vitals as above Eyes PERRL, conjunctivae normal, anicteric sclerae Neck trachea midline, no thyromegaly Respiratory normal respiratory effort, lungs clear to auscultation Cardiovascular RRR, no murmur, no edema Extremities: normal capillary refill Gastrointestinal (Abdomen) Inspection/Auscultation: abdomen normal to inspection Musculoskeletal no cyanosis or clubbing, extremities motor strength 5/5 Gait: normal gait Skin no rashes, warm and dry Neurologic patellar DTR's 2+ bilat, sensation intact Psychiatric A+Ox3, euthymic affect Discharge Data Consultations 03/05/21 14:14 Consult Hospitalist Routine Procedures Performed Operation Date: 03/05/21 10:05 Actual Procedures p C5-C6 Anterior Cervical Discectomy and Fusion, Spinal Cord Monitoring(Not Applicable) - Henrique Webb DO Hospital Course (1) S/P spinal surgery: pt had an uneventful hospital course s/p ACDF. She was discharged home on POD #1. She was ambulating the hallways and voiding prior to discharge. Pain controlled. Discharge Instructions ACTIVITY RECOMMENDATIONS: SELF CARE INSTRUCTIONS AFTER CERVICAL FUSIONS 1. No smoking. Smoking drastically decreases the chance of a solid fusion. 2. No bending, lifting more than 5 pounds, or twisting (roll like a log when turning in bed). 3. You may shower 3 days after surgery. Thoroughly dry wound. Do not soak in the tub. 4. Cervical collar: Must be worn at all times including sleeping. You may remove the brace only to bath, eat and if you are sitting in a recliner. 5. Please walk as much as you can for exercise. Gradually increase the distance that you walk as your endurance increases. SPECIAL CARE INSTRUCTIONS: VERY IMPORTANT TO READ AND REVIEW A. Do not take any anti-inflammatory medications (i.e. Indocin, Advil, Aspirin, Naprosyn, Aleve, Motrin, etc.) as these may inhibit the chance of a solid fusion. Tylenol is okay to take. B. Your surgical incision has been closed with a cosmetic suture under the skin that will dissolve in about 6 weeks. In 14 days, you can use a pair of clean scissors and cut the suture that is left outside of the skin at the ends of your incision. C. Complications are uncommon, but please contact us if you have any signs or symptoms of: 1. wound infection (fever higher than 102.5 degrees F, redness, separation of wound, drainage, or increasing pain from the incision) 2. blood clots in legs (pain, swelling, redness and warmth in legs) 3. urinary tract infection (fever higher than 102.5 degrees, burning upon urination or increased frequency of urination) 4. nerve problems (inability to walk on your toes or heels, numbness, loss of bowel or bladder control) 5. any other symptoms that concern you. D. Please call the office at if you have any concerns or questions about your operation or recovery. MANAGING PAIN AFTER SPINAL SURGERY 1. Narcotic medication is intended for short-term use and will be provided for surgical pain. Surgical pain usually lasts for a period of 4-6 weeks. Narcotic medication includes Percocet, Vicodin, Darvocet, Tylenol #3 or Lortab. 2. Longer-term pain is more appropriately treated with non-narcotic medication such as Tylenol ES. 3. Muscle spasm is not appropriately treated with narcotics. Muscle relaxers such as Soma, Flexeril or Skelaxin can be used along with Tylenol ES. 4. Remember that we all live with some "aches and pains". This is not unusual or uncommon after an injury or as we get older. 5. We will provide appropriate medication within the normal guidelines of their prescribed use. We will also be very cautious and aware of potential abuse and extended duration of patients' medication needs. 6. Please allow 2-3 days to process refills. Prescriptions will not be mailed but must be picked up at the office. FOLLOW UP VISIT: Keep your scheduled follow-up appointment. Any questions, please call the office at . Supervising Physician Co-Signing Physician Notes Dr. Henrique Webb
== END 2021-03-06 15:36 | disposition home or self-care (01) | DRG 472 ==
LOC: ASU 07:58 → 3E 12:35
DX: G47.00 Insomnia, unspecified; M79.7 Fibromyalgia; F41.1 Generalized anxiety disorder; I10 Essential (primary) hypertension; F31.81 Bipolar II disorder; Z88.2 Allergy status to sulfonamides; M48.02 Spinal stenosis, cervical region; Z87.891 Personal history of nicotine dependence; G43.909 Migraine, unspecified, not intractable, without status migrainosus

== ENCOUNTER 2022-09-24 07:36 | Inpatient (IN) ==
[2022-09-24] MEDS ORDERED: SODIUM CHLORIDE 0.9% 1000ML 2,000 ML IV ONE (07:49)
[2022-09-24] MEDS ORDERED: ONDANSETRON INJ 2 MG/ML 2 ML VIAL IV STA ×2 (07:55→09:45)
--- NOTE | 2022-09-24 07:58 | Emergency Department Note ---
Impression & Plan Acute hypokalemia, Vomiting, Tachycardia, Abdominal pain ED Provider Note NAME: GUME STEPHENS AGE: 41 SEX: F : 1980 ARRIVES VIA: Walk-In INFORMANT: Patient ED PROVIDER(S): Obinna Horn DO CHIEF COMPLAINT: abdominal pain, N/V/D HPI: Patient is a 41-year-old female with a past medical history of anxiety, depression, bipolar, IBS who presents to the ER for diffuse abdominal pain associate with nausea, vomiting, diarrhea and fevers of 101 at home. She admits to headache and chills. She has diffuse myalgias and arthralgias. Symptoms initially started 2 weeks ago with cough and congestion. Still has a cough. Nausea, vomiting, and diarrhea started on Thursday and has been persistent. She notes diarrhea just runs out of her. She has no weakness or numbness in the legs. She does have some mild back pain but that is the same pain that she has throughout her entire body. PAST MEDICAL HISTORY:See Below PAST SURGICAL HISTORY:See Below FAMILY HISTORY:See Below SOCIAL HISTORY:See Below HOME MEDICATIONS:See Below ALLERGIES:See Below VITALS:See Below PHYSICAL EXAMINATION: GENERAL: Sitting up in bed, alert, well appearing, well nourished, no distress, non-toxic EYE EXAM: normal conjunctiva. OROPHARYNX: mucous membranes are dry LUNGS: Clear to auscultation. Normal chest wall mechanics HEART: no murmurs, S1 normal and S2 normal ABDOMEN: abdomen soft, non-tender, normo-active bowel sounds, no masses, no rebound or guarding. BACK: Back is symmetrical on inspection and there is no deformity, no midline tenderness, no CVA tenderness. UPPER EXTREMITIES: upper extremities are grossly normal. LOWER EXTREMITIES: No pitting edema. NEURO EXAM: Normal sensorium, cranial nerves II-XII grossly intact, normal speech, no gross weakness of arms, no gross weakness of legs. MEDICAL DECISION MAKING: Patient is a 41-year-old female who presents ER for nausea vomiting diarrhea. IV was established blood work was obtained. Labs show leukocytosis of 11,000. No significant anemia. BMP with a hypokalemia of 2.7. CO2 low at 19. Was gaff. LFTs bilirubin was unremarkable. hCG was negative. Influenza COVID and RSV was unremarkable. CT shows a distended gallbladder and enteritis. Patient was given 3 L of IV fluids along with 20 mEq of potassium. She was given 2 rounds of Zofran as well as Reglan. She still had some persistent vomiting. Discussed with the hospitalist for further evaluation management and treatment. External records were reviewed. Triage Nursing notes reviewed. Limited review of prior medical records performed Vital Signs: reviewed and remarkable for tachy Differential diagnosis: Differential diagnosis includes etiologies such as sepsis, UTI, pneumonia, metabolic, electrolyte abnormalities, cardiac sources, intracerebral event, toxicologic, neurological, as well as others were entertained. ER treatment provided: See below Diagnostics interpreted by me include EKG and cardiac monitoring as listed below: -Cardiac Monitoring: An order was placed for continuous cardiac monitoring. The monitor shows a rate of 140 with sinus rhythm. -ECG: Sinus tachycardia rate 149 Normal axis No PVCs Nonspecific ST wave changes in the inferior and V3 through V6 with ST depressions -Laboratory studies:Interpreted by me as stated above in MDM and shown below. Imaging studies: Xrays: As interpreted by me: Portable AP upright 1 view of the chest shows no focal infiltrate or pneumothorax CTs show: CT abdomen pelvis as described above Consultation(s): Discussed with [facility] for further management Procedures:none Critical Care: None Past Med/Surg History Medical History Allergy-induced asthma NO INHALER USED FOR >YEAR Well controlled and stable Anxiety and depression Bipolar 1 disorder Cervical stenosis of spinal canal Dyslipidemia Fibromyalgia History of high blood pressure History of kidney stones NO SURGERY No current issues Hypertension IBS (irritable bowel syndrome) Combination of diarrhea and constipation Insomnia Lumbar pain Migraine Mood disorder Rheumatoid arthritis Followed with rheum in the past (follows only with PCP currently) Septic colitis Surgical History History of arthroscopy MULTIPLE RT/LEFT KNEE SCOPES History of bilateral tubal ligation History of endometrial ablation History of esophagogastroduodenoscopy (EGD) History of hysterectomy History of partial knee replacement RT History of tonsillectomy and adenoidectomy History of total knee replacement LEFT S/P colonoscopy S/P inguinal hernia repair S/P sinus surgery [place] teeth removed Family History Daughter Depression Allergies Grandmother (Paternal) Arthritis Grandfather (Paternal) Diabetes Arthritis Grandmother (Maternal) Diabetes Hypertension Grandfather (Maternal) Diabetes Hypertension Sister Kidney stones Hypertension Mother Thyroid disorder Other No family history of adverse response to anesthesia Social History Smoking Status: Former smoker Tobacco Type: Cigarettes Cigarettes Per Day: Quit 09/2019. Smoked 0.5-1ppd x 5 years; Second Hand Exposure: No; Hx Alcohol Use: No Hx Substance Use: No Preferred Language: Setswana Communication Ability: Effective Handbag Frames Inspector Required: No Beliefs That Will Affect Care: None marital status: Single Current Living Situation: Other Current Living Situation Comment: BOYFRIEND AND DAUGHTER current occupational status: disabled Other Information That Helps Us Care for You: No Feels Safe at Home: Yes Assistive Devices: None Allergies Allergies Allergy/AdvReac Type Severity Reaction Status Date / Time Sulfa (Sulfonamide Allergy Mild RASH, Verified 01/10/22 08:00 Antibiotics) NAUSEA Home Meds Home Medications Medication Instructions Recorded Confirmed albuterol sulfate 90 mcg/actuation 2 puffs inhalation Q4H PRN 10/20/19 09/24/22 aerosol inhaler Shortness Of Breath Or Wheezing tizanidine 4 mg tablet 4 mg PO Q6H PRN Muscle Spasm 01/14/20 09/24/22 loratadine 10 mg tablet (Claritin) 10 mg PO QAM 02/15/21 09/24/22 omeprazole magnesium 20 mg 20 mg PO QAM 02/15/21 09/24/22 tablet,delayed release (Prilosec OTC) suvorexant 10 mg tablet (Belsomra) 10 mg PO DAILY 01/10/22 09/24/22 colestipol 1 gram tablet (Colestid) 1 g PO 09/24/22 duloxetine 60 mg capsule,delayed 120 mg PO DAILY 09/24/22 09/24/22 release sprinkle prazosin 2 mg capsule 2 mg PO HS 09/24/22 09/24/22 quetiapine 300 mg tablet (Seroquel) 300 mg PO HS 09/24/22 09/24/22 Previous Rx's Medication Instructions Recorded sumatriptan succinate 6 mg/0.5 mL 6 mg (0.5 mL) subcut DIRECTED 08/09/20 subcutaneous solution (Imitrex) PRN migraine headache #3 mL Results & Data (ED) Vital Signs Vital Signs - 24 hr 09/24/22 07:42 09/24/22 08:08 09/24/22 08:31 Temperature 36.2 C L Temperature Source Temporal Artery Scan Pulse Rate 158 H 137 H Pulse Rate from SpO2 Sensor Respiratory Rate 18 Respiratory Effort / Characteristics Non-Labored Spontaneous Respiratory Depth Normal Respiratory Pattern Regular Blood Pressure 127/93 Blood Pressure Mean 104 Blood Pressure Position Sitting Pulse Oximetry 97 97 Oxygen Delivery Method Room Air Room Air Sepsis Recent Fever Within 48 Hours Yes Sepsis New/Unexplained Change in Mental Status N/A Sepsis Action Taken by Nursing No Action Required 09/24/22 07:55 09/24/22 08:00 09/24/22 08:49 Temperature Temperature Source Pulse Rate 147 H 143 H Pulse Rate from SpO2 Sensor 152 H 143 H 129 H Respiratory Rate 21 27 H Respiratory Effort / Characteristics Respiratory Depth Respiratory Pattern Blood Pressure Blood Pressure Mean Blood Pressure Position Pulse Oximetry 97 95 99 Oxygen Delivery Method Sepsis Recent Fever Within 48 Hours Sepsis New/Unexplained Change in Mental Status Sepsis Action Taken by Nursing 09/24/22 08:57 09/24/22 08:57 09/24/22 09:00 Temperature Temperature Source Pulse Rate 131 H Pulse Rate from SpO2 Sensor 131 H Respiratory Rate 21 Respiratory Effort / Characteristics Respiratory Depth Respiratory Pattern Blood Pressure 165/100 H 166/109 H Blood Pressure Mean 121 128 Blood Pressure Position Pulse Oximetry 97 Oxygen Delivery Method Sepsis Recent Fever Within 48 Hours Sepsis New/Unexplained Change in Mental Status Sepsis Action Taken by Nursing 09/24/22 09:00 09/24/22 09:30 09/24/22 10:37 Temperature Temperature Source Pulse Rate 129 H 123 H 129 H Pulse Rate from SpO2 Sensor 129 H 117 H 129 H Respiratory Rate 25 H 24 37 H Respiratory Effort / Characteristics Respiratory Depth Respiratory Pattern Blood Pressure Blood Pressure Mean Blood Pressure Position Pulse Oximetry 97 97 98 Oxygen Delivery Method Sepsis Recent Fever Within 48 Hours Sepsis New/Unexplained Change in Mental Status Sepsis Action Taken by Nursing Laboratory Data 09/24/22 08:07 09/24/22 08:07 Lab Results 09/24/22 09/24/22 09/24/22 Range/Units 08:07 08:07 08:07 WBC 11.44 H (4.8-10.8) K/ul RBC 4.66 (4.20-5.40) M/uL Hgb 14.2 (12.0-16.0) g/dl POC Hgb (12.0-16.0) g/dl Hct 40.7 (37.0-47.0) % POC Hct (37-47) % MCV 87.3 (80.0-100.0) fL MCH 30.5 (25.0-34.0) pg MCHC 34.9 (32.0-36.0) g/dL RDW Std Deviation 40.2 (36.4-46.3) fL RDW Coeff of Nate 12.5 (11.5-14.5) % Plt Count 386 (130-400) K/uL MPV 9.8 (9.4-12.4) fL Immature Gran % (Auto) 0.4 % Neut % (Auto) 79.2 % Lymph % (Auto) 8.6 % [place] % (Auto) 11.2 % Eos % (Auto) 0.3 % Baso % (Auto) 0.3 % Neut # (Auto) 9.06 H (1.40-6.50) K/uL Lymph # (Auto) 0.98 L (1.2-3.4) K/uL [place] # (Auto) 1.28 H (0.11-0.59) K/uL Eos # (Auto) 0.03 (0-0.50) K/uL Baso # (Auto) 0.04 (0-0.2) K/uL Immature Gran # (Auto) 0.05 (0.01-0.20) K/uL POC Sodium (135-144) mmol/L Sodium 134 L (136-145) mmol/L POC Potassium (3.3-5.0) mmol/L Potassium 2.7 L (3.5-5.1) mmol/L POC Chloride (101-112) mmol/L Chloride 102 (98-107) mmol/L Carbon Dioxide 19 L (21-32) mmol/L POC Total CO2 (24-31) mmol/L Anion Gap 13 H (3-11) POC Anion Gap (16-25) mmol/L POC BUN (7-18) mg/dl BUN 7 (6-23) mg/dl Creatinine 0.89 (0.6-1.2) mg/dl POC Creatinine (0.6-1.3) mg/dl Est Cr Clr Drug Dosing 72.8 ml/min Est GFR ( Amer) 92.7 ml/min Est GFR (Non-Af Amer) 79.9 ml/min BUN/Creatinine Ratio 7.9 L (10-20) Glucose 227 H (70-99(Fasting)) mg/dl POC Glucose (other) (70-99) mg/dl Lactate 3.3 H* (0.4-2.0) mmol/L Calcium 9.5 (8.5-10.1) mg/dl POC Ioniz Calcium Dennis (1.12-1.32) mmol/l Magnesium 1.8 (1.7-2.4) mg/dl Total Bilirubin 0.4 (0.2-1.0) mg/dl Direct Bilirubin 0.1 (0-0.2) mg/dl AST 13 (13-39) U/L ALT 16 (7-52) U/L Alkaline Phosphatase 112 H (34-104) U/L Troponin I High Sens 4.9 (0-14) pg/ml Total Protein 8.6 H (6.0-8.3) gm/dl Albumin 4.7 (3.4-5.0) gm/dl Procalcitonin (0-0.5) ng/ml HCG, Qual (Negative) SARS-CoV-2 (PCR) (Negative) Influenza Type A (PCR) (Neg) Influenza Type B (PCR) (Neg) RSV (RT-PCR) (Neg) 09/24/22 09/24/22 09/24/22 Range/Units 08:07 08:07 08:17 WBC (4.8-10.8) K/ul RBC (4.20-5.40) M/uL Hgb (12.0-16.0) g/dl POC Hgb 15.3 (12.0-16.0) g/dl Hct (37.0-47.0) % POC Hct 45 (37-47) % MCV (80.0-100.0) fL MCH (25.0-34.0) pg MCHC (32.0-36.0) g/dL RDW Std Deviation (36.4-46.3) fL RDW Coeff of Nate (11.5-14.5) % Plt Count (130-400) K/uL MPV (9.4-12.4) fL Immature Gran % (Auto) % Neut % (Auto) % Lymph % (Auto) % [place] % (Auto) % Eos % (Auto) % Baso % (Auto) % Neut # (Auto) (1.40-6.50) K/uL Lymph # (Auto) (1.2-3.4) K/uL [place] # (Auto) (0.11-0.59) K/uL Eos # (Auto) (0-0.50) K/uL Baso # (Auto) (0-0.2) K/uL Immature Gran # (Auto) (0.01-0.20) K/uL POC Sodium 136 (135-144) mmol/L Sodium (136-145) mmol/L POC Potassium 2.7 L (3.3-5.0) mmol/L Potassium (3.5-5.1) mmol/L POC Chloride 104 (101-112) mmol/L Chloride (98-107) mmol/L Carbon Dioxide (21-32) mmol/L POC Total CO2 17 L (24-31) mmol/L Anion Gap (3-11) POC Anion Gap 18.0 (16-25) mmol/L POC BUN 6 L (7-18) mg/dl BUN (6-23) mg/dl Creatinine (0.6-1.2) mg/dl POC Creatinine 0.7 (0.6-1.3) mg/dl Est Cr Clr Drug Dosing ml/min Est GFR ( Amer) ml/min Est GFR (Non-Af Amer) ml/min BUN/Creatinine Ratio (10-20) Glucose (70-99(Fasting)) mg/dl POC Glucose (other) 229 H (70-99) mg/dl Lactate (0.4-2.0) mmol/L Calcium (8.5-10.1) mg/dl POC Ioniz Calcium Dennis 1.14 (1.12-1.32) mmol/l Magnesium (1.7-2.4) mg/dl Total Bilirubin (0.2-1.0) mg/dl Direct Bilirubin (0-0.2) mg/dl AST (13-39) U/L ALT (7-52) U/L Alkaline Phosphatase (34-104) U/L Troponin I High Sens (0-14) pg/ml Total Protein (6.0-8.3) gm/dl Albumin (3.4-5.0) gm/dl Procalcitonin 0.24 (0-0.5) ng/ml HCG, Qual Negative (Negative) SARS-CoV-2 (PCR) NEGATIVE (Negative) Influenza Type A (PCR) Negative (Neg) Influenza Type B (PCR) Negative (Neg) RSV (RT-PCR) Negative (Neg) 09/24/22 09/24/22 Range/Units 09:37 10:01 WBC (4.8-10.8) K/ul RBC (4.20-5.40) M/uL Hgb (12.0-16.0) g/dl POC Hgb (12.0-16.0) g/dl Hct (37.0-47.0) % POC Hct (37-47) % MCV (80.0-100.0) fL MCH (25.0-34.0) pg MCHC (32.0-36.0) g/dL RDW Std Deviation (36.4-46.3) fL RDW Coeff of Nate (11.5-14.5) % Plt Count (130-400) K/uL MPV (9.4-12.4) fL Immature Gran % (Auto) % Neut % (Auto) % Lymph % (Auto) % [place] % (Auto) % Eos % (Auto) % Baso % (Auto) % Neut # (Auto) (1.40-6.50) K/uL Lymph # (Auto) (1.2-3.4) K/uL [place] # (Auto) (0.11-0.59) K/uL Eos # (Auto) (0-0.50) K/uL Baso # (Auto) (0-0.2) K/uL Immature Gran # (Auto) (0.01-0.20) K/uL POC Sodium (135-144) mmol/L Sodium (136-145) mmol/L POC Potassium (3.3-5.0) mmol/L Potassium (3.5-5.1) mmol/L POC Chloride (101-112) mmol/L Chloride (98-107) mmol/L Carbon Dioxide (21-32) mmol/L POC Total CO2 (24-31) mmol/L Anion Gap (3-11) POC Anion Gap (16-25) mmol/L POC BUN (7-18) mg/dl BUN (6-23) mg/dl Creatinine (0.6-1.2) mg/dl POC Creatinine (0.6-1.3) mg/dl Est Cr Clr Drug Dosing ml/min Est GFR ( Amer) ml/min Est GFR (Non-Af Amer) ml/min BUN/Creatinine Ratio (10-20) Glucose (70-99(Fasting)) mg/dl POC Glucose (other) (70-99) mg/dl Lactate 1.8 (0.4-2.0) mmol/L Calcium (8.5-10.1) mg/dl POC Ioniz Calcium Dennis (1.12-1.32) mmol/l Magnesium 1.9 (1.7-2.4) mg/dl Total Bilirubin (0.2-1.0) mg/dl Direct Bilirubin (0-0.2) mg/dl AST (13-39) U/L ALT (7-52) U/L Alkaline Phosphatase (34-104) U/L Troponin I High Sens (0-14) pg/ml Total Protein (6.0-8.3) gm/dl Albumin (3.4-5.0) gm/dl Procalcitonin (0-0.5) ng/ml HCG, Qual (Negative) SARS-CoV-2 (PCR) (Negative) Influenza Type A (PCR) (Neg) Influenza Type B (PCR) (Neg) RSV (RT-PCR) (Neg) Administered Medications Sodium Chloride (Nss 1000ml) 1,000 mls @ 125 mls/hr IV .Q8H LUIS M Stop: 10/24/22 11:14 Last Admin: 09/24/22 13:09 Dose: 125 mls/hr Documented By: MG Discontinued Medications Sodium Chloride (Nss 1000ml) 2,000 mls @ 999 mls/hr IV .Q2H1M ONE Stop: 09/24/22 09:49 Last Infusion: 09/24/22 11:40 Dose: 0 mls/hr Documented By: Admin: 09/24/22 08:03 Dose: 999 mls/hr Documented By: AM Parenteral Electrolytes (Normosol-R) 1,000 mls @ 999 mls/hr IV .Q1H1M ONE Stop: 09/24/22 10:01 Last Infusion: 09/24/22 10:37 Dose: 0 mls/hr Documented By: Admin: 09/24/22 09:14 Dose: 999 mls/hr Documented By: ROBERTO Potassium Chloride (K Lefty / Wtr) 20 meq in 100 mls @ 50 mls/hr IV ONE ONE; Protocol Stop: 09/24/22 11:08 Last Admin: 09/24/22 10:28 Dose: Not Given Documented By: AM Potassium Chloride (K [place] / Wtr) 10 meq in 100 mls @ 100 mls/hr IV Q1H LUIS M; Protocol Stop: 09/24/22 11:14 Last Admin: 09/24/22 11:39 Dose: 80 mls/hr Documented By: Infusion: 09/24/22 11:39 Dose: 0 mls/hr Documented By: Admin: 09/24/22 10:38 Dose: 100 mls/hr Documented By: ROBERTO Ioversol (Optiray 350 100ml) 85 ml IV ONCE ONE Stop: 09/24/22 08:44 Last Admin: 09/24/22 08:44 Dose: 85 ml Documented By: LIAM Metoclopramide HCl (Metoclopramide Hcl Inj 5 Mg/Ml 2 Ml Vial) 10 mg IV NOW STA Stop: 09/24/22 09:46 Last Admin: 09/24/22 09:49 Dose: 10 mg Documented By: KEISHA Ondansetron HCl (Ondansetron Inj 2 Mg/Ml 2 Ml Vial) 4 mg IV NOW STA Stop: 09/24/22 07:56 Last Admin: 09/24/22 08:02 Dose: 4 mg Documented By: ROBERTO Ondansetron HCl (Ondansetron Inj 2 Mg/Ml 2 Ml Vial) 4 mg IV NOW STA Stop: 09/24/22 09:46 Last Admin: 09/24/22 09:49 Dose: 4 mg Documented By: KEISHA Imaging Data Radiologist's Impression: Abdomen/Pelvis CT 09/24/22 07:54 CT OF THE ABDOMEN AND PELVIS WITH CONTRAST CLINICAL HISTORY: Abdominal pain and fever. Tachycardia. COMPARISON STUDY: CT of the abdomen and pelvis May 21, 2022. TECHNIQUE: Following IV administration of 85 mL of Optiray, axial images of the abdomen and pelvis were obtained from the lung bases to the proximal femurs. Images were reviewed in the axial, sagittal, and coronal planes. IV contrast was administered without complication. Automated exposure control was utilized for the study. A dose lowering technique was utilized adhering to the principles of ALARA. CT DOSE: 1283.57 mGy.cm FINDINGS: Lung bases are unremarkable. No pneumatosis, free air or portal venous gas is present. There is hepatic steatosis. No biliary or pancreatic ductal dilatation is present. The gallbladder is moderately distended. There is no adjacent stranding. Spleen, adrenal glands and right kidney are normal. There is a 4 mm left renal calculus. Smaller left renal calculi are present. There are no ureteral calculi. There is no hydronephrosis. Note is made of mild wall thickening with pericolonic stranding involving the majority of the colon, but most pronounced within the mid to distal transverse colon, splenic flexure of the colon and the descending colon.. There is no abscess. The colon is also mildly fluid-filled. The appendix is normal. Prominent ileocolic lymph nodes measure up to 1.2 x 0.8 cm. Major vasculature is patent. IMPRESSION: 1. Findings consistent with a nonspecific colitis, predominantly involving the left colon. No free air or abscess. 2. Moderately distended gallbladder. No adjacent stranding. Right upper quadrant ultrasound could be obtained for further evaluation. 3. Prominent ileocolic lymph nodes which are probably reactive. 4. Left-sided nephrolithiasis. ACT 112: Negative or not required by law. Electronically signed by: John Donnelly M.D. 09/24/2022 9:05 AM Chest X-Ray 09/24/22 07:58 XR chest 1V portable CLINICAL HISTORY: Cough and fever. COMPARISON STUDY: Chest CT March 22, 2021. FINDINGS: Lung volumes are normal. Lungs are clear. There is no pneumothorax or pleural effusion. Cardiac size is normal. Mediastinal contours are normal. There is no evidence for pulmonary edema. IMPRESSION: No acute cardiopulmonary findings. ACT 112: Negative or not required by law. Electronically signed by: John Donnelly M.D. 09/24/2022 8:14 AM Discharge Plan Visit Data Chief Complaint: Illness Stated Complaint: VOMITING, LIQUID STOOLS SINCE THURSDAY ED Provider: Obinna Horn Discharge Problem: Acute hypokalemia, Vomiting, Tachycardia, Abdominal pain Patient Disposition: Admitted As Inpatient Discharge Instructions Interventions: ED Discharge Assessment Last Done: 09/24/22 11:43
--- NOTE | 2022-09-24 08:16 | XRay Report ---
XR chest 1V portable CLINICAL HISTORY: Cough and fever. COMPARISON STUDY: Chest CT March 22, 2021. FINDINGS: Lung volumes are normal. Lungs are clear. There is no pneumothorax or pleural effusion. Car diac size is normal. Mediastinal contours are normal. There is no evidence for pulmonary edema. IMPRESSION: No acute cardiopulmonary findings. ACT 112: Negative or not required by law. Electronically signed by: John Donnelly M.D. 09/24/2022 8:14 AM
[2022-09-24 08:29] LABS: iSTAT Creatinine 0.7 mg/dl (0.6-1.3); iSTAT Hemoglobin 15.3 g/dl (12.0-16.0); iSTAT Ionized Calcium 1.14 mmol/l (1.12-1.32); iSTAT Potassium 2.7 mmol/L (3.3-5.0)
[2022-09-24] MEDS ORDERED: OPTIRAY 350 100ml IV ONE (08:43)
[2022-09-24 08:45] LABS: Hematocrit (blood only) 40.7 % (37.0-47.0); Hemoglobin 14.2 g/dl (12.0-16.0); Mean Corpuscular Hemoglobin 30.5 pg (25.0-34.0); Mean Corpuscular Hgb Conc 34.9 g/dL (32.0-36.0); Mean Corpuscular Volume 87.3 fL (80.0-100.0); Mean Platelet Volume 9.8 fL (9.4-12.4); Platelet Count 386 K/uL (130-400); RDW Coefficient of Variation 12.5 % (11.5-14.5); RDW Standard Deviation 40.2 fL (36.4-46.3); Red Blood Count 4.66 M/uL (4.20-5.40); White Blood Count 11.44 K/ul (4.8-10.8)
[2022-09-24 09:01] LABS: Pregnancy Test, Serum Negative (Negative)
[2022-09-24] MEDS ORDERED: NORMOSOL-R 1,000 ML IV ONE (09:01)
--- NOTE | 2022-09-24 09:06 | CT Scan Report ---
CT OF THE ABDOMEN AND PELVIS WITH CONTRAST CLINICAL HISTORY: Abdominal pain and fever. Tachycardia. COMPARISON STUDY: CT of the abdomen and pelvis May 21, 2022. TECHNIQUE: Following IV administration of 85 mL of Optiray, axial images of the abdomen and pelvis we re obtained from the lung bases to the proximal femurs. Images were reviewed in the axial, sagittal, and coronal planes. IV contrast was administered without complication. Automated exposure control wa s utilized for the study. A dose lowering technique was utilized adhering to the principles of ALARA . CT DOSE: 1283.57 mGy.cm FINDINGS: Lung bases are unremarkable. No pneumatosis, free air or portal venous gas is present. Ther e is hepatic steatosis. No biliary or pancreatic ductal dilatation is present. The gallbladder is mod erately distended. There is no adjacent stranding. Spleen, adrenal glands and right kidney are normal . There is a 4 mm left renal calculus. Smaller left renal calculi are present. There are no ureteral calculi. There is no hydronephrosis. Note is made of mild wall thickening with pericolonic stranding involving the majority of the colon, but most pronounced within the mid to distal transverse colon, s plenic flexure of the colon and the descending colon.. There is no abscess. The colon is also mildly fluid-filled. The appendix is normal. Prominent ileocolic lymph nodes measure up to 1.2 x 0.8 cm. Teo or vasculature is patent. IMPRESSION: 1. Findings consistent with a nonspecific colitis, predominantly involving the left colon. No free ai r or abscess. 2. Moderately distended gallbladder. No adjacent stranding. Right upper quadrant ultrasound could be obtained for further evaluation. 3. Prominent ileocolic lymph nodes which are probably reactive. 4. Left-sided nephrolithiasis. ACT 112: Negative or not required by law. Electronically signed by: John Donnelly M.D. 09/24/2022 9:05 AM
[2022-09-24 09:07] LABS: Albumin Level 4.7 gm/dl (3.4-5.0); BUN Creatinine Ratio 7.9 (10-20); Bilirubin Direct 0.1 mg/dl (0-0.2); Bilirubin,Total 0.4 mg/dl (0.2-1.0); Calcium 9.5 mg/dl (8.5-10.1); Creatinine Clr Calc Pharmacy 72.8 ml/min; Est GFR (African American) 92.7 ml/min; Est GFR (Non-African American) 79.9 ml/min; Magnesium 1.8 mg/dl (1.7-2.4); Potassium 2.7 mmol/L (3.5-5.1); Total Protein 8.6 gm/dl (6.0-8.3)
[2022-09-24] MEDS ORDERED: POTASSIUM CHLORIDE / WTR 20 MEQ/100 ML PLCT IV ONE (09:09)
[2022-09-24 09:12] LABS: Troponin I High Sensitivity 4.9 pg/ml (0-14)
[2022-09-24 09:18] LABS: Procalcitonin 0.24 ng/ml (0-0.5)
[2022-09-24 09:39] LABS: Influenza A virus by PCR Negative (Neg); Influenza B virus by PCR Negative (Neg); RSV by PCR Negative (Neg); SARS CoV2 RNA(COVID-19) Ceph NEGATIVE (Negative)
[2022-09-24 09:42] LABS: Basophils # (auto) 0.04 K/uL (0-0.2); Basophils % (auto) 0.3 %; Eosinophils # (auto) 0.03 K/uL (0-0.50); Eosinophils % (auto) 0.3 %; Immature Granulocytes # (auto) 0.05 K/uL (0.01-0.20); Immature Granulocytes % (auto) 0.4 %; Lymphocytes # (auto) 0.98 K/uL (1.2-3.4); Lymphocytes % (auto) 8.6 %; Monocytes # (auto) 1.28 K/uL (0.11-0.59); Monocytes % (auto) 11.2 %; Neutrophils # (auto) 9.06 K/uL (1.40-6.50); Neutrophils % (auto) 79.2 %
[2022-09-24] MEDS ORDERED: METOCLOPRAMIDE HCL INJ 5 MG/ML 2 ML VIAL IV STA (09:45)
--- NOTE | 2022-09-24 10:21 | Electrocardiogram Report ---
Test Reason : Blood Pressure : / mmHG Vent. Rate : 149 BPM Atrial Rate : 149 BPM P-R Int : 120 ms QRS Dur : 086 ms QT Int : 322 ms P-R-T Axes : -09 026 044 degrees QTc Int : 507 ms Poor data quality, interpretation may be adversely affected Sinus tachycardia Abnormal ECG When compared with ECG of 10-JAN-2022 08:38, Vent. rate has increased BY [address] now depressed in Lateral leads T wave inversion now evident in Inferior leads T wave inversion now evident in Lateral leads Confirmed by Izaiah Bishop ([id number]) on 09/24/2022 10:21:01 AM Referred By: REFERRED SELF Confirmed By:Lit Bishop
[2022-09-24] MEDS: POTASSIUM CHLORIDE / WTR 10 MEQ/100 ML PLCT IV SCH ×6 (10:38→17:18)
[2022-09-24] MEDS ORDERED: POLYETHYLENE (MIRALAX) 17 GM PACK PO PRN (10:47)
[2022-09-24] MEDS ORDERED: ACETAMINOPHEN 325 MG TAB PO PRN (10:47)
[2022-09-24] MEDS ORDERED: ALUMINUM/MAGNESIUM SUSP 30 ML UDC PO PRN (10:47)
[2022-09-24] MEDS ORDERED: MAGNESIUM HYDROXIDE SUSP 30 ML UDC PO PRN (10:47)
--- NOTE | 2022-09-24 10:56 | History & Physical Report ---
Date of Service September 24, 2022 Assessment & Plan (1) Septic colitis: (2) Nausea & vomiting: (3) Diarrhea: (4) Hypokalemia: (5) Cough: (6) Asthma: (7) Headache: (8) Depression: (9) Anxiety: (10) Bipolar I disorder, single manic episode: Plan 41-year-old female came in with persistent nausea, vomiting, diarrhea and fevers. Treating for septic colitis. K+ 2.7 in ED. other history includes major depressive disorder generalized anxiety disorder PTSD. Sepsis colitis: Nausea and vomiting: Diarrhea: Febrile 101.3 at home. Liquid diarrhea No known sick contacts -Slight leukocytosis. WBC 11.44 -Stool PCR; rule out C. difficile or other organic organisms -Lactate 3.3 has trended down to 1.8 -Received 3L NSB in ED; continue 0.9% NS at 125 mL/h; reassess in a.m. -Clear liquid diet; advance as tolerated. Discontinue fluids as patient tolerates diet advancement -Unasyn started; will await cultures and adjust as necessary -Blood cultures pending Hypokalemia: -In setting of septic colitis -Potassium 2.7 in ED; received K rider x2 in ED; ordered another K rider x4; will trend BMP timed at 1800 Cough: -Persistent and nonproductive x3 weeks -CXR negative -Sputum Culture -Mucinex ordered -Procalcitonin negative Asthma: History of tobacco use: -Uses albuterol as needed at home -Recently quit smoking 3 years ago -Most recent PFT's 2017: FEV1 77 MDD Generalized Anxiety: PTSD: Bipolar Disorder: Follows with Psych in [place]; H/O SA, unknown date Reports med compliance; no SI now. Last inpatient treatment 2004 -Takes Duloxetine 120 mg PO daily; continue -Takes Seroquel 300 mg QHS; continue -Takes Aripiprozole 5 mg daily; continue -Takes Prazosin for nightmares; continue History of headache: Follows with Dr. Winters with Neurology Takes sumatriptan and at home as needed; continue Disposition: PCP: Dr. Guillermo Code Status: Full Code VTE Prophylaxis: Lovenox SQ A total of 86 minutes was spent with greater than 50% of that time personally reviewing all current laboratory work and diagnostic imaging studies obtained in the ED. Additionally, I was able to review the patients past medication reconciliation and history with direct visualization in the patients chart. Included in the time above, a portion of that time was spent assessing the patient while discussing and collaborating with specialists, if necessary, and making medical decisions regarding orders to be placed. All of the aforementioned completed while collaborating with Dr. Johnson for a full treatment plan. Please see his addendum for further details. History of Present Illness Chief Complaint: N/V/D Primary Care Provider: Ghazala Guillermo DO Ms. Diaz is a 41 year old female that presented to the [facility] with nausea, headaches, abdominal pain and vomiting. Pt reports that she has not been able to keep anything down with nausea and headaches. Fever noted 101.3. She reports liquid diarrhea without blood. She reports abdominal pain and cramping into her back. She threw up on Thursday, last ate solid food on Thursday. If she is not drinking, she vomits bile. The last time she urinated was yesterday; without dysuria or hematuria. No other sick contacts noted. She says it is her third week of being ill and r/o covid. She never felt full resolution of a cough that has been going on for approximately three weeks. Her congestion did improve, but her cough is still there. Pt denies dizziness, visual or auditory changes or recent sick contacts, hematochezia, recent falls or trauma. She reports that she is planning to have a colonoscopy done as an outpatient but after review of her EMR chart I do not see any documentation of this recommendation. Takes Tizanidine for neck pain; pain management Per review of EMR chart patient has a significant history of major depressive disorder, generalized anxiety disorder, PTSD and insomnia for which recent medication changes were made as outlined below. Pt quit smoking three years ago; prior was smoking 1PPD. Her most recent PFTs 2017 FEV1 77. Pt denies alcohol or recreational drug use. In the ED, pt was given IV fluids and K+ replacement. CXR negative. WBC 11.44, K+ 2.7. Normal renal function. Abdominal and pelvic CT: 1. Findings consistent with a nonspecific colitis, predominantly involving the left colon. No free air or abscess. 2. Moderately distended gallbladder. No adjacent stranding. Right upper quadrant ultrasound could be obtained for further evaluation. 3. Prominent ileocolic lymph nodes which are probably reactive. 4. Left-sided nephrolithiasis Per review of EMR chart patient has a significant history of major depressive disorder, generalized anxiety disorder, PTSD and insomnia for which recent medication changes were made as outlined below. Pt quit smoking three years ago; prior was smoking 1PPD. Her most recent PFTs 2017 FEV1 77. Pt denies alcohol or recreational drug use. Patient will be admitted for further evaluation and management. Please see A/P for further details. Allergies Allergy/AdvReac Type Severity Reaction Status Date / Time Sulfa (Sulfonamide Allergy Mild RASH, Verified 01/10/22 08:00 Antibiotics) NAUSEA Home Medications Medication Instructions Recorded Confirmed Type albuterol sulfate 90 mcg/actuation 2 puffs inhalation Q4H PRN 10/20/19 09/24/22 History aerosol inhaler Shortness Of Breath Or Wheezing tizanidine 4 mg tablet 4 mg PO Q6H PRN Muscle Spasm 01/14/20 09/24/22 History sumatriptan succinate 6 mg/0.5 mL 6 mg (0.5 mL) subcut DIRECTED 08/09/20 09/24/22 Rx subcutaneous solution (Imitrex) PRN migraine headache #3 mL loratadine 10 mg tablet (Claritin) 10 mg PO QAM 02/15/21 09/24/22 History omeprazole magnesium 20 mg 20 mg PO QAM 02/15/21 09/24/22 History tablet,delayed release (Prilosec OTC) suvorexant 10 mg tablet (Belsomra) 10 mg PO DAILY 01/10/22 09/24/22 History colestipol 1 gram tablet (Colestid) 1 g PO 09/24/22 History duloxetine 60 mg capsule,delayed 120 mg PO DAILY 09/24/22 09/24/22 History release sprinkle prazosin 2 mg capsule 2 mg PO HS 09/24/22 09/24/22 History quetiapine 300 mg tablet (Seroquel) 300 mg PO HS 09/24/22 09/24/22 History Past Med/Surg History Medical History Allergy-induced asthma NO INHALER USED FOR >YEAR Well controlled and stable Anxiety and depression Bipolar 1 disorder Cervical stenosis of spinal canal Dyslipidemia Fibromyalgia History of high blood pressure History of kidney stones NO SURGERY No current issues Hypertension IBS (irritable bowel syndrome) Combination of diarrhea and constipation Insomnia Lumbar pain Migraine Mood disorder Rheumatoid arthritis Followed with rheum in the past (follows only with PCP currently) Septic colitis Surgical History History of arthroscopy MULTIPLE RT/LEFT KNEE SCOPES History of bilateral tubal ligation History of endometrial ablation History of esophagogastroduodenoscopy (EGD) History of hysterectomy History of partial knee replacement RT History of tonsillectomy and adenoidectomy History of total knee replacement LEFT S/P colonoscopy S/P inguinal hernia repair S/P sinus surgery [place] teeth removed Family History Daughter Depression Allergies Grandmother (Paternal) Arthritis Grandfather (Paternal) Diabetes Arthritis Grandmother (Maternal) Diabetes Hypertension Grandfather (Maternal) Diabetes Hypertension Sister Kidney stones Hypertension Mother Thyroid disorder Other No family history of adverse response to anesthesia Social History Smoking Status: Former smoker Tobacco Type: Cigarettes Cigarettes Per Day: Quit 09/2019. Smoked 0.5-1ppd x 5 years; Second Hand Exposure: No; Hx Alcohol Use: No Hx Substance Use: No Preferred Language: Welsh Communication Ability: Effective Pumper Helper Required: No Beliefs That Will Affect Care: None marital status: Single Current Living Situation: Other Current Living Situation Comment: BOYFRIEND AND DAUGHTER current occupational status: disabled Other Information That Helps Us Care for You: No Feels Safe at Home: Yes Assistive Devices: None Review of Systems Review of Systems: Neuro: (-) Falls, trauma, slurred speech HEENT: (-) RIZO, dizziness, dysphagia, visual or auditory changes CV: (-) CP, palpitations, swelling Resp: (-) SOB GI: (+) appetite changes, N/V/D, bowel changes : (+) urinary changes; decreased urination Skin: (-) rashes Psych: (-) anxiety, depression Physical Exam Physical Exam: See Dr. Moss's physical exam for further details Results & Data Results & Data ([place]) Vital Signs (Past 12 Hours) Vital Signs Temp Pulse Resp BP Pulse Ox O2 Del Method 09/24/22 08:31 97 Room Air 09/24/22 08:08 137 H 09/24/22 07:42 36.2 C L 158 H 18 127/93 97 Room Air Laboratory Results Short CBC 09/24/22 Range/Units 08:07 WBC 11.44 H (4.8-10.8) K/ul Hgb 14.2 (12.0-16.0) g/dl Hct 40.7 (37.0-47.0) % Plt Count 386 (130-400) K/uL BMP 09/24/22 08:07 Sodium 134 L Potassium 2.7 L Chloride 102 Carbon Dioxide 19 L BUN 7 Creatinine 0.89 Glucose 227 H Calcium 9.5 Liver Function 09/24/22 Range/Units 08:07 Total Bilirubin 0.4 (0.2-1.0) mg/dl Direct Bilirubin 0.1 (0-0.2) mg/dl AST 13 (13-39) U/L ALT 16 (7-52) U/L Alkaline Phosphatase 112 H (34-104) U/L Albumin 4.7 (3.4-5.0) gm/dl Diagnostic Findings Abdomen/Pelvis CT 09/24/22 07:54 CT OF THE ABDOMEN AND PELVIS WITH CONTRAST CLINICAL HISTORY: Abdominal pain and fever. Tachycardia. COMPARISON STUDY: CT of the abdomen and pelvis May 21, 2022. TECHNIQUE: Following IV administration of 85 mL of Optiray, axial images of the abdomen and pelvis were obtained from the lung bases to the proximal femurs. Images were reviewed in the axial, sagittal, and coronal planes. IV contrast was administered without complication. Automated exposure control was utilized for the study. A dose lowering technique was utilized adhering to the principles of ALARA. CT DOSE: 1283.57 mGy.cm FINDINGS: Lung bases are unremarkable. No pneumatosis, free air or portal venous gas is present. There is hepatic steatosis. No biliary or pancreatic ductal dilatation is present. The gallbladder is moderately distended. There is no adjacent stranding. Spleen, adrenal glands and right kidney are normal. There is a 4 mm left renal calculus. Smaller left renal calculi are present. There are no ureteral calculi. There is no hydronephrosis. Note is made of mild wall thickening with pericolonic stranding involving the majority of the colon, but most pronounced within the mid to distal transverse colon, splenic flexure of the colon and the descending colon.. There is no abscess. The colon is also mildly fluid-filled. The appendix is normal. Prominent ileocolic lymph nodes measure up to 1.2 x 0.8 cm. Major vasculature is patent. IMPRESSION: 1. Findings consistent with a nonspecific colitis, predominantly involving the left colon. No free air or abscess. 2. Moderately distended gallbladder. No adjacent stranding. Right upper quadrant ultrasound could be obtained for further evaluation. 3. Prominent ileocolic lymph nodes which are probably reactive. 4. Left-sided nephrolithiasis. ACT 112: Negative or not required by law. Electronically signed by: John Donnelly M.D. 09/24/2022 9:05 AM Chest X-Ray 09/24/22 07:58 XR chest 1V portable CLINICAL HISTORY: Cough and fever. COMPARISON STUDY: Chest CT March 22, 2021. FINDINGS: Lung volumes are normal. Lungs are clear. There is no pneumothorax or pleural effusion. Cardiac size is normal. Mediastinal contours are normal. There is no evidence for pulmonary edema. IMPRESSION: No acute cardiopulmonary findings. ACT 112: Negative or not required by law. Electronically signed by: John Donnelly M.D. 09/24/2022 8:14 AM Code Status & VTE Plan Code Status Full Code in the event of cardiac or respiratory arrest VTE Prophylaxis Plan VTE Prophylaxis will be ordered: Yes Supervising Physician Co-Signing Physician Notes History and physical exam performed by me. History notable for 41-year-old woman who presents with nausea, vomiting, abdominal pain [chronic], watery diarrhea, fever that started 2 days ago. Also reports some dry cough, headache that has been ongoing for about 3 weeks. Reported sinus congestion is improved. On exam, General: No acute distress, obese Eyes: PERRL, conjunctivae normal, not pale, anicteric sclerae, EOM intact bilaterally ENMT: External ear and nose normal, moist oral mucosa Respiratory: Normal respiratory effort, no respiratory distress, lungs clear to auscultation, no crackles and no wheezes Cardiovascular: RRR S1 S2 Gastrointestinal (Abdomen): Abdomen is not distended, soft, mild generalized tenderness, no guarding, no palpable hepatosplenomegaly, normal bowel sounds Musculoskeletal: No pedal edema Genitourinary: No CVA tenderness Neurologic: Alert and oriented x 3, No focal weakness, sensation grossly intact Psychiatric: Euthymic affect Labs notable for WBC of 11.4, sodium of 134, potassium of 2.7, bicarb of 19, anion gap of 13, glucose of 227 lactate of 3.3 [improved to 1.8 with IV fluids], alkaline phosphatase of 112 Chest x-ray did not show any acute abnormality Abdominal CT noted nonspecific colitis predominant currently in the left colon, moderate distended gallbladder without adjacent stranding, left-sided nephrolithiasis without hydronephrosis. Sepsis; met SIRS criteria with tachycardia, tachypnea Colitis Intractable nausea vomiting Hypokalemia Metabolic acidosis likely due to GI losses Will use unasyn since QTc is 507 Got IVF bolus in ER Continue IVF Antiemetic Supportive care Replete K and recheck BMP and K this evening Clears for now Other plans as detailed by Netta SHELDON (2) Nausea & vomiting Vomiting type: unspecified Qualified Code(s): R11.2 - Nausea with vomiting, unspecified (3) Diarrhea Diarrhea type: unspecified type Qualified Code(s): R19.7 - Diarrhea, unspecified
[2022-09-24] MEDS ORDERED: tiZANidine HCL 4 MG TABLET PO PRN (12:30)
[2022-09-24] MEDS ORDERED: SUMAtriptan succinate 6 MG/0.5 ML VIAL SQ PRN (12:30)
[2022-09-24] MEDS ORDERED: ALBUTEROL HFA 8 GM INHALER INH PRN (12:30)
[2022-09-24] MEDS ORDERED: CIPROFLOXACIN / D5W 400 MG/200 ML BAG IV SCH (13:00)
[2022-09-24] MEDS: SODIUM CHLORIDE 0.9% 1000ML 1,000 ML IV SCH ×2 (13:09→21:33)
[2022-09-24] MEDS ORDERED: CEFEPIME 2,000 MG in SYRINGE 0 ML IV SCH (13:30)
[2022-09-24] MEDS ORDERED: AMPICILLIN/SULBACTAM SOD 3,000 MG in 0.9 % SODIUM CHLORIDE 100 ML IV SCH (14:00)
[2022-09-24 15:26] LABS: Appearance Urine Clear (Clear); Bacteria Urine Automated Negative (Negative); Bilirubin Urine Negative (Negative); Blood Urine 1+ (Negative); Cast Urine Automated 0 /lpf (0-5); Color Urine Yellow; Epithelial Cell Urine Auto >30 /lpf (0-5); Glucose Urine UA Negative (Negative); Ketones Urine Trace (Negative); Leukocyte Esterase Urine Negative (Negative); Nitrite Urine Negative (Negative); Protein Urine Trace (Negative); Specific Gravity Urine 1.026 (1.000-1.030); Urobilinogen Urine Negative (Negative); pH Urine 6.5 (4.5-7.5)
[2022-09-24] MEDS ORDERED: metroNIDAZOLE 500 MG/100 ML BAG IV SCH (16:00)
[2022-09-24 16:34] LABS: Adenovirus F 40/41 PCR Not Detected (NotDetected); Astrovirus PCR Not Detected (NotDetected); Campylobacter PCR Not Detected (NotDetected); Cryptosporidium PCR Not Detected (NotDetected); Cyclospora cayetanensis PCR Not Detected (NotDetected); Entamoeba histolytica PCR Not Detected (NotDetected); Enteroaggregative E.coli(EAEC) Not Detected (NotDetected); Enteropathogenic E.coli (EPEC) Not Detected (NotDetected); Enterotoxigenic E.coli (ETEC) Not Detected (NotDetected); Giardia lamblia PCR Not Detected (NotDetected); Norovirus GI/GII PCR Not Detected (NotDetected); Plesiomonas shigelloides PCR Not Detected (NotDetected); Rotavirus A PCR Not Detected (NotDetected); Sapovirus PCR Not Detected (NotDetected); Shiga-like Toxin E.coli (STEC) Not Detected (NotDetected); Shigella/Enteroinvasive E.coli Not Detected (NotDetected); Vibrio cholerae PCR Not Detected (NotDetected); Vibrio species PCR Not Detected (NotDetected); Yersinia enterocolitica PCR Not Detected (NotDetected)
[2022-09-24 18:05] LABS: Salmonella PCR DETECTED (NotDetected)
[2022-09-24] MEDS ORDERED: cefTRIAXone SODIUM 1,000 MG in DEXTROSE 5% AD-VAN 50 ML IV SCH (18:15)
[2022-09-24] MEDS: cefTRIAXone SODIUM 2,000 MG in DEXTROSE 5% 50 ML IV SCH (18:28)
[2022-09-24] MEDS: metroNIDAZOLE 500 MG/100 ML BAG IV SCH (18:30)
[2022-09-24 18:33] LABS: Potassium 3.6 mmol/L (3.5-5.1)
[2022-09-24 18:39] LABS: BUN Creatinine Ratio 7.9 (10-20); Creatinine Clr Calc Pharmacy 144.1 ml/min; Est GFR (African American) 128.2 ml/min; Est GFR (Non-African American) 110.6 ml/min
[2022-09-24] MEDS ORDERED: oxyCODONE HCL IR 5 MG TAB (IMMEDIATE RELEASE) PO PRN (20:05)
[2022-09-24] MEDS: QUEtiapine FUMARATE 300 MG TABLET PO SCH (20:34)
[2022-09-24] MEDS: PRAZOSIN HCL 1 MG CAP PO SCH (20:34)
[2022-09-24] MEDS: guaiFENesin 600 MG TABCR PO SCH (20:34)
[2022-09-25] MEDS: metroNIDAZOLE 500 MG/100 ML BAG IV SCH ×3 (03:19→17:49)
[2022-09-25] MEDS: SODIUM CHLORIDE 0.9% 1000ML 1,000 ML IV SCH ×3 (07:38→17:27)
[2022-09-25] MEDS: PROMETHAZINE HCL 12.5 MG in SODIUM CHLORIDE 0.9% 50 ML IV PRN ×2 (07:38→22:31)
[2022-09-25 08:08] LABS: BUN Creatinine Ratio 4.4 (10-20); Calcium 8.2 mg/dl (8.5-10.1); Creatinine Clr Calc Pharmacy 133.8 ml/min; Est GFR (Non-African American) 107.9 ml/min; Hemoglobin 10.8 g/dl (12.0-16.0); Mean Corpuscular Hemoglobin 29.8 pg (25.0-34.0); Mean Corpuscular Hgb Conc 33.8 g/dL (32.0-36.0); Mean Corpuscular Volume 88.4 fL (80.0-100.0); Mean Platelet Volume 9.7 fL (9.4-12.4); Platelet Count 288 K/uL (130-400); Potassium 2.7 mmol/L (3.5-5.1); RDW Coefficient of Variation 12.6 % (11.5-14.5); RDW Standard Deviation 40.7 fL (36.4-46.3); Red Blood Count 3.62 M/uL (4.20-5.40); White Blood Count 8.36 K/ul (4.8-10.8)
[2022-09-25] MEDS: LORATADINE 10 MG TAB PO SCH (08:08)
[2022-09-25] MEDS: DULoxetine HCL 60 MG CAP PO SCH (08:08)
[2022-09-25] MEDS: guaiFENesin 600 MG TABCR PO SCH ×2 (08:08→22:29)
[2022-09-25] MEDS: PANTOprazole 40 MG TAB PO SCH (08:09)
[2022-09-25] MEDS ORDERED: LORazepam 0.5 MG TAB PO PRN (08:13)
[2022-09-25] MEDS ORDERED: SODIUM CHLORIDE 0.9% 1000ML 500 ML IV ONE (08:15)
[2022-09-25] MEDS ORDERED: POTASSIUM CHLORIDE CRTAB 20 MEQ TABCR PO STA ×2 (08:16→16:32)
[2022-09-25] MEDS: POTASSIUM CHLORIDE / WTR 10 MEQ/100 ML PLCT IV SCH ×4 (08:31→12:35)
[2022-09-25 08:54] LABS: Magnesium 1.7 mg/dl (1.7-2.4)
--- NOTE | 2022-09-25 10:24 | Ultrasound Report ---
ULTRASOUND RIGHT UPPER QUADRANT ABDOMEN CLINICAL HISTORY: Right upper quadrant abdominal pain. COMPARISON STUDY: Abdominal CT dated 09/24/2022. TECHNIQUE: Real-time, grayscale, and color flow sonography of the right upper quadrant of the abdomen was performed. Images are reviewed in the transverse and longitudinal planes. FINDINGS: Liver: The liver is mildly enlarged and demonstrates heterogeneously increased echotexture indicating steatosis. There is no intrahepatic biliary ductal dilatation. The main portal vein is patent. Gallbladder: The gallbladder is distended but otherwise normal in appearance. No shadowing gallstones are identified. There is no gallbladder wall thickening or pericholecystic fluid. A sonographic Murp hy's sign is equivocal. The common bile duct measures up to 0.4 cm in diameter. Pancreas: Visualized portions of the pancreatic head and body are normal in appearance. Right kidney: Survey images of the right kidney demonstrate normal size and echotexture. There is no hydronephrosis. Ascites: None. IMPRESSION: 1. The gallbladder is distended but otherwise normal in appearance. No shadowing gallstones are iden tified and a sonographic Archibald's sign was equivocal. There is no convincing sonographic evidence of acute cholecystitis. If there is strong clinical concern a nuclear hepatobiliary scan should be consi dered. 2. There is no intra or extrahepatic biliary ductal dilatation. 3. Hepatic steatosis. ACT 112: Negative or not required by law. Electronically signed by: Prem Rao M.D. 09/25/2022 10:23 AM
[2022-09-25] MEDS: CEFDINIR 300 MG CAP PO SCH ×2 (12:13→22:29)
--- NOTE | 2022-09-25 13:30 | Surgery Consultation ---
Date of Consultation September 25, 2022 Assessment & Plan (1) Salmonella infection: This is a 41y F with a PMH depression, bipolar, IBS who presents to the [facility] ED on 09/24/22 with complaints of nausea/vomiting, fevers, and diarrhea. She underwent a CT scan that showed findings consistent with a nonspecific colitis, predominantly involving the left colon, along with a moderately distended gallbladder. Follow up with a RUQ US showed a distended gallbladder without stones and no findings concerning for acute cholecystitis. We have been consulted to rule out cholecystitis. On exam patient's abdomen is soft with generalized discomfort throughout, not specifically localized to the RUQ/epigastric regions. She is tachycardic to 120-130s. WBC 8 (11). LFTs normal. There is no convincing evidence of acute cholecystitis on imaging/history or examination. Symptoms are likely related to active salmonella infection and colitis findings. No contraindication to diet as tolerates from our standpoint. We will sign off at this time. Supervising Physician Co-Signing Physician Notes I personally saw and evaluated the patient with Mary Siddiqi PA-C and agree with the assessment and plan. 41-year-old female with colitis, Salmonella infection with distended gallbladder seen on imaging Her CT and ultrasound images were personally viewed by myself, no gallstones, no signs of acute cholecystitis Her pain is likely related to her colitis and Salmonella infection Surgery will sign off at this time please call with any questions or concerns History of Present Illness Attending Physician: Jefferson Cano MD History of Present Illness This is a 41y F with a PMH depression, bipolar, IBS who presents to the [facility] ED on 09/24/22 with complaints of nausea/vomiting and diarrhea.Patient says the diarrhea started last Thursday and has been severe. This was associated with fevers/chills, nausea/vomiting. She reports some abdominal pain along with this, maybe a little bit worse on her R side. Due to her symptoms she presented to the ER for further evaluation. She underwent a CT scan that showed findings consist ent with a nonspecific colitis, predominantly involving the left colon, along with a moderately distended gallbladder. Follow up with a RUQ US showed a distended gallbladder without stones and no findings concerning for acute cholecystitis. Patient has a past surgical history of , tubal ligation, exploratory surgery for prior history of pain, and what sounds like an inguinal hernia. Patient has no issue with eating fatty/greasy/spicy foods. Never had symptoms like this before. Allergies Allergy/AdvReac Type Severity Reaction Status Date / Time Sulfa (Sulfonamide Allergy Mild RASH, Verified 01/10/22 08:00 Antibiotics) NAUSEA Home Medications Medication Instructions Recorded Confirmed Type albuterol sulfate 90 mcg/actuation 2 puffs inhalation Q4H PRN 10/20/19 09/24/22 History aerosol inhaler Shortness Of Breath Or Wheezing tizanidine 4 mg tablet 4 mg PO Q6H PRN Muscle Spasm 01/14/20 09/24/22 History sumatriptan succinate 6 mg/0.5 mL 6 mg (0.5 mL) subcut DIRECTED 08/09/20 09/24/22 Rx subcutaneous solution (Imitrex) PRN migraine headache #3 mL loratadine 10 mg tablet (Claritin) 10 mg PO QAM 02/15/21 09/24/22 History omeprazole magnesium 20 mg 20 mg PO QAM 02/15/21 09/24/22 History tablet,delayed release (Prilosec OTC) suvorexant 10 mg tablet (Belsomra) 10 mg PO DAILY 01/10/22 09/24/22 History colestipol 1 gram tablet (Colestid) 1 g PO 09/24/22 History duloxetine 60 mg capsule,delayed 120 mg PO DAILY 09/24/22 09/24/22 History release sprinkle prazosin 2 mg capsule 2 mg PO HS 09/24/22 09/24/22 History quetiapine 300 mg tablet (Seroquel) 300 mg PO HS 09/24/22 09/24/22 History Patient History Medical History Allergy-induced asthma NO INHALER USED FOR >YEAR Well controlled and stable Anxiety and depression Bipolar 1 disorder Cervical stenosis of spinal canal Dyslipidemia Fibromyalgia History of high blood pressure History of kidney stones NO SURGERY No current issues Hypertension IBS (irritable bowel syndrome) Combination of diarrhea and constipation Insomnia Lumbar pain Migraine Mood disorder Rheumatoid arthritis Followed with rheum in the past (follows only with PCP currently) Septic colitis Surgical History History of arthroscopy MULTIPLE RT/LEFT KNEE SCOPES History of bilateral tubal ligation History of endometrial ablation History of esophagogastroduodenoscopy (EGD) History of hysterectomy History of partial knee replacement RT History of tonsillectomy and adenoidectomy History of total knee replacement LEFT S/P colonoscopy S/P inguinal hernia repair S/P sinus surgery [place] teeth removed Family History Daughter Depression Allergies Grandmother (Paternal) Arthritis Grandfather (Paternal) Diabetes Arthritis Grandmother (Maternal) Diabetes Hypertension Grandfather (Maternal) Diabetes Hypertension Sister Kidney stones Hypertension Mother Thyroid disorder Other No family history of adverse response to anesthesia Social History Smoking Status: Former smoker Tobacco Type: Cigarettes Cigarettes Per Day: Quit 09/2019. Smoked 0.5-1ppd x 5 years; Second Hand Exposure: No; Hx Alcohol Use: No Hx Substance Use: No Preferred Language: [place] Communication Ability: Effective Wardrobe Attendant Required: No Beliefs That Will Affect Care: None marital status: Single Current Living Situation: Other Current Living Situation Comment: BOYFRIEND AND DAUGHTER current occupational status: disabled Other Information That Helps Us Care for You: No Feels Safe at Home: Yes Assistive Devices: None Review of Systems Constitutional: awake/alert Respiratory: no dyspnea Gastrointestinal: + abdominal pain, + nausea, + vomiting and + diarrhea/loose stools; no blood in stools Physical Exam Physical Exam: awake/alert, no distress Respiratory: normal respiratory effort Gastrointestinal (Abdomen): Inspection/Auscultation: + abdominal surgical scar; abdomen not distended Percussion/Palpation: + abdomen tender (generali zed discomfort throughout the abdomen) and abdomen soft Results & Data ([facility]) Vital Signs (Past 12 Hours) Vital Signs Temp Pulse Pulse Resp BP Pulse Ox O2 Del Method 09/25/22 10:48 Room Air 09/25/22 10:52 36.7 C 128 H 20 149/83 H 98 Room Air 09/25/22 07:38 36.7 C 132 H 20 142/85 H 99 Room Air 09/25/22 07:03 134 H 09/25/22 03:39 37.6 C H 113 H 16 94/51 L 97 Room Air Diagnostic Findings CT OF THE ABDOMEN AND PELVIS WITH CONTRAST CLINICAL HISTORY: Abdominal pain and fever. Tachycardia. COMPARISON STUDY: CT of the abdomen and pelvis May 21, 2022. TECHNIQUE: Following IV administration of 85 mL of Optiray, axial images of the abdomen and pelvis were obtained from the lung bases to the proximal femurs. Images were reviewed in the axial, sagittal, and coronal planes. IV contrast was administered without complication. Automated exposure control was utilized for the study. A dose lowering technique was utilized adhering to the principles of ALARA. CT DOSE: 1283.57 mGy.cm FINDINGS: Lung bases are unremarkable. No pneumatosis, free air or portal venous gas is present. There is hepatic steatosis. No biliary or pancreatic ductal dilatation is present. The gallbladder is moderately distended. There is no adjacent stranding. Spleen, adrenal glands and right kidney are normal. There is a 4 mm left renal calculus. Smaller left renal calculi are present. There are no ureteral calculi. There is no hydronephrosis. Note is made of mild wall thickening with pericolonic stranding involving the majority of the colon, but most pronounced within the mid to distal transverse colon, splenic flexure of the colon and the descending colon.. There is no abscess. The colon is also mildly fluid-filled. The appendix is normal. Prominent ileocolic lymph nodes measure up to 1.2 x 0.8 cm. Major vasculature is patent. IMPRESSION: 1. Findings consistent with a nonspecific colitis, predominantly involving the left colon. No free air or abscess. 2. Moderately distended gallbladder. No adjacent stranding. Right upper quadrant ultrasound could be obtained for further evaluation. 3. Prominent ileocolic lymph nodes which are probably reactive. 4. Left-sided nephrolithiasis. ACT 112: Negative or not required by law. Electronically signed by: John Donnelly M.D. 09/24/2022 9:05 AM ULTRASOUND RIGHT UPPER QUADRANT ABDOMEN CLINICAL HISTORY: Right upper quadrant abdominal pain. COMPARISON STUDY: Abdominal CT dated 09/24/2022. TECHNIQUE: Real-time, grayscale, and color flow sonography of the right upper quadrant of the abdomen was performed. Images are reviewed in the transverse and longitudinal planes. FINDINGS: Liver: The liver is mildly enlarged and demonstrates heterogeneously increased echotexture indicating steatosis. There is no intrahepatic biliary ductal dilatation. The main portal vein is patent. Gallbladder: The gallbladder is distended but otherwise normal in appearance. No shadowing gallstones are identified. There is no gallbladder wall thickening or pericholecystic fluid. A sonographic Archibald's sign is equivocal. The common bile duct measures up to 0.4 cm in diameter. Pancreas: Visualized portions of the pancreatic head and body are normal in appearance. Right kidney: Survey images of the right kidney demonstrate normal size and echotexture. There is no hydronephrosis. Ascites: None. IMPRESSION: 1. The gallbladder is distended but otherwise normal in appearance. No shadowing gallstones are identified and a sonographic Archibald's sign was equivocal. There is no convincing sonographic evidence of acute cholecystitis. If there is strong clinical concern a nuclear hepatobiliary scan should be considered. 2. There is no intra or extrahepatic biliary ductal dilatation. 3. Hepatic steatosis. ACT 112: Negative or not required by law. Electronically signed by: Prem Rao M.D. 09/25/2022 10:23 AM PG Care Time/CCT Total # of Minutes Spent Total Time Spent with Patient: Total time spent is greater than 50% in coordination of care (as documented) at patient's floor/unit and/or counseling patient: Coding Level of Care Code 89268 INT INP/OBS CARE 1/40MIN Diagnoses Salmonella infection A02.9
--- NOTE | 2022-09-25 13:41 | Hospitalist Progress Note ---
Date of Service September 25, 2022 Assessment & Plan (1) Septic colitis: (2) Nausea & vomiting: (3) Diarrhea: (4) Hypokalemia: (5) Cough: (6) Asthma: (7) Headache: (8) Depression: (9) Anxiety: (10) Bipolar I disorder, single manic episode: Plan 41-year-old female came in with persistent nausea, vomiting, diarrhea and fevers. Treating for septic colitis. K+ 2.7 in ED. other history includes major depressive disorder generalized anxiety disorder PTSD. Sepsis, secondary to Colitis, Salmonella Nausea and vomiting: Diarrhea: Febrile 101.3 at home. Liquid diarrhea No known sick contacts -Slight leukocytosis. WBC 11.44 -Stool PCR; rule out C. difficile or other organic organisms -Lactate 3.3 has trended down to 1.8 -Received 3L NSB in ED; continue 0.9% NS at 125 mL/h; reassess in a.m. -Clear liquid diet; advance as tolerated. Discontinue fluids as patient tolerates diet advancement -Unasyn started; will await cultures and adjust as necessary -Blood cultures pending 09/25 still having persistent diarrhea will need PO antibiotic for colitis- cannot give Cipro/Azithro due to prolonged QT (repeat EKG pending), on Seroquel and Cymbalta, hypokalemia discussed with Pharmacist- will start Cefnidir PO ID consulted increase IV Fluids Questionable Cholecystitis? GB US: (+) distended GB, no wall thickening Gen Surg consulted continue Ceftri + Flagyl Hypokalemia: -In setting of septic colitis -Potassium 2.7 in ED; received K rider x2 in ED; ordered another K rider x4; will trend BMP timed at 1800 09/25 K rider and PO K repeat PRP 3pm Cough: -Persistent and nonproductive x3 weeks -CXR negative -Sputum Culture -Mucinex ordered -Procalcitonin negative 09/25 resolving Asthma: History of tobacco use: -Uses albuterol as needed at home -Recently quit smoking 3 years ago -Most recent PFT's 2017: FEV1 77 MDD Generalized Anxiety: PTSD: Bipolar Disorder: Follows with Psych in [place]; H/O SA, unknown date Reports med compliance; no SI now. Last inpatient treatment 2004 -Takes Duloxetine 120 mg PO daily; continue -Takes Seroquel 300 mg QHS; continue -Takes Aripiprozole 5 mg daily; continue -Takes Prazosin for nightmares; continue History of headache: Follows with Dr. Winters with Neurology Takes sumatriptan and at home as needed; continue Disposition: PCP: Dr. Guillermo Code Status: Full Code VTE Prophylaxis: Lovenox SQ Disposition: lives at home plan of care discussed with patient in detail and at length all questions answered she is understanding, agreeable, comfortable with the plan of care Admission and Anticipated Discharge Date Admission Date: September 24, 2022 Subjective ff up for Salmonella Colitis, etc seen resting in bed, not in distress states she is still having significant diarrhea- 5-6X this morning has intermittent abdominal cramping and nausea no fever/chills no chest pain, dyspnea, palpitations, dizziness no other symptoms Review of Systems Review of Systems: all noted and negative except for above Physical Exam Physical Exam: General- oriented x 3, not in distress, speaks in sentences with no effort or accessory muscle use Eyes- anicteric Neck- no JVD Lungs- clear breath sounds bilaterally, no rales/wheezes Heart- normal rate, regular rhythm; no murmurs Abdomen- hyperactive bowel sounds, nondistended, soft, (+) Archibald's sign? (+) mild abdominal tenderness Extremities- no pretibial edema, no calf tenderness Neuro- alert, oriented x 3; no gross focal neurologic deficits Skin- warm & dry Results & Data Results & Data ([facility]) Vital Signs (Past 12 Hours) Vital Signs Temp Pulse Pulse Resp BP Pulse Ox O2 Del Method 09/25/22 10:48 Room Air 09/25/22 10:52 36.7 C 128 H 20 149/83 H 98 Room Air 09/25/22 07:38 36.7 C 132 H 20 142/85 H 99 Room Air 09/25/22 07:03 134 H 09/25/22 03:39 37.6 C H 113 H 16 94/51 L 97 Room Air all noted and reviewed including below (2) Nausea & vomiting Vomiting type: unspecified Qualified Code(s): R11.2 - Nausea with vomiting, unspecified (3) Diarrhea Diarrhea type: unspecified type Qualified Code(s): R19.7 - Diarrhea, unspecified
[2022-09-25 15:38] LABS: BUN Creatinine Ratio 6.1 (10-20); Calcium 7.7 mg/dl (8.5-10.1); Creatinine Clr Calc Pharmacy 137.8 ml/min; Est GFR (African American) 126.3 ml/min; Potassium 3.3 mmol/L (3.5-5.1)
[2022-09-25] MEDS: cefTRIAXone SODIUM 2,000 MG in DEXTROSE 5% 50 ML IV SCH (17:48)
[2022-09-25] MEDS: QUEtiapine FUMARATE 300 MG TABLET PO SCH (22:29)
[2022-09-25] MEDS: PRAZOSIN HCL 1 MG CAP PO SCH (22:30)
[2022-09-26] MEDS: metroNIDAZOLE 500 MG/100 ML BAG IV SCH ×2 (04:10→11:12)
[2022-09-26] MEDS: SODIUM CHLORIDE 0.9% 1000ML 1,000 ML IV SCH ×2 (04:10→08:31)
[2022-09-26] MEDS: guaiFENesin 600 MG TABCR PO SCH ×2 (08:22→20:47)
[2022-09-26] MEDS: DULoxetine HCL 60 MG CAP PO SCH (08:22)
[2022-09-26] MEDS: LORATADINE 10 MG TAB PO SCH (08:22)
[2022-09-26] MEDS: PANTOprazole 40 MG TAB PO SCH (08:22)
[2022-09-26] MEDS: CEFDINIR 300 MG CAP PO SCH ×2 (08:22→20:46)
[2022-09-26 08:25] LABS: Albumin Globulin Ratio 1.2 (0.9-2); Albumin Level 3.7 gm/dl (3.4-5.0); BUN Creatinine Ratio 5.1 (10-20); Bilirubin,Total 0.2 mg/dl (0.2-1.0); Calcium 8.3 mg/dl (8.5-10.1); Est GFR (Non-African American) 113.1 ml/min; Magnesium 1.7 mg/dl (1.7-2.4); Potassium 2.8 mmol/L (3.5-5.1); Total Protein 6.7 gm/dl (6.0-8.3)
[2022-09-26] MEDS ORDERED: POTASSIUM CHLORIDE CRTAB 20 MEQ TABCR PO STA ×2 (09:57→14:21)
[2022-09-26] MEDS ORDERED: Nursing to Pharmacy Communication SCH ×2 (10:30→12:30)
[2022-09-26] MEDS ORDERED: SODIUM CHLORIDE 0.9% 1000ML 1,000 ML IV SCH (11:15)
--- NOTE | 2022-09-26 17:36 | Hospitalist Progress Note ---
Date of Service September 26, 2022 Assessment & Plan (1) Septic colitis: (2) Nausea & vomiting: (3) Diarrhea: (4) Hypokalemia: (5) Cough: (6) Asthma: (7) Headache: (8) Depression: (9) Anxiety: (10) Bipolar I disorder, single manic episode: Plan 41-year-old female came in with persistent nausea, vomiting, diarrhea and fevers. Treating for septic colitis. K+ 2.7 in ED. other history includes major depressive disorder generalized anxiety disorder PTSD. Sepsis, secondary to Colitis, Salmonella Nausea and vomiting: Diarrhea: Febrile 101.3 at home. Liquid diarrhea No known sick contacts -Slight leukocytosis. WBC 11.44 -Stool PCR; rule out C. difficile or other organic organisms -Lactate 3.3 has trended down to 1.8 -Received 3L NSB in ED; continue 0.9% NS at 125 mL/h; reassess in a.m. -Clear liquid diet; advance as tolerated. Discontinue fluids as patient tolerates diet advancement -Unasyn started; will await cultures and adjust as necessary -Blood cultures pending 09/25 still having persistent diarrhea will need PO antibiotic for colitis- cannot give Cipro/Azithro due to prolonged QT (repeat EKG pending), on Seroquel and Cymbalta, hypokalemia discussed with Pharmacist- will start Cefnidir PO ID consulted increase IV Fluids Questionable Cholecystitis? GB US: (+) distended GB, no wall thickening Gen Surg consulted continue Ceftri + Flagyl 09/26 Diarrhea improving Continue cefdinir p.o. plus ceftriaxone IV Cholecystitis unlikely, DC Flagyl Awaiting ID recommendations Continue IV fluids Hypokalemia: -In setting of septic colitis -Potassium 2.7 in ED; received K rider x2 in ED; ordered another K rider x4; will trend BMP timed at 1800 09/25 K rider and PO K repeat PRP 3pm 09/26 Continue with p.o. replacement Cough: -Persistent and nonproductive x3 weeks -CXR negative -Sputum Culture -Mucinex ordered -Procalcitonin negative 09/26 resolved Asthma: History of tobacco use: -Uses albuterol as needed at home -Recently quit smoking 3 years ago -Most recent PFT's 2017: FEV1 77 MDD Generalized Anxiety: PTSD: Bipolar Disorder: Follows with Psych in [place]; H/O SA, unknown date Reports med compliance; no SI now. Last inpatient treatment 2004 -Takes Duloxetine 120 mg PO daily; continue -Takes Seroquel 300 mg QHS; continue -Takes Aripiprozole 5 mg daily; continue -Takes Prazosin for nightmares; continue History of headache: Follows with Dr. Winters with Neurology Takes sumatriptan and at home as needed; continue Disposition: PCP: Dr. Guillermo Code Status: Full Code VTE Prophylaxis: Lovenox SQ Disposition: lives at home plan of care discussed with patient in detail and at length all questions answered she is understanding, agreeable, comfortable with the plan of care Admission and Anticipated Discharge Date Admission Date: September 24, 2022 Subjective Follow-up for septic colitis, Salmonella infection, etc. Patient seen sitting up in bed, in good spirits States she feels better compared to yesterday Diarrhea seems to be slowing down Abdominal cramping also much better No nausea or vomiting, tolerating regular diet well No fevers or chills No other symptom Review of Systems Review of Systems: all noted and negative except for above Physical Exam Physical Exam: General- oriented x 3, not in distress, speaks in sentences with no effort or accessory muscle use Eyes- anicteric Neck- no JVD Lungs- clear breath sounds bilaterally,No crackles or wheezing Heart- normal rate, regular rhythm; no murmurs Abdomen- Hyperactivebowel sounds, nondistended, soft, nontender Extremities- no pretibial edema, no calf tenderness Neuro- alert, oriented x 3; no gross focal neurologic deficits Skin- warm & dry Results & Data Results & Data ([facility]) Vital Signs (Past 12 Hours) Vital Signs Temp Pulse Pulse Resp BP Pulse Ox O2 Del Method 09/26/22 14:18 91 H 09/26/22 15:08 36.6 C 81 20 101/67 98 Room Air 09/26/22 11:09 36.4 C L 95 H 20 95/61 L 99 Room Air 09/26/22 07:34 36.6 C 99 H 20 145/91 H 100 Room Air all noted and reviewed including below (2) Nausea & vomiting Vomiting type: unspecified Qualified Code(s): R11.2 - Nausea with vomiting, unspecified (3) Diarrhea Diarrhea type: unspecified type Qualified Code(s): R19.7 - Diarrhea, unspecified
[2022-09-26] MEDS: cefTRIAXone SODIUM 2,000 MG in DEXTROSE 5% 50 ML IV SCH (17:45)
[2022-09-26] MEDS: QUEtiapine FUMARATE 300 MG TABLET PO SCH (20:47)
[2022-09-26] MEDS: PRAZOSIN HCL 1 MG CAP PO SCH (20:48)
[2022-09-27] MEDS: DULoxetine HCL 60 MG CAP PO SCH (08:09)
[2022-09-27] MEDS: PANTOprazole 40 MG TAB PO SCH (08:10)
[2022-09-27] MEDS: CEFDINIR 300 MG CAP PO SCH ×2 (08:10→21:18)
[2022-09-27] MEDS: LORATADINE 10 MG TAB PO SCH (08:10)
[2022-09-27] MEDS: guaiFENesin 600 MG TABCR PO SCH ×2 (08:10→21:19)
[2022-09-27 09:59] LABS: BUN Creatinine Ratio 3.3 (10-20); Calcium 8.9 mg/dl (8.5-10.1); Creatinine Clr Calc Pharmacy 151.4 ml/min; Est GFR (African American) 130.3 ml/min; Est GFR (Non-African American) 112.4 ml/min; Magnesium 1.8 mg/dl (1.7-2.4); Potassium 3.2 mmol/L (3.5-5.1)
[2022-09-27] MEDS ORDERED: POTASSIUM CHLORIDE CRTAB 20 MEQ TABCR PO STA (13:32)
--- NOTE | 2022-09-27 13:32 | Hospitalist Progress Note ---
Date of Service September 27, 2022 Assessment & Plan (1) Septic colitis: (2) Nausea & vomiting: (3) Diarrhea: (4) Hypokalemia: (5) Cough: (6) Asthma: (7) Headache: (8) Depression: (9) Anxiety: (10) Bipolar I disorder, single manic episode: Plan 41-year-old female came in with persistent nausea, vomiting, diarrhea and fevers. Treating for septic colitis. K+ 2.7 in ED. other history includes major depressive disorder generalized anxiety disorder PTSD. Sepsis, secondary to Colitis, Salmonella Nausea and vomiting: Diarrhea: Febrile 101.3 at home. Liquid diarrhea No known sick contacts -Slight leukocytosis. WBC 11.44 -Stool PCR; rule out C. difficile or other organic organisms -Lactate 3.3 has trended down to 1.8 -Received 3L NSB in ED; continue 0.9% NS at 125 mL/h; reassess in a.m. -Clear liquid diet; advance as tolerated. Discontinue fluids as patient tolerates diet advancement -Unasyn started; will await cultures and adjust as necessary -Blood cultures pending 09/25 still having persistent diarrhea will need PO antibiotic for colitis- cannot give Cipro/Azithro due to prolonged QT (repeat EKG pending), on Seroquel and Cymbalta, hypokalemia discussed with Pharmacist- will start Cefnidir PO ID consulted increase IV Fluids Questionable Cholecystitis? GB US: (+) distended GB, no wall thickening Gen Surg consulted continue Ceftri + Flagyl 09/26 Diarrhea improving Continue cefdinir p.o. plus ceftriaxone IV Cholecystitis unlikely, DC Flagyl Awaiting ID recommendations Continue IV fluids 09/27 diarrhea continues to improve continue Cefdinir PO + Ceftriaxone IV d/c IV fluids monitor Hypokalemia: -In setting of septic colitis -Potassium 2.7 in ED; received K rider x2 in ED; ordered another K rider x4; will trend BMP timed at 1800 09/25 K rider and PO K repeat PRP 3pm 09/26 Continue with p.o. replacement 09/07 K improving continue with replacement Cough: -Persistent and nonproductive x3 weeks -CXR negative -Sputum Culture -Mucinex ordered -Procalcitonin negative 09/27 resolved Asthma: History of tobacco use: -Uses albuterol as needed at home -Recently quit smoking 3 years ago -Most recent PFT's 2017: FEV1 77 MDD Generalized Anxiety: PTSD: Bipolar Disorder: Follows with Psych in [place]; H/O SA, unknown date Reports med compliance; no SI now. Last inpatient treatment 2004 -Takes Duloxetine 120 mg PO daily; continue -Takes Seroquel 300 mg QHS; continue -Takes Aripiprozole 5 mg daily; continue -Takes Prazosin for nightmares; continue History of headache: Follows with Dr. Winters with Neurology Takes sumatriptan and at home as needed; continue Disposition: PCP: Dr. Guillermo Code Status: Full Code VTE Prophylaxis: Lovenox SQ Disposition: lives at home plan of care discussed with patient in detail and at length all questions answered she is understanding, agreeable, comfortable with the plan of care Admission and Anticipated Discharge Date Admission Date: September 24, 2022 Subjective ff up for Salmonella colitis, etc seen resting in bed, comfortable sitting up in good spirits states she continues to feel better diarrhea continues to slow down- 2 so far minimal abdominal discomfort tolerating diet well no other symptoms Review of Systems Review of Systems: all noted and negative except for above Physical Exam Physical Exam: General- oriented x 3, not in distress, speaks in sentences with no effort or accessory muscle use Eyes- anicteric Neck- no JVD Lungs- clear breath sounds bilaterally, no rales/wheezes Heart- normal rate, regular rhythm; no murmurs Abdomen- normal bowel sounds, nondistended, soft, very mild tenderness all quadrants no Archibald's sign Extremities- no pretibial edema, no calf tenderness Neuro- alert, oriented x 3; no gross focal neurologic deficits Skin- warm & dry Results & Data Results & Data ([facility]) Vital Signs (Past 12 Hours) Vital Signs Temp Pulse Pulse Resp BP BP Pulse Ox 09/27/22 11:58 36.6 C 102 H 18 142/97 H 99 09/27/22 07:33 36.3 C L 82 18 146/70 H 100 09/27/22 07:20 70 09/27/22 04:24 36.5 C 102 H 18 150/92 H 97 O2 Del Method 09/27/22 11:58 Room Air 09/27/22 07:33 Room Air 09/27/22 07:20 09/27/22 04:24 Room Air all noted and reviewed including below (2) Nausea & vomiting Vomiting type: unspecified Qualified Code(s): R11.2 - Nausea with vomiting, unspecified (3) Diarrhea Diarrhea type: unspecified type Qualified Code(s): R19.7 - Diarrhea, unspecified
[2022-09-27] MEDS ORDERED: POTASSIUM CHLORIDE CRTAB 20 MEQ TABCR PO ONE (18:00)
[2022-09-27] MEDS: cefTRIAXone SODIUM 2,000 MG in DEXTROSE 5% 50 ML IV SCH (18:27)
[2022-09-27] MEDS: QUEtiapine FUMARATE 300 MG TABLET PO SCH (21:20)
[2022-09-27] MEDS: PRAZOSIN HCL 1 MG CAP PO SCH (21:20)
[2022-09-28] MEDS: PANTOprazole 40 MG TAB PO SCH (08:23)
[2022-09-28] MEDS: DULoxetine HCL 60 MG CAP PO SCH (08:23)
[2022-09-28] MEDS: LORATADINE 10 MG TAB PO SCH (08:23)
[2022-09-28] MEDS: CEFDINIR 300 MG CAP PO SCH (08:24)
[2022-09-28] MEDS: guaiFENesin 600 MG TABCR PO SCH ×2 (08:24→20:22)
[2022-09-28 08:42] LABS: Anion Gap 7 (3-11); BUN Creatinine Ratio 3.4 (10-20); Blood Urea Nitrogen 2 mg/dl (6-23); Calcium 8.9 mg/dl (8.5-10.1); Carbon Dioxide 23 mmol/L (21-32); Chloride 109 mmol/L (98-107); Est GFR (Non-African American) 113.1 ml/min; Glucose 98 mg/dl (70-99(Fasting)); Sodium 139 mmol/L (136-145)
[2022-09-28] MEDS ORDERED: POTASSIUM CHLORIDE CRTAB 20 MEQ TABCR PO STA (13:54)
--- NOTE | 2022-09-28 13:58 | Hospitalist Progress Note ---
Date of Service September 28, 2022 Assessment & Plan (1) Septic colitis: (2) Nausea & vomiting: (3) Diarrhea: (4) Hypokalemia: (5) Cough: (6) Asthma: (7) Headache: (8) Depression: (9) Anxiety: (10) Bipolar I disorder, single manic episode: Plan 41-year-old female came in with persistent nausea, vomiting, diarrhea and fevers. Treating for septic colitis. K+ 2.7 in ED. other history includes major depressive disorder generalized anxiety disorder PTSD. Sepsis, secondary to Colitis, Salmonella Nausea and vomiting: Diarrhea: Febrile 101.3 at home. Liquid diarrhea No known sick contacts -Slight leukocytosis. WBC 11.44 -Stool PCR; rule out C. difficile or other organic organisms -Lactate 3.3 has trended down to 1.8 -Received 3L NSB in ED; continue 0.9% NS at 125 mL/h; reassess in a.m. -Clear liquid diet; advance as tolerated. Discontinue fluids as patient tolerates diet advancement -Unasyn started; will await cultures and adjust as necessary -Blood cultures pending 09/25 still having persistent diarrhea will need PO antibiotic for colitis- cannot give Cipro/Azithro due to prolonged QT (repeat EKG pending), on Seroquel and Cymbalta, hypokalemia discussed with Pharmacist- will start Cefnidir PO ID consulted increase IV Fluids Questionable Cholecystitis? GB US: (+) distended GB, no wall thickening Gen Surg consulted continue Ceftri + Flagyl 09/26 Diarrhea improving Continue cefdinir p.o. plus ceftriaxone IV Cholecystitis unlikely, DC Flagyl Awaiting ID recommendations Continue IV fluids 09/27 diarrhea continues to improve continue Cefdinir PO + Ceftriaxone IV d/c IV fluids monitor 09/08 Still having some diarrhea today around 4 times DC IV ceftriaxone Continue cefdinir p.o. for now Check EKG, if QT corrected improves, possible transition to Cipro p.o. We will discuss with Rosalia ID Hypokalemia: -In setting of septic colitis -Potassium 2.7 in ED; received K rider x2 in ED; ordered another K rider x4; will trend BMP timed at 1800 09/25 K rider and PO K repeat PRP 3pm 09/26 Continue with p.o. replacement 09/07 K improving continue with replacement 09/28 Continue to replace with 14 mg p.o. twice daily Cough: -Persistent and nonproductive x3 weeks -CXR negative -Sputum Culture -Mucinex ordered -Procalcitonin negative 09/27 resolved Asthma: History of tobacco use: -Uses albuterol as needed at home -Recently quit smoking 3 years ago -Most recent PFT's 2017: FEV1 77 MDD Generalized Anxiety: PTSD: Bipolar Disorder: Follows with Psych in [place]; H/O SA, unknown date Reports med compliance; no SI now. Last inpatient treatment 2004 -Takes Duloxetine 120 mg PO daily; continue -Takes Seroquel 300 mg QHS; continue -Takes Aripiprozole 5 mg daily; continue -Takes Prazosin for nightmares; continue History of headache: Follows with Dr. Winters with Neurology Takes sumatriptan and at home as needed; continue Disposition: PCP: Dr. Guillermo Code Status: Full Code VTE Prophylaxis: Lovenox SQ Disposition: lives at home plan of care discussed with patient in detail and at length all questions answered she is understanding, agreeable, comfortable with the plan of care Admission and Anticipated Discharge Date Admission Date: September 24, 2022 Subjective Follow-up for Salmonella colitis, etc. Seen resting in bed, patient's daughter at the bedside visiting In good spirits States she still having diarrhea about 4 times so far today Abdominal pain has resolved No fevers or chills No other symptoms Review of Systems Review of Systems: all noted and negative except for above Physical Exam Physical Exam: General- oriented x 3, not in distress, speaks in sentences with no effort or accessory muscle use Eyes- anicteric Neck- no JVD Lungs- clear breath sounds BL Heart- normal rate, regular rhythm; no murmurs Abdomen- normal bowel sounds, nondistended, soft, nontender Extremities- no pretibial edema, no calf tenderness Neuro- alert, oriented x 3; no gross focal neurologic deficits Skin- warm & dry Results & Data Results & Data ([facility]) Vital Signs (Past 12 Hours) Vital Signs Temp Pulse Pulse Resp BP BP Pulse Ox 09/28/22 12:10 36.7 C 98 H 18 158/92 H 99 09/28/22 08:00 09/28/22 07:00 100 H 09/28/22 06:30 36.6 C 99 H 18 138/85 94 09/28/22 04:27 97 H 09/28/22 02:55 36.5 C 112 H 18 131/74 131/74 96 O2 Del Method 09/28/22 12:10 Room Air 09/28/22 08:00 Room Air 09/28/22 07:00 09/28/22 06:30 Room Air 09/28/22 04:27 09/28/22 02:55 Room Air all noted and reviewed including below (2) Nausea & vomiting Vomiting type: unspecified Qualified Code(s): R11.2 - Nausea with vomiting, unspecified (3) Diarrhea Diarrhea type: unspecified type Qualified Code(s): R19.7 - Diarrhea, unspecified
[2022-09-28] MEDS ORDERED: CIPROFLOXACIN 500 MG TAB PO STA (15:01)
[2022-09-28] MEDS: PRAZOSIN HCL 1 MG CAP PO SCH (20:22)
[2022-09-28] MEDS: QUEtiapine FUMARATE 300 MG TABLET PO SCH (20:22)
[2022-09-28] MEDS: POTASSIUM CHLORIDE CRTAB 20 MEQ TABCR PO SCH (20:22)
[2022-09-28] MEDS ORDERED: CIPROFLOXACIN 500 MG TAB PO ONE (23:59)
[2022-09-29] MEDS: guaiFENesin 600 MG TABCR PO SCH ×2 (08:38→22:08)
[2022-09-29] MEDS: LORATADINE 10 MG TAB PO SCH (08:38)
[2022-09-29] MEDS: PANTOprazole 40 MG TAB PO SCH (08:38)
[2022-09-29] MEDS: DULoxetine HCL 60 MG CAP PO SCH (08:38)
[2022-09-29] MEDS: POTASSIUM CHLORIDE CRTAB 20 MEQ TABCR PO SCH ×2 (08:43→22:07)
[2022-09-29 09:19] LABS: Basophils # (auto) 0.08 K/uL (0-0.2); Basophils % (auto) 1.1 %; Eosinophils # (auto) 0.11 K/uL (0-0.50); Eosinophils % (auto) 1.5 %; Hematocrit (blood only) 32.6 % (37.0-47.0); Hemoglobin 10.9 g/dl (12.0-16.0); Immature Granulocytes # (auto) 0.21 K/uL (0.01-0.20); Immature Granulocytes % (auto) 2.9 %; Lymphocytes # (auto) 2.21 K/uL (1.2-3.4); Lymphocytes % (auto) 30.2 %; Mean Corpuscular Hemoglobin 29.7 pg (25.0-34.0); Mean Corpuscular Hgb Conc 33.4 g/dL (32.0-36.0); Mean Corpuscular Volume 88.8 fL (80.0-100.0); Mean Platelet Volume 9.2 fL (9.4-12.4); Monocytes # (auto) 0.53 K/uL (0.11-0.59); Monocytes % (auto) 7.2 %; Neutrophils # (auto) 4.19 K/uL (1.40-6.50); Neutrophils % (auto) 57.1 %; Platelet Count 417 K/uL (130-400); RDW Coefficient of Variation 12.4 % (11.5-14.5); RDW Standard Deviation 40.6 fL (36.4-46.3); Red Blood Count 3.67 M/uL (4.20-5.40); White Blood Count 7.33 K/ul (4.8-10.8)
[2022-09-29] MEDS: ADVANCED PROBIOTIC 1250 MG CAPSULE PO SCH (09:30)
[2022-09-29 09:37] LABS: Albumin Globulin Ratio 1.3 (0.9-2); Albumin Level 3.8 gm/dl (3.4-5.0); BUN Creatinine Ratio 6.5 (10-20); Bilirubin,Total 0.2 mg/dl (0.2-1.0); Calcium 9.1 mg/dl (8.5-10.1); Creatinine Clr Calc Pharmacy 148.4 ml/min; Est GFR (African American) 128.9 ml/min; Est GFR (Non-African American) 111.2 ml/min; Magnesium 1.7 mg/dl (1.7-2.4); Potassium 3.5 mmol/L (3.5-5.1); Total Protein 6.8 gm/dl (6.0-8.3)
[2022-09-29] MEDS: CHOLESTYRAMINE LIGHT 4 GM PKT PO SCH ×2 (10:46→23:15)
--- NOTE | 2022-09-29 12:27 | Electrocardiogram Report ---
Test Reason : Blood Pressure : / mmHG Vent. Rate : 069 BPM Atrial Rate : 069 BPM P-R Int : 144 ms QRS Dur : 084 ms QT Int : 426 ms P-R-T Axes : 034 039 020 degrees QTc Int : 456 ms Normal sinus rhythm Normal ECG When compared with ECG of 26-SEP-2022 16:26, (unconfirmed) No significant change was found Confirmed by Mark Anthony Lucas ([id number]) on 09/29/2022 12:27:40 PM Referred By: REFERRED SELF Confirmed By:Mark Anthony Lucas
--- NOTE | 2022-09-29 12:42 | Electrocardiogram Report ---
Test Reason : Blood Pressure : / mmHG Vent. Rate : 082 BPM Atrial Rate : 082 BPM P-R Int : 120 ms QRS Dur : 086 ms QT Int : 402 ms P-R-T Axes : 025 029 028 degrees QTc Int : 469 ms Normal sinus rhythm with sinus arrhythmia Normal ECG When compared with ECG of 28-SEP-2022 14:14, (unconfirmed) No significant change was found Confirmed by Mark Anthony Lucas ([id number]) on 09/29/2022 12:41:53 PM Referred By: REFERRED SELF Confirmed By:Mark Anthony Lucas
--- NOTE | 2022-09-29 15:16 | Hospitalist Progress Note ---
Date of Service September 29, 2022 Assessment & Plan (1) Septic colitis: (2) Nausea & vomiting: (3) Diarrhea: (4) Hypokalemia: (5) Cough: (6) Asthma: (7) Headache: (8) Depression: (9) Anxiety: (10) Bipolar I disorder, single manic episode: Plan 41-year-old female came in with persistent nausea, vomiting, diarrhea and fevers. Treating for septic colitis. K+ 2.7 in ED. other history includes major depressive disorder generalized anxiety disorder PTSD. Sepsis, secondary to Colitis, Salmonella Nausea and vomiting: Diarrhea: Febrile 101.3 at home. Liquid diarrhea No known sick contacts -Slight leukocytosis. WBC 11.44 -Stool PCR; rule out C. difficile or other organic organisms -Lactate 3.3 has trended down to 1.8 -Received 3L NSB in ED; continue 0.9% NS at 125 mL/h; reassess in a.m. -Clear liquid diet; advance as tolerated. Discontinue fluids as patient tolerates diet advancement -Unasyn started; will await cultures and adjust as necessary -Blood cultures pending 09/25 still having persistent diarrhea will need PO antibiotic for colitis- cannot give Cipro/Azithro due to prolonged QT (repeat EKG pending), on Seroquel and Cymbalta, hypokalemia discussed with Pharmacist- will start Cefnidir PO ID consulted increase IV Fluids Questionable Cholecystitis? GB US: (+) distended GB, no wall thickening Gen Surg consulted continue Ceftri + Flagyl 09/26 Diarrhea improving Continue cefdinir p.o. plus ceftriaxone IV Cholecystitis unlikely, DC Flagyl Awaiting ID recommendations Continue IV fluids 09/27 diarrhea continues to improve continue Cefdinir PO + Ceftriaxone IV d/c IV fluids monitor 09/28 Still having some diarrhea today around 4 times DC IV ceftriaxone Continue cefdinir p.o. for now Check EKG, if QT corrected improves, possible transition to Cipro p.o. We will discuss with Rosalia ID 09/29 Reports stools are getting more formed now, but still having frequent bowel movements Repeat stool PCR, including C. difficile Continue Cipro 500 mg p.o. twice daily day #2 QT corrected okay Monitor closely Hypokalemia: -In setting of septic colitis -Potassium 2.7 in ED; received K rider x2 in ED; ordered another K rider x4; will trend BMP timed at 1800 09/25 K rider and PO K repeat PRP 3pm 09/26 Continue with p.o. replacement 09/07 K improving continue with replacement 09/28 Continue to replace with 14 mg p.o. twice daily 09/29 Potassium 3.5 Continue potassium twice a day Cough: -Persistent and nonproductive x3 weeks -CXR negative -Sputum Culture -Mucinex ordered -Procalcitonin negative 09/27 resolved Asthma: History of tobacco use: -Uses albuterol as needed at home -Recently quit smoking 3 years ago -Most recent PFT's 2017: FEV1 77 MDD Generalized Anxiety: PTSD: Bipolar Disorder: Follows with Psych in [place]; H/O SA, unknown date Reports med compliance; no SI now. Last inpatient treatment 2004 -Takes Duloxetine 120 mg PO daily; continue -Takes Seroquel 300 mg QHS; continue -Takes Aripiprozole 5 mg daily; continue -Takes Prazosin for nightmares; continue History of headache: Follows with Dr. Winters with Neurology Takes sumatriptan and at home as needed; continue Disposition: PCP: Dr. Guillermo Code Status: Full Code VTE Prophylaxis: Lovenox SQ Disposition: lives at home plan of care discussed with patient in detail and at length all questions answered she is understanding, agreeable, comfortable with the plan of care Admission and Anticipated Discharge Date Admission Date: September 24, 2022 Subjective ff up for Salmonella colitis, sepsis, etc. Seen sitting up in bed, comfortable, in good spirits States that she has had 3-4 bowel movements so far, but stool consistency is improving, getting more formed No abdominal pain, nausea or vomiting No other symptom Review of Systems Review of Systems: all noted and negative except for above Physical Exam Physical Exam: General- oriented x 3, not in distress, speaks in sentences with no effort or accessory muscle use Eyes- anicteric Neck- no JVD Lungs- clear breath sounds bilaterally, no rales/wheezes Heart- normal rate, regular rhythm; no murmurs Abdomen- normal bowel sounds, nondistended, soft, no tenderness Extremities- no pretibial edema, no calf tenderness Neuro- alert, oriented x 3; no gross focal neurologic deficits Skin- warm & dry Results & Data Results & Data ([facility]) Vital Signs (Past 12 Hours) Vital Signs Temp Pulse Pulse Resp BP Pulse Ox O2 Del Method 09/29/22 11:41 36.5 C 58 L 16 127/83 97 Room Air 09/29/22 09:52 79 09/29/22 07:27 36.3 C L 79 18 130/73 98 Room Air (2) Nausea & vomiting Vomiting type: unspecified Qualified Code(s): R11.2 - Nausea with vomiting, unspecified (3) Diarrhea Diarrhea type: unspecified type Qualified Code(s): R19.7 - Diarrhea, unspecified
[2022-09-29 21:13] LABS: Adenovirus F 40/41 PCR Not Detected (NotDetected); Astrovirus PCR Not Detected (NotDetected); Campylobacter PCR Not Detected (NotDetected); Cryptosporidium PCR Not Detected (NotDetected); Cyclospora cayetanensis PCR Not Detected (NotDetected); Entamoeba histolytica PCR Not Detected (NotDetected); Enteroaggregative E.coli(EAEC) Not Detected (NotDetected); Enteropathogenic E.coli (EPEC) Not Detected (NotDetected); Enterotoxigenic E.coli (ETEC) Not Detected (NotDetected); Giardia lamblia PCR Not Detected (NotDetected); Norovirus GI/GII PCR Not Detected (NotDetected); Plesiomonas shigelloides PCR Not Detected (NotDetected); Rotavirus A PCR Not Detected (NotDetected); Salmonella PCR Not Detected (NotDetected); Sapovirus PCR Not Detected (NotDetected); Shiga-like Toxin E.coli (STEC) Not Detected (NotDetected); Shigella/Enteroinvasive E.coli Not Detected (NotDetected); Vibrio cholerae PCR Not Detected (NotDetected); Vibrio species PCR Not Detected (NotDetected); Yersinia enterocolitica PCR Not Detected (NotDetected)
[2022-09-29] MEDS: QUEtiapine FUMARATE 300 MG TABLET PO SCH (22:07)
[2022-09-29] MEDS: PRAZOSIN HCL 1 MG CAP PO SCH (22:08)
[2022-09-30] MEDS: DULoxetine HCL 60 MG CAP PO SCH (08:27)
[2022-09-30] MEDS: LORATADINE 10 MG TAB PO SCH (08:27)
[2022-09-30] MEDS: POTASSIUM CHLORIDE CRTAB 20 MEQ TABCR PO SCH (08:27)
[2022-09-30] MEDS: guaiFENesin 600 MG TABCR PO SCH (08:27)
[2022-09-30] MEDS: ADVANCED PROBIOTIC 1250 MG CAPSULE PO SCH (08:27)
[2022-09-30] MEDS: PANTOprazole 40 MG TAB PO SCH (08:27)
[2022-09-30 10:04] LABS: BUN Creatinine Ratio 8.3 (10-20); Calcium 9.5 mg/dl (8.5-10.1); Creatinine Clr Calc Pharmacy 127.4 ml/min; Est GFR (African American) 119.7 ml/min; Est GFR (Non-African American) 103.3 ml/min; Magnesium 1.8 mg/dl (1.7-2.4); Potassium 4.4 mmol/L (3.5-5.1)
--- NOTE | 2022-09-30 10:25 | Hospitalist Progress Note ---
Date of Service September 30, 2022 Assessment & Plan (1) Septic colitis: (2) Nausea & vomiting: (3) Diarrhea: (4) Hypokalemia: (5) Cough: (6) Asthma: (7) Headache: (8) Depression: (9) Anxiety: (10) Bipolar I disorder, single manic episode: Plan 41-year-old female came in with persistent nausea, vomiting, diarrhea and fevers. Treating for septic colitis. K+ 2.7 in ED. other history includes major depressive disorder generalized anxiety disorder PTSD. Sepsis, secondary to Colitis, Salmonella Nausea and vomiting: Diarrhea: Febrile 101.3 at home. Liquid diarrhea No known sick contacts -Slight leukocytosis. WBC 11.44 -Stool PCR; rule out C. difficile or other organic organisms -Lactate 3.3 has trended down to 1.8 -Received 3L NSB in ED; continue 0.9% NS at 125 mL/h; reassess in a.m. -Clear liquid diet; advance as tolerated. Discontinue fluids as patient tolerates diet advancement -Unasyn started; will await cultures and adjust as necessary -Blood cultures pending 09/25 still having persistent diarrhea will need PO antibiotic for colitis- cannot give Cipro/Azithro due to prolonged QT (repeat EKG pending), on Seroquel and Cymbalta, hypokalemia discussed with Pharmacist- will start Cefnidir PO ID consulted increase IV Fluids Questionable Cholecystitis? GB US: (+) distended GB, no wall thickening Gen Surg consulted continue Ceftri + Flagyl 09/26 Diarrhea improving Continue cefdinir p.o. plus ceftriaxone IV Cholecystitis unlikely, DC Flagyl Awaiting ID recommendations Continue IV fluids 09/27 diarrhea continues to improve continue Cefdinir PO + Ceftriaxone IV d/c IV fluids monitor 09/28 Still having some diarrhea today around 4 times DC IV ceftriaxone Continue cefdinir p.o. for now Check EKG, if QT corrected improves, possible transition to Cipro p.o. We will discuss with Rosalia ID 09/29 Reports stools are getting more formed now, but still having frequent bowel movements Repeat stool PCR, including C. difficile Continue Cipro 500 mg p.o. twice daily day #2 QT corrected okay Monitor closely Hypokalemia: -In setting of septic colitis -Potassium 2.7 in ED; received K rider x2 in ED; ordered another K rider x4; will trend BMP timed at 1800 09/25 K rider and PO K repeat PRP 3pm 09/26 Continue with p.o. replacement 09/07 K improving continue with replacement 09/28 Continue to replace with 14 mg p.o. twice daily 09/29 Potassium 3.5 Continue potassium twice a day Cough: -Persistent and nonproductive x3 weeks -CXR negative -Sputum Culture -Mucinex ordered -Procalcitonin negative 09/27 resolved Asthma: History of tobacco use: -Uses albuterol as needed at home -Recently quit smoking 3 years ago -Most recent PFT's 2017: FEV1 77 MDD Generalized Anxiety: PTSD: Bipolar Disorder: Follows with Psych in [place]; H/O SA, unknown date Reports med compliance; no SI now. Last inpatient treatment 2004 -Takes Duloxetine 120 mg PO daily; continue -Takes Seroquel 300 mg QHS; continue -Takes Aripiprozole 5 mg daily; continue -Takes Prazosin for nightmares; continue History of headache: Follows with Dr. Winters with Neurology Takes sumatriptan and at home as needed; continue Disposition: PCP: Dr. Guillermo Code Status: Full Code VTE Prophylaxis: Lovenox SQ Disposition: lives at home plan of care discussed with patient in detail and at length all questions answered she is understanding, agreeable, comfortable with the plan of care Admission and Anticipated Discharge Date Admission Date: September 24, 2022 Results & Data Results & Data ([facility]) Vital Signs (Past 12 Hours) Vital Signs Temp Pulse Pulse Resp BP Pulse Ox O2 Del Method 09/30/22 08:18 36.5 C 64 20 102/67 97 Room Air 09/30/22 07:04 78 09/30/22 04:00 36.6 C 84 18 121/78 96 Room Air 09/29/22 23:25 36.7 C 88 18 119/74 97 Room Air 09/29/22 23:22 98 H (2) Nausea & vomiting Vomiting type: unspecified Qualified Code(s): R11.2 - Nausea with vomiting, unspecified (3) Diarrhea Diarrhea type: unspecified type Qualified Code(s): R19.7 - Diarrhea, unspecified
[2022-09-30] MEDS: CHOLESTYRAMINE LIGHT 4 GM PKT PO SCH (10:45)
--- NOTE | 2022-09-30 14:45 | Electrocardiogram Report ---
Test Reason : Blood Pressure : / mmHG Vent. Rate : 066 BPM Atrial Rate : 066 BPM P-R Int : 124 ms QRS Dur : 092 ms QT Int : 424 ms P-R-T Axes : 021 025 026 degrees QTc Int : 444 ms Normal sinus rhythm Normal ECG When compared with ECG of 29-SEP-2022 09:27, No significant change was found Confirmed by Mark Anthony Lucas ([id number]) on 09/30/2022 2:44:54 PM Referred By: REFERRED SELF Confirmed By:Mark Anthony Lucas
== END 2022-09-30 12:31 | disposition home or self-care (01) | DRG 872 ==
LOC: ED 07:36 → SUATTDRO 10:47 → 2N 10:47

== ENCOUNTER 2023-02-23 10:27 | Observation (INO) ==
[2023-02-23] MEDS ORDERED: SODIUM CHLORIDE 0.9% 1000ML 2,000 ML IV ONE (11:32)
[2023-02-23] MEDS ORDERED: FAMOTIDINE 20MG IV PUSH 20 MG/5 ML SYR IV STA (11:33)
[2023-02-23] MEDS ORDERED: ONDANSETRON INJ 2 MG/ML 2 ML VIAL IV STA (11:33)
[2023-02-23] MEDS ORDERED: PIPERACILLIN/TAZOBACTAM 4.5 GM/120 ML BAG IV ONE (11:36)
--- NOTE | 2023-02-23 11:36 | Electrocardiogram Report ---
Test Reason : Blood Pressure : / mmHG Vent. Rate : 124 BPM Atrial Rate : 124 BPM P-R Int : 128 ms QRS Dur : 080 ms QT Int : 330 ms P-R-T Axes : 034 050 010 degrees QTc Int : 474 ms Sinus tachycardia Diffuse Minor Nonspecific ST and T wave abnormality Abnormal ECG When compared with ECG of 05-JAN-2023 08:34, Nonspecific T wave abnormality now evident in Anterolateral leads Confirmed by Osvaldo Lord ([id number]) on 02/23/2023 11:36:04 AM Referred By: Confirmed By:Osvaldo Lord
[2023-02-23 11:47] LABS: BUN Creatinine Ratio 8.8 (10-20); Calcium 8.6 mg/dl (8.6-10.3); Est GFR (African American) 54.6 ml/min; Est GFR (Non-African American) 47.1 ml/min; Potassium 2.9 mmol/L (3.5-5.1)
[2023-02-23 11:49] LABS: Hematocrit (blood only) 32.9 % (37.0-47.0); Hemoglobin 11.1 g/dl (12.0-16.0); Mean Corpuscular Hemoglobin 29.8 pg (25.0-34.0); Mean Corpuscular Hgb Conc 33.7 g/dL (32.0-36.0); Mean Corpuscular Volume 88.2 fL (80.0-100.0); Mean Platelet Volume 9.8 fL (9.4-12.4); Platelet Count 385 K/uL (130-400); RDW Coefficient of Variation 12.9 % (11.5-14.5); RDW Standard Deviation 41.5 fL (36.4-46.3); Red Blood Count 3.73 M/uL (4.20-5.40); White Blood Count 30.05 K/ul (4.8-10.8)
--- NOTE | 2023-02-23 11:55 | XRay Report ---
XR chest 1V portable HISTORY: Sepsis COMPARISON: Chest 12/01/2022. FINDINGS: Interval development of a left upper lobe airspace opacity measuring approximately 10 cm. T his is consistent with a pneumonia. No pneumothorax. No pleural effusions. The heart is normal in siz e. No evidence for pulmonary edema. There are low lung volumes. IMPRESSION: There is a new left upper lobe airspace opacity consistent with a pneumonia. ACT 112: Negative or not required by law. Electronically signed by: Diego Cheng M.D. 02/23/2023 11:54 AM
[2023-02-23 11:58] LABS: INR 1.3 (0.9-1.1); Partial Thromboplastin Ratio 1.2; Partial Thromboplastin Time 34.5 Seconds (21.0-31.0); Prothrombin Time 14.1 Seconds (9.0-12.0)
[2023-02-23 11:59] LABS: Basophils # (auto) 0.07 K/uL (0-0.2); Basophils % (auto) 0.2 %; Dohle Bodies 1+; Eosinophils # (auto) 0.05 K/uL (0-0.50); Eosinophils % (auto) 0.2 %; Immature Granulocytes # (auto) 1.99 K/uL (0.01-0.20); Immature Granulocytes % (auto) 6.6 %; Lymphocytes # (auto) 1.24 K/uL (1.2-3.4); Lymphocytes % (auto) 4.1 %; Monocytes # (auto) 1.61 K/uL (0.11-0.59); Monocytes % (auto) 5.4 %; Neutrophils # (auto) 25.09 K/uL (1.40-6.50); Neutrophils % (auto) 83.5 %
[2023-02-23] MEDS: POTASSIUM CHLORIDE / WTR 10 MEQ/100 ML PLCT IV SCH ×2 (12:10→15:18)
[2023-02-23 12:21] LABS: Albumin Globulin Ratio 1.2 (0.9-2); Albumin Level 3.9 gm/dl (3.4-5.0); Bilirubin,Total 0.7 mg/dl (0.2-1.0); Globulin 3.2 gm/dl (2.5-4.0); Magnesium 0.9 mg/dl (1.7-2.4); Phosphorus 3.4 mg/dl (2.5-4.9); Total Protein 7.1 gm/dl (6.0-8.3)
[2023-02-23] MEDS ORDERED: IOVERSOL 350 MG 125mL Prefilled Syringe IV ONE (12:47)
[2023-02-23] MEDS: MAGNESIUM SULFATE / D5W 1 GM/100 ML BAG IV SCH ×5 (12:56→23:35)
--- NOTE | 2023-02-23 12:59 | CT Scan Report ---
CT OF THE ABDOMEN AND PELVIS WITH CONTRAST CLINICAL HISTORY: Abdominal distention, vomiting. COMPARISON STUDY: CT of the abdomen and pelvis August 07, 2022. TECHNIQUE: Following IV administration of 120 mL of Optiray, axial images of the abdomen and pelvis w ere obtained from the lung bases to the proximal femurs. Images were reviewed in the axial, sagittal, and coronal planes. IV contrast was administered without complication. Automated exposure control w as utilized for the study. A dose lowering technique was utilized adhering to the principles of ALAR A. FINDINGS: Please note that the chest CT will be reported separately. Left upper lobe pneumonia is bet ter depicted on the chest CT. There is a trace right pleural effusion. No pneumatosis, free air or po rtal venous gas is present. There is hepatic steatosis and hepatomegaly. The adrenal glands, right ki dney and pancreas are unremarkable. This exam is compromised by motion artifact. The gallbladder is m ildly distended. There is no adjacent infiltration. A 5 mm left renal calculus is present. There are no ureteral calculi. There is no hydronephrosis. There is no evidence for a bowel obstruction. The ap pendix is normal. There is no lymphadenopathy or ascites. No fluid collections are present. Major vas culature is patent. IMPRESSION: 1. No acute process within the abdomen or pelvis. Exam mildly compromised by motion artifact. 2. Hepatic steatosis and hepatomegaly. 3. Mild gallbladder distention without adjacent stranding. 4. No bowel obstruction. No bowel wall thickening. Normal appendix. 5. Left upper lobe pneumonia better depicted on the chest CT. ACT 112: Negative or not required by law. Electronically signed by: John Donnelly M.D. 02/23/2023 12:58 PM
--- NOTE | 2023-02-23 13:11 | CT Scan Report ---
CHEST CTA for PULMONARY ARTERIES CT DOSE: 2505.36 mGy.cm HISTORY: Shortness of breath. Left-sided chest pain. Obese, tachycardia, inc RR, ?aspiration vs PE TECHNIQUE: Multiaxial CT images of the chest were performed following the intravenous administration of contrast to evaluate the pulmonary arteries. 3D/Maximal intensity projection images were also obta ined. Sagittal and coronal reformations were also reviewed. A dose lowering technique was utilized a dhering to the principles of ALARA. COMPARISON STUDY: Chest CT 03/22/2021. FINDINGS: Normal caliber thoracic aorta with no evidence for a dissection. The heart is normal in siz e. Trace right pleural effusion. No pericardial effusion. Respiratory motion artifact results in nond iagnostic evaluation of the majority of the segmental and subsegmental pulmonary arteries. However, t he main and lobar pulmonary arteries appear patent. Therefore, no evidence for central pulmonary embo autumn. A few mildly enlarged mediastinal lymph nodes. Dominant prevascular lymph node on image 153 rubens ures 11 mm. These are likely reactive. Limited views of the upper abdomen demonstrate hepatic steatos is and a normal spleen. The visualized adrenal glands unremarkable. No acute fractures identified. No pneumothorax. The central airways appear patent. Focal area of dense consolidation within the left u pper lobe measuring 9 cm with associated air bronchograms. This likely represents a pneumonia. Stable 5 mm nodular density within the right middle lobe on image 103. This is likely benign given the long -term stability. IMPRESSION: 1. No evidence for a central pulmonary embolus with limitations as described above. 2. A 9 cm focus of consolidation within the left upper lobe. This likely represents a pneumonia. 3 mo nth chest x-ray follow-up recommended to ensure resolution. 3. Mild mediastinal lymphadenopathy. This is likely reactive. 4. Trace right pleural effusions. ACT 112: Negative or not required by law. Electronically signed by: Diego Cheng M.D. 02/23/2023 1:08 PM
[2023-02-23] MEDS: AZITHROMYCIN 500 MG in DEXTROSE 5% 250 ML IV SCH (13:46)
--- NOTE | 2023-02-23 13:51 | History & Physical Report ---
Date of Service February 23, 2023 Assessment & Plan (1) Severe sepsis: (2) Left upper lobe pneumonia: (3) Lactic acidosis: (4) High anion gap metabolic acidosis: (5) HENRI (acute kidney injury): (6) Hypokalemia: (7) Hypomagnesemia: (8) Hyponatremia: (9) Bipolar disorder: Admission and Anticipated Discharge Date Admission Date: 42-year-old female presented to ED with vomiting and shortness of breath for 1 day and admitted for severe sepsis with left-sided pneumonia with multiple lab abnormalities CT A/P 1. No evidence for a central pulmonary embolus with limitations as described above. 2. A 9 cm focus of consolidation within the left upper lobe. This likely represents a pneumonia. 3 month chest x-ray follow-up recommended to ensure resolution. 3. Mild mediastinal lymphadenopathy. This is likely reactive. 4. Trace right pleural effusions. CT A/P 1. No acute process within the abdomen or pelvis. Exam mildly compromised by motion artifact. 2. Hepatic steatosis and hepatomegaly. 3. Mild gallbladder distention without adjacent stranding. 4. No bowel obstruction. No bowel wall thickening. Normal appendix. 5. Left upper lobe pneumonia better depicted on the chest CT. Severe sepsis due to ANNIE CAP-patient meets sepsis criteria with tachycardia, tachypnea, leukocytosis, lactic acidosis. ProCal elevated. No fever. X-ray and CT shows left upper lobe pneumonia with some lymphadenopathy. Given fluid resuscitation, empiric Zosyn/azithromycin in the ED -Admit to PCU with IVF, empiric Zosyn/azithromycin, given multiple episodes of vomiting overnight and possible aspiration -Sputum culture if able to send. Follow-up on urinary Legionella antigen, MRSA nares. Add vanc if MRSA positive. Consider pulm evaluation if fails to improve -Follow-up on blood culture and urine culture results -Follow-up imaging recommended to ensure resolution -Monitor QTc while on zithro as she is on seroquel. EKG ordered for am. Avoid further QT prolonging meds. HENRI-due to severe sepsis along with vomiting. Patient also received IV contrast in the ED and her renal function needs to be monitored closely. We will continue IVF. Recheck creatinine in a.m. Avoid nephrotoxic Anion gap metabolic acidosis due to lactic acidosis-improving with IVF. Recheck labs in a.m. Hypomagnesia-repleted, recheck in a.m. Hypokalemia-repleted, recheck in a.m. Hyponatremia-getting IVF, recheck in a.m. Bipolar disorder-continue home meds- lorazepam 0.5 mg bd, seroquel 400 mg hs, duloxetine 120 mg daily. Home oxy prn, zanaflex prn for her chronic back pain. Hold prazosin for now given low BP. COPD- prior smoker. Does not have to use her home prn inhaler. Not in exacerbation currently. DVT prophylaxis-subcu heparin Disposition-admit to PCU on telemetry Full code History of Present Illness Chief Complaint: CP, SOB, Vomiting Primary Care Provider: Miguel Chaudhry PA-C 42-year-old female with history of bipolar disorder, COPD, prior tobacco abuse presented to ED with vomiting and shortness of breath for 1 day. States she had left chest pain 1 week prior under left breast. Last evening, she started throwing up and felt short of breath for which she presented to emergency. No fever, chills, lightheadeness, dizziness. No dysuria or diarrhea. Has minimal cough. No sick contacts. Quit smoking 3 years back. Does not drink alcohol or do drugs, states she is on disability due to her mental issues but states it is stable. In the ED, she met sepsis criteria with pneumonia and multiple lab normalities. She was started on IVF, empiric Zosyn/zithro. Hospice service was consulted for admission. During my encounter, patient was tachycardic, tachypnea but looked fairly comfortable and not in acute distress. Allergies Allergy/AdvReac Type Severity Reaction Status Date / Time Sulfa (Sulfonamide Allergy Mild RASH, Verified 01/05/23 12:02 Antibiotics) NAUSEA Home Medications Medication Instructions Recorded Confirmed Type albuterol sulfate 90 mcg/actuation 2 puffs inhalation Q4H PRN 10/20/19 02/23/23 History aerosol inhaler Shortness Of Breath Or Wheezing tizanidine 4 mg tablet 4 mg PO Q6H PRN Muscle Spasm 01/14/20 02/23/23 History sumatriptan succinate 6 mg/0.5 mL 6 mg (0.5 mL) subcut DIRECTED 08/09/20 02/23/23 Rx subcutaneous solution (Imitrex) PRN migraine headache #3 mL loratadine 10 mg tablet (Claritin) 10 mg PO QAM 02/15/21 02/23/23 History colestipol 1 gram tablet (Colestid) 1 g PO DAILY 09/24/22 02/23/23 History prazosin 2 mg capsule 2 mg PO HS 09/24/22 02/23/23 History loperamide 2 mg capsule (Imodium 2 mg PO Q6H PRN loose stool #14 09/30/22 02/23/23 Rx A-D) caps oxycodone 5 mg tablet 5 mg PO Q6H PRN pain #15 tabs 12/01/22 02/23/23 Rx acetaminophen 300 mg-codeine 30 mg 1 tab PO Q8H PRN pain #6 tabs 01/05/23 02/23/23 Rx tablet dicyclomine 10 mg capsule 10 mg PO TID PRN Cramps 01/05/23 02/23/23 History pantoprazole 40 mg tablet,delayed 40 mg PO BID 01/05/23 02/23/23 History release quetiapine 400 mg tablet 400 mg PO HS 01/05/23 02/23/23 History duloxetine 60 mg capsule,delayed 60 mg PO BID 02/23/23 02/23/23 History release Past Med/Surg History Medical History Allergy-induced asthma NO INHALER USED FOR >YEAR Well controlled and stable Anxiety and depression Bipolar 1 disorder Cervical stenosis of spinal canal Dyslipidemia Fibromyalgia History of high blood pressure History of kidney stones NO SURGERY No current issues Hypertension IBS (irritable bowel syndrome) Combination of diarrhea and constipation Insomnia Lumbar pain Migraine Mood disorder Rheumatoid arthritis Followed with rheum in the past (follows only with PCP currently) Septic colitis Surgical History History of arthroscopy MULTIPLE RT/LEFT KNEE SCOPES History of bilateral tubal ligation History of endometrial ablation History of esophagogastroduodenoscopy (EGD) History of hysterectomy History of partial knee replacement RT History of tonsillectomy and adenoidectomy History of total knee replacement LEFT S/P colonoscopy S/P inguinal hernia repair S/P sinus surgery [place] teeth removed Family History Daughter Depression Allergies Grandmother (Paternal) Arthritis Grandfather (Paternal) Diabetes Arthritis Grandmother (Maternal) Diabetes Hypertension Grandfather (Maternal) Diabetes Hypertension Sister Kidney stones Hypertension Mother Thyroid disorder Other No family history of adverse response to anesthesia Social History Smoking Status: Former smoker Tobacco Type: Cigarettes Cigarettes Per Day: Quit 09/2019. 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 Beliefs That Will Affect Care: None marital status: Single Current Living Situation: Other Current Living Situation Comment: BOYFRIEND AND DAUGHTER current occupational status: disabled Feels Safe at Home: Yes Assistive Devices: None Review of Systems Review of Systems: All systems reviewed & are unremarkable except as noted in Subjective Physical Exam Physical Exam: General: Obese, Lying comfortably in bed, not in acute distress, on room air HEENT: EOMI, ALCIRA, dry oral mucosa Chest: Left upper lobe crackles otherwise clear breath sounds bilaterally CVS:Tachycardic, normal heart sounds, no murmur Abdomen: Soft, non tender, not distended, normal bowel sounds Neuro: Awake, alert, oriented, conversing well, non focal Extremities: No cyanosis, clubbing or edema Results & Data Results & Data Vital Signs (Past 12 Hours) Vital Signs Temp Pulse Pulse Resp BP BP Pulse Ox 02/23/23 13:21 130 H 28 H 96 02/23/23 11:23 126 H 30 H 100/64 95 02/23/23 11:01 97 02/23/23 11:01 97 02/23/23 10:56 127 H 02/23/23 10:54 127 H 28 H 111/57 L 97 02/23/23 10:54 02/23/23 10:33 36.8 C 133 H 20 76/44 L 98 O2 Del Method 02/23/23 13:21 Room Air 02/23/23 11:23 Room Air 02/23/23 11:01 Room Air 02/23/23 11:01 Room Air 02/23/23 10:56 02/23/23 10:54 Room Air 02/23/23 10:54 Room Air 02/23/23 10:33 Laboratory Results Short CBC 02/23/23 Range/Units 11:00 WBC 30.05 H* (4.8-10.8) K/ul Hgb 11.1 L (12.0-16.0) g/dl Hct 32.9 L (37.0-47.0) % Plt Count 385 (130-400) K/uL BMP 02/23/23 11:00 Sodium 132 L Potassium 2.9 L Chloride 97 L Carbon Dioxide 19 L BUN 12 Creatinine 1.37 H Glucose 127 H Calcium 8.6 Liver Function 02/23/23 Range/Units 11:00 Total Bilirubin 0.7 (0.2-1.0) mg/dl AST 13 (13-39) U/L ALT 22 (7-52) U/L Alkaline Phosphatase 84 (34-104) U/L Albumin 3.9 (3.4-5.0) gm/dl Diagnostic Findings Chest X-Ray 02/23/23 10:57 XR chest 1V portable HISTORY: Sepsis COMPARISON: Chest 12/01/2022. FINDINGS: Interval development of a left upper lobe airspace opacity measuring approximately 10 cm. This is consistent with a pneumonia. No pneumothorax. No pleural effusions. The heart is normal in size. No evidence for pulmonary edema. There are low lung volumes. IMPRESSION: There is a new left upper lobe airspace opacity consistent with a pneumonia. ACT 112: Negative or not required by law. Electronically signed by: Diego Cheng M.D. 02/23/2023 11:54 AM Abdomen/Pelvis CT 02/23/23 11:36 CT OF THE ABDOMEN AND PELVIS WITH CONTRAST CLINICAL HISTORY: Abdominal distention, vomiting. COMPARISON STUDY: CT of the abdomen and pelvis August 07, 2022. TECHNIQUE: Following IV administration of 120 mL of Optiray, axial images of the abdomen and pelvis were obtained from the lung bases to the proximal femurs. Images were reviewed in the axial, sagittal, and coronal planes. IV contrast was administered without complication. Automated exposure control was utilized for the study. A dose lowering technique was utilized adhering to the principles of ALARA. FINDINGS: Please note that the chest CT will be reported separately. Left upper lobe pneumonia is better depicted on the chest CT. There is a trace right pleural effusion. No pneumatosis, free air or portal venous gas is present. There is hepatic steatosis and hepatomegaly. The adrenal glands, right kidney and pancreas are unremarkable. This exam is compromised by motion artifact. The gallbladder is mildly distended. There is no adjacent infiltration. A 5 mm left renal calculus is present. There are no ureteral calculi. There is no hydronephrosis. There is no evidence for a bowel obstruction. The appendix is normal. There is no lymphadenopathy or ascites. No fluid collections are present. Major vasculature is patent. IMPRESSION: 1. No acute process within the abdomen or pelvis. Exam mildly compromised by motion artifact. 2. Hepatic steatosis and hepatomegaly. 3. Mild gallbladder distention without adjacent stranding. 4. No bowel obstruction. No bowel wall thickening. Normal appendix. 5. Left upper lobe pneumonia better depicted on the chest CT. ACT 112: Negative or not required by law. Electronically signed by: John Donnelly M.D. 02/23/2023 12:58 PM Chest CTA 02/23/23 11:36 CHEST CTA for PULMONARY ARTERIES CT DOSE: 2505.36 mGy.cm HISTORY: Shortness of breath. Left-sided chest pain. Obese, tachycardia, inc RR, ?aspiration vs PE TECHNIQUE: Multiaxial CT images of the chest were performed following the intravenous administration of contrast to evaluate the pulmonary arteries. 3D/Maximal intensity projection images were also obtained. Sagittal and coronal reformations were also reviewed. A dose lowering technique was utilized adhering to the principles of ALARA. COMPARISON STUDY: Chest CT 03/22/2021. FINDINGS: Normal caliber thoracic aorta with no evidence for a dissection. The heart is normal in size. Trace right pleural effusion. No pericardial effusion. Respiratory motion artifact results in nondiagnostic evaluation of the majority of the segmental and subsegmental pulmonary arteries. However, the main and lobar pulmonary arteries appear patent. Therefore, no evidence for central pulmonary embolus. A few mildly enlarged mediastinal lymph nodes. Dominant prevascular lymph node on image 153 measures 11 mm. These are likely reactive. Limited views of the upper abdomen demonstrate hepatic steatosis and a normal spleen. The visualized adrenal glands unremarkable. No acute fractures identif ied. No pneumothorax. The central airways appear patent. Focal area of dense consolidation within the left upper lobe measuring 9 cm with associated air bronchograms. This likely represents a pneumonia. Stable 5 mm nodular density within the right middle lobe on image 103. This is likely benign given the long- term stability. IMPRESSION: 1. No evidence for a central pulmonary embolus with limitations as described above. 2. A 9 cm focus of consolidation within the left upper lobe. This likely represents a pneumonia. 3 month chest x-ray follow-up recommended to ensure resolution. 3. Mild mediastinal lymphadenopathy. This is likely reactive. 4. Trace right pleural effusions. ACT 112: Negative or not required by law. Electronically signed by: Diego Cheng M.D. 02/23/2023 1:08 PM Code Status & VTE Plan VTE Prophylaxis Plan VTE Prophylaxis will be ordered: Yes
[2023-02-23 13:52] LABS: Appearance Urine Turbid (Clear); Blood Urine Negative (Negative); Color Urine Dark Yellow; Epithelial Cell Urine Auto >30 /lpf (0-5); Glucose Urine UA Negative (Negative); Ketones Urine Trace (Negative); Leukocyte Esterase Urine Negative (Negative); Nitrite Urine Positive (Negative); Protein Urine 2+ (Negative); Specific Gravity Urine 1.025 (1.000-1.030); Urobilinogen Urine Negative (Negative)
[2023-02-23 13:55] LABS: Bilirubin Urine 1+ (Negative)
[2023-02-23 14:18] LABS: Cast Urine Automated >30 /lpf (0-5); RBC Urine Automated 0-4 /hpf (0-4)
[2023-02-23 14:19] LABS: Renal Epithelial Cells Urine 0-5 /lpf (0-5)
[2023-02-23 14:20] LABS: Bacteria Urine Automated 1+ (Negative)
[2023-02-23] MEDS: LORazepam 0.5 MG TAB PO SCH ×2 (14:31→21:14)
[2023-02-23] MEDS ORDERED: tiZANidine HCL 4 MG TABLET PO PRN (15:03)
[2023-02-23] MEDS: NSS + 20MEQ KCL 20 MEQ/1,000 ML BAG IV SCH ×2 (16:44→21:14)
[2023-02-23 16:48] LABS: Adenovirus PCR Not Detected (NotDetected); Bordetella parapertussis PCR Not Detected (NotDetected); Bordetella pertussis PCR Not Detected (NotDetected); Chlamydia pneumoniae PCR Not Detected (NotDetected); Coronavirus 229E PCR Not Detected (NotDetected); Coronavirus CoV-2 (COVID19)PCR Not Detected (NotDetected); Coronavirus HKU1 PCR Not Detected (NotDetected); Coronavirus NL63 PCR Not Detected (NotDetected); Coronavirus OC43PCR Not Detected (NotDetected); Human Metapneumovirus PCR Not Detected (NotDetected); Influenza A PCR Not Detected (NotDetected); Influenza B PCR Not Detected (NotDetected); Mycoplasma pneumoniae PCR Not Detected (NotDetected); Parainfluenza Virus 1 PCR Not Detected (NotDetected); Parainfluenza Virus 2 PCR Not Detected (NotDetected); Parainfluenza Virus 3 PCR Not Detected (NotDetected); Parainfluenza Virus 4 PCR Not Detected (NotDetected); Respiratory Syncytial VirusPCR Not Detected (NotDetected); Rhinovirus/Enterovirus PCR Not Detected (NotDetected)
[2023-02-23] MEDS ORDERED: SODIUM CHLORIDE 0.9% 500 ML IV ONE (17:13)
--- NOTE | 2023-02-23 19:43 | Emergency Department Note ---
Impression & Plan Pneumonia, Tachycardia, Sepsis ED Provider Note CHIEF COMPLAINT: Shortness of breath, left-sided chest pain HISTORY OF PRESENT ILLNESS: This 42-year-old female past medical history of patient bipolar disorder, sepsis, Salmonella colitis, persistent tachycardia, dyslipidemia, obesity, migraine, asthma presents to the emergency department with complaints of 24 hours of left sided chest pain. She states she noticed it in the middle of the night, hurts to take a deep breath and a cough. She thinks she has had a fever. Patient has been vomiting but denies any diarrhea. REVIEW OF SYSTEMS: A review of systems was performed with positives and pertinent negatives listed in the history of present illness. 10 systems were reviewed and are otherwise negative. ALLERGIES: see below MEDICATIONS: see below PMH: see below SOCIAL HISTORY: see below DDx: Bowel obstruction, aspiration, bacterial pneumonitis, COVID, influenza, PE among others. PHYSICAL EXAM: Vital signs reviewed. General: Ill-appearing obese, 42-year-old female, in no significant distress. HEENT: No scleral icterus, PERRLA, neck supple. Atraumatic. Cardiovascular: Tachycardic but regular, no extra sounds Pulmonary: Crackles noted to the left mid and lower lung., Crackles at the base on the right. Increased work of breathing, tachypneic Abdomen: Soft, obese, nontender, nondistended, positive bowel sounds. Musculoskeletal: Atraumatic, no peripheral edema. Neurologic: Patient awake alert and oriented x 3, speech is clear Skin: Warm, dry, no rash EMERGENCY DEPARTMENT COURSE/MDM: This patient was evaluated and appeared to be in some discomfort. Patient is noted to have increased work of breathing. Patient was hydrated with normal saline solution, 2 L IV. Blood cultures were obtained. Patient was noted to have a lactate of 5.6 with a leukocytosis, hypokalemia and hypomagnesemia. Patient was given 20 mEq of IV potassium as well as 2 g of IV magnesium. Chest x-ray is concerning for a large left upper lobe pulmonary consolidation. IV Zosyn 4.5 g was initiated. Patient was given a third liter of IV fluid due to persistent tachycardia, which exceeds her ideal body weight fluid resuscitation at 30 mL/kg. She did develop worsening tachypnea and repeat chest x-ray was performed. There is no evidence of CHF to my review. Patient was placed on 2 L of oxygen by nasal cannula. She did seem to have some relief. Patient was admitted to the [facility] service for further evaluation and management. Patient was made aware of the plan and agreed. MONITORING: An order for cardiac monitoring was placed and the patient is noted to be in a sinus tachycardia at 127 beats per minute. RADIOLOGY: Chest x-ray to my interpretation reveals a focal consolidation in the left upper lung. No effusion appreciated, no pneumothorax. Otherwise defer to radiology. CT imaging of the chest per radiology reveals no PE, 9 cm area of consolidation in the left upper lobe. Please see read below. Repeat chest x-ray to my interpretation again demonstrates the left upper lung consolidation, no evidence of CHF. Otherwise defer to radiology EKG: To my interpretation reveals a sinus tachycardia at [address] and T wave abnormality, no PVC, no PAC. QTc is 474. When compared to previous dated January 05, 2023, anterior ST/T wave abnormality noted. DISPOSITION: Admission Past Med/Surg History Medical History Allergy-induced asthma NO INHALER USED FOR >YEAR Well controlled and stable Anxiety and depression Bipolar 1 disorder Cervical stenosis of spinal canal Dyslipidemia Fibromyalgia History of high blood pressure History of kidney stones NO SURGERY No current issues Hypertension IBS (irritable bowel syndrome) Combination of diarrhea and constipation Insomnia Lumbar pain Migraine Mood disorder Rheumatoid arthritis Followed with rheum in the past (follows only with PCP currently) Septic colitis Surgical History History of arthroscopy MULTIPLE RT/LEFT KNEE SCOPES History of bilateral tubal ligation History of endometrial ablation History of esophagogastroduodenoscopy (EGD) History of hysterectomy History of partial knee replacement RT History of tonsillectomy and adenoidectomy History of total knee replacement LEFT S/P colonoscopy S/P inguinal hernia repair S/P sinus surgery [place] teeth removed Family History Daughter Depression Allergies Grandmother (Paternal) Arthritis Grandfather (Paternal) Diabetes Arthritis Grandmother (Maternal) Diabetes Hypertension Grandfather (Maternal) Diabetes Hypertension Sister Kidney stones Hypertension Mother Thyroid disorder Other No family history of adverse response to anesthesia Social History Smoking Status: Former smoker Tobacco Type: Cigarettes Cigarettes Per Day: Quit 09/2019. Smoked 0.5-1ppd x 5 years; Second Hand Exposure: No; Do You Dip or Chew Tobacco: No; Hx Alcohol Use: No Hx Substance Use: No Preferred Language: Mauritanian Communication Ability: Effective Software Consultant Required: No Beliefs That Will Affect Care: None marital status: Single Current Living Situation: Other Current Living Situation Comment: family/friends current occupational status: disabled Other Information That Helps Us Care for You: No Feels Safe at Home: Yes Safety Concerns: Feels Safe At This Time Assistive Devices: None Allergies Allergies Allergy/AdvReac Type Severity Reaction Status Date / Time Sulfa (Sulfonamide Allergy Mild RASH, Verified 01/05/23 12:02 Antibiotics) NAUSEA Home Meds Home Medications Medication Instructions Recorded Confirmed albuterol sulfate 90 mcg/actuation 2 puffs inhalation Q4H PRN 10/20/19 02/23/23 aerosol inhaler Shortness Of Breath Or Wheezing tizanidine 4 mg tablet 4 mg PO Q6H PRN Muscle Spasm 01/14/20 02/23/23 loratadine 10 mg tablet (Claritin) 10 mg PO QAM 02/15/21 02/23/23 colestipol 1 gram tablet (Colestid) 1 g PO DAILY 09/24/22 02/23/23 prazosin 2 mg capsule 2 mg PO HS 09/24/22 02/23/23 dicyclomine 10 mg capsule 10 mg PO TID PRN Cramps 01/05/23 02/23/23 pantoprazole 40 mg tablet,delayed 40 mg PO BID 01/05/23 02/23/23 release quetiapine 400 mg tablet 400 mg PO HS 01/05/23 02/23/23 duloxetine 60 mg capsule,delayed 60 mg PO BID 02/23/23 02/23/23 release Previous Rx's Medication Instructions Recorded sumatriptan succinate 6 mg/0.5 mL 6 mg (0.5 mL) subcut DIRECTED 08/09/20 subcutaneous solution (Imitrex) PRN migraine headache #3 mL loperamide 2 mg capsule (Imodium 2 mg PO Q6H PRN loose stool #14 09/30/22 A-D) caps oxycodone 5 mg tablet 5 mg PO Q6H PRN pain #15 tabs 12/01/22 acetaminophen 300 mg-codeine 30 mg 1 tab PO Q8H PRN pain #6 tabs 01/05/23 tablet Results & Data (ED) Vital Signs Vital Signs - 24 hr 02/23/23 10:33 02/23/23 10:54 02/23/23 10:54 Temperature 36.8 C Temperature Source Temporal Artery Scan Pulse Rate 133 H Pulse Rate [Apical] Pulse Rhythm Regular Pulse Rhythm [Apical] Pulse Strength [Apical] Respiratory Rate 20 Respiratory Effort / Characteristics Non-Labored Spontaneous Labored Respiratory Depth Normal Respiratory Pattern Blood Pressure 76/44 L Blood Pressure [Right Arm] Blood Pressure Mean 54 Blood Pressure Mean [Right Arm] Blood Pressure Position [Right Arm] Pulse Oximetry 98 Oxygen Delivery Method Room Air Sepsis Recent Fever Within 48 Hours No Sepsis New/Unexplained Change in Mental Status No Sepsis Action Taken by Nursing No Action Required 02/23/23 10:54 02/23/23 10:56 02/23/23 11:01 Temperature Temperature Source Pulse Rate 127 H Pulse Rate [Apical] 127 H Pulse Rhythm Pulse Rhythm [Apical] Pulse Strength [Apical] Respiratory Rate 28 H Respiratory Effort / Characteristics Labored Respiratory Depth Shallow Respiratory Pattern Blood Pressure Blood Pressure [Right Arm] 111/57 L Blood Pressure Mean Blood Pressure Mean [Right Arm] 75 Blood Pressure Position [Right Arm] Lying Pulse Oximetry 97 97 Oxygen Delivery Method Room Air Room Air Sepsis Recent Fever Within 48 Hours Sepsis New/Unexplained Change in Mental Status Sepsis Action Taken by Nursing 02/23/23 11:01 02/23/23 11:23 02/23/23 13:21 Temperature Temperature Source Pulse Rate Pulse Rate [Apical] 126 H 130 H Pulse Rhythm Pulse Rhythm [Apical] Regular Regular Pulse Strength [Apical] Normal Normal Respiratory Rate 30 H 28 H Respiratory Effort / Characteristics Non-Labored Labored Respiratory Depth Normal Shallow Respiratory Pattern Tachypnea Tachypnea Blood Pressure Blood Pressure [Right Arm] 100/64 Blood Pressure Mean Blood Pressure Mean [Right Arm] 76 Blood Pressure Position [Right Arm] Lying Pulse Oximetry 97 95 96 Oxygen Delivery Method Room Air Room Air Room Air Sepsis Recent Fever Within 48 Hours Sepsis New/Unexplained Change in Mental Status Sepsis Action Taken by Correction Medications Current Medication List: was personally reviewed by me Laboratory Data Attestation: I reviewed the patient's lab results. 02/23/23 11:00 02/23/23 11:00 Lab Results 02/23/23 02/23/23 02/23/23 Range/Units 11:00 11:00 11:00 WBC 30.05 H* (4.8-10.8) K/ul RBC 3.73 L (4.20-5.40) M/uL Hgb 11.1 L (12.0-16.0) g/dl Hct 32.9 L (37.0-47.0) % MCV 88.2 (80.0-100.0) fL MCH 29.8 (25.0-34.0) pg MCHC 33.7 (32.0-36.0) g/dL RDW Std Deviation 41.5 (36.4-46.3) fL RDW Coeff of Nate 12.9 (11.5-14.5) % Plt Count 385 (130-400) K/uL MPV 9.8 (9.4-12.4) fL Immature Gran % (Auto) 6.6 % Neut % (Auto) 83.5 % Lymph % (Auto) 4.1 % [place] % (Auto) 5.4 % Eos % (Auto) 0.2 % Baso % (Auto) 0.2 % Neut # (Auto) 25.09 H (1.40-6.50) K/uL Lymph # (Auto) 1.24 (1.2-3.4) K/uL [place] # (Auto) 1.61 H (0.11-0.59) K/uL Eos # (Auto) 0.05 (0-0.50) K/uL Baso # (Auto) 0.07 (0-0.2) K/uL Immature Gran # (Auto) 1.99 H (0.01-0.20) K/uL Dohle Bodies 1+ PT 14.1 H (9.0-12.0) Seconds INR 1.3 H (0.9-1.1) APTT 34.5 H (21.0-31.0) Seconds PTT Ratio 1.2 Sodium 132 L (136-145) mmol/L Potassium 2.9 L (3.5-5.1) mmol/L Chloride 97 L (98-107) mmol/L Carbon Dioxide 19 L (21-32) mmol/L Anion Gap 16 H (3-11) BUN 12 (6-23) mg/dl Creatinine 1.37 H (0.6-1.2) mg/dl Est Cr Clr Drug Dosing 67.0 ml/min Est GFR ( Amer) 54.6 ml/min Est GFR (Non-Af Amer) 47.1 ml/min BUN/Creatinine Ratio 8.8 L (10-20) Glucose 127 H (70-99(Fasting)) mg/dl Lactate (0.4-2.0) mmol/L Calcium 8.6 (8.6-10.3) mg/dl Phosphorus 3.4 (2.5-4.9) mg/dl Magnesium 0.9 L* (1.7-2.4) mg/dl Total Bilirubin 0.7 (0.2-1.0) mg/dl AST 13 (13-39) U/L ALT 22 (7-52) U/L Alkaline Phosphatase 84 (34-104) U/L Total Protein 7.1 (6.0-8.3) gm/dl Albumin 3.9 (3.4-5.0) gm/dl Globulin 3.2 (2.5-4.0) gm/dl Albumin/Globulin Ratio 1.2 (0.9-2) Procalcitonin (0-0.5) ng/ml Urine Color Urine Appearance (Clear) Urine pH (4.5-7.5) Ur Specific [place] (1.000-1.030) Urine Protein (Negative) Urine Glucose (UA) (Negative) Urine Ketones (Negative) Urine Blood (Negative) Urine Nitrite (Negative) Urine Bilirubin (Negative) Urine Urobilinogen (Negative) Ur Leukocyte Esterase (Negative) Urine WBC (Auto) (0-5) /hpf Urine RBC (Auto) (0-4) /hpf U Hyaline Cast (Auto) (0-5) /lpf U Epithel Cells (Auto) (0-5) /lpf Urine Bacteria (Auto) (Negative) Ur Renal Epithelial Cell (0-5) /lpf Granular Casts (0) /lpf 02/23/23 02/23/23 02/23/23 Range/Units 11:00 11:04 11:57 WBC (4.8-10.8) K/ul RBC (4.20-5.40) M/uL Hgb (12.0-16.0) g/dl Hct (37.0-47.0) % MCV (80.0-100.0) fL MCH (25.0-34.0) pg MCHC (32.0-36.0) g/dL RDW Std Deviation (36.4-46.3) fL RDW Coeff of Nate (11.5-14.5) % Plt Count (130-400) K/uL MPV (9.4-12.4) fL Immature Gran % (Auto) % Neut % (Auto) % Lymph % (Auto) % [place] % (Auto) % Eos % (Auto) % Baso % (Auto) % Neut # (Auto) (1.40-6.50) K/uL Lymph # (Auto) (1.2-3.4) K/uL [place] # (Auto) (0.11-0.59) K/uL Eos # (Auto) (0-0.50) K/uL Baso # (Auto) (0-0.2) K/uL Immature Gran # (Auto) (0.01-0.20) K/uL Dohle Bodies PT (9.0-12.0) Seconds INR (0.9-1.1) APTT (21.0-31.0) Seconds PTT Ratio Sodium (136-145) mmol/L Potassium (3.5-5.1) mmol/L Chloride (98-107) mmol/L Carbon Dioxide (21-32) mmol/L Anion Gap (3-11) BUN (6-23) mg/dl Creatinine (0.6-1.2) mg/dl Est Cr Clr Drug Dosing ml/min Est GFR ( Amer) ml/min Est GFR (Non-Af Amer) ml/min BUN/Creatinine Ratio (10-20) Glucose (70-99(Fasting)) mg/dl Lactate 5.6 H* (0.4-2.0) mmol/L Calcium (8.6-10.3) mg/dl Phosphorus (2.5-4.9) mg/dl Magnesium (1.7-2.4) mg/dl Total Bilirubin (0.2-1.0) mg/dl AST (13-39) U/L ALT (7-52) U/L Alkaline Phosphatase (34-104) U/L Total Protein (6.0-8.3) gm/dl Albumin (3.4-5.0) gm/dl Globulin (2.5-4.0) gm/dl Albumin/Globulin Ratio (0.9-2) Procalcitonin 11.89 H (0-0.5) ng/ml Urine Color Dark Yellow Urine Appearance Turbid A (Clear) Urine pH 5.0 (4.5-7.5) Ur Specific [place] 1.025 (1.000-1.030) Urine Protein 2+ H (Negative) Urine Glucose (UA) Negative (Negative) Urine Ketones Trace H (Negative) Urine Blood Negative (Negative) Urine Nitrite Positive A (Negative) Urine Bilirubin 1+ H (Negative) Urine Urobilinogen Negative (Negative) Ur Leukocyte Esterase Negative (Negative) Urine WBC (Auto) 5-10 H (0-5) /hpf Urine RBC (Auto) 0-4 (0-4) /hpf U Hyaline Cast (Auto) >30 H (0-5) /lpf U Epithel Cells (Auto) >30 H (0-5) /lpf Urine Bacteria (Auto) 1+ H (Negative) Ur Renal Epithelial Cell 0-5 (0-5) /lpf Granular Casts 5-10 H (0) /lpf 02/23/23 Range/Units 12:54 WBC (4.8-10.8) K/ul RBC (4.20-5.40) M/uL Hgb (12.0-16.0) g/dl Hct (37.0-47.0) % MCV (80.0-100.0) fL MCH (25.0-34.0) pg MCHC (32.0-36.0) g/dL RDW Std Deviation (36.4-46.3) fL RDW Coeff of Nate (11.5-14.5) % Plt Count (130-400) K/uL MPV (9.4-12.4) fL Immature Gran % (Auto) % Neut % (Auto) % Lymph % (Auto) % [place] % (Auto) % Eos % (Auto) % Baso % (Auto) % Neut # (Auto) (1.40-6.50) K/uL Lymph # (Auto) (1.2-3.4) K/uL [place] # (Auto) (0.11-0.59) K/uL Eos # (Auto) (0-0.50) K/uL Baso # (Auto) (0-0.2) K/uL Immature Gran # (Auto) (0.01-0.20) K/uL Dohle Bodies PT (9.0-12.0) Seconds INR (0.9-1.1) APTT (21.0-31.0) Seconds PTT Ratio Sodium (136-145) mmol/L Potassium (3.5-5.1) mmol/L Chloride (98-107) mmol/L Carbon Dioxide (21-32) mmol/L Anion Gap (3-11) BUN (6-23) mg/dl Creatinine (0.6-1.2) mg/dl Est Cr Clr Drug Dosing ml/min Est GFR ( Amer) ml/min Est GFR (Non-Af Amer) ml/min BUN/Creatinine Ratio (10-20) Glucose (70-99(Fasting)) mg/dl Lactate 2.8 H* (0.4-2.0) mmol/L Calcium (8.6-10.3) mg/dl Phosphorus (2.5-4.9) mg/dl Magnesium (1.7-2.4) mg/dl Total Bilirubin (0.2-1.0) mg/dl AST (13-39) U/L ALT (7-52) U/L Alkaline Phosphatase (34-104) U/L Total Protein (6.0-8.3) gm/dl Albumin (3.4-5.0) gm/dl Globulin (2.5-4.0) gm/dl Albumin/Globulin Ratio (0.9-2) Procalcitonin (0-0.5) ng/ml Urine Color Urine Appearance (Clear) Urine pH (4.5-7.5) Ur Specific [place] (1.000-1.030) Urine Protein (Negative) Urine Glucose (UA) (Negative) Urine Ketones (Negative) Urine Blood (Negative) Urine Nitrite (Negative) Urine Bilirubin (Negative) Urine Urobilinogen (Negative) Ur Leukocyte Esterase (Negative) Urine WBC (Auto) (0-5) /hpf Urine RBC (Auto) (0-4) /hpf U Hyaline Cast (Auto) (0-5) /lpf U Epithel Cells (Auto) (0-5) /lpf Urine Bacteria (Auto) (Negative) Ur Renal Epithelial Cell (0-5) /lpf Granular Casts (0) /lpf Administered Medications Duloxetine HCl (Duloxetine Hcl 60 Mg Cap) 120 mg PO QAM LUIS M Stop: 03/25/23 19:59 Last Admin: 02/24/23 08:07 Dose: 120 mg Documented By: Admin: 02/23/23 20:04 Dose: 120 mg Documented By: LALY Heparin Sodium (Porcine) (Heparin Sod 5,000 Unit/0.5 Ml Vial) 5,000 units SQ Q8 LUIS M Stop: 03/25/23 21:59 Last Admin: 02/24/23 05:34 Dose: 5,000 units Documented By: Admin: 02/23/23 21:14 Dose: 5,000 units Documented By: LALY Azithromycin 500 mg/ Dextrose 255 mls @ 127.5 mls/hr IV Q24H [facility] Stop: 03/02/23 12:59 Last Admin: 02/24/23 12:52 Dose: 127.5 mls/hr Documented By: Infusion: 02/23/23 18:26 Dose: 0 mls/hr Documented By: Admin: 02/23/23 13:46 Dose: 127.5 mls/hr Documented By: MIHIR Piperacillin Sod/Tazobactam (Sod 4.5 gm/ Dextrose) 120 mls @ 30 mls/hr IV Q8H LUIS M; Protocol Stop: 03/02/23 19:59 Last Admin: 02/24/23 11:49 Dose: 30 mls/hr Documented By: Infusion: 02/24/23 08:33 Dose: 0 mls/hr Documented By: Admin: 02/24/23 04:04 Dose: 30 mls/hr Documented By: Infusion: 02/24/23 00:06 Dose: 0 mls/hr Documented By: Admin: 02/23/23 20:06 Dose: 30 mls/hr Documented By: LALY Loratadine (Loratadine 10 Mg Tab) 10 mg PO QAM LUIS M Stop: 03/26/23 08:59 Last Admin: 02/24/23 08:07 Dose: 10 mg Documented By: JACOB Lorazepam (Lorazepam 0.5 Mg Tab) 0.5 mg PO BID LUIS M Stop: 03/25/23 13:34 Last Admin: 02/24/23 08:06 Dose: 0.5 mg Documented By: Admin: 02/23/23 21:14 Dose: 0.5 mg Documented By: Admin: 02/23/23 14:31 Dose: 0.5 mg Documented By: MIHIR Oxycodone HCl (Oxycodone Hcl Ir 5 Mg Tab (Immediate Release)) 5 mg PO Q6H PRN PRN Reason: pain Stop: 03/09/23 15:02 Last Admin: 02/23/23 20:02 Dose: 5 mg Documented By: LALY Pantoprazole Sodium (Pantoprazole 40 Mg Tab) 40 mg PO BID LUIS M Stop: 03/25/23 20:59 Last Admin: 02/24/23 08:07 Dose: 40 mg Documented By: Admin: 02/23/23 20:06 Dose: 40 mg Documented By: LALY Quetiapine Fumarate (Quetiapine Fumarate 200 Mg Tab) 400 mg PO HS LUIS M Stop: 03/25/23 20:59 Last Admin: 02/23/23 20:05 Dose: 400 mg Documented By: LALY Discontinued Medications Sodium Chloride (Nss 1000ml) 2,000 mls @ 999 mls/hr IV .Q2H1M ONE Stop: 02/23/23 13:32 Last Infusion: 02/23/23 13:47 Dose: 0 mls/hr Documented By: Admin: 02/23/23 11:37 Dose: 999 mls/hr Documented By: HS Famotidine (Pepcid 20mg Iv Push) 20 mg in 5 mls @ 2.5 mls/min IV NOW STA Stop: 02/23/23 11:34 Last Admin: 02/23/23 11:38 Dose: 2.5 mls/min Documented By: HS Piperacillin Sod/Tazobactam Sod (Zosyn) 4.5 gm in 120 mls @ 240 mls/hr IV NOW ONE Stop: 02/23/23 12:05 Last Infusion: 02/23/23 12:55 Dose: 0 mls/hr Documented By: Admin: 02/23/23 12:04 Dose: 240 mls/hr Documented By: MT Potassium Chloride (K Lefty / Wtr) 10 meq in 100 mls @ 100 mls/hr IV Q1H LUIS M Stop: 02/23/23 14:14 Last Infusion: 02/23/23 18:25 Dose: 0 mls/hr Documented By: Admin: 02/23/23 15:18 Dose: 100 mls/hr Documented By: Infusion: 02/23/23 15:13 Dose: 0 mls/hr Documented By: Admin: 02/23/23 12:10 Dose: 100 mls/hr Documented By: STEVE Magnesium Sulfate/Dextrose (Magnesium Sulfate / D5w) 1 gm in 100 mls @ 100 mls/hr IV Q1H LUIS M Stop: 02/23/23 14:20 Last Infusion: 02/23/23 18:26 Dose: 0 mls/hr Documented By: Admin: 02/23/23 15:18 Dose: 100 mls/hr Documented By: Infusion: 02/23/23 15:13 Dose: 0 mls/hr Documented By: Admin: 02/23/23 12:56 Dose: 100 mls/hr Documented By: MIHIR Potassium Chloride/Sodium Chloride (Normal Saline W/20 Meq Kcl) 20 meq in 1,000 mls @ 125 mls/hr IV .Q8H LUIS M; Protocol Stop: 02/24/23 12:44 Last Infusion: 02/24/23 12:57 Dose: 0 mls/hr Documented By: Admin: 02/24/23 04:48 Dose: 125 mls/hr Documented By: Infusion: 02/24/23 04:48 Dose: 125 mls/hr Documented By: Admin: 02/23/23 21:14 Dose: 125 mls/hr Documented By: Infusion: 02/23/23 21:14 Dose: 125 mls/hr Documented By: Admin: 02/23/23 16:44 Dose: 125 mls/hr Documented By: MIHIR Sodium Chloride (Nss) 500 mls @ 999 mls/hr IV .Q31M ONE Stop: 02/23/23 17:43 Last Infusion: 02/23/23 19:50 Dose: 0 mls/hr Documented By: Admin: 02/23/23 19:15 Dose: 999 mls/hr Documented By: BRENNA Magnesium Sulfate/Dextrose (Magnesium Sulfate / D5w) 1 gm in 100 mls @ 50 mls/hr IV Q2H LUIS M Stop: 02/24/23 01:44 Last Infusion: 02/24/23 01:38 Dose: 0 mls/hr Documented By: Admin: 02/23/23 23:35 Dose: 50 mls/hr Documented By: Infusion: 02/23/23 23:13 Dose: 50 mls/hr Documented By: Admin: 02/23/23 21:13 Dose: 50 mls/hr Documented By: Infusion: 02/23/23 21:13 Dose: 50 mls/hr Documented By: Admin: 02/23/23 20:06 Dose: 50 mls/hr Documented By: LALY Ioversol (Ioversol 350 Mg 125ml Prefilled Syringe) 120 ml IV ONCE ONE Stop: 02/23/23 12:48 Last Admin: 02/23/23 12:47 Dose: 120 ml Documented By: RADHA Ondansetron HCl (Ondansetron Inj 2 Mg/Ml 2 Ml Vial) 4 mg IV NOW STA Stop: 02/23/23 11:34 Last Admin: 02/23/23 11:38 Dose: 4 mg Documented By: Imaging Data Radiologist's Impression: Chest X-Ray 02/23/23 10:57 XR chest 1V portable HISTORY: Sepsis COMPARISON: Chest 12/01/2022. FINDINGS: Interval development of a left upper lobe airspace opacity measuring approximately 10 cm. This is consistent with a pneumonia. No pneumothorax. No pleural effusions. The heart is normal in size. No evidence for pulmonary edema. There are low lung volumes. IMPRESSION: There is a new left upper lobe airspace opacity consistent with a pneumonia. ACT 112: Negative or not required by law. Electronically signed by: Diego Cheng M.D. 02/23/2023 11:54 AM Abdomen/Pelvis CT 02/23/23 11:36 CT OF THE ABDOMEN AND PELVIS WITH CONTRAST CLINICAL HISTORY: Abdominal distention, vomiting. COMPARISON STUDY: CT of the abdomen and pelvis August 07, 2022. TECHNIQUE: Following IV administration of 120 mL of Optiray, axial images of the abdomen and pelvis were obtained from the lung bases to the proximal femurs. Images were reviewed in the axial, sagittal, and coronal planes. IV contrast was administered without complication. Automated exposure control was utilized for the study. A dose lowering technique was utilized adhering to the principles of ALARA. FINDINGS: Please note that the chest CT will be reported separately. Left upper lobe pneumonia is better depicted on the chest CT. There is a trace right pleural effusion. No pneumatosis, free air or portal venous gas is present. There is hepatic steatosis and hepatomegaly. The adrenal glands, right kidney and pancreas are unremarkable. This exam is compromised by motion artifact. The gallbladder is mildly distended. There is no adjacent infiltration. A 5 mm left renal calculus is present. There are no ureteral calculi. There is no hydronephrosis. There is no evidence for a bowel obstruction. The appendix is normal. There is no lymphadenopathy or ascites. No fluid collections are present. Major vasculature is patent. IMPRESSION: 1. No acute process within the abdomen or pelvis. Exam mildly compromised by motion artifact. 2. Hepatic steatosis and hepatomegaly. 3. Mild gallbladder distention without adjacent stranding. 4. No bowel obstruction. No bowel wall thickening. Normal appendix. 5. Left upper lobe pneumonia better depicted on the chest CT. ACT 112: Negative or not required by law. Electronically signed by: John Donnelly M.D. 02/23/2023 12:58 PM Chest CTA 02/23/23 11:36 CHEST CTA for PULMONARY ARTERIES CT DOSE: 2505.36 mGy.cm HISTORY: Shortness of breath. Left-sided chest pain. Obese, tachycardia, inc RR, ?aspiration vs PE TECHNIQUE: Multiaxial CT images of the chest were performed following the intravenous administration of contrast to evaluate the pulmonary arteries. 3D/Maximal intensity projection images were also obtained. Sagittal and coronal reformations were also reviewed. A dose lowering technique was utilized adhering to the principles of ALARA. COMPARISON STUDY: Chest CT 03/22/2021. FINDINGS: Normal caliber thoracic aorta with no evidence for a dissection. The heart is normal in size. Trace right pleural effusion. No pericardial effusion. Respiratory motion artifact results in nondiagnostic evaluation of the majority of the segmental and subsegmental pulmonary arteries. However, the main and lobar pulmonary arteries appear patent. Therefore, no evidence for central pulmonary embolus. A few mildly enlarged mediastinal lymph nodes. Dominant prevascular lymph node on image 153 measures 11 mm. These are likely reactive. Limited views of the upper abdomen demonstrate hepatic steatosis and a normal spleen. The visualized adrenal glands unremarkable. No acute fractures identified. No pneumothorax. The central airways appear patent. Focal area of dense consolidation within the left upper lobe measuring 9 cm with associated air bronchograms. This likely represents a pneumonia. Stable 5 mm nodular density within the right middle lobe on image 103. This is likely benign given the long-term stability. IMPRESSION: 1. No evidence for a central pulmonary embolus with limitations as described above. 2. A 9 cm focus of consolidation within the left upper lobe. This likely represents a pneumonia. 3 month chest x-ray follow-up recommended to ensure resolution. 3. Mild mediastinal lymphadenopathy. This is likely reactive. 4. Trace right pleural effusions. ACT 112: Negative or not required by law. Electronically signed by: Diego Cheng M.D. 02/23/2023 1:08 PM Discharge Plan Visit Data Chief Complaint: Chest Pain Stated Complaint: CHEST PAIN, SOB, NAUSEA, VOMITING ED Provider: Anna Enamorado Discharge Problem: Pneumonia, Tachycardia, Sepsis Patient Disposition: Admitted As Inpatient Discharge Instructions Interventions: ED Discharge Assessment Last Done: 02/23/23 17:49
[2023-02-23] MEDS: oxyCODONE HCL IR 5 MG TAB (IMMEDIATE RELEASE) PO PRN (20:02)
[2023-02-23] MEDS: DULoxetine HCL 60 MG CAP PO SCH (20:04)
[2023-02-23] MEDS: QUEtiapine FUMARATE 200 MG TAB PO SCH (20:05)
[2023-02-23] MEDS: PIPERACILLIN/TAZOBACTAM 4.5 GM in DEXTROSE 5% 100 ML IV SCH (20:06)
[2023-02-23] MEDS: PANTOprazole 40 MG TAB PO SCH (20:06)
[2023-02-23] MEDS: HEPARIN SOD 5,000 UNIT/0.5 ML VIAL SQ SCH (21:14)
[2023-02-24] MEDS: PIPERACILLIN/TAZOBACTAM 4.5 GM in DEXTROSE 5% 100 ML IV SCH ×3 (04:04→20:30)
[2023-02-24] MEDS: NSS + 20MEQ KCL 20 MEQ/1,000 ML BAG IV SCH (04:48)
[2023-02-24] MEDS: HEPARIN SOD 5,000 UNIT/0.5 ML VIAL SQ SCH ×3 (05:34→22:00)
--- NOTE | 2023-02-24 07:46 | XRay Report ---
XR chest 1V portable HISTORY: Pneumonia. Shortness of breath. COMPARISON: Chest 02/23/2023. FINDINGS: No change in the large left upper lobe airspace opacity. No pneumothorax. No pleural effusi ons. The cardiac silhouette is mildly enlarged. There are low lung volumes. No evidence for pulmonary edema. IMPRESSION: No change in the large left upper lobe airspace opacity. This favors a pneumonia. ACT 112: Negative or not required by law. Electronically signed by: Diego Cheng M.D. 02/24/2023 7:45 AM
[2023-02-24 07:55] LABS: Hematocrit (blood only) 27.1 % (37.0-47.0); Hemoglobin 9.2 g/dl (12.0-16.0); Mean Corpuscular Hemoglobin 30.3 pg (25.0-34.0); Mean Corpuscular Hgb Conc 33.9 g/dL (32.0-36.0); Mean Corpuscular Volume 89.1 fL (80.0-100.0); Mean Platelet Volume 9.7 fL (9.4-12.4); Platelet Count 269 K/uL (130-400); RDW Coefficient of Variation 13.1 % (11.5-14.5); Red Blood Count 3.04 M/uL (4.20-5.40); White Blood Count 20.55 K/ul (4.8-10.8)
[2023-02-24] MEDS: LORazepam 0.5 MG TAB PO SCH ×2 (08:06→22:04)
[2023-02-24] MEDS: DULoxetine HCL 60 MG CAP PO SCH (08:07)
[2023-02-24] MEDS: PANTOprazole 40 MG TAB PO SCH ×2 (08:07→22:00)
[2023-02-24] MEDS: LORATADINE 10 MG TAB PO SCH (08:07)
[2023-02-24 08:17] LABS: Albumin Globulin Ratio 1.1 (0.9-2); Albumin Level 3.3 gm/dl (3.4-5.0); BUN Creatinine Ratio 14.5 (10-20); Bilirubin,Total 0.5 mg/dl (0.2-1.0); Calcium 7.9 mg/dl (8.6-10.3); Creatinine Clr Calc Pharmacy 134.1 ml/min; Est GFR (African American) 123.6 ml/min; Est GFR (Non-African American) 106.6 ml/min; Globulin 2.9 gm/dl (2.5-4.0); Magnesium 2.7 mg/dl (1.7-2.4); Potassium 3.5 mmol/L (3.5-5.1); Total Protein 6.2 gm/dl (6.0-8.3)
--- NOTE | 2023-02-24 08:49 | Electrocardiogram Report ---
Test Reason : Blood Pressure : / mmHG Vent. Rate : 126 BPM Atrial Rate : 126 BPM P-R Int : 112 ms QRS Dur : 096 ms QT Int : 338 ms P-R-T Axes : 035 027 057 degrees QTc Int : 489 ms Sinus tachycardia Diffuse Minor Nonspecific T wave abnormality Abnormal ECG When compared with ECG of 23-FEB-2023 10:51, No significant change Confirmed by Osvaldo Lord ([id number]) on 02/24/2023 8:49:05 AM Referred By: REFERRED SELF Confirmed By:Osvaldo Lord
[2023-02-24] MEDS: AZITHROMYCIN 500 MG in DEXTROSE 5% 250 ML IV SCH (12:52)
[2023-02-24] MEDS ORDERED: OLANZapine 10 MG/2.1 ML SDV IM STA (14:21)
--- NOTE | 2023-02-24 14:21 | XRay Report ---
XR chest 1V portable CLINICAL HISTORY: labored breathing COMPARISON STUDY: Chest radiograph and chest CT February 23, 2023. FINDINGS: The large left upper lobe airspace opacity is similar to prior chest radiographs and CT. No pneumothorax or pleural effusion is present. No evidence for pulmonary edema. Postoperative findings within the cervical spine are incidentally noted. IMPRESSION: No significant change in appearance of the extensive left upper lobe pneumonia. ACT 112: Negative or not required by law. Electronically signed by: John Donnelly M.D. 02/24/2023 2:18 PM
[2023-02-24] MEDS ORDERED: OLANZapine 10 MG/2.1 ML SDV IM ONE (14:23)
[2023-02-24 14:56] LABS: Base Excess ABG -5.7 mEq/L (-9-1.8); HCO3 ABG 19 mmol/L (19-24); Oxygen Saturation ABG 99.8 % (90-95); PCO2 ABG 36 mmHg (35-46); PO2 ABG 117 mmHg (80-95); pH ABG 7.34 (7.35-7.45)
--- NOTE | 2023-02-24 15:18 | CT Scan Report ---
CT head/brain wo con CLINICAL HISTORY: 42 years-old Female with acute confusion/no focal weakness. Acutely altered mental status TECHNIQUE: Multiple axial CT images of the head were obtained without contrast. A dose lowering tech nique was utilized adhering to the principles of ALARA. CT DOSE: 2623.91 mGy.cm COMPARISON: 11/27/2019. FINDINGS: No acute intracranial hemorrhage, midline shift, intracranial mass, hydrocephalus, territorial ischem ia or abnormal extra-axial collection. Motion degraded exam. The calvarium is intact. Chronic postoperative changes of the paranasal sinuses. Mastoid air cells a re clear. Benign appearing calcified 10 mm lesion of the right superior scalp on image 25. IMPRESSION: No acute intracranial abnormality. ACT 112: Negative or not required by law. The above report was generated using voice recognition software. It may contain grammatical, syntax o r spelling errors. Electronically signed by: Kaleb Mcleod M.D. 02/24/2023 3:16 PM
[2023-02-24 15:28] LABS: Hematocrit (blood only) 26.7 % (37.0-47.0); Hemoglobin 8.8 g/dl (12.0-16.0); Mean Corpuscular Hemoglobin 29.8 pg (25.0-34.0); Mean Corpuscular Volume 90.5 fL (80.0-100.0); Mean Platelet Volume 9.9 fL (9.4-12.4); Platelet Count 298 K/uL (130-400); RDW Coefficient of Variation 13.3 % (11.5-14.5); RDW Standard Deviation 44.1 fL (36.4-46.3); Red Blood Count 2.95 M/uL (4.20-5.40); White Blood Count 21.66 K/ul (4.8-10.8)
[2023-02-24 15:31] LABS: Allen Test Pos (Pos)
[2023-02-24] MEDS ORDERED: POLYETHYLENE (MIRALAX) 17 GM PACK PO PRN (15:41)
--- NOTE | 2023-02-24 15:42 | Hospitalist Progress Note ---
Date of Service February 24, 2023 Assessment & Plan (1) Severe sepsis: (2) Left upper lobe pneumonia: (3) Lactic acidosis: (4) High anion gap metabolic acidosis: (5) HENRI (acute kidney injury): (6) Hypokalemia: (7) Hypomagnesemia: (8) Hyponatremia: (9) Bipolar disorder: Plan 42-year-old female presented to ED with vomiting and shortness of breath for 1 day and admitted for severe sepsis with left-sided pneumonia with multiple lab abnormalities. She is being managed for the following: Admitting CTA Chest: No evidence of PE, 9 cm focus of consolidation in the left upper lobe. 3-month chest x-ray follow-up recommended. Mild mediastinal lymphadenopathy, likely reactive. Trace right pleural effusion. Admitting CT A/P: No acute findings in the abdomen or pelvis. Hepatic steatosis and hepatomegaly noted. Mild gallbladder distention without adjacent stranding noted. Severe sepsis due to ANNIE CAP-patient meets sepsis criteria at presentation with tachycardia, tachypnea, leukocytosis, lactic acidosis. ProCal elevated at presentation. No fever. X-ray and CTA chest shows left upper lobe pneumonia with some lymphadenopathy. Multiple episodes of vomiting overnight and possible aspiration [employer]. Continue with Zosyn and azithromycin 02/23, continue with IV fluids as lactic acidosis is still not cleared. We will add thiamine p.o. Patient reports dry cough, follow-up admitting blood culture. MRSA negative, urine Legionella pending Pulm consulted, awaiting recommendation. Chest imaging in 3 months to document resolution. Monitor QTc while on zithro as she is on seroquel. EKG ordered for am. Avoid further QT prolonging meds. Acute kidney injury-due to severe sepsis along with vomiting [employer]. Patient also received IV contrast in the ED and her renal function needs to be monitored closely. Improved Anion gap metabolic acidosis due to lactic acidosis-continue with IVF. Recheck labs in a.m. Hypomagnesia-monitor and replete as appropriate. Normal today Hypokalemia-repleted, recheck in a.m. again Hyponatremia-low normal, monitor closely Bipolar disorder-continue home meds- lorazepam 0.5 mg bd, seroquel 400 mg hs, duloxetine 120 mg daily. Home oxy prn, zanaflex prn for her chronic back pain. Hold prazosin for now given low BP. COPD- prior smoker. Does not have to use her home prn inhaler. Not in exacerbation currently. DVT prophylaxis-subcu heparin Disposition-PCU telemetry Full code Total of 80 minutes spent in care/coordination/attending acute episode during the day (subjective)/calling family member/communicating w/ RN and charting/documenting/communicating care. Admission and Anticipated Discharge Date Admission Date: February 23, 2023 Subjective Patient seen and examined at bedside as a follow-up of severe sepsis, lactic acidosis, left upper lobe pneumonia, acute kidney injury. Patient was lying in bed, on room air, NAD, reports somewhat improvement in her breathing, reports improvement in her cough some, has dry cough, denies headache fever or chills, her appetite has been okay, reports not moving bowels in 3 days and would like laxatives. Pt was crying during early afternoon, i was priority paged due to concerns of stroke like symptoms. I went in to bedside immediately and did exam. BUE and BLE strength normal/no facial drop/ slurring perceived could be due to patient crying. Pt declined any headache but reported some chest pain which was reproducible. Pt was saturating 97% on RA. Had BP of 99/57. Plan to continue w/ 2 L NC O2 for comfort; LR at 80 ml/hr for BP support. Sent EKG/CT head/CXR/ABG/CBC/CMP/folate/lactate/magnesium/NST/procalcitonin/troponin/vitamin B12. Followed-up on the tests and imaging. CT head and CXR with no new acute findings. ABG looks fairly WNL. CBC/CMP reviewed. Will replace potassium. Lactate was elevated. Continue with IV fluids. Ammonia level WNL. Troponin negative, EKG with sinus tachycardia. Other tests were pending. Patient's father was given a phone call upon patient's request rather than the primary contact. Patient's father reported that patient has this acute episodes of crying/confusion on and off for a long time for which she is getting managed by her outpatient doctor. Patient does have history of bipolar disorder. Physical Exam Physical Exam: General: Obese class III, Lying comfortably in bed, not in acute distress, on room air HEENT: EOMI, ALCIRA, dry oral mucosa Chest: Left upper lobe crackles otherwise clear breath sounds bilaterally CVS:Tachycardic, normal heart sounds, no murmur Abdomen: Soft, non tender, not distended, normal bowel sounds Neuro: Awake, alert, oriented, conversing well, non focal Extremities: No cyanosis, clubbing or edema Results & Data Results & Data Vital Signs (Past 12 Hours) Vital Signs Temp Pulse Pulse Resp BP Pulse Ox O2 Del Method 02/24/23 13:51 101 H 18 99/57 L 97 Room Air 02/24/23 11:12 36.5 C 123 H 20 149/93 H 93 Room Air 02/24/23 07:50 Nasal Cannula 02/24/23 07:39 36.5 C 127 H 18 123/71 95 Room Air O2 Flow Rate 02/24/23 13:51 02/24/23 11:12 02/24/23 07:50 2 02/24/23 07:39
[2023-02-24] MEDS ORDERED: LACTATED RINGER'S 1,000 ML IV SCH (15:45)
[2023-02-24 15:46] LABS: Albumin Globulin Ratio 1.1 (0.9-2); Albumin Level 3.2 gm/dl (3.4-5.0); BUN Creatinine Ratio 11.9 (10-20); Bilirubin,Total 0.4 mg/dl (0.2-1.0); Calcium 7.9 mg/dl (8.6-10.3); Creatinine Clr Calc Pharmacy 138.1 ml/min; Est GFR (African American) 124.8 ml/min; Est GFR (Non-African American) 107.7 ml/min; Globulin 2.9 gm/dl (2.5-4.0); Magnesium 2.4 mg/dl (1.7-2.4); Potassium 3.3 mmol/L (3.5-5.1); Total Protein 6.1 gm/dl (6.0-8.3)
[2023-02-24 15:52] LABS: Troponin I High Sensitivity 7.3 pg/ml (0-14)
[2023-02-24] MEDS ORDERED: POTASSIUM CHLORIDE CRTAB 20 MEQ TABCR PO STA (16:10)
[2023-02-24 16:39] LABS: Folate (Folic Acid),Ser orPlas 7.83 ng/ml (>5.38)
[2023-02-24] MEDS: THIAMINE HCL 100 MG TAB PO SCH (16:53)
[2023-02-24] MEDS: DOCUSATE SODIUM/SENNA 50/8.6MG TAB PO SCH (16:53)
--- NOTE | 2023-02-24 18:58 | Pulmonary Consultation ---
Date of Consultation February 24, 2023 Assessment & Plan (1) Pneumonia: The patient now has a dense left upper lung infiltrate with air bronchograms consistent with a bacterial infiltrate. This is supported by the elevated procalcitonin of 4.23 did have a lactic cytosis upon admission and an elevated white count clearing. The initial white count of 30 is down to 21 though it is a little bit up from yesterday. Nevertheless this seems very consistent with a bacterial infection. It is most likely that the patient has a pneumococcal pneumonia. A drugs her tox screen was positive for opiates. an atypical pneumonia seems less likely given the dense consolidation and the focality of it. It is interesting that she had some vomiting though the left upper lung is not a typical location for aspiration pneumonia it is possible if she was in the recumbent position. She does have oxycodone on her home medication list and I do not know if there was an excessive use or obtundation around the time of the development of the pneumonia. 1. Please check for pneumococcal urinary antigen and Legionella urinary antigen. 2. Please check MRS nasal swab. 3. Zoxyn may not be necessary. She is responding to it but Ceftriaxone may be sufficient. 4. Assure adequate swallow safety. 5. Wean oxygen as tolerates. 6. She may benefit from an outpatient sleep study for sleep disordered breathing. 7. No mass is seen on CT scan given her history of cigarette use. This does not appear to be a post obstructive PNA. But follow-up CT scan to resolution is appropriate. Laterality: left Lung location: upper lobe of lung Pneumonia type: due to unspecified organism Qualified Code(s): J18.9 - Pneumonia, unspecified organism History of Present Illness Reason for Consultation: New onset left upper lung pneumonia. Attending Physician: Lobito Hfuf MD History of Present Illness As the patient just received Zyprexa and was obtunded and unresponsive much of the information was obtained from chart review. The patient is a 42-year-old female with underlying psychiatric disorders including bipolar. She also has a history of COPD. She presents with 1 week of worsening left chest pain radia ting to under her breast. She was throwing up and felt short of breath. She had some progressive shortness of breath. Allergies Allergy/AdvReac Type Severity Reaction Status Date / Time Sulfa (Sulfonamide Allergy Mild RASH, Verified 01/05/23 12:02 Antibiotics) NAUSEA Home Medications Medication Instructions Recorded Confirmed Type albuterol sulfate 90 mcg/actuation 2 puffs inhalation Q4H PRN 10/20/19 02/23/23 History aerosol inhaler Shortness Of Breath Or Wheezing tizanidine 4 mg tablet 4 mg PO Q6H PRN Muscle Spasm 01/14/20 02/23/23 History sumatriptan succinate 6 mg/0.5 mL 6 mg (0.5 mL) subcut DIRECTED 08/09/20 02/23/23 Rx subcutaneous solution (Imitrex) PRN migraine headache #3 mL loratadine 10 mg tablet (Claritin) 10 mg PO QAM 02/15/21 02/23/23 History colestipol 1 gram tablet (Colestid) 1 g PO DAILY 09/24/22 02/23/23 History prazosin 2 mg capsule 2 mg PO HS 09/24/22 02/23/23 History loperamide 2 mg capsule (Imodium 2 mg PO Q6H PRN loose stool #14 09/30/22 02/23/23 Rx A-D) caps oxycodone 5 mg tablet 5 mg PO Q6H PRN pain #15 tabs 12/01/22 02/23/23 Rx acetaminophen 300 mg-codeine 30 mg 1 tab PO Q8H PRN pain #6 tabs 01/05/23 02/23/23 Rx tablet dicyclomine 10 mg capsule 10 mg PO TID PRN Cramps 01/05/23 02/23/23 History pantoprazole 40 mg tablet,delayed 40 mg PO BID 01/05/23 02/23/23 History release quetiapine 400 mg tablet 400 mg PO HS 01/05/23 02/23/23 History duloxetine 60 mg capsule,delayed 60 mg PO BID 02/23/23 02/23/23 History release Patient History Medical History Allergy-induced asthma NO INHALER USED FOR >YEAR Well controlled and stable Anxiety and depression Bipolar 1 disorder Cervical stenosis of spinal canal Dyslipidemia Fibromyalgia History of high blood pressure History of kidney stones NO SURGERY No current issues Hypertension IBS (irritable bowel syndrome) Combination of diarrhea and constipation Insomnia Lumbar pain Migraine Mood disorder Rheumatoid arthritis Followed with rheum in the past (follows only with PCP currently) Septic colitis Surgical History History of arthroscopy MULTIPLE RT/LEFT KNEE SCOPES History of bilateral tubal ligation History of endometrial ablation History of esophagogastroduodenoscopy (EGD) History of hysterectomy History of partial knee replacement RT History of tonsillectomy and adenoidectomy History of total knee replacement LEFT S/P colonoscopy S/P inguinal hernia repair S/P sinus surgery [place] teeth removed Family History Daughter Depression Allergies Grandmother (Paternal) Arthritis Grandfather (Paternal) Diabetes Arthritis Grandmother (Maternal) Diabetes Hypertension Grandfather (Maternal) Diabetes Hypertension Sister Kidney stones Hypertension Mother Thyroid disorder Other No family history of adverse response to anesthesia Social History Smoking Status: Former smoker Tobacco Type: Cigarettes Cigarettes Per Day: Quit 09/2019. Smoked 0.5-1ppd x 5 years; Second Hand Exposure: No; Do You Dip or Chew Tobacco: No; Hx Alcohol Use: No Hx Substance Use: No Preferred Language: [place] Communication Ability: Effective Compressor Mechanic Required: No Beliefs That Will Affect Care: None marital status: Single Current Living Situation: Other Current Living Situation Comment: family/friends current occupational status: disabled Other Information That Helps Us Care for You: No Feels Safe at Home: Yes Safety Concerns: Feels Safe At This Time Assistive Devices: None Review of Systems Review of Systems: Is a patient is currently obtunded after Zyprexa administration complete review of systems was not able to be obtained. Physical Exam Physical Exam: The patient was unresponsive to tactile or verbal stimulation. She had a very unusual respiratory pattern which I have frankly never seen before was a staccato with rapid deep inspirations. But she was not snoring and did not seem to have obstructive episodes. She has some obesity with a thick neck. Lungs are distant but diminished breath sounds because of inability to cooperate to take a deep breath. Heart is regular rate and rhythm without murmurs rubs or gallops abdomen is soft nontender and obese extremities without clubbing cyanosis or edema. Results & Data Results & Data Vital Signs (Past 12 Hours) Vital Signs Temp Pulse Pulse Pulse Resp BP Pulse Ox 02/24/23 17:13 110 H 07/25/23 15:55 36.3 C L 86 18 92/60 L 99 02/24/23 13:51 101 H 18 99/57 L 97 02/24/23 11:12 36.5 C 123 H 20 149/93 H 93 02/24/23 07:50 02/24/23 07:39 36.5 C 127 H 18 123/71 95 O2 Del Method O2 Flow Rate 02/24/23 17:13 02/24/23 15:55 Nasal Cannula 2 02/24/23 13:51 Room Air 02/24/23 11:12 Room Air 02/24/23 07:50 Nasal Cannula 2 02/24/23 07:39 Room Air Laboratory Results Laboratory Results WBC 21.66 K/ul (4.8-10.8) H 02/24/23 14:31 RBC 2.95 M/uL (4.20-5.40) L 02/24/23 14:31 Hgb 8.8 g/dl (12.0-16.0) L 02/24/23 14:31 Hct 26.7 % (37.0-47.0) L 02/24/23 14:31 MCV 90.5 fL (80.0-100.0) 02/24/23 14:31 MCH 29.8 pg (25.0-34.0) 02/24/23 14:31 MCHC 33.0 g/dL (32.0-36.0) 02/24/23 14:31 RDW Std Deviation 44.1 fL (36.4-46.3) 02/24/23 14:31 RDW Coeff of Nate 13.3 % (11.5-14.5) 02/24/23 14:31 Plt Count 298 K/uL (130-400) 02/24/23 14:31 MPV 9.9 fL (9.4-12.4) 02/24/23 14:31 Immature Gran % (Auto) 6.6 % 02/23/23 11:00 Neut % (Auto) 83.5 % 02/23/23 11:00 Lymph % (Auto) 4.1 % 02/23/23 11:00 Clark % (Auto) 5.4 % 02/23/23 11:00 Eos % (Auto) 0.2 % 02/23/23 11:00 Baso % (Auto) 0.2 % 02/23/23 11:00 Neut # (Auto) 25.09 K/uL (1.40-6.50) H 02/23/23 11:00 Lymph # (Auto) 1.24 K/uL (1.2-3.4) 02/23/23 11:00 Clark # (Auto) 1.61 K/uL (0.11-0.59) H 02/23/23 11:00 Eos # (Auto) 0.05 K/uL (0-0.50) 02/23/23 11:00 Baso # (Auto) 0.07 K/uL (0-0.2) 02/23/23 11:00 Immature Gran # (Auto) 1.99 K/uL (0.01-0.20) H 02/23/23 11:00 Dohle Bodies 1+ 02/23/23 11:00 PT 14.1 Seconds (9.0-12.0) H 02/23/23 11:00 INR 1.3 (0.9-1.1) H 02/23/23 11:00 APTT 34.5 Seconds (21.0-31.0) H 02/23/23 11:00 PTT Ratio 1.2 02/23/23 11:00 ABG pH 7.34 (7.35-7.45) L 02/24/23 14:45 ABG pCO2 36 mmHg (35-46) 02/24/23 14:45 ABG pO2 117 mmHg (80-95) H 02/24/23 14:45 ABG HCO3 19 mmol/L (19-24) 02/24/23 14:45 ABG O2 Saturation 99.8 % (90-95) H 02/24/23 14:45 ABG Base Excess -5.7 mEq/L (-9-1.8) 02/24/23 14:45 Doyle Test Pos (Pos) 02/24/23 14:45 Oxygen Given 2 02/24/23 14:45 Sodium 135 mmol/L (136-145) L 02/24/23 14:31 Potassium 3.3 mmol/L (3.5-5.1) L 02/24/23 14:31 Chloride 107 mmol/L (98-107) 02/24/23 14:31 Carbon Dioxide 20 mmol/L (21-32) L 02/24/23 14:31 Anion Gap 8 (3-11) 02/24/23 14:31 BUN 8 mg/dl (6-23) 02/24/23 14:31 Creatinine 0.67 mg/dl (0.6-1.2) 02/24/23 14:31 Est Cr Clr Drug Dosing 138.1 ml/min 02/24/23 14:31 Est GFR ( Amer) 124.8 ml/min 02/24/23 14:31 Est GFR (Non-Af Amer) 107.7 ml/min 02/24/23 14:31 BUN/Creatinine Ratio 11.9 (10-20) 02/24/23 14:31 Glucose 221 mg/dl (70-99(Fasting)) H 02/24/23 14:31 Lactate 1.8 mmol/L (0.4-2.0) 02/24/23 16:31 Calcium 7.9 mg/dl (8.6-10.3) L 02/24/23 14:31 Phosphorus 3.4 mg/dl (2.5-4.9) 02/23/23 11:00 Magnesium 2.4 mg/dl (1.7-2.4) 02/24/23 14:31 Total Bilirubin 0.4 mg/dl (0.2-1.0) 02/24/23 14:31 AST 11 U/L (13-39) L 02/24/23 14:31 ALT 17 U/L (7-52) 02/24/23 14:31 Alkaline Phosphatase 98 U/L (34-104) 02/24/23 14:31 Ammonia 17.0 umol/L (18-72) L 02/24/23 14:45 Troponin I High Sens 7.3 pg/ml (0-14) 02/24/23 14:31 Total Protein 6.1 gm/dl (6.0-8.3) 02/24/23 14:31 Albumin 3.2 gm/dl (3.4-5.0) L 02/24/23 14:31 Globulin 2.9 gm/dl (2.5-4.0) 02/24/23 14:31 Albumin/Globulin Ratio 1.1 (0.9-2) 02/24/23 14:31 Vitamin B12 412 pg/ml (180-914) 02/24/23 14:31 Folate 7.83 ng/ml (>5.38) 02/24/23 14:31 Procalcitonin 4.23 ng/ml (0-0.5) H 02/24/23 14:31 Urine Color Dark Yellow 02/23/23 11:57 Urine Appearance Turbid (Clear) A 02/23/23 11:57 Urine pH 5.0 (4.5-7.5) 02/23/23 11:57 Ur Specific [place] 1.025 (1.000-1.030) 02/23/23 11:57 Urine Protein 2+ (Negative) H 02/23/23 11:57 Urine Glucose (UA) Negative (Negative) 02/23/23 11:57 Urine Ketones Trace (Negative) H 02/23/23 11:57 Urine Blood Negative (Negative) 02/23/23 11:57 Urine Nitrite Positive (Negative) A 02/23/23 11:57 Urine Bilirubin 1+ (Negative) H 02/23/23 11:57 Urine Urobilinogen Negative (Negative) 02/23/23 11:57 Ur Leukocyte Esterase Negative (Negative) 02/23/23 11:57 Urine WBC (Auto) 5-10 /hpf (0-5) H 02/23/23 11:57 Urine RBC (Auto) 0-4 /hpf (0-4) 02/23/23 11:57 U Hyaline Cast (Auto) >30 /lpf (0-5) H 02/23/23 11:57 U Epithel Cells (Auto) >30 /lpf (0-5) H 02/23/23 11:57 Urine Bacteria (Auto) 1+ (Negative) H 02/23/23 11:57 Ur Renal Epithelial Cell 0-5 /lpf (0-5) 02/23/23 11:57 Granular Casts 5-10 /lpf (0) H 02/23/23 11:57 Nasal Screen MRSA (PCR) Negative (Negative) 02/23/23 20:15 Adenovirus (PCR) Not Detected (NotDetected) 02/23/23 15:32 B. pertussis DNA (PCR) Not Detected (NotDetected) 02/23/23 15:32 B.parapertussis DNA PCR Not Detected (NotDetected) 02/23/23 15:32 C. pneumoniae DNA (PCR) Not Detected (NotDetected) 02/23/23 15:32 Coronavirus OC43 (PCR) Not Detected (NotDetected) 02/23/23 15:32 Coronavirus HKU1 (PCR) Not Detected (NotDetected) 02/23/23 15:32 Coronavirus 229E (PCR) Not Detected (NotDetected) 02/23/23 15:32 SARS-CoV-2 (PCR) Not Detected (NotDetected) 02/23/23 15:32 Coronavirus NL63 (PCR) Not Detected (NotDetected) 02/23/23 15:32 Human Metapneumovir PCR Not Detected (NotDetected) 02/23/23 15:32 Influenza Type A (PCR) Not Detected (NotDetected) 02/23/23 15:32 Influenza Type B (PCR) Not Detected (NotDetected) 02/23/23 15:32 M. pneumoniae (PCR) Not Detected (NotDetected) 02/23/23 15:32 Parainfluenza 1 (PCR) Not Detected (NotDetected) 02/23/23 15:32 Parainfluenza 2 (PCR) Not Detected (NotDetected) 02/23/23 15:32 Parainfluenza 3 (PCR) Not Detected (NotDetected) 02/23/23 15:32 Parainfluenza 4 (PCR) Not Detected (NotDetected) 02/23/23 15:32 RSV (PCR) Not Detected (NotDetected) 02/23/23 15:32 Entero/Rhino (PCR) Not Detected (NotDetected) 02/23/23 15:32 Impressions Abdomen/Pelvis CT 02/23/23 11:36 CT OF THE ABDOMEN AND PELVIS WITH CONTRAST CLINICAL HISTORY: Abdominal distention, vomiting. COMPARISON STUDY: CT of the abdomen and pelvis August 07, 2022. TECHNIQUE: Following IV administration of 120 mL of Optiray, axial images of the abdomen and pelvis were obtained from the lung bases to the proximal femurs. Images were reviewed in the axial, sagittal, and coronal planes. IV contrast was administered without complication. Automated exposure control was utilized for the study. A dose lowering technique was utilized adhering to the principles of ALARA. FINDINGS: Please note that the chest CT will be reported separately. Left upper lobe pneumonia is better depicted on the chest CT. There is a trace right pleural effusion. No pneumatosis, free air or portal venous gas is present. There is hepatic steatosis and hepatomegaly. The adrenal glands, right kidney and pancreas are unremarkable. This exam is compromised by motion artifact. The gallbladder is mildly distended. There is no adjacent infiltration. A 5 mm left renal calculus is present. There are no ureteral calculi. There is no hydronephrosis. There is no evidence for a bowel obstruction. The appendix is normal. There is no lymphadenopathy or ascites. No fluid collections are present. Major vasculature is patent. IMPRESSION: 1. No acute process within the abdomen or pelvis. Exam mildly compromised by motion artifact. 2. Hepatic steatosis and hepatomegaly. 3. Mild gallbladder distention without adjacent stranding. 4. No bowel obstruction. No bowel wall thickening. Normal appendix. 5. Left upper lobe pneumonia better depicted on the chest CT. ACT 112: Negative or not required by law. Electronically signed by: John Donnelly M.D. 02/23/2023 12:58 PM Chest CTA 02/23/23 11:36 CHEST CTA for PULMONARY ARTERIES CT DOSE: 2505.36 mGy.cm HISTORY: Shortness of breath. Left-sided chest pain. Obese, tachycardia, inc RR, ?aspiration vs PE TECHNIQUE: Multiaxial CT images of the chest were performed following the intravenous administration of contrast to evaluate the pulmonary arteries. 3D/Maximal intensity projection images were also obtained. Sagittal and coronal reformations were also reviewed. A dose lowering technique was utilized adhering to the principles of ALARA. COMPARISON STUDY: Chest CT 03/22/2021. FINDINGS: Normal caliber thoracic aorta with no evidence for a dissection. The heart is normal in size. Trace right pleural effusion. No pericardial effusion. Respiratory motion artifact results in nondiagnostic evaluation of the majority of the segmental and subsegmental pulmonary arteries. However, the main and lobar pulmonary arteries appear patent. Therefore, no evidence for central pulmonary embolus. A few mildly enlarged mediastinal lymph nodes. Dominant prevascular lymph node on image 153 measures 11 mm. These are likely reactive. Limited views of the upper abdomen demonstrate hepatic steatosis and a normal spleen. The visualized adrenal glands unremarkable. No acute fractures identified. No pneumothorax. The central airways appear patent. Focal area of dense consolidation within the left upper lobe measuring 9 cm with associated air bronchograms. This likely represents a pneumonia. Stable 5 mm nodular density within the right middle lobe on image 103. This is likely benign given the long-term stability. IMPRESSION: 1. No evidence for a central pulmonary embolus with limitations as described above. 2. A 9 cm focus of consolidation within the left upper lobe. This likely represents a pneumonia. 3 month chest x-ray follow-up recommended to ensure resolution. 3. Mild mediastinal lymphadenopathy. This is likely reactive. 4. Trace right pleural effusions. ACT 112: Negative or not required by law. Electronically signed by: Diego Cheng M.D. 02/23/2023 1:08 PM Chest X-Ray 02/24/23 13:54 XR chest 1V portable CLINICAL HISTORY: labored breathing COMPARISON STUDY: Chest radiograph and chest CT February 23, 2023. FINDINGS: The large left upper lobe airspace opacity is similar to prior chest radiographs and CT. No pneumothorax or pleural effusion is present. No evidence for pulmonary edema. Postoperative findings within the cervical spine are incidentally noted. IMPRESSION: No significant change in appearance of the extensive left upper lobe pneumonia. ACT 112: Negative or not required by law. Electronically signed by: John Donnelly M.D. 02/24/2023 2:[address] 02/24/23 13:54 CT head/brain wo con CLINICAL HISTORY: 42 years-old Female with acute confusion/no focal weakness. Acutely altered mental status TECHNIQUE: Multiple axial CT images of the head were obtained without contrast. A dose lowering technique was utilized adhering to the principles of ALARA. CT DOSE: 2623.91 mGy.cm COMPARISON: 11/27/2019. FINDINGS: No acute intracranial hemorrhage, midline shift, intracranial mass, hydrocephalus, territorial ischemia or abnormal extra-axial collection. Motion degraded exam. The calvarium is intact. Chronic postoperative changes of the paranasal sinuses. Mastoid air cells are clear. Benign appearing calcified 10 mm lesion of the right superior scalp on image 25. IMPRESSION: No acute intracranial abnormality. ACT 112: Negative or not required by law. The above report was generated using voice recognition software. It may contain grammatical, syntax or spelling errors. Electronically signed by: Kaleb Mcleod M.D. 02/24/2023 3:16 PM Medications Administered Current Inpatient Medications Duloxetine HCl (Duloxetine Hcl 60 Mg Cap) 120 mg PO QAM [facility] Stop: 03/25/23 19:59 Last Admin: 02/24/23 08:07 Dose: 120 mg Heparin Sodium (Porcine) (Heparin Sod 5,000 Unit/0.5 Ml Vial) 5,000 units SQ Q8 [facility]IS M Stop: 03/25/23 21:59 Last Admin: 02/24/23 14:27 Dose: Not Given Azithromycin 500 mg/ Dextrose 255 mls @ 127.5 mls/hr IV Q24H [facility] Stop: 03/02/23 12:59 Last Infusion: 02/24/23 15:44 Dose: Infused Piperacillin Sod/Tazobactam (Sod 4.5 gm/ Dextrose) 120 mls @ 30 mls/hr IV Q8H [facility]; Protocol Stop: 03/02/23 19:59 Last Infusion: 02/24/23 16:55 Dose: Infused Lactated Ringer's (Lr) 1,000 mls @ 80 mls/hr IV .[id number] [facility] Stop: 02/25/23 04:14 Last Admin: 02/24/23 15:52 Dose: 80 mls/hr Loratadine (Loratadine 10 Mg Tab) 10 mg PO QAM [facility] Stop: 03/26/23 08:59 Last Admin: 02/24/23 08:07 Dose: 10 mg Lorazepam (Lorazepam 0.5 Mg Tab) 0.5 mg PO BID [facility] Stop: 03/25/23 13:34 Last Admin: 02/24/23 08:06 Dose: 0.5 mg Oxycodone HCl (Oxycodone Hcl Ir 5 Mg Tab (Immediate Release)) 5 mg PO Q6H PRN PRN Reason: pain Stop: 03/09/23 15:02 Last Admin: 02/23/23 20:02 Dose: 5 mg Pantoprazole Sodium (Pantoprazole 40 Mg Tab) 40 mg PO BID [facility] Stop: 03/25/23 20:59 Last Admin: 02/24/23 08:07 Dose: 40 mg Polyethylene Glycol (Polyethylene (Miralax) 17 Gm Pack) 17 gm PO DAILY PRN PRN Reason: Constipation Stop: 03/26/23 15:40 Quetiapine Fumarate (Quetiapine Fumarate 200 Mg Tab) 400 mg PO HS [facility] Stop: 03/25/23 20:59 Last Admin: 02/23/23 20:05 Dose: 400 mg Senna/Docusate Sodium (Docusate Sodium/Senna 50/8.6mg Tab) 1 tab PO QAM [facility] Stop: 03/26/23 15:59 Last Admin: 02/24/23 16:53 Dose: 1 tab Thiamine HCl (Thiamine Hcl 100 Mg Tab) 100 mg PO QAM [facility] M Stop: 03/26/23 15:59 Last Admin: 02/24/23 16:53 Dose: 100 mg Tizanidine HCl (Tizanidine Hcl 4 Mg Tablet) 4 mg PO Q6H PRN PRN Reason: Muscle Spasm Stop: 03/25/23 15:02 PG Care Time/CCT Total # of Minutes Spent Total Time Spent with Patient: Total time spent is greater than 50% in coordination of care (as documented) at patient's floor/unit and/or counseling patient: Coding Level of Care Code 98611 IN/OBS CONSULT LVL 2,35M History Problem Focused Exam Problem Focused Medical Decision Making Low Complexity Diagnoses Pneumonia J18.9 Laterality: left Lung location: upper lobe of lung Pneumonia type: due to unspecified organism Time Spent (min) 35
[2023-02-24] MEDS: QUEtiapine FUMARATE 200 MG TAB PO SCH (22:00)
[2023-02-25 01:39] LABS: Amphetamines+Metham, Urine Neg (Neg); Barbiturates, Urine Neg (Neg); Benzodiazepine, Urine Neg (Neg); Cocaine, Urine Neg (Neg); MDMA (Ecstacy), Urine Neg (Neg); Methadone, Urine Neg (Neg); Opiate, Urine Neg (Neg); Phencyclidine, Urine Neg (Neg)
[2023-02-25] MEDS: PIPERACILLIN/TAZOBACTAM 4.5 GM in DEXTROSE 5% 100 ML IV SCH (04:44)
[2023-02-25] MEDS: HEPARIN SOD 5,000 UNIT/0.5 ML VIAL SQ SCH ×3 (06:16→20:05)
[2023-02-25] MEDS: LORATADINE 10 MG TAB PO SCH (07:49)
[2023-02-25] MEDS: LORazepam 0.5 MG TAB PO SCH ×2 (07:49→20:04)
[2023-02-25] MEDS: DULoxetine HCL 60 MG CAP PO SCH (07:49)
[2023-02-25] MEDS: DOCUSATE SODIUM/SENNA 50/8.6MG TAB PO SCH (07:50)
[2023-02-25] MEDS: THIAMINE HCL 100 MG TAB PO SCH (07:50)
[2023-02-25] MEDS: PANTOprazole 40 MG TAB PO SCH ×2 (07:50→20:04)
--- NOTE | 2023-02-25 09:11 | Electrocardiogram Report ---
Test Reason : Blood Pressure : / mmHG Vent. Rate : 086 BPM Atrial Rate : 086 BPM P-R Int : 144 ms QRS Dur : 094 ms QT Int : 414 ms P-R-T Axes : 045 037 030 degrees QTc Int : 495 ms Normal sinus rhythm Normal ECG When compared with ECG of 24-FEB-2023 05:39, Nonspecific T wave abnormality no longer present Confirmed by Osvaldo Lord ([id number]) on 02/25/2023 9:11:14 AM Referred By: REFERRED SELF Confirmed By:Osvaldo Lord
[2023-02-25 09:16] LABS: Hematocrit (blood only) 29.5 % (37.0-47.0); Hemoglobin 9.9 g/dl (12.0-16.0); Mean Corpuscular Hemoglobin 30.4 pg (25.0-34.0); Mean Corpuscular Hgb Conc 33.6 g/dL (32.0-36.0); Mean Corpuscular Volume 90.5 fL (80.0-100.0); Mean Platelet Volume 9.6 fL (9.4-12.4); Platelet Count 329 K/uL (130-400); RDW Coefficient of Variation 13.3 % (11.5-14.5); RDW Standard Deviation 43.8 fL (36.4-46.3); Red Blood Count 3.26 M/uL (4.20-5.40); White Blood Count 16.83 K/ul (4.8-10.8)
[2023-02-25 09:31] LABS: Calcium 8.9 mg/dl (8.6-10.3); Creatinine Clr Calc Pharmacy 154.2 ml/min; Est GFR (African American) 129.4 ml/min; Est GFR (Non-African American) 111.6 ml/min; Magnesium 1.8 mg/dl (1.7-2.4); Potassium 3.5 mmol/L (3.5-5.1)
[2023-02-25] MEDS: cefTRIAXone SODIUM 2,000 MG in DEXTROSE 5% 50 ML IV SCH (12:17)
[2023-02-25] MEDS: AZITHROMYCIN 500 MG in DEXTROSE 5% 250 ML IV SCH (13:00)
[2023-02-25] MEDS: oxyCODONE HCL IR 5 MG TAB (IMMEDIATE RELEASE) PO PRN (13:07)
--- NOTE | 2023-02-25 14:20 | Procedure Note ---
Procedure Note Date of Service February 25, 2023 Coding
--- NOTE | 2023-02-25 16:48 | Hospitalist Progress Note ---
Date of Service February 25, 2023 Assessment & Plan (1) Severe sepsis: (2) Left upper lobe pneumonia: (3) Lactic acidosis: (4) High anion gap metabolic acidosis: (5) HENRI (acute kidney injury): (6) Hypokalemia: (7) Hypomagnesemia: (8) Hyponatremia: (9) Bipolar disorder: Plan 42-year-old female presented to ED with vomiting and shortness of breath for 1 day and admitted for severe sepsis with left-sided pneumonia with multiple lab abnormalities. She is being managed for the following: Admitting CTA Chest: No evidence of PE, 9 cm focus of consolidation in the left upper lobe. 3-month chest x-ray follow-up recommended. Mild mediastinal lymphadenopathy, likely reactive. Trace right pleural effusion. Admitting CT A/P: No acute findings in the abdomen or pelvis. Hepatic steatosis and hepatomegaly noted. Mild gallbladder distention without adjacent stranding noted. Severe sepsis due to ANNIE CAP-patient meets sepsis criteria at presentation with tachycardia, tachypnea, leukocytosis, lactic acidosis. ProCal elevated at presentation. No fever. X-ray and CTA chest shows left upper lobe pneumonia with some lymphadenopathy. 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 Continue with Zosyn and azithromycin 02/23, -- zosyn changed to rocephin 02/25. lactic acid normalized. Patient reports dry cough, follow-up admitting blood culture. MRSA negative, urine Legionella pending Pulm consulted, appreciate recommendation. Chest imaging in 3 months to document resolution. Monitor QTc while on zithro as she is on seroquel. Avoid further QT prolonging meds. WBC trending down, patient afebrile, still tachycardic. 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 Improved Anion gap metabolic acidosis due to lactic acidosis-s/p IVF. improved Hypomagnesia-monitor and replete as appropriate. Hypokalemia-monitor and replete. Hyponatremia-low normal, monitor closely Bipolar disorder-continue home meds- lorazepam 0.5 mg bd, seroquel 400 mg hs, duloxetine 120 mg daily. Home oxy prn, zanaflex prn for her chronic back pain. Hold prazosin for now given low BP. COPD- prior smoker. Does not have to use her home prn inhaler. Not in exacerbation currently. DVT prophylaxis-subcu heparin Disposition-PCU telemetry, likely in 1-2 days. Full code Admission and Anticipated Discharge Date Admission Date: February 23, 2023 Subjective Patient seen and examined at bedside as a follow-up of severe sepsis, lactic acidosis, left upper lobe pneumonia, acute kidney injury. Patient was lying in bed, on room air, NAD, reports improvement in her breathing, reports improvement in her cough, has dry cough, denies headache fever or chills, her appetite has been better, reports not moving bowels in 4 days and c/w laxatives. Still tachycardic, will add metoprolol low dose. Physical Exam Physical Exam: General: Obese class III, Lying comfortably in bed, not in acute distress, on room air HEENT: EOMI, ALCIRA, dry oral mucosa Chest: Left upper lobe crackles otherwise clear breath sounds bilaterally CVS:Tachycardic, normal heart sounds, no murmur Abdomen: Soft, non tender, not distended, normal bowel sounds Neuro: Awake, alert, oriented, conversing well, non focal Extremities: No cyanosis, clubbing or edema Results & Data Results & Data Vital Signs (Past 12 Hours) Vital Signs Temp Pulse Resp BP Pulse Ox O2 Del Method O2 Flow Rate 02/25/23 15:24 36.7 C 136 H 20 149/101 H 94 Nasal Cannula 2 02/25/23 11:05 36.8 C 124 H 24 163/107 H 91 Room Air 02/25/23 08:00 Room Air 2 02/25/23 07:10 36.6 C 111 H 18 139/107 H 96 Room Air
[2023-02-25] MEDS: QUEtiapine FUMARATE 200 MG TAB PO SCH (20:04)
[2023-02-25] MEDS: METOPROLOL TARTRATE 25 MG TAB PO SCH (20:04)
[2023-02-26] MEDS ORDERED: METOPROLOL TARTRATE 1 MG/ML VIAL IV STA (04:16)
[2023-02-26] MEDS: HEPARIN SOD 5,000 UNIT/0.5 ML VIAL SQ SCH ×2 (06:18→14:53)
[2023-02-26] MEDS: THIAMINE HCL 100 MG TAB PO SCH (07:51)
[2023-02-26] MEDS: METOPROLOL TARTRATE 25 MG TAB PO SCH (07:52)
[2023-02-26] MEDS: DULoxetine HCL 60 MG CAP PO SCH (07:52)
[2023-02-26] MEDS: PANTOprazole 40 MG TAB PO SCH (07:52)
[2023-02-26] MEDS: DOCUSATE SODIUM/SENNA 50/8.6MG TAB PO SCH (07:52)
[2023-02-26] MEDS: LORATADINE 10 MG TAB PO SCH (07:53)
[2023-02-26] MEDS: LORazepam 0.5 MG TAB PO SCH (08:07)
[2023-02-26] MEDS ORDERED: DOXYCYCLINE HYCLATE 100 MG in DEXTROSE 5% 100 ML IV SCH (09:00)
[2023-02-26 09:21] LABS: Hematocrit (blood only) 31.3 % (37.0-47.0); Hemoglobin 10.5 g/dl (12.0-16.0); Mean Corpuscular Hemoglobin 29.3 pg (25.0-34.0); Mean Corpuscular Hgb Conc 33.5 g/dL (32.0-36.0); Mean Corpuscular Volume 87.4 fL (80.0-100.0); Mean Platelet Volume 9.5 fL (9.4-12.4); Platelet Count 368 K/uL (130-400); RDW Coefficient of Variation 13.2 % (11.5-14.5); Red Blood Count 3.58 M/uL (4.20-5.40); White Blood Count 10.13 K/ul (4.8-10.8)
[2023-02-26 09:32] LABS: BUN Creatinine Ratio 3.6 (10-20); Calcium 8.9 mg/dl (8.6-10.3); Creatinine Clr Calc Pharmacy 168.3 ml/min; Est GFR (African American) 133.1 ml/min; Est GFR (Non-African American) 114.9 ml/min; Potassium 3.4 mmol/L (3.5-5.1)
[2023-02-26] MEDS ORDERED: POTASSIUM CHLORIDE CRTAB 20 MEQ TABCR PO STA (11:03)
[2023-02-26] MEDS ORDERED: LACTULOSE SYRUP 20 GM/30 ML UDC PO ONE (11:05)
--- NOTE | 2023-02-26 11:31 | XRay Report ---
XR chest 1V portable CLINICAL HISTORY: follow up pneumonia, not significant clinical improving COMPARISON STUDY: Chest radiograph February 24, 2023. FINDINGS: Extensive left upper lobe consolidation is similar to prior chest radiograph of February 24. There may also be left lower lobe airspace opacity. There is a suspected trace left pleural effus ion. There is no pneumothorax. Right lung is clear. Cardiomediastinal silhouette is stable. IMPRESSION: 1. No significant change in extensive left upper lobe pneumonia. 2. Suspected mild left lower lobe airspace opacity. 3. Trace left pleural effusion. ACT 112: Negative or not required by law. Electronically signed by: John Donnelly M.D. 02/26/2023 11:29 AM
[2023-02-26] MEDS: cefTRIAXone SODIUM 2,000 MG in DEXTROSE 5% 50 ML IV SCH (12:07)
--- NOTE | 2023-02-26 12:47 | Electrocardiogram Report ---
Test Reason : Blood Pressure : / mmHG Vent. Rate : 111 BPM Atrial Rate : 111 BPM P-R Int : 136 ms QRS Dur : 086 ms QT Int : 374 ms P-R-T Axes : 042 004 027 degrees QTc Int : 508 ms Sinus tachycardia Diffuse Minor Nonspecific T wave abnormality Abnormal ECG When compared with ECG of 24-FEB-2023 16:39, Nonspecific T wave abnormality now evident in Lateral leads Confirmed by Osvaldo Lord ([id number]) on 02/26/2023 12:46:55 PM Referred By: REFERRED SELF Confirmed By:Osvaldo Lord
--- NOTE | 2023-02-26 15:26 | Discharge Summary ---
Date of Service February 26, 2023 Admission HPI Per Admitting Provider 42-year-old female with history of bipolar disorder, COPD, prior tobacco abuse presented to ED with vomiting and shortness of breath for 1 day. States she had left chest pain 1 week prior under left breast. Last evening, she started throwing up and felt short of breath for which she presented to emergency. No fever, chills, lightheadeness, dizziness. No dysuria or diarrhea. Has minimal cough. No sick contacts. Quit smoking 3 years back. Does not drink alcohol or do drugs, states she is on disability due to her mental issues but states it is stable. In the ED, she met sepsis criteria with pneumonia and multiple lab normalities. She was started on IVF, empiric Zosyn/zithro. Hospice service was consulted for admission. During my encounter, patient was tachycardic, tachypnea but looked fairly comfortable and not in acute distress. Admission Exam Per Admitting Provider General: Obese, Lying comfortably in bed, not in acute distress, on room air HEENT: EOMI, ALCIRA, dry oral mucosa Chest: Left upper lobe crackles otherwise clear breath sounds bilaterally CVS:Tachycardic, normal heart sounds, no murmur Abdomen: Soft, non tender, not distended, normal bowel sounds Neuro: Awake, alert, oriented, conversing well, non focal Extremities: No cyanosis, clubbing or edema Principal Diagnosis Severe sepsis due to left upper lobe pneumonia Acute kidney injury Anion gap metabolic acidosis Electrolytes abnormalities especially hypokalemia Discharge Exam General: Obese class III, Lying comfortably in bed, not in acute distress, on room air HEENT: EOMI, ALCIRA, dry oral mucosa Chest: Left upper lobe crackles otherwise clear breath sounds bilaterally CVS:Tachycardic, normal heart sounds, no murmur Abdomen: Soft, non tender, not distended, normal bowel sounds Neuro: Awake, alert, oriented, conversing well, non focal Extremities: No cyanosis, clubbing or edema Discharge Data Allergies Allergy/AdvReac Type Severity Reaction Status Date / Time Sulfa (Sulfonamide Allergy Mild RASH, Verified 01/05/23 12:02 Antibiotics) NAUSEA Consultations 02/23/23 12:19 ED Decision to Admit Stat 02/24/23 08:40 Consult Pulmonology Routine Ordered Studies 02/23/23 11:36 CT Abd and Pelvis [CT abd pelvis IV con only] Stat CT angio chest PE protocol Stat 02/24/23 13:54 CT head/brain wo con Stat Hospital Course (1) Severe sepsis: (2) Left upper lobe pneumonia: (3) Lactic acidosis: (4) High anion gap metabolic acidosis: (5) HENRI (acute kidney injury): (6) Hypokalemia: (7) Hypomagnesemia: (8) Hyponatremia: (9) Bipolar disorder: Plan 42-year-old female presented to ED with vomiting and shortness of breath for 1 day and admitted for severe sepsis with left-sided pneumonia with multiple lab abnormalities. She wasmanaged for the following: Admitting CTA Chest: No evidence of PE, 9 cm focus of consolidation in the left upper lobe. 3-month chest x-ray follow-up recommended. Mild mediastinal lymphadenopathy, likely reactive. Trace right pleural effusion. Admitting CT A/P: No acute findings in the abdomen or pelvis. Hepatic steatosis and hepatomegaly noted. Mild gallbladder distention without adjacent stranding noted. Severe sepsis due to ANNIE CAP-patient meets sepsis criteria at presentation with tachycardia, tachypnea, leukocytosis, lactic acidosis. ProCal elevated at presentation. No fever. X-ray and CTA chest shows left upper lobe pneumonia with some lymphadenopathy. 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 Continue with Zosyn and azithromycin 02/23, -- zosyn changed to rocephin 02/25. lactic acid normalized. Patient reports dry cough, follow-up admitting blood culture. MRSA negative, urine Legionella pending Pulm consulted, appreciate recommendation. Chest imaging in 3 months to document resolution. QTc uptrending,Azithromycin changed to doxycycline WBC trending down, patient afebrile, patient feels better, two-step test completed with no oxygen requirement. Cefdinir and doxycycline to complete the course on discharge. 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 Improved Anion gap metabolic acidosis due to lactic acidosis-s/p IVF. improved Hypomagnesia-monitor and replete as appropriate. Hypokalemia-monitor and replete. Low-dose of potassium supplement for 7 days on discharge, to be followed with PCP outpatient within 1 week time. Hyponatremia-low normal, monitor closely Bipolar disorder-continue home meds- lorazepam 0.5 mg bd, seroquel 400 mg hs, duloxetine 120 mg daily. Home oxy prn, zanaflex prn for her chronic back pain. Hold prazosin for now given low BP. COPD- prior smoker. Does not have to use her home prn inhaler. Not in exacerbation currently. DVT prophylaxis-subcu heparin Full code Patient being discharged to home with following instruction at the point of discharge: Follow-up with your primary care physician within a week time and likely you will need labs CBC/CMP/magnesium/phosphorus. Your blood pressure and heart rate has been high while in the hospital, you are being started on Coreg twice a day. Measure your blood pressure twice a day and maintain a log to take to your primary care physician so that your blood pressure management can be adjusted appropriately. Your electrolytes especially potassium were on the lower side, you are being discharged on small dose of potassium supplement daily for 7 days. Recommend visiting with your PCP within a week time and getting your electrolytes level done to make sure they are stable. You were diagnosed with left upper lobe pneumonia, you will be discharged on antibiotic, complete the course as prescribed. You will need repeat imaging of the chest in 3 months to document resolution of this pneumonia, coordinate with the PCP office for repeat chest imaging. Take your medications as prescribed. Please make sure that you are able to get your medications today by calling your pharmacy before you leave the hospital so that your treatment continuity is not broken. Home Health Attestation I certify that this patient is under my care and that I, or a physicians processing assistant working with me, had a face to-face encounter that meets the home health [id number] encounter requirements with this patient. The encounter with the patient was in whole, or in part, for the following medical condition, which is the primary reason for home health care (list medical condition): I certify that, based on my findings, the following services are medically necessary home health services: My clinical findings support the need for the above services because: Further, I certify that my clinical findings support that this patient is homebound (i.e. absences from home require considerable and taxing effort and are for medical reasons or oriental orthodox services or infrequently or of short duration when for other reasons) because: Certification for Home Health Services: Based on the above findings, I certify that this patient is confined to the home and needs intermittent senior care care, physical therapy and/or speech therapy or continues to need occupational therapy. The patient is under my care, and I have initiated the establishment of the plan of care. This patient will be followed by a physician who will periodically review the plan of care. Total Time Total Time Spent Total Time Spent (In Minutes): 45 Discharge Plan Discharge Items Patient Disposition: Home - Self-Care Reason For Visit: LEFT CHEST PAIN, SOB, VOMITING Discharge Diagnosis: Severe sepsis due to left upper lobe pneumonia Acute kidney injury Anion gap metabolic acidosis Electrolytes abnormalities especially hypokalemia Activity: Resume your previous activity Non-emergency contact: Primary Care Provider Call non-emergency contact if: you have any medication questions, your symptoms worsen and your temperature is above 101 Follow-up/Referrals: Miguel Chaudhry PA-C [Primary Care Provider] - (Date & Time 03/04/2023 8:00 AM Provider Miguel Chaudhry PA-C Department General Internal Medicine [facility] ) Diet: Heart Healthy and Low Sodium (2gm) Addtl Attending Provider Instructions: Follow-up with your primary care physician within a week time and likely you will need labs CBC/CMP/magnesium/phosphorus. Your blood pressure and heart rate has been high while in the hospital, you are being started on Coreg twice a day. Measure your blood pressure twice a day and maintain a log to take to your primary care physician so that your blood pressure management can be adjusted appropriately. Your electrolytes especially potassium were on the lower side, you are being discharged on small dose of potassium supplement daily for 7 days. Recommend visiting with your PCP within a week time and getting your electrolytes level done to make sure they are stable. You were diagnosed with left upper lobe pneumonia, you will be discharged on antibiotic, complete the course as prescribed. You will need repeat imaging of the chest in 3 months to document resolution of this pneumonia, coordinate with the PCP office for repeat chest imaging. Take your medications as prescribed. Please make sure that you are able to get your medications today by calling your pharmacy before you leave the hospital so that your treatment continuity is not broken. Pending Studies at Discharge: Yes Stand-Alone Forms: My [employer], Smoking Cessation Medications and DC Order Prescriptions: New carvedilol 3.125 mg Tablet 3.125 mg PO BIDM Qty: 60 0RF polyethylene glycol 3350 [Miralax] 17 gram Powder In Packet 17 g PO DAILY PRN (Reason: laxative effect) Qty: 30 0RF sennosides-docusate sodium [Senokot-S] 8.6-50 mg Tablet 1 tab PO QAM Qty: 30 0RF cefdinir 300 mg capsule 300 mg PO BID 7 Days Qty: 14 0RF doxycycline hyclate 100 mg tablet 100 mg PO BID 7 Days Qty: 14 0RF Probiotic 3 billion cell capsule 3,000 mmu cells PO DAILY 14 Days Qty: 14 0RF Rx Instructions: administer with a meal potassium chloride 20 mEq tablet extended release 20 meq PO DAILY 7 Days Qty: 7 0RF Continued sumatriptan succinate [Imitrex] 6 mg/0.5 mL solution 6 mg SQ DIRECTED PRN (Reason: migraine headache) Qty: 3 3RF Patient Comments: patient has not taken in awhile Rx Instructions: take at start of headache, no more than 2 times per week albuterol sulfate 90 mcg/actuation HFA aerosol inhaler 2 puffs INH Q4H PRN (Reason: Shortness Of Breath Or Wheezing) tizanidine 4 mg tablet 4 mg PO Q6H PRN (Reason: Muscle Spasm) colestipol [Colestid] 1 gram Tablet 1 g PO DAILY prazosin 2 mg Capsule 2 mg PO HS loperamide [Imodium A-D] 2 mg capsule 2 mg PO Q6H PRN (Reason: loose stool) Qty: 14 0RF oxycodone 5 mg tablet 5 mg PO Q6H PRN (Reason: pain) Qty: 15 0RF pantoprazole 40 mg tablet,delayed release (DR/EC) 40 mg PO BID dicyclomine 10 mg capsule 10 mg PO TID PRN (Reason: Cramps) quetiapine 400 mg tablet 400 mg PO HS acetaminophen-codeine 300-30 mg tablet 1 tab PO Q8H PRN (Reason: pain) Qty: 6 0RF loratadine [Claritin] 10 mg Tablet 10 mg PO QAM duloxetine 60 mg capsule,delayed release(DR/EC) 60 mg PO BID Rx Instructions: per pt she takes twice daily Discharge Orders: Discharge Order (Routine); Ordered 02/26/23 Ordered By: Lobito Huff Admission Data Admit Date/Time: 02/23/23 13:24 Attending Provider: Lobito Huff Admit Provider: Mitul Quan Primary Care Provider: Miguel Chaudhry Other Providers: Mitul Quan ; Prem Hernandez ; Russell Joyce ; Satish Chirinos ; Henrique Ortez ; Uzma Murphy ; Maricel Sweet ; Ivette Mcbride
[2023-02-26] MEDS: oxyCODONE HCL IR 5 MG TAB (IMMEDIATE RELEASE) PO PRN (15:55)
[2023-02-26] MEDS ORDERED: carvediloL 3.125 MG TAB PO SCH (17:00)
[2023-02-27 09:23] LABS: Marijuana Quant, GCMS Urine 216 ng/mL (<5)
--- NOTE | 2023-03-03 08:19 | Coding Query ---
CODING QUERY To promote full compliance with coding requirements relating to patient care, provider participation is requested in all cases of train reservation clerk uncertainty. Please assist us with the question(s) below: Coding Question(s): Please document if a more specific pneumonia was confirmed. The pulmonary consult report states "It is most likely that the patient has a pneumococcal pneumonia. " but the D/C summary states the pneumonia as left upper lobe pneumonia. Physician's Response(s): Possible community aquired pneumonia Thank you Tiffany Vizcaino Principal Diagnosis: "that condition established after study, to be chiefly responsible for occasioning the admission of the patient to the hospital for care." Co-Existing Principal Diagnosis: "when two or more diagnoses equally meet the criteria for principal diagnosis as determined by the circumstances of admission, diagnostic work up, and/or therapy provided, and the Alphabetic Index, Tabular List, or another coding guideline does not provide sequencing direction, any one of the diagnoses may be sequenced first." "When the physician has documented what appears to be a current diagnosis in the body of the record, but has not included the diagnosis in the final diagnostic statement, the physician should be asked whether the diagnosis should be added." (Source Coding [facility] 2 QTR90. p3-4) HERI
== END 2023-02-26 17:46 | disposition home or self-care (01) ==
LOC: ED 10:27 → SUATTDRO 13:24 → 2S 13:24 → INTOOBSV 13:24 → 2S 17:49

== ENCOUNTER 2023-03-09 07:09 | Inpatient (IN) ==
--- NOTE | 2023-03-09 07:22 | Emergency Department Note ---
ED Provider Note History of Present Illness Chief Complaint: Abdominal Pain Stated Complaint: LEFT SIDED PAIN UNDER BREAST,SOME SOB,HX PNEUMONIA Time Seen by Provider: 03/09/23 07:19 42-year-old female who presents the emergency department with complaint of left upper quadrant and left-sided chest pain under her breast. The patient also reports shortness of breath. The patient reports that she had pneumonia a few weeks ago. The patient is concerned that the pneumonia has returned. The patient also continues with liquid stools that have not improved since having Salmonella colitis 8 months ago. 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 She also reports that she has had elevated blood pressure levels, having seen her PCP last with no changes in her medications. The patient reports that the chest pain is worse with deep breathing, rating her discomfort a 7 out of 10. The patient does report a strong family history of coronary artery disease. The pain does not radiate into her back. She denies any fevers, but has had some recent chills. Home Medications Medication Instructions Recorded Confirmed Type albuterol sulfate 90 mcg/actuation 2 puffs inhalation Q4H PRN 10/20/19 03/09/23 History aerosol inhaler Shortness Of Breath Or Wheezing tizanidine 4 mg tablet 4 mg PO Q6H PRN Muscle Spasm 01/14/20 03/09/23 History sumatriptan succinate 6 mg/0.5 mL 6 mg (0.5 mL) subcut DIRECTED 08/09/20 03/09/23 Rx subcutaneous solution (Imitrex) PRN migraine headache #3 mL loratadine 10 mg tablet (Claritin) 10 mg PO QAM 02/15/21 03/09/23 History colestipol 1 gram tablet (Colestid) 1 g PO DAILY 09/24/22 03/09/23 History prazosin 2 mg capsule 2 mg PO HS 09/24/22 03/09/23 History loperamide 2 mg capsule (Imodium 2 mg PO Q6H PRN loose stool #14 09/30/22 03/09/23 Rx A-D) caps oxycodone 5 mg tablet 5 mg PO Q6H PRN pain #15 tabs 12/01/22 03/09/23 Rx dicyclomine 10 mg capsule 10 mg PO TID PRN Cramps 01/05/23 03/09/23 History pantoprazole 40 mg tablet,delayed 40 mg PO BID 01/05/23 03/09/23 History release quetiapine 400 mg tablet 600 mg PO HS 01/05/23 03/09/23 History duloxetine 60 mg capsule,delayed 120 mg PO DAILY 02/23/23 03/09/23 History release carvedilol 3.125 mg tablet 3.125 mg PO BIDM #60 tabs 02/26/23 03/09/23 Rx lactobacillus combination no.4 3 3,000 mmu cells PO DAILY 2 weeks 02/26/23 03/09/23 Rx billion cell capsule (Probiotic) #14 caps Allergies Allergy/AdvReac Type Severity Reaction Status Date / Time Sulfa (Sulfonamide Allergy Mild RASH, Verified 01/05/23 12:02 Antibiotics) NAUSEA Past Med/Surg History Medical History Allergy-induced asthma NO INHALER USED FOR >YEAR Well controlled and stable Anxiety and depression Bipolar 1 disorder Cervical stenosis of spinal canal Dyslipidemia Fibromyalgia History of high blood pressure History of kidney stones NO SURGERY No current issues Hypertension IBS (irritable bowel syndrome) Combination of diarrhea and constipation Insomnia Lumbar pain Migraine Mood disorder Rheumatoid arthritis Followed with rheum in the past (follows only with PCP currently) Septic colitis Surgical History History of arthroscopy MULTIPLE RT/LEFT KNEE SCOPES History of bilateral tubal ligation History of endometrial ablation History of esophagogastroduodenoscopy (EGD) History of hysterectomy History of partial knee replacement b/l History of tonsillectomy and adenoidectomy History of total knee replacement LEFT S/P colonoscopy S/P inguinal hernia repair S/P sinus surgery [place] teeth removed Family History Daughter Depression Allergies Grandmother (Paternal) Arthritis Grandfather (Paternal) Diabetes Arthritis Grandmother (Maternal) Diabetes Hypertension Grandfather (Maternal) Diabetes Hypertension Sister Kidney stones Hypertension Mother Thyroid disorder Other No family history of adverse response to anesthesia Social History Smoking Status: Former smoker Tobacco Type: Cigarettes Cigarettes Per Day: Quit 09/2019. Smoked 0.5-1ppd x 5 years; Second Hand Exposure: No; Do You Dip or Chew Tobacco: No; Hx Alcohol Use: No Hx Substance Use: No Preferred Language: Setswana Communication Ability: Effective Paper Sorter Required: No Beliefs That Will Affect Care: None marital status: Single Current Living Situation: Other Current Living Situation Comment: family/friends current occupational status: disabled Feels Safe at Home: Yes Assistive Devices: None Physical Exam Vital Signs Vital Signs - 24 hr 03/09/23 07:12 03/09/23 07:28 03/09/23 07:25 Temperature 36.0 C L Temperature Source Temporal Artery Scan Pulse Rate 138 H 131 H 132 H Respiratory Rate 20 23 Blood Pressure 161/103 H 189/127 H Blood Pressure Mean 122 147 Pulse Oximetry 97 97 Oxygen Delivery Method Room Air Room Air Sepsis Recent Fever Within 48 Hours No Sepsis New/Unexplained Change in Mental Status N/A Sepsis Action Taken by Nursing No Action Required 03/09/23 07:30 03/09/23 08:00 03/09/23 09:30 Temperature Temperature Source Pulse Rate 121 H 117 H 129 H Respiratory Rate 23 20 20 Blood Pressure 179/110 H 161/103 H 164/108 H Blood Pressure Mean 133 122 126 Pulse Oximetry 97 98 96 Oxygen Delivery Method Room Air Room Air Room Air Sepsis Recent Fever Within 48 Hours Sepsis New/Unexplained Change in Mental Status Sepsis Action Taken by Nursing 03/09/23 09:37 03/09/23 10:02 Temperature Temperature Source Pulse Rate 113 H 105 H Respiratory Rate 19 22 Blood Pressure 152/111 H 174/98 H Blood Pressure Mean 124 123 Pulse Oximetry 96 97 Oxygen Delivery Method Room Air Room Air Sepsis Recent Fever Within 48 Hours Sepsis New/Unexplained Change in Mental Status Sepsis Action Taken by Nursing CONSTITUTIONAL: Healthy and well nourished. Alert and oriented X 3. Patient appears in mild discomfort. HEENT: No scleral icterus or conjunctival injection/pallor. NECK: Full active range of motion without discomfort. No JVD or carotid bru its. RESPIRATORY: Clear to auscultation bilaterally with no wheezing, crackles, rhonchi or stridor. CARDIOVASCULAR: Tachycardic and regular rhythm with no murmurs, rubs or gallops. GASTROINTESTINAL: Bowel sounds present in all quadrants. Patient has mild left upper quadrant tenderness to palpation. No rigidity, guarding or rebound. Negative CVA tenderness. MUSCULOSKELETAL: Full range of motion of all joints without discomfort. No tenderness to palpation across the anterior chest wall or costochondral joints. INTEGUMENTARY: No rash or other significant dermatologic conditions noted. HEMATOLOGIC: No ecchymosis or petechiae. PSYCHIATRIC: Positive affect. NEUROLOGIC: No focal neurologic deficits noted. Course Course Patient history and physical exam were performed. Nurses notes were reviewed. I also reviewed a portion of prior outside medical records, including a [facility] GI note from December 03 with PITO Young. Patient did have a Salmonella colitis in September, and has had persistent loose stools. She has had an EGD in November with normal findings; gallbladder ultrasound on September 25 which showed gallbladder distention but otherwise normal in appearance; a HIDA scan on November 14 with an EF of 86%; a normal EGD on November 07; and a colonoscopy on December [address] Smith, showing diverticulosis , as well as a 30 mm polyp. IV access was established, and labs were drawn. The patient was hydrated with a liter normal saline. The patient refused any analgesics on initial exam. An ECG was performed, showing a sinus tachycardia at 121 bpm, with potential ischemic changes inferior and anterolaterally. The patient was placed on quality assurance monitor final while in the emergency department. Review of labs shows an elevated lactate and troponin. Procalcitonin is normal. CBC is otherwise unremarkable with no leukocytosis or neutrophilic shift. Glucose is elevated, and mild hyponatremia is noted. C-reactive protein is also elevated at 1.21. Lyme screen was ordered and is pending. A [employer] respiratory panel was also ordered and is pending. CT angiography of the chest shows a moderate left pulmonary effusion with improvement of the patient's prior left upper lobe pneumonia. CT with IV contrast of the abdomen and pelvis did not show any acute findings. Findings were discussed with the patient as well as Dr. Washburn, ED attending physician. I also discussed the case further with the [facility] hospitalist service, who will be admitting the patient. They did request that I try a nitr oglycerin trial, which was administered, and did not provide any appreciable relief of her chest pain. Please see hospitalist dictations for further treatment and final disposition. Administered Medications Discontinued Medications Acetaminophen (Acetaminophen 500 Mg Tab) 1,000 mg PO NOW STA Stop: 03/09/23 11:23 Last Admin: 03/09/23 12:03 Dose: 1,000 mg Documented By: JOSE A Sodium Chloride (Nss 1000ml) 1,000 mls @ 999 mls/hr IV .Q1H1M STA Stop: 03/09/23 08:29 Last Infusion: 03/09/23 09:19 Dose: 0 mls/hr Documented By: Admin: 03/09/23 07:30 Dose: 999 mls/hr Documented By: MIKAEL Sodium Chloride (Nss 1000ml) 1,000 mls @ 999 mls/hr IV .Q1H1M ONE Stop: 03/09/23 09:16 Last Infusion: 03/09/23 10:04 Dose: 0 mls/hr Documented By: Admin: 03/09/23 08:33 Dose: 999 mls/hr Documented By: MIKAEL Piperacillin Sod/Tazobactam (Sod 4.5 gm/ Dextrose) 120 mls @ 240 mls/hr IV NOW ONE; Protocol Stop: 03/09/23 10:33 Last Infusion: 03/09/23 13:30 Dose: 0 mls/hr Documented By: JOSE A Admin: 03/09/23 10:24 Dose: 240 mls/hr Documented By: MIKAEL Ioversol (Ioversol 350 Mg 125ml Prefilled Syringe) 120 ml IV ONCE ONE Stop: 03/09/23 08:29 Last Admin: 03/09/23 08:20 Dose: 120 ml Documented By: MICHAEL Ketorolac Tromethamine (Ketorolac 30 Mg/Ml Vial) 30 mg IV NOW ONE Stop: 03/09/23 09:58 Last Admin: 03/09/23 10:23 Dose: 30 mg Documented By: MIKAEL Labetalol HCl (Labetalol Hcl Iv 5 Mg/Ml 20ml) 10 mg IV NOW STA Stop: 03/09/23 10:02 Last Admin: 03/09/23 10:23 Dose: 10 mg Documented By: MIKAEL Co-signed By: RULA Lidocaine (Lidocaine 5% 1 Patch) 1 patch TD NOW STA Stop: 03/09/23 11:22 Last Admin: 03/09/23 12:02 Dose: 1 patch Documented By: JOSE A Nitroglycerin (Nitroglycerin Sl 0.4 Mg/Tab Tab) 0.4 mg SL Q5M PRN PRN Reason: Chest Pain Stop: 04/08/23 09:19 Last Admin: 03/09/23 09:25 Dose: 0.4 mg Documented By: MIKAEL Oxycodone HCl (Oxycodone Hcl Ir 5 Mg Tab (Immediate Release)) 5 mg PO NOW STA Stop: 03/09/23 11:22 Last Admin: 03/09/23 12:02 Dose: 5 mg Documented By: JOSE A Medical Decision Making Medical Records Attestation: I reviewed the patient's medical records. Home Medications was personally reviewed by me Laboratory Data Attestation: I reviewed the patient's lab results. 03/09/23 07:30 03/09/23 07:30 Lab Results 03/09/23 03/09/23 03/09/23 Range/Units 07:30 07:30 07:30 WBC 8.82 (4.8-10.8) K/ul RBC 4.11 L (4.20-5.40) M/uL Hgb 12.1 (12.0-16.0) g/dl Hct 36.2 L (37.0-47.0) % MCV 88.1 (80.0-100.0) fL MCH 29.4 (25.0-34.0) pg MCHC 33.4 (32.0-36.0) g/dL RDW Std Deviation 42.4 (36.4-46.3) fL RDW Coeff of Nate 13.2 (11.5-14.5) % Plt Count 427 H (130-400) K/uL MPV 9.2 L (9.4-12.4) fL Immature Gran % (Auto) 0.2 % Neut % (Auto) 64.8 % Lymph % (Auto) 26.8 % Riley % (Auto) 6.1 % Eos % (Auto) 0.7 % Baso % (Auto) 1.4 % Neut # (Auto) 5.72 (1.40-6.50) K/uL Lymph # (Auto) 2.36 (1.2-3.4) K/uL Riley # (Auto) 0.54 (0.11-0.59) K/uL Eos # (Auto) 0.06 (0-0.50) K/uL Baso # (Auto) 0.12 (0-0.2) K/uL Immature Gran # (Auto) 0.02 (0.01-0.20) K/uL ESR (0-20) mm/hr PT 10.1 (9.0-12.0) Seconds INR 0.9 (0.9-1.1) APTT 28.8 (21.0-31.0) Seconds PTT Ratio 1.0 Sodium 135 L (136-145) mmol/L Potassium 3.6 (3.5-5.1) mmol/L Chloride 103 (98-107) mmol/L Carbon Dioxide 20 L (21-32) mmol/L Anion Gap 12 H (3-11) BUN 8 (6-23) mg/dl Creatinine 0.56 L (0.6-1.2) mg/dl Est Cr Clr Drug Dosing 162.4 ml/min Est GFR ( Amer) 132.4 ml/min Est GFR (Non-Af Amer) 114.2 ml/min BUN/Creatinine Ratio 14.3 (10-20) Glucose 166 H (70-99(Fasting)) mg/dl Lactate (0.4-2.0) mmol/L Calcium 9.2 (8.6-10.3) mg/dl Total Bilirubin 0.4 (0.2-1.0) mg/dl AST 31 (13-39) U/L ALT 29 (7-52) U/L Alkaline Phosphatase 103 (34-104) U/L Troponin I High Sens 75.8 H* (0-14) pg/ml C-Reactive Protein 1.21 H (0-0.5) mg/dl Total Protein 7.5 (6.0-8.3) gm/dl Albumin 3.9 (3.4-5.0) gm/dl Globulin 3.6 (2.5-4.0) gm/dl Albumin/Globulin Ratio 1.1 (0.9-2) Lipase 33 (11-82) U/L Procalcitonin (0-0.5) ng/ml Adenovirus (PCR) (NotDetected) B. pertussis DNA (PCR) (NotDetected) B.parapertussis DNA PCR (NotDetected) Lyme Disease IgG Ab (Negative) Lyme Disease IgM Ab (Negative) C. pneumoniae DNA (PCR) (NotDetected) Coronavirus OC43 (PCR) (NotDetected) Coronavirus HKU1 (PCR) (NotDetected) Coronavirus 229E (PCR) (NotDetected) SARS-CoV-2 (PCR) (NotDetected) Coronavirus NL63 (PCR) (NotDetected) Human Metapneumovir PCR (NotDetected) Influenza Type A (PCR) (NotDetected) Influenza Type B (PCR) (NotDetected) M. pneumoniae (PCR) (NotDetected) Parainfluenza 1 (PCR) (NotDetected) Parainfluenza 2 (PCR) (NotDetected) Parainfluenza 3 (PCR) (NotDetected) Parainfluenza 4 (PCR) (NotDetected) RSV (PCR) (NotDetected) Entero/Rhino (PCR) (NotDetected) 03/09/23 03/09/23 03/09/23 Range/Units 07:30 07:30 07:30 WBC (4.8-10.8) K/ul RBC (4.20-5.40) M/uL Hgb (12.0-16.0) g/dl Hct (37.0-47.0) % MCV (80.0-100.0) fL MCH (25.0-34.0) pg MCHC (32.0-36.0) g/dL RDW Std Deviation (36.4-46.3) fL RDW Coeff of Nate (11.5-14.5) % Plt Count (130-400) K/uL MPV (9.4-12.4) fL Immature Gran % (Auto) % Neut % (Auto) % Lymph % (Auto) % Riley % (Auto) % Eos % (Auto) % Baso % (Auto) % Neut # (Auto) (1.40-6.50) K/uL Lymph # (Auto) (1.2-3.4) K/uL Riley # (Auto) (0.11-0.59) K/uL Eos # (Auto) (0-0.50) K/uL Baso # (Auto) (0-0.2) K/uL Immature Gran # (Auto) (0.01-0.20) K/uL ESR 84 H (0-20) mm/hr PT (9.0-12.0) Seconds INR (0.9-1.1) APTT (21.0-31.0) Seconds PTT Ratio Sodium (136-145) mmol/L Potassium (3.5-5.1) mmol/L Chloride (98-107) mmol/L Carbon Dioxide (21-32) mmol/L Anion Gap (3-11) BUN (6-23) mg/dl Creatinine (0.6-1.2) mg/dl Est Cr Clr Drug Dosing ml/min Est GFR ( Amer) ml/min Est GFR (Non-Af Amer) ml/min BUN/Creatinine Ratio (10-20) Glucose (70-99(Fasting)) mg/dl Lactate (0.4-2.0) mmol/L Calcium (8.6-10.3) mg/dl Total Bilirubin (0.2-1.0) mg/dl AST (13-39) U/L ALT (7-52) U/L Alkaline Phosphatase (34-104) U/L Troponin I High Sens (0-14) pg/ml C-Reactive Protein (0-0.5) mg/dl Total Protein (6.0-8.3) gm/dl Albumin (3.4-5.0) gm/dl Globulin (2.5-4.0) gm/dl Albumin/Globulin Ratio (0.9-2) Lipase (11-82) U/L Procalcitonin 0.12 (0-0.5) ng/ml Adenovirus (PCR) (NotDetected) B. pertussis DNA (PCR) (NotDetected) B.parapertussis DNA PCR (NotDetected) Lyme Disease IgG Ab Negative (Negative) Lyme Disease IgM Ab Positive A (Negative) C. pneumoniae DNA (PCR) (NotDetected) Coronavirus OC43 (PCR) (NotDetected) Coronavirus HKU1 (PCR) (NotDetected) Coronavirus 229E (PCR) (NotDetected) SARS-CoV-2 (PCR) (NotDetected) Coronavirus NL63 (PCR) (NotDetected) Human Metapneumovir PCR (NotDetected) Influenza Type A (PCR) (NotDetected) Influenza Type B (PCR) (NotDetected) M. pneumoniae (PCR) (NotDetected) Parainfluenza 1 (PCR) (NotDetected) Parainfluenza 2 (PCR) (NotDetected) Parainfluenza 3 (PCR) (NotDetected) Parainfluenza 4 (PCR) (NotDetected) RSV (PCR) (NotDetected) Entero/Rhino (PCR) (NotDetected) 03/09/23 03/09/23 Range/Units 07:47 09:20 WBC (4.8-10.8) K/ul RBC (4.20-5.40) M/uL Hgb (12.0-16.0) g/dl Hct (37.0-47.0) % MCV (80.0-100.0) fL MCH (25.0-34.0) pg MCHC (32.0-36.0) g/dL RDW Std Deviation (36.4-46.3) fL RDW Coeff of Nate (11.5-14.5) % Plt Count (130-400) K/uL MPV (9.4-12.4) fL Immature Gran % (Auto) % Neut % (Auto) % Lymph % (Auto) % Riley % (Auto) % Eos % (Auto) % Baso % (Auto) % Neut # (Auto) (1.40-6.50) K/uL Lymph # (Auto) (1.2-3.4) K/uL Riley # (Auto) (0.11-0.59) K/uL Eos # (Auto) (0-0.50) K/uL Baso # (Auto) (0-0.2) K/uL Immature Gran # (Auto) (0.01-0.20) K/uL ESR (0-20) mm/hr PT (9.0-12.0) Seconds INR (0.9-1.1) APTT (21.0-31.0) Seconds PTT Ratio Sodium (136-145) mmol/L Potassium (3.5-5.1) mmol/L Chloride (98-107) mmol/L Carbon Dioxide (21-32) mmol/L Anion Gap (3-11) BUN (6-23) mg/dl Creatinine (0.6-1.2) mg/dl Est Cr Clr Drug Dosing ml/min Est GFR ( Amer) ml/min Est GFR (Non-Af Amer) ml/min BUN/Creatinine Ratio (10-20) Glucose (70-99(Fasting)) mg/dl Lactate 3.4 H* (0.4-2.0) mmol/L Calcium (8.6-10.3) mg/dl Total Bilirubin (0.2-1.0) mg/dl AST (13-39) U/L ALT (7-52) U/L Alkaline Phosphatase (34-104) U/L Troponin I High Sens (0-14) pg/ml C-Reactive Protein (0-0.5) mg/dl Total Protein (6.0-8.3) gm/dl Albumin (3.4-5.0) gm/dl Globulin (2.5-4.0) gm/dl Albumin/Globulin Ratio (0.9-2) Lipase (11-82) U/L Procalcitonin (0-0.5) ng/ml Adenovirus (PCR) Not Detected (NotDetected) B. pertussis DNA (PCR) Not Detected (NotDetected) B.parapertussis DNA PCR Not Detected (NotDetected) Lyme Disease IgG Ab (Negative) Lyme Disease IgM Ab (Negative) C. pneumoniae DNA (PCR) Not Detected (NotDetected) Coronavirus OC43 (PCR) Not Detected (NotDetected) Coronavirus HKU1 (PCR) Not Detected (NotDetected) Coronavirus 229E (PCR) Not Detected (NotDetected) SARS-CoV-2 (PCR) Not Detected (NotDetected) Coronavirus NL63 (PCR) Not Detected (NotDetected) Human Metapneumovir PCR Not Detected (NotDetected) Influenza Type A (PCR) Not Detected (NotDetected) Influenza Type B (PCR) Not Detected (NotDetected) M. pneumoniae (PCR) Not Detected (NotDetected) Parainfluenza 1 (PCR) Not Detected (NotDetected) Parainfluenza 2 (PCR) Not Detected (NotDetected) Parainfluenza 3 (PCR) Not Detected (NotDetected) Parainfluenza 4 (PCR) Not Detected (NotDetected) RSV (PCR) Not Detected (NotDetected) Entero/Rhino (PCR) Not Detected (NotDetected) Imaging Data Attestation: I personally reviewed and interpreted this imaging study as follows: My Impression: My interpretation of a CT angiography of the chest shows a left pulmonary effusion with improvement of the patient's prior left upper lobe pneumonia. No pulmonary emboli appreciated. My interpretation of a CT with IV contrast of the abdomen and pelvis does not show any concerning intra-abdominal findings. Radiologist reports were also reviewed with concurrence. Radiologist's Impression: Chest CTA 03/09/23 07:30 CT angio chest PE protocol CLINICAL HISTORY: Chest Pain, eval for PE TECHNIQUE: Multidetector row helical CT of the chest was performed with angiographic protocol. Coronal and sagittal reformations were obtained. Coronal and sagittal MIPS were obtained from the axial data set and were submitted for review. Automated dose lowering techniques and/or adjustment according to patient size were utilized for this exam. CT DOSE: 2348.75 mGy.cm Comparison: Comparison is made to CTA chest 02/23/2023 FINDINGS: Lungs and pleura: Previously noted left upper lobe focus of consolidation has resolved. There is a moderate left pleural effusion. Heart and pericardium: Heart size is normal. No pericardial effusion. Vessels: No evidence of pulmonary embolism. Mediastinum and grace: Unremarkable. Chest wall and lower neck: Unremarkable. Abdomen: Unremarkable. Bones: Mild degenerative changes are seen. IMPRESSION: No evidence of pulmonary embolus. Previously noted focus of consolidation in the left upper lobe has resolved. There is a moderate left pleural effusion, new from prior exam. ACT 112: Negative or not required by law. Electronically signed by: Jeremiah Corado M.D. 03/09/2023 8:41 AM Abdomen/Pelvis CT 03/09/23 07:32 CT SCAN OF THE ABDOMEN AND PELVIS WITH IV CONTRAST CLINICAL HISTORY: Left upper quadrant abdominal pain. Diarrhea. COMPARISON STUDY: Abdominal CT dated 02/23/2023. TECHNIQUE: Following the IV administration of 120 cc of Optiray 350, CT scan of the abdomen and pelvis is performed from the lung bases to the proximal femora. Images are reviewed in the axial, sagittal, and coronal planes. IV contrast was administered without complication. A dose lowering technique was utilized adhering to the principles of ALARA. FINDINGS: Lung bases: The heart is normal in size noting a small pericardial effusion. There is a small left pleural effusion with dependent atelectasis. Trace pleural effusion is seen on the right. Liver: The contrast-enhanced liver is enlarged, measuring 20.7 cm in length. The liver demonstrates diffusely diminished attenuation indicating steatosis. There is no intrahepatic biliary ductal dilatation. The hepatic veins and portal veins are patent. Gallbladder: Unremarkable. Spleen: Normal in size and attenuation. Pancreas: Unremarkable. Adrenal glands: Unremarkable. Kidneys: The contrast enhanced kidneys are normal in size and without hyd ronephrosis. The kidneys enhance symmetrically. There is a 5 mm nonobstructing calculus in the left lower pole. Abdominal vasculature: The abdominal aorta is normal in course and caliber. Bowel: There are scattered colonic diverticula without CT evidence of acute diverticulitis. No bowel obstruction is seen. The appendix is well-visualized and normal. Peritoneum: There is no intraperitoneal free air or abdominal ascites. Lymphadenopathy: None. Pelvic viscera: The bladder is normal as visualized. The uterus is surgically absent. No adnexal lesion is seen. There is a tiny fat-containing left groin hernia. Skeletal structures: No lytic or blastic lesions are seen. IMPRESSION: 1. No acute infectious or inflammatory findings are identified in the abdomen or pelvis. 2. Small left and trace right pleural effusions with dependent atelectasis. 3. Hepatomegaly and hepatic steatosis. 4. Left-sided nephrolithiasis. 5. Additional findings as above. ACT 112: Negative or not required by law. Electronically signed by: Prem Rao M.D. 03/09/2023 8:36 AM ECG Data Attestation: I personally reviewed and interpreted this ECG as follows: Indication: + chest pain and + SOB/dyspnea Rate (beats per minute): 121 Rhythm: + sinus tachycardia ECG Intervals/blocks: + Normal QRS and + Normal QT ECG Enders: + Normal ECG ST segments: + T-wave inversions Comparison ECG Date: from Change: the following changes noted (Persistent diffuse T wave abnormalities with more T wave inversions laterally) MDM Narrative Cardiac monitoring: An order was placed for continuous cardiac monitoring. The monitor shows a rate of 121 bpm with a sinus tachycardic rhythm. bus monitor history was reviewed throughout the evaluation, and no dysrhythmias were noted. See ED course section for further details of today's visit. The patient presents with primary complaint of left-sided chest pain and shortness of breath. She reports that the pain is worsened with deep breathing. With her recent pneumonia, and notable tachycardia with chest pain today, I did recommend chest CT angiography, which did not show any pulmonary emboli or obvious pericar dial effusions. She does have a moderate left pleural effusion of unknown etiology. Patient does have a bumped troponin as well, questionable for possible cardiac ischemia when looking at her ECG. She also has an elevated lactate with normal procalcitonin. Patient does not have any major electrolyte abnormalities. She is not febrile, nor does she have a leukocytosis or neutrophilic shift to suggest overwhelming infection. At this point, I do not suspect sepsis. Impression Left-sided chest pain, Elevated troponin I level, Elevated lactic acid level, Pleural effusion, left Discharge Plan Visit Data Chief Complaint: Abdominal Pain Stated Complaint: LEFT SIDED PAIN UNDER BREAST,SOME SOB,HX PNEUMONIA ED Provider: Andrea Washburn ED Midlevel Provider: Rj Rudolph Discharge Problem: Left-sided chest pain, Elevated troponin I level, Elevated lactic acid level, Pleural effusion, left
[2023-03-09] MEDS ORDERED: SODIUM CHLORIDE 0.9% 1000ML 1,000 ML IV STA (07:29)
[2023-03-09 07:52] LABS: Basophils # (auto) 0.12 K/uL (0-0.2); Basophils % (auto) 1.4 %; Eosinophils # (auto) 0.06 K/uL (0-0.50); Eosinophils % (auto) 0.7 %; Hematocrit (blood only) 36.2 % (37.0-47.0); Hemoglobin 12.1 g/dl (12.0-16.0); Immature Granulocytes # (auto) 0.02 K/uL (0.01-0.20); Immature Granulocytes % (auto) 0.2 %; Lymphocytes # (auto) 2.36 K/uL (1.2-3.4); Lymphocytes % (auto) 26.8 %; Mean Corpuscular Hemoglobin 29.4 pg (25.0-34.0); Mean Corpuscular Hgb Conc 33.4 g/dL (32.0-36.0); Mean Corpuscular Volume 88.1 fL (80.0-100.0); Mean Platelet Volume 9.2 fL (9.4-12.4); Monocytes # (auto) 0.54 K/uL (0.11-0.59); Monocytes % (auto) 6.1 %; Neutrophils # (auto) 5.72 K/uL (1.40-6.50); Neutrophils % (auto) 64.8 %; Platelet Count 427 K/uL (130-400); RDW Coefficient of Variation 13.2 % (11.5-14.5); RDW Standard Deviation 42.4 fL (36.4-46.3); Red Blood Count 4.11 M/uL (4.20-5.40); White Blood Count 8.82 K/ul (4.8-10.8)
[2023-03-09 08:05] LABS: Albumin Globulin Ratio 1.1 (0.9-2); Albumin Level 3.9 gm/dl (3.4-5.0); BUN Creatinine Ratio 14.3 (10-20); Bilirubin,Total 0.4 mg/dl (0.2-1.0); C Reactive Protein 1.21 mg/dl (0-0.5); Calcium 9.2 mg/dl (8.6-10.3); Creatinine Clr Calc Pharmacy 162.4 ml/min; Est GFR (African American) 132.4 ml/min; Est GFR (Non-African American) 114.2 ml/min; Globulin 3.6 gm/dl (2.5-4.0); Potassium 3.6 mmol/L (3.5-5.1); Total Protein 7.5 gm/dl (6.0-8.3)
[2023-03-09 08:15] LABS: INR 0.9 (0.9-1.1); Partial Thromboplastin Time 28.8 Seconds (21.0-31.0); Prothrombin Time 10.1 Seconds (9.0-12.0)
[2023-03-09] MEDS ORDERED: SODIUM CHLORIDE 0.9% 1000ML 1,000 ML IV ONE (08:16)
[2023-03-09 08:25] LABS: Troponin I High Sensitivity 75.8 pg/ml (0-14)
[2023-03-09] MEDS ORDERED: IOVERSOL 350 MG 125mL Prefilled Syringe IV ONE (08:28)
--- NOTE | 2023-03-09 08:38 | CT Scan Report ---
CT SCAN OF THE ABDOMEN AND PELVIS WITH IV CONTRAST CLINICAL HISTORY: Left upper quadrant abdominal pain. Diarrhea. COMPARISON STUDY: Abdominal CT dated 02/23/2023. TECHNIQUE: Following the IV administration of 120 cc of Optiray 350, CT scan of the abdomen and pelv is is performed from the lung bases to the proximal femora. Images are reviewed in the axial, sagitta l, and coronal planes. IV contrast was administered without complication. A dose lowering technique w as utilized adhering to the principles of ALARA. FINDINGS: Lung bases: The heart is normal in size noting a small pericardial effusion. There is a small left pl eural effusion with dependent atelectasis. Trace pleural effusion is seen on the right. Liver: The contrast-enhanced liver is enlarged, measuring 20.7 cm in length. The liver demonstrates d iffusely diminished attenuation indicating steatosis. There is no intrahepatic biliary ductal dilatat ion. The hepatic veins and portal veins are patent. Gallbladder: Unremarkable. Spleen: Normal in size and attenuation. Pancreas: Unremarkable. Adrenal glands: Unremarkable. Kidneys: The contrast enhanced kidneys are normal in size and without hydronephrosis. The kidneys enh ance symmetrically. There is a 5 mm nonobstructing calculus in the left lower pole. Abdominal vasculature: The abdominal aorta is normal in course and caliber. Bowel: There are scattered colonic diverticula without CT evidence of acute diverticulitis. No bowel obstruction is seen. The appendix is well-visualized and normal. Peritoneum: There is no intraperitoneal free air or abdominal ascites. Lymphadenopathy: None. Pelvic viscera: The bladder is normal as visualized. The uterus is surgically absent. No adnexal lesi on is seen. There is a tiny fat-containing left groin hernia. Skeletal structures: No lytic or blastic lesions are seen. IMPRESSION: 1. No acute infectious or inflammatory findings are identified in the abdomen or pelvis. 2. Small left and trace right pleural effusions with dependent atelectasis. 3. Hepatomegaly and hepatic steatosis. 4. Left-sided nephrolithiasis. 5. Additional findings as above. ACT 112: Negative or not required by law. Electronically signed by: Prem Rao M.D. 03/09/2023 8:36 AM
--- NOTE | 2023-03-09 08:42 | CT Scan Report ---
CT angio chest PE protocol CLINICAL HISTORY: Chest Pain, eval for PE TECHNIQUE: Multidetector row helical CT of the chest was performed with angiographic protocol. Ashby l and sagittal reformations were obtained. Coronal and sagittal MIPS were obtained from the axial allen a set and were submitted for review. Automated dose lowering techniques and/or adjustment according to patient size were utilized for this exam. CT DOSE: 2348.75 mGy.cm Comparison: Comparison is made to CTA chest 02/23/2023 FINDINGS: Lungs and pleura: Previously noted left upper lobe focus of consolidation has resolved. There is a mo derate left pleural effusion. Heart and pericardium: Heart size is normal. No pericardial effusion. Vessels: No evidence of pulmonary embolism. Mediastinum and grace: Unremarkable. Chest wall and lower neck: Unremarkable. Abdomen: Unremarkable. Bones: Mild degenerative changes are seen. IMPRESSION: No evidence of pulmonary embolus. Previously noted focus of consolidation in the left upper lobe has resolved. There is a moderate left pleural effusion, new from prior exam. ACT 112: Negative or not required by law. Electronically signed by: Jeremiah Corado M.D. 03/09/2023 8:41 AM
[2023-03-09] MEDS ORDERED: NITROGLYCERIN SL 0.4 MG/TAB TAB SL PRN (09:20)
--- NOTE | 2023-03-09 09:21 | History & Physical Report ---
Date of Service March 09, 2023 Assessment & Plan (1) Left-sided chest pain: (2) Pleural effusion, left: (3) Elevated troponin I level: (4) Lactic acidosis: (5) Bipolar I disorder, single manic episode: Plan This is a 42-year-old female who has a significant past medical history of bipolar disorder, fibromyalgia, HTN, COPD, HLD, prediabetes, prior history of tobacco abuse, GERD, chronic migraine, bilateral occipital neuralgia who presents to ED secondary to left-sided chest pain x2 days. Left-sided chest pain, appears pleuritic Moderate left pleural effusion Status post recent left upper lobe pneumonia status post completion of antibiotic therapy, imaging revealed resolution Elevated troponin Lactic acidosis Admit to PCU Obtain echocardiogram Repeat 2-hour troponin and cycle every 6 Chest pain appears to be more pleuritic in nature, cardiac not completely ruled out with differential possible myocarditis in setting of recent pneumonia she certainly has risk factors with pre dm, htn, hld, prior tobacco abuse consult pulmonary Dr. Ortez - discussed with him for eval of possible pleural effusion for possible parapneumonic effusion consult cardiology in this young female with troponin leak Tx pain with Toradol for moderate pain, IV morphine severe pain Pt ordered 2 L of IVF, will repeat and follow lactic will cover empirically with IV zosyn MRSA swab - add vanco if positive given recent hospitalization HTN pt recently started on coreg previous admission current BP may be reflective of pts pain given tachycardia will try to control pain with toradol give 1 time dose of 10mg IV labetolol now will consider titrating up coreg if continues to remain elevated BP in [facility] has been elevated as well so suspect uncontrolled HTN at baseline Pre DM Last a1c 5.7 11/2022 obtain a1c in am. bsg in ED 166 will follow accuchecks and novolog for correction factor coverage only for now HLD pt with elevated lipid panel in OP setting in November currently not on statin therapy obtain lipid panel in a.m. COPD Prior tobacco abuse prn albuterol Bipolar disorder chronic, stable recent increase in seroquel as OP continue prazosin Chronic Pain Migraine Fibromyalgia pt is prescribed oxy for this chronic, stable Positive Lyme IGM previously positive in past, recently completed course of doxy currently on IV zosyn will await western blot DVT ppx: Hold for now until eval by pulm for possible thoracentesis FULL CODE PCP: Miguel Chaudhry PA-C Dispo: Admit to PCU Pt was seen and examined in collaboration with Dr. Garcia, please see addendum A total of 80 was spent coordinating, documenting, and providing care for this patient excluding time spent in the performance of separately billed services. This included personally viewing all current laboratories and imaging studies, medication reconciliation, outpatient chart review, and discussion with specialists. History of Present Illness Chief Complaint: L sided chest pain x 2 days. Primary Care Provider: Miguel Chaudhry PA-C This is a 42-year-old female who has a significant past medical history of bipolar disorder, fibromyalgia, HTN, COPD, HLD, prediabetes, prior history of tobacco abuse, GERD, chronic migraine, bilateral occipital neuralgia who presents to ED secondary to left-sided chest pain x2 days. Of significance patient was recently hospitalized 02/23 to 02/26 secondary to sepsis and left upper lobe pneumonia. She was initially treated with IV Zosyn and azithromycin and transition to IV Rocephin and oral Doxy. Upon admission patient did meet septic criteria and had leukocytosis of 30,000. This had since resolved. She completed her antibiotic course. She states on Thursday, 2 days ago, she develo ped constant left-sided chest pain that was above her left breast. This migrated then to below her left breast and is been constant and persistent since. Pain has progressively been getting worse and is also associated with shortness of breath. Initially shortness of breath was just with exertion but now is with rest and conversation as well. She does complain of orthopnea but denies any PND or lower extremity edema. Overall she has had poor appetite for the last 2 days. She denies any documented fever but feels chilled and sweats. She denies any nahed cough. Chest pain is constant but is significantly worse with a small amount of inspiration. Pain is not positional. She denies any lightheadedness, dizziness, hemoptysis, URI symptoms, vomiting, abdominal pain, change in bowel or urinary habits. She does feel nauseated. She does have chronic loose stool ever since having a bout of colitis in September. She feels this is unchanged. Patient was recently started on Coreg 3.125 mg twice daily during last hospital stay secondary to high blood pressure. She does admit to being compliant with this. Patient's medical record in [facility] was reviewed. Patient does have elevated blood pressure readings in outpatient setting as well. In ED patient made hemodynamically stable although she was significantly hypertensive with systolic blood pressures in the 170s and diastolic in the 100s. She also was tachycardic. She was afebrile and without leukocytosis. Her CBC and CMP was generally unremarkable but did reveal glucose of 166, sodium 135, anion gap 12. She did have elevated troponin at 75.8, CRP 1.21, ESR 84 and EKG with anterior lateral T wave inversions. Her procalcitonin was normal and during previous admission was elevated.Patient's medical record in [facility] was re viewed. She underwent chest CTA which was negative for PE but did reveal moderate left pleural effusion which is new from prior exam. Previous left upper lobe consolidation has resolved. CT abdomen pelvis was negative for any infectious or inflammatory findings, hepatomegaly with hepatic steatosis was also noted. She received 2 doses of nitroglycerin in ED without significant improvement. She was started on 2 L of IV fluid in setting of lactic acid. Allergies Allergy/AdvReac Type Severity Reaction Status Date / Time Sulfa (Sulfonamide Allergy Mild RASH, Verified 01/05/23 12:02 Antibiotics) NAUSEA Home Medications Medication Instructions Recorded Confirmed Type albuterol sulfate 90 mcg/actuation 2 puffs inhalation Q4H PRN 10/20/19 03/09/23 History aerosol inhaler Shortness Of Breath Or Wheezing tizanidine 4 mg tablet 4 mg PO Q6H PRN Muscle Spasm 01/14/20 03/09/23 History sumatriptan succinate 6 mg/0.5 mL 6 mg (0.5 mL) subcut DIRECTED 08/09/20 03/09/23 Rx subcutaneous solution (Imitrex) PRN migraine headache #3 mL loratadine 10 mg tablet (Claritin) 10 mg PO QAM 02/15/21 03/09/23 History colestipol 1 gram tablet (Colestid) 1 g PO DAILY 09/24/22 03/09/23 History prazosin 2 mg capsule 2 mg PO HS 09/24/22 03/09/23 History loperamide 2 mg capsule (Imodium 2 mg PO Q6H PRN loose stool #14 09/30/22 03/09/23 Rx A-D) caps oxycodone 5 mg tablet 5 mg PO Q6H PRN pain #15 tabs 12/01/22 03/09/23 Rx dicyclomine 10 mg capsule 10 mg PO TID PRN Cramps 01/05/23 03/09/23 History pantoprazole 40 mg tablet,delayed 40 mg PO BID 01/05/23 03/09/23 History release quetiapine 400 mg tablet 600 mg PO HS 01/05/23 03/09/23 History duloxetine 60 mg capsule,delayed 120 mg PO DAILY 02/23/23 03/09/23 History release carvedilol 3.125 mg tablet 3.125 mg PO BIDM #60 tabs 02/26/23 03/09/23 Rx lactobacillus combination no.4 3 3,000 mmu cells PO DAILY 2 weeks 02/26/23 03/09/23 Rx billion cell capsule (Probiotic) #14 caps Past Med/Surg History Medical History Allergy-induced asthma NO INHALER USED FOR >YEAR Well controlled and stable Anxiety and depression Bipolar 1 disorder Cervical stenosis of spinal canal Dyslipidemia Fibromyalgia History of high blood pressure History of kidney stones NO SURGERY No current issues Hypertension IBS (irritable bowel syndrome) Combination of diarrhea and constipation Insomnia Lumbar pain Migraine Mood disorder Rheumatoid arthritis Followed with rheum in the past (follows only with PCP currently) Septic colitis Surgical History History of arthroscopy MULTIPLE RT/LEFT KNEE SCOPES History of bilateral tubal ligation History of endometrial ablation History of esophagogastroduodenoscopy (EGD) History of hysterectomy History of partial knee replacement b/l History of tonsillectomy and adenoidectomy History of total knee replacement LEFT S/P colonoscopy S/P inguinal hernia repair S/P sinus surgery [place] teeth removed Family History Daughter Depression Allergies Grandmother (Paternal) Arthritis Grandfather (Paternal) Diabetes Arthritis Grandmother (Maternal) Diabetes Hypertension Grandfather (Maternal) Diabetes Hypertension Sister Kidney stones Hypertension Mother Thyroid disorder Other No family history of adverse response to anesthesia Social History Smoking Status: Former smoker Tobacco Type: Cigarettes Cigarettes Per Day: Quit 09/2019. Smoked 0.5-1ppd x 5 years; Second Hand Exposure: No; Do You Dip or Chew Tobacco: No; Hx Alcohol Use: No Hx Substance Use: No Preferred Language: Grenadian Communication Ability: Effective Color Dipper Required: No Beliefs That Will Affect Care: None marital status: Single Current Living Situation: Significant Other Current Living Situation Comment: family/friends current occupational status: disabled Feels Safe at Home: Yes Assistive Devices: None Review of Systems Review of Systems: All systems reviewed & are unremarkable except as noted in HPI & below Physical Exam Physical Exam: Constitutional: WD/WN, morbidly obese, female, lying on right side, tachypneic with conversation, vitals as above, NAD, sitting up in bed, pleasant, conversing easily Head: Normocephalic, Atraumatic Eyes: PERRL, conjunctivae normal, anicteric sclerae ENMT: external ear and nose normal, oropharynx normal Neck: trachea midline, no thyromegaly normal visual inspection Respiratory: Increased respiratory effort, decreased inspiratory ability secondary to pain, diminished lung sounds left lower lobe, otherwise clear and no wheeze, rales, rhonchi. no accessory muscle use Cardiovascular: Tachycardic rate, regular rhythm, no murmur, no edema Vessels: no JVD or carotid bruit Chest: normal inspection of chest Abdomen: normal bowel sounds, soft, nontender, no hepatosplenomegaly Musculoskeletal: no cyanosis or clubbing, extremities motor strength 5/5, scars to bilateral knees Skin: no rashes, warm and dry normal turgor Neurologic: PERRL, EOMI, accommodation nl, no face palsy, no dysarthria CN's II-XI intact bilaterally and moves all extremities Psychiatric: A+Ox3, euthymic affect Lymphatic: no cervical or axillary lymphadenopathy : deferred Results & Data Results & Data Vital Signs (Past 12 Hours) Vital Signs Temp Pulse Resp BP Pulse Ox O2 Del Method 03/09/23 08:00 117 H 20 161/103 H 98 Room Air 03/09/23 07:30 121 H 23 179/110 H 97 Room Air 03/09/23 07:25 132 H 23 189/127 H 97 Room Air 03/09/23 07:28 131 H 03/09/23 07:12 36.0 C L 138 H 20 161/103 H 97 Room Air Diagnostic Findings Chest CTA 03/09/23 07:30 CT angio chest PE protocol CLINICAL HISTORY: Chest Pain, eval for PE TECHNIQUE: Multidetector row helical CT of the chest was performed with angiographic protocol. Coronal and sagittal reformations were obtained. Coronal and sagittal MIPS were obtained from the axial data set and were submitted for review. Automated dose lowering techniques and/or adjustment according to patient size were utilized for this exam. CT DOSE: 2348.75 mGy.cm Comparison: Comparison is made to CTA chest 02/23/2023 FINDINGS: Lungs and pleura: Previously noted left upper lobe focus of consolidation has r esolved. There is a moderate left pleural effusion. Heart and pericardium: Heart size is normal. No pericardial effusion. Vessels: No evidence of pulmonary embolism. Mediastinum and grace: Unremarkable. Chest wall and lower neck: Unremarkable. Abdomen: Unremarkable. Bones: Mild degenerative changes are seen. IMPRESSION: No evidence of pulmonary embolus. Previously noted focus of consolidation in the left upper lobe has resolved. There is a moderate left pleural effusion, new from prior exam. ACT 112: Negative or not required by law. Electronically signed by: Jeremiah Corado M.D. 03/09/2023 8:41 AM Abdomen/Pelvis CT 03/09/23 07:32 CT SCAN OF THE ABDOMEN AND PELVIS WITH IV CONTRAST CLINICAL HISTORY: Left upper quadrant abdominal pain. Diarrhea. COMPARISON STUDY: Abdominal CT dated 02/23/2023. TECHNIQUE: Following the IV administration of 120 cc of Optiray 350, CT scan of the abdomen and pelvis is performed from the lung bases to the proximal femora. Images are reviewed in the axial, sagittal, and coronal planes. IV contrast was administered without complication. A dose lowering technique was utilized adhering to the principles of ALARA. FINDINGS: Lung bases: The heart is normal in size noting a small pericardial effusion. There is a small left pleural effusion with dependent atelectasis. Trace pleural effusion is seen on the right. Liver: The contrast-enhanced liver is enlarged, measuring 20.7 cm in length. The liver demonstrates diffusely diminished attenuation indicating steatosis. There is no intrahepatic biliary ductal dilatation. The hepatic veins and portal veins are patent. Gallbladder: Unremarkable. Spleen: Normal in size and attenuation. Pancreas: Unremarkable. Adrenal glands: Unremarkable. Kidneys: The contrast enhanced kidneys are normal in size and without hydronephrosis. The kidneys enhance symmetrically. There is a 5 mm nonobstructing calculus in the left lower pole. Abdominal vasculature: The abdominal aorta is normal in course and caliber. Bowel: There are scattered colonic diverticula without CT evidence of acute diverticulitis. No bowel obstruction is seen. The appendix is well-visualized and normal. Peritoneum: There is no intraperitoneal free air or abdominal ascites. Lymphadenopathy: None. Pelvic viscera: The bladder is normal as visualized. The uterus is surgically absent. No adnexal lesion is seen. There is a tiny fat-containing left groin hernia. Skeletal structures: No lytic or blastic lesions are seen. IMPRESSION: 1. No acute infectious or inflammatory findings are identified in the abdomen or pelvis. 2. Small left and trace right pleural effusions with dependent atelectasis. 3. Hepatomegaly and hepatic steatosis. 4. Left-sided nephrolithiasis. 5. Additional findings as above. ACT 112: Negative or not required by law. Electronically signed by: Prem Rao M.D. 03/09/2023 8:36 AM Medications Administered Medication List Nitroglycerin (Nitroglycerin Sl 0.4 Mg/Tab Tab) 0.4 mg SL Q5M PRN PRN Reason: Chest Pain Stop: 04/08/23 09:19 Last Admin: 03/09/23 09:25 Dose: 0.4 mg Documented By: MIKAEL Discontinued Medications Sodium Chloride (Nss 1000ml) 1,000 mls @ 999 mls/hr IV .Q1H1M STA Stop: 03/09/23 08:29 Last Infusion: 03/09/23 09:19 Dose: 0 mls/hr Documented By: Admin: 03/09/23 07:30 Dose: 999 mls/hr Documented By: MIKAEL Sodium Chloride (Nss 1000ml) 1,000 mls @ 999 mls/hr IV .Q1H1M ONE Stop: 03/09/23 09:16 Last Infusion: 03/09/23 10:04 Dose: 0 mls/hr Documented By: Admin: 03/09/23 08:33 Dose: 999 mls/hr Documented By: MIKAEL Ioversol (Ioversol 350 Mg 125ml Prefilled Syringe) 120 ml IV ONCE ONE Stop: 03/09/23 08:29 Last Admin: 03/09/23 08:20 Dose: 120 ml Documented By: MICHAEL ECG Additional Comments: 121, sinus tachycardia, T wave inversion anterior laterally, QTc 60 mils Previous echocardiogram from 2019 revealed EF 60 to 65%, otherwise normal COVID-19 Results Results COVID-19 Adm Lab Results: RBC 4.11 M/uL (4.20-5.40) L 03/09/23 WBC 8.82 K/ul (4.8-10.8) 03/09/23 Hgb 12.1 g/dl (12.0-16.0) 03/09/23 Hct 36.2 % (37.0-47.0) L 03/09/23 Plt Count 427 K/uL (130-400) H 03/09/23 Neutrophils (%) (Auto) 64.8 % 03/09/23 Lymphocytes (%) (Auto) 26.8 % 03/09/23 Monocytes # (Auto) 0.54 K/uL (0.11-0.59) 03/09/23 Eosinophils # (Auto) 0.06 K/uL (0-0.50) 03/09/23 Immature Granulocyte % (Auto) 0.2 % 03/09/23 Neutrophils # (Auto) 5.72 K/uL (1.40-6.50) 03/09/23 Lymphocytes # (Auto) 2.36 K/uL (1.2-3.4) 03/09/23 Monocytes # (Auto) 0.54 K/uL (0.11-0.59) 03/09/23 Eosinophils # (Auto) 0.06 K/uL (0-0.50) 03/09/23 Basophils # (Auto) 0.12 K/uL (0-0.2) 03/09/23 Immature Granulocyte # (Auto) 0.02 K/uL (0.01-0.20) 3 Na 135 mmol/L (136-145) L 03/09/23 K 3.6 mmol/L (3.5-5.1) 03/09/23 Cl 103 mmol/L (98-107) 03/09/23 CO2 20 mmol/L (21-32) L 03/09/23 Anion Gap 12 (3-11) H 03/09/23 BUN 8 mg/dl (6-23) 03/09/23 Creatinine 0.56 mg/dl (0.6-1.2) L 03/09/23 BUN/Creatinine Ratio 14.3 (10-20) 03/09/23 Glucose Level 166 mg/dl (70-99(Fasting)) H 03/09/23 Ca 9.2 mg/dl (8.6-10.3) 03/09/23 Total Bilirubin 0.4 mg/dl (0.2-1.0) 03/09/23 AST/SGOT 31 U/L (13-39) 03/09/23 ALT/SGPT 29 U/L (7-52) 03/09/23 Alkaline Phosphatase 103 U/L (34-104) 03/09/23 Total Protein 7.5 gm/dl (6.0-8.3) 03/09/23 Albumin 3.9 gm/dl (3.4-5.0) 03/09/23 Globulin 3.6 gm/dl (2.5-4.0) 03/09/23 Albumin/Globulin Ratio 1.1 (0.9-2) 03/09/23 CRP 1.21 mg/dl (0-0.5) H 03/09/23 Procalcitonin 0.12 ng/ml (0-0.5) 03/09/23 PTT 28.8 Seconds (21.0-31.0) 03/09/23 INR 0.9 (0.9-1.1) 03/09/23 Adenovirus (PCR) Not Detected (NotDetected) 03/09/23 B. parapertussis DNA (PCR) Not Detected (NotDetected) 02/22 B. pertussis DNA (PCR) Not Detected (NotDetected) 03/09/23 C. pneumoniae DNA (PCR) Not Detected (NotDetected) 3 Coronavirus Type OC43 (PCR) Not Detected (NotDetected) 02/22 Coronavirus Type HKU1 (PCR) Not Detected (NotDetected) 02/22 Coronavirus Type 229E (PCR) Not Detected (NotDetected) 02/22 COVID-19 PCR Not Detected (NotDetected) 03/09/23 Coronavirus Type NL63 (PCR) Not Detected (NotDetected) 02/22 Human Metapneumovirus (PCR) Not Detected (NotDetected) 02/22 Influenza Virus Type A (PCR) Not Detected (NotDetected) Influenza Virus Type B (PCR) Not Detected (NotDetected) M. pneumoniae (PCR) Not Detected (NotDetected) 03/09/23 Parainfluenza Type 1 (PCR) Not Detected (NotDetected) 02/22 Parainfluenza Type 2 (PCR) Not Detected (NotDetected) 02/22 Parainfluenza Type 3 (PCR) Not Detected (NotDetected) 02/22 Parainfluenza Type 4 (PCR) Not Detected (NotDetected) 02/22 RSV (PCR) Not Detected (NotDetected) 03/09/23 Enterovirus/Rhinovirus (PCR) Not Detected (NotDetected) Chest X-Ray 03/09/23 Code Status & VTE Plan Code Status FULL CODE Supervising Physician Co-Signing Physician Notes I have seen and examined the patient and have discussed the case with the provider above. I agree with the assessment and plan as stated with the following exceptions. 42 yo F recently admitted for treatment of pneumonia, discharged on 02/26/23, now presents with severe sharp left sided pain under her breast that has been present since she awoke on Sat morning, 2 days ago. The pain doesn't change with position and is not improved with anything (tried Tylenol at home without success) except when she lies on the left (affected) side, worse with lying flat and with deep breaths. No fevers, chills or coughing reported. Reports shortness of breath, especially with minimal exertion. Feels malaise and SIRS criteria present today. On exam she is morbidly obese and in mild distress 2/2 pain. BP 159/106, HR 94, R 21, T 36.0 C, 97% RA. She is mentating clearly. Lungs are clear to auscultation throughout s/p thoracentesis this morning with 300cc cloudy fluid removed. She has anterior chest wall tenderness just inferior to her left breast that is exquisitely tender to palpation. Cardiac exam reveals S1/2 heard with regular rate and rhythm. No murmurs. No peripheral edema. Workup in the ER reveals no leukocytosis, an improved H/H to 12.1/36.2, PLT 427 (mildly elevated). There is metabolic acidosis present wtih a bicarb 20, AG 12, Lactate up to 3.4 with repeat 1.4 after treatment in the ER. Normal renal function and no significant electrolyte disorder. Elevated troponin 75.8 with repeat pending. CRP 1.21. CT a/p with IV contrast reveals a small pericardial effusion, small left pleural effusion with dependent atelectasis with trace pleural effusion on the right. Hepatic steatosis. Chest CT with contrast reveals no evidence of PE and resolution of ANNIE pneumonia previously present. Cardiac echo today reveals no regional wall motion abnormalities with a hyperdynamic LV and EF 65-70%. There is no significant valve pathology. Light's criteria is met with 4.0/7.5=0.53, so this technically meets criteria for exudate. Pleural fluid gram stain is still pending. She was started on Zosyn. Notably her Lyme IgG is positive with western blot pending and IgM negative, however, this has been the case in the past and she denies any recent tick bites. 1. SIRS with lactic acidosis 2/2 #2 2. Pleural effusion-appears to be the cause of her pain with elevated inflammatory markers and meeting SIRS criteria. Thoracentesis performed as noted above. Cont abx, awaiting pulmonary recommendations. Cont pain control with scheduled Tylenol, oxycodone, and lidocaine patch. 3. Elevated troponin-possibly demand ischemia vs myocarditis. Trend trop, cardiology consultation. 4. HTN-elevated 2/2 uncontrolled pain. Given labetalol 10mg IV in the ER, cont home coreg. Reassess after pain is better managed. Avoid NSAIDs for now. 5. Morbid obesity-lifestyle changes recommended. 6. Bipolar disorder-chronic, stable. Cont seroquel (recently increased to 600mg QHS) and prazosin per home regimen. Stephanie Garcia DO [facility] Hospitalist
[2023-03-09] MEDS ORDERED: KETOROLAC 30 MG/ML VIAL IV ONE (09:57)
[2023-03-09 09:59] LABS: Lyme Ab IgG w/WB Rflx Negative (Negative)
[2023-03-09] MEDS ORDERED: LABETALOL HCL IV 5 MG/ML 20ML IV STA (10:01)
[2023-03-09] MEDS ORDERED: PIPERACILLIN/TAZOBACTAM 4.5 GM in DEXTROSE 5% 100 ML IV ONE (10:04)
[2023-03-09 10:06] LABS: Lyme Ab IgM w/WB Rflx Positive (Negative)
--- NOTE | 2023-03-09 11:17 | Pulmonary Consultation ---
Date of Consultation March 09, 2023 Assessment & Plan (1) Pleural effusion, left: (2) Left-sided chest pain: Plan Impression: 42-year-old female with prior history of rheumatoid arthritis presenting now with small pericardial effusion and small pleural effusion after recent treatment for pneumonia. Differential is broad and would include connective tissue disease, postinfectious, sympathetic effusion etc. Sampling and characterization is indicated. Recommendations: 1. Pleural effusion: We will schedule the patient for ultrasound-guided catheter thoracentesis. Fluid will be sampled and sent for microbiologic as well as cytologic analysis. Follow-up imaging will be performed. Check serological evaluation including LESTER, anti-CCP, and rheumatoid factor. 2. Patient has evidence of serositis with a small pericardial effusion as well. Await echocardiogram. Given her elevated troponin, additional management per primary service and potentially cardiology as well 3. Chest discomfort: Agree with nonsteroidal anti-inflammatories in the form of Toradol with the patient tolerated well. Will defer colchicine to our cardiology colleagues. Thanks for the opportunity to assist in the evaluation management this patient. We will continue to follow with you. Feel free to contact us with questions or concerns History of Present Illness History of Present Illness Asked by hospitalist to evaluate this patient mated with chest discomfort and a small left-sided pleural effusion. History is obtained from review electronic medical record and discussion with the patient. Patient is a 42-year-old female with a complicated prior medical history well delineated in her H&P and prior pulmonary consultation from 2 weeks ago. She was admitted at that point time with dense consolidation in the left upper lobe was treated with antimicrobials and sent home. She states that she developed chest discomfort on Thursday or Thursday. This became worse and the patient had a significant pleuritic component. She did endorse some chills and night sweats but no overt fevers. No ill contacts. Due to her persistent complaints she was seen in the emergency room. CT scan demonstrated no PE and significant improvement in the consolidative process in the left upper lobe but she did have a new small effusion. She cannot recall having had pleural effusions previously and has never undergone pleural procedures. Pulmonary is consulted for additional evaluation and management. Allergies Allergy/AdvReac Type Severity Reaction Status Date / Time Sulfa (Sulfonamide Allergy Mild RASH, Verified 01/05/23 12:02 Antibiotics) NAUSEA Home Medications Medication Instructions Recorded Confirmed Type albuterol sulfate 90 mcg/actuation 2 puffs inhalation Q4H PRN 10/20/19 03/09/23 History aerosol inhaler Shortness Of Breath Or Wheezing tizanidine 4 mg tablet 4 mg PO Q6H PRN Muscle Spasm 01/14/20 03/09/23 History sumatriptan succinate 6 mg/0.5 mL 6 mg (0.5 mL) subcut DIRECTED 08/09/20 03/09/23 Rx subcutaneous solution (Imitrex) PRN migraine headache #3 mL loratadine 10 mg tablet (Claritin) 10 mg PO QAM 02/15/21 03/09/23 History colestipol 1 gram tablet (Colestid) 1 g PO DAILY 09/24/22 03/09/23 History prazosin 2 mg capsule 2 mg PO HS 09/24/22 03/09/23 History loperamide 2 mg capsule (Imodium 2 mg PO Q6H PRN loose stool #14 09/30/22 03/09/23 Rx A-D) caps oxycodone 5 mg tablet 5 mg PO Q6H PRN pain #15 tabs 12/01/22 03/09/23 Rx dicyclomine 10 mg capsule 10 mg PO TID PRN Cramps 01/05/23 03/09/23 History pantoprazole 40 mg tablet,delayed 40 mg PO BID 01/05/23 03/09/23 History release quetiapine 400 mg tablet 600 mg PO HS 01/05/23 03/09/23 History duloxetine 60 mg capsule,delayed 120 mg PO DAILY 02/23/23 03/09/23 History release carvedilol 3.125 mg tablet 3.125 mg PO BIDM #60 tabs 02/26/23 03/09/23 Rx lactobacillus combination no.4 3 3,000 mmu cells PO DAILY 2 weeks 02/26/23 03/09/23 Rx billion cell capsule (Probiotic) #14 caps Patient History Medical History Allergy-induced asthma NO INHALER USED FOR >YEAR Well controlled and stable Anxiety and depression Bipolar 1 disorder Cervical stenosis of spinal canal Dyslipidemia Fibromyalgia History of high blood pressure History of kidney stones NO SURGERY No current issues Hypertension IBS (irritable bowel syndrome) Combination of diarrhea and constipation Insomnia Lumbar pain Migraine Mood disorder Rheumatoid arthritis Followed with rheum in the past (follows only with PCP currently) Septic colitis Surgical History History of arthroscopy MULTIPLE RT/LEFT KNEE SCOPES History of bilateral tubal ligation History of endometrial ablation History of esophagogastroduodenoscopy (EGD) History of hysterectomy History of partial knee replacement b/l History of tonsillectomy and adenoidectomy History of total knee replacement LEFT S/P colonoscopy S/P inguinal hernia repair S/P sinus surgery [place] teeth removed Family History Daughter Depression Allergies Grandmother (Paternal) Arthritis Grandfather (Paternal) Diabetes Arthritis Grandmother (Maternal) Diabetes Hypertension Grandfather (Maternal) Diabetes Hypertension Sister Kidney stones Hypertension Mother Thyroid disorder Other No family history of adverse response to anesthesia Social History Smoking Status: Former smoker Tobacco Type: Cigarettes Cigarettes Per Day: Quit 09/2019. 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 Beliefs That Will Affect Care: None marital status: Single Current Living Situation: Other Current Living Situation Comment: family/friends current occupational status: disabled Feels Safe at Home: Yes Assistive Devices: None Review of Systems Review of Systems: All systems reviewed & are unremarkable except as noted in Subjective Physical Exam Constitutional: WD/WN, vitals as above Obese, limits sensitivity of exam Neck: trachea midline, no thyromegaly Respiratory: no respiratory distress, no labored breathing, no cough and not tachypneic Auscultation: + diminished lung sounds Slightly diminished breath sounds at the left lung base Cardiovascular: RRR, no murmur, no edema Gastrointestinal (Abdomen): normal bowel sounds, soft, nontender, no hepatosplenomegaly Musculoskeletal: Extremities: extremities normal to inspection Skin: no rashes, warm and dry Neurologic: Nonfocal exam Lymphatic: no cervical lymphadenopathy Results & Data Results & Data Vital Signs (Past 12 Hours) Vital Signs Temp Pulse Resp BP Pulse Ox O2 Del Method 03/09/23 11:00 95 H 21 159/106 H 97 Room Air 03/09/23 10:52 95 H 21 136/94 96 Room Air 03/09/23 10:49 95 H 22 144/99 H 96 Room Air 03/09/23 10:38 95 H 144/99 H 03/09/23 10:31 89 21 166/106 H 95 Room Air 03/09/23 10:02 105 H 22 174/98 H 97 Room Air 03/09/23 09:37 113 H 19 152/111 H 96 Room Air 03/09/23 09:30 129 H 20 164/108 H 96 Room Air 03/09/23 10:23 119 H 174/98 H 03/09/23 08:00 117 H 20 161/103 H 98 Room Air 03/09/23 07:30 121 H 23 179/110 H 97 Room Air 03/09/23 07:25 132 H 23 189/127 H 97 Room Air 03/09/23 07:28 131 H 03/09/23 07:12 36.0 C L 138 H 20 161/103 H 97 Room Air Critical Care Results & Data Vital Signs (Past 12 Hours) Vital Signs Temp Pulse Resp BP Pulse Ox O2 Del Method 03/09/23 11:00 95 H 21 159/106 H 97 Room Air 03/09/23 10:52 95 H 21 136/94 96 Room Air 03/09/23 10:49 95 H 22 144/99 H 96 Room Air 03/09/23 10:38 95 H 144/99 H 03/09/23 10:31 89 21 166/106 H 95 Room Air 03/09/23 10:02 105 H 22 174/98 H 97 Room Air 03/09/23 09:37 113 H 19 152/111 H 96 Room Air 03/09/23 09:30 129 H 20 164/108 H 96 Room Air 03/09/23 10:23 119 H 174/98 H 03/09/23 08:00 117 H 20 161/103 H 98 Room Air 03/09/23 07:30 121 H 23 179/110 H 97 Room Air 03/09/23 07:25 132 H 23 189/127 H 97 Room Air 03/09/23 07:28 131 H 03/09/23 07:12 36.0 C L 138 H 20 161/103 H 97 Room Air Lab & Micro Results (Past 24 Hours) RBC 4.11 M/uL (4.20-5.40) L 03/09/23 WBC 8.82 K/ul (4.8-10.8) 03/09/23 Hgb 12.1 g/dl (12.0-16.0) 03/09/23 Hct 36.2 % (37.0-47.0) L 03/09/23 MCV 88.1 fL (80.0-100.0) 03/09/23 MCH 29.4 pg (25.0-34.0) 03/09/23 MCHC 33.4 g/dL (32.0-36.0) 03/09/23 RDW Standard Deviation 42.4 fL (36.4-46.3) 03/09/23 RDW Coefficient of Variation 13.2 % (11.5-14.5) 03/09/23 Plt Count 427 K/uL (130-400) H 03/09/23 MPV 9.2 fL (9.4-12.4) L 03/09/23 Neutrophils (%) (Auto) 64.8 % 03/09/23 Lymphocytes (%) (Auto) 26.8 % 03/09/23 Monocytes # (Auto) 0.54 K/uL (0.11-0.59) 03/09/23 Eosinophils # (Auto) 0.06 K/uL (0-0.50) 03/09/23 Immature Granulocyte % (Auto) 0.2 % 03/09/23 Neutrophils # (Auto) 5.72 K/uL (1.40-6.50) 03/09/23 Lymphocytes # (Auto) 2.36 K/uL (1.2-3.4) 03/09/23 Monocytes # (Auto) 0.54 K/uL (0.11-0.59) 03/09/23 Eosinophils # (Auto) 0.06 K/uL (0-0.50) 03/09/23 Basophils # (Auto) 0.12 K/uL (0-0.2) 03/09/23 Immature Granulocyte # (Auto) 0.02 K/uL (0.01-0.20) 3 Na 135 mmol/L (136-145) L 03/09/23 K 3.6 mmol/L (3.5-5.1) 03/09/23 Cl 103 mmol/L (98-107) 03/09/23 CO2 20 mmol/L (21-32) L 03/09/23 Anion Gap 12 (3-11) H 03/09/23 BUN 8 mg/dl (6-23) 03/09/23 Creatinine 0.56 mg/dl (0.6-1.2) L 03/09/23 Estimated GFR ( Amer) 132.4 ml/min 03/09/23 Estimated GFR (Non-Af Amer) 114.2 ml/min 03/09/23 BUN/Creatinine Ratio 14.3 (10-20) 03/09/23 Glu 166 mg/dl (70-99(Fasting)) H 03/09/23 Ca 9.2 mg/dl (8.6-10.3) 03/09/23 Total Bilirubin 0.4 mg/dl (0.2-1.0) 03/09/23 AST 31 U/L (13-39) 03/09/23 ALT 29 U/L (7-52) 03/09/23 Alkaline Phosphatase 103 U/L (34-104) 03/09/23 TP 7.5 gm/dl (6.0-8.3) 03/09/23 Albumin 3.9 gm/dl (3.4-5.0) 03/09/23 Globulin 3.6 gm/dl (2.5-4.0) 03/09/23 Albumin/Globulin Ratio 1.1 (0.9-2) 03/09/23 Calcium Level 9.2 mg/dl (8.6-10.3) 03/09/23 07:30 Prothromb Time International Ratio 0.9 (0.9-1.1) 03/09/23 07:3 0 Diagnostic Findings (Past 24 Hours) Chest CTA 03/09/23 07:30 CT angio chest PE protocol CLINICAL HISTORY: Chest Pain, eval for PE TECHNIQUE: Multidetector row helical CT of the chest was performed with angiographic protocol. Coronal and sagittal reformations were obtained. Coronal and sagittal MIPS were obtained from the axial data set and were submitted for review. Automated dose lowering techniques and/or adjustment according to patient size were utilized for this exam. CT DOSE: 2348.75 mGy.cm Comparison: Comparison is made to CTA chest 02/23/2023 FINDINGS: Lungs and pleura: Previously noted left upper lobe focus of consolidation has resolved. There is a moderate left pleural effusion. Heart and pericardium: Heart size is normal. No pericardial effusion. Vessels: No evidence of pulmonary embolism. Mediastinum and grace: Unremarkable. Chest wall and lower neck: Unremarkable. Abdomen: Unremarkable. Bones: Mild degenerative changes are seen. IMPRESSION: No evidence of pulmonary embolus. Previously noted focus of consolidation in the left upper lobe has resolved. There is a moderate left pleural effusion, new from prior exam. ACT 112: Negative or not required by law. Electronically signed by: Jeremiah Corado M.D. 03/09/2023 8:41 AM Abdomen/Pelvis CT 03/09/23 07:32 CT SCAN OF THE ABDOMEN AND PELVIS WITH IV CONTRAST CLINICAL HISTORY: Left upper quadrant abdominal pain. Diarrhea. COMPARISON STUDY: Abdominal CT dated 02/23/2023. TECHNIQUE: Following the IV administration of 120 cc of Optiray 350, CT scan of the abdomen and pelvis is performed from the lung bases to the proximal femora. Images are reviewed in the axial, sagittal, and coronal planes. IV contrast was administered without complication. A dose lowering technique was utilized adhering to the principles of ALARA. FINDINGS: Lung bases: The heart is normal in size noting a small pericardial effusion. There is a small left pleural effusion with dependent atelectasis. Trace pleural effusion is seen on the right. Liver: The contrast-enhanced liver is enlarged, measuring 20.7 cm in length. The liver demonstrates diffusely diminished attenuation indicating steatosis. There is no intrahepatic biliary ductal dilatation. The hepatic veins and portal veins are patent. Gallbladder: Unremarkable. Spleen: Normal in size and attenuation. Pancreas: Unremarkable. Adrenal glands: Unremarkable. Kidneys: The contrast enhanced kidneys are normal in size and without hydronephrosis. The kidneys enhance symmetrically. There is a 5 mm nonobstructing calculus in the left lower pole. Abdominal vasculature: The abdominal aorta is normal in course and caliber. Bowel: There are scattered colonic diverticula without CT evidence of acute diverticulitis. No bowel obstruction is seen. The appendix is well-visualized and normal. Peritoneum: There is no intraperitoneal free air or abdominal ascites. Lymphadenopathy: None. Pelvic viscera: The bladder is normal as visualized. The uterus is surgically absent. No adnexal lesion is seen. There is a tiny fat-containing left groin hernia. Skeletal structures: No lytic or blastic lesions are seen. IMPRESSION: 1. No acute infectious or inflammatory findings are identified in the abdomen or pelvis. 2. Small left and trace right pleural effusions with dependent atelectasis. 3. Hepatomegaly and hepatic steatosis. 4. Left-sided nephrolithiasis. 5. Additional findings as above. ACT 112: Negative or not required by law. Electronically signed by: Prem Rao M.D. 03/09/2023 8:36 AM I & O Totals 24 Hours 03/08/23 03/09/23 03/10/23 06:59 06:59 06:59 Intake Total 1999 Balance 1999 Cumulative 03/09/23 07:09 thru 03/09/23 10:04 Intake Total 1999 RT Ventilator Mngmt (Last Documented) Ventilator Ordered Settings Respiratory Rate 21 03/09/23 11:00 Ventilator - PT Measurements Respiratory Rate 21 PG Care Time/CCT Total # of Minutes Spent Total Time Spent with Patient: Total time spent is greater than 50% in coordination of care (as documented) at patient's floor/unit and/or counseling patient: Coding Level of Care Code 25018 IN/OBS CONSULT LVL 4,60M Diagnoses Pleural effusion, left J90 Left-sided chest pain R07.9
--- NOTE | 2023-03-09 11:19 | Procedure Note ---
Procedure Note Date of Service March 09, 2023 Note Procedure: Diagnostic therapeutic ultrasound-guided catheter thoracentesis, left Bander: Dr. Henrique Ortez Indication: Pleural effusion Consent: Signed by patient and verified with timeout prior to procedure Anesthesia: 10 mL's 1% lidocaine without epinephrine local. Procedure: Consent was verified and timeout performed. Appropriate imaging studies were reviewed prior to the procedure. Patient was placed in a seated position and limited thoracic ultrasound was performed of the bilateral chest. Images were not saved due to technical issues. No effusion was identified on the right. A small effusion was identified on the left. Site appropriate for thoracentesis on the left was selected. The skin was prepped and draped in normal sterile fashion. Lidocaine was used for local analgesia. Due to the patient's body habitus, we were not able to aspirate fluid with the finder needle. A small skin ferdinand was made with the scalpel and the catheter over the needle apparatus was advanced over the rib into the pleural space. I was able to freely aspirate fluid with the needle/catheter system. Using the syringe one-way valve system, a total of 300 mL's of cloudy yellow turbid fluid was removed. Procedure was terminated due to inability to withdraw additional fluid. The catheter was removed and observed to be intact. A sterile dressing was applied. Post procedure chest x-ray was ordered. Post procedure thoracic ultrasound demonstrated persistent lung sliding on the left with minimal residual pleural fluid Fluid was sent for cytology, Gram stain and culture, cell count differential, LDH, pH, glucose, and total protein. The patient tolerated the procedure well without obvious complication Coding CPT Codes Pulmonary/Thoracic - Pulmonary and Thoracic: 51887 Thoracentesis w imaging ([id number]) [facility] [place]odes (Charges) Pulmonary/Thoracic Procedure 1: Pulmonary and Thoracic: 06669 Thoracentesis w imaging
[2023-03-09] MEDS ORDERED: oxyCODONE HCL IR 5 MG TAB (IMMEDIATE RELEASE) PO STA (11:21)
[2023-03-09] MEDS ORDERED: LIDOCAINE 5% 1 PATCH TD STA (11:21)
[2023-03-09] MEDS ORDERED: ACETAMINOPHEN 500 MG TAB PO STA (11:22)
[2023-03-09 11:39] LABS: Adenovirus PCR Not Detected (NotDetected); Bordetella parapertussis PCR Not Detected (NotDetected); Bordetella pertussis PCR Not Detected (NotDetected); Chlamydia pneumoniae PCR Not Detected (NotDetected); Coronavirus 229E PCR Not Detected (NotDetected); Coronavirus CoV-2 (COVID19)PCR Not Detected (NotDetected); Coronavirus HKU1 PCR Not Detected (NotDetected); Coronavirus NL63 PCR Not Detected (NotDetected); Coronavirus OC43PCR Not Detected (NotDetected); Human Metapneumovirus PCR Not Detected (NotDetected); Influenza A PCR Not Detected (NotDetected); Influenza B PCR Not Detected (NotDetected); Mycoplasma pneumoniae PCR Not Detected (NotDetected); Parainfluenza Virus 1 PCR Not Detected (NotDetected); Parainfluenza Virus 2 PCR Not Detected (NotDetected); Parainfluenza Virus 3 PCR Not Detected (NotDetected); Parainfluenza Virus 4 PCR Not Detected (NotDetected); Respiratory Syncytial VirusPCR Not Detected (NotDetected); Rhinovirus/Enterovirus PCR Not Detected (NotDetected)
--- NOTE | 2023-03-09 11:40 | XRay Report ---
XR chest 1V portable HISTORY: S/P Left Thoracentesis COMPARISON: Chest CTA 03/09/2023. FINDINGS: No pneumothorax. A trace left pleural effusions persist status post thoracentesis. Left bas ilar linear densities favor subsegmental atelectasis. No evidence for pulmonary edema. The cardiac si lhouette remains mildly enlarged. No acute fractures. IMPRESSION: 1. No pneumothorax. 2. A trace left pleural effusion persists status post thoracentesis. This has improved. ACT 112: Negative or not required by law. Electronically signed by: Diego Cheng M.D. 03/09/2023 11:39 AM
--- NOTE | 2023-03-09 12:12 | Communication Note ---
Date of Service: March 09, 2023 ATTENDING ADDENDUM to H&P: 42 yo F recently admitted for treatment of pneumonia, discharged on 02/26/23, now presents with severe sharp left sided pain under her breast that has been present since she awoke on Sat morning, 2 days ago. The pain doesn't change with position and is not improved with anything (tried Tylenol at home without success) except when she lies on the left (affected) side, worse with lying flat and with deep breaths. No fevers, chills or coughing reported. Reports shortness of breath, especially with minimal exertion. Feels malaise and SIRS criteria present today. On exam she is morbidly obese and in mild distress 2/2 pain. BP 159/106, HR 94, R 21, T 36.0 C, 97% RA. She is mentating clearly. Lungs are clear to auscultation throughout s/p thoracentesis this morning with 300cc cloudy fluid removed. She has anterior chest wall tenderness just inferior to her left breast that is exquisitely tender to palpation. Cardiac exam reveals S1/2 heard with regular rate and rhythm. No murmurs. No peripheral edema. Workup in the ER reveals no leukocytosis, an improved H/H to 12.1/36.2, PLT 427 (mildly elevated). There is metabolic acidosis present wtih a bicarb 20, AG 12, Lactate up to 3.4 with repeat 1.4 after treatment in the ER. Normal renal function and no significant electrolyte disorder. Elevated troponin 75.8 with repeat pending. CRP 1.21. CT a/p with IV contrast reveals a small pericardial effusion, small left pleural effusion with dependent atelectasis with trace pleural effusion on the right. Hepatic steatosis. Chest CT with contrast reveals no evidence of PE and resolution of ANNIE pneumonia previously present. Cardiac echo today reveals no regional wall motion abnormalities with a hyperdynamic LV and EF 65-70%. There is no significant valve pathology. Light's criteria is met with 4.0/7.5=0.53, so this technically meets criteria for exudate. Pleural fluid gram stain is still pending. She was started on Zosyn. Notably her Lyme IgG is positive with western blot pending and IgM negative, however, this has been the case in the past and she denies any recent tick bites. 1. SIRS with lactic acidosis 2/2 #2 2. Exudative pleural effusion-appears to be the cause of her pain with elevated inflammatory markers and meeting SIRS criteria. Thoracentesis performed as noted above. Cont abx, awaiting pulmonary recommendations. Cont pain control with scheduled Tylenol, oxycodone, and lidocaine patch. 3. Elevated troponin-possibly demand ischemia vs myocarditis. Trend trop, cardiology consultation. 4. HTN-elevated 2/2 uncontrolled pain. Given labetalol 10mg IV in the ER, cont home coreg. Reassess after pain is better managed. Avoid NSAIDs for now. 5. Morbid obesity-lifestyle changes recommended. 6. Bipolar disorder-chronic, stable. Cont seroquel (recently increased to 600mg QHS) and prazosin per home regimen. Stephanie Garcia DO [facility] Hospitalist
[2023-03-09 12:27] LABS: Appearance Pleural Fluid Turbid; Basophils, Fluid 1 %; Color Pleural Fluid Yellow; Lymphocytes, Fluid 6 %; Mono,Macrophage,Mesothelial 27 %; Neutrophils, Fluid 66 %; RBC Pleural Fluid Auto < 2000 /uL; Source Pleural Fluid Left Lung; WBC Pleural Fluid Auto 8638 /uL
--- NOTE | 2023-03-09 14:26 | Cardiology Consultation ---
Date of Consultation March 09, 2023 Assessment & Plan (1) Left-sided chest pain: (2) Elevated troponin: (3) Tachycardia: (4) Pleural effusion, left: Plan Please refer to physician addendum for additional info and full plan of care. Supervising Physician Co-Signing Physician Notes Attending Staff: Pt seen and evaluated with [facility] staff. Concur with observations and plans. 55 minutes spent addressing challenges, educating and advancing daily plan of care 42 yo woman presenting with left sided chest discomfort Chest discomfort localized to left chest Worse with deep inspiration Reported recent bout of PNA - treated Chest CTA performed - No evidence of PE- residual Left-sided pleural effusion. Pt underwent Left Thoracentesis - no immediate complications Chest "pressure" relieved by thoracentesis - residual pleuritic pain Troponin elevated - [address]/T wave abnormalities ECHOcardiogram - LVEF 65%, no Wall Motion Abnormalities reported, No major valvular pathology - no vegetations Markedly elevated BP in ED ESR markedly elevated No Dx of Vasculitis made + Proteinuria No hematuria Plan: * Troponin elevation may be secondary to myocarditis vs demand ischemia in the setting of severely elevated SBP * Presentation not c/w Aortic Dissection * EKG not consistent with ACS * Chest pain appears to be secondary to pleurisy/pleural based * No PE noted - no immediate indication for Anticoagulation. * That being said, patient may have an underlying vasculitis or inflammatory state that makes coronary disease more likely vs a myocarditis picture * Cardiac MRI is a good way to distinguish myocardial damage that is Ischemic vs Inflammatory - no immediate access to cMRI @ present * Either way, LVEF is WNL and treatment would be supportive * Suspect that patient may benefit from rheumatologic evaluation including SLE, RA etc * For marked HTN - start- * Lisinopril 10 mg po per day - escalate as needed to max dose of 40 mg/day * Toprol XL 25 mg po per day * Goal SBP 120 mmHg * Quantify degree of proteinuria * Consider checking LESTER, ANCA (hx of sinusitis - ? Bridgette's or FAM) - some of these are less likely given lack of hematuria * Effusion may be parapneumonic - no infiltrate noted, however. * Consider ASA 81 mg po per day * LDl 138 * Start Crestor 20 mg po per day * No cardiac indication for steroids or colchicine - would defer to Rheumatology for anti-inflammatory regimen as dictated by whatever her underlying systemic d/o Valentín Spencer History of Present Illness Attending Physician: Stephanie Garcia DO History of Present Illness 42-year-old female who represented to [facility] emergency department due to recurrent left-sided chest discomfort as well as shortness of breath with rest and exertion. Was recently admitted from 02/23 with discharge on 02/22 due to left-sided chest pain, vomiting, and shortness of breath. She was found to be septic secondary to pneumonia and started on IVF, Zosyn/zithromax. Transitioned to doxycycline and cefdinir on discharge. This admission: Imaging suggestive of a pericardial effusion as well as moderate-sized pleural effusion. Patient underwent thoracentesis earlier today. Echocardiogram obtained revealing a hyperdynamic LVEF of 65 to 70% without wall motion abnormalities or significant valvular disease. No pericardial effusion noted. Patient was tachycardic and a CT a of the chest was obtained showing no evidence of pulmonary emboli. EKG showed sinus tach in the 120s with inferior and anterior lateral nonspecific ST segment changes High-sensitivity troponin elevated 75.8>>114.5. Past medical history: Hypertension Hyperlipidemia Prediabetes GERD Bipolar 2 Rheumatoid arthritis Allergies Allergy/AdvReac Type Severity Reaction Status Date / Time Sulfa (Sulfonamide Allergy Mild RASH, Verified 01/05/23 12:02 Antibiotics) NAUSEA Home Medications Medication Instructions Recorded Confirmed Type albuterol sulfate 90 mcg/actuation 2 puffs inhalation Q4H PRN 10/20/19 03/09/23 History aerosol inhaler Shortness Of Breath Or Wheezing tizanidine 4 mg tablet 4 mg PO Q6H PRN Muscle Spasm 01/14/20 03/09/23 History sumatriptan succinate 6 mg/0.5 mL 6 mg (0.5 mL) subcut DIRECTED 08/09/20 03/09/23 Rx subcutaneous solution (Imitrex) PRN migraine headache #3 mL loratadine 10 mg tablet (Claritin) 10 mg PO QAM 02/15/21 03/09/23 History colestipol 1 gram tablet (Colestid) 1 g PO DAILY 09/24/22 03/09/23 History prazosin 2 mg capsule 2 mg PO HS 09/24/22 03/09/23 History loperamide 2 mg capsule (Imodium 2 mg PO Q6H PRN loose stool #14 09/30/22 03/09/23 Rx A-D) caps oxycodone 5 mg tablet 5 mg PO Q6H PRN pain #15 tabs 12/01/22 03/09/23 Rx dicyclomine 10 mg capsule 10 mg PO TID PRN Cramps 01/05/23 03/09/23 History pantoprazole 40 mg tablet,delayed 40 mg PO BID 01/05/23 03/09/23 History release quetiapine 400 mg tablet 600 mg PO HS 01/05/23 03/09/23 History duloxetine 60 mg capsule,delayed 120 mg PO DAILY 02/23/23 03/09/23 History release carvedilol 3.125 mg tablet 3.125 mg PO BIDM #60 tabs 02/26/23 03/09/23 Rx lactobacillus combination no.4 3 3,000 mmu cells PO DAILY 2 weeks 02/26/23 03/09/23 Rx billion cell capsule (Probiotic) #14 caps Patient History Medical History Allergy-induced asthma NO INHALER USED FOR >YEAR Well controlled and stable Anxiety and depression Bipolar 1 disorder Cervical stenosis of spinal canal Dyslipidemia Fibromyalgia History of high blood pressure History of kidney stones NO SURGERY No current issues Hypertension IBS (irritable bowel syndrome) Combination of diarrhea and constipation Insomnia Lumbar pain Migraine Mood disorder Rheumatoid arthritis Followed with rheum in the past (follows only with PCP currently) Septic colitis Surgical History History of arthroscopy MULTIPLE RT/LEFT KNEE SCOPES History of bilateral tubal ligation History of endometrial ablation History of esophagogastroduodenoscopy (EGD) History of hysterectomy History of partial knee replacement b/l History of tonsillectomy and adenoidectomy History of total knee replacement LEFT S/P colonoscopy S/P inguinal hernia repair S/P sinus surgery [place] teeth removed Family History Daughter Depression Allergies Grandmother (Paternal) Arthritis Grandfather (Paternal) Diabetes Arthritis Grandmother (Maternal) Diabetes Hypertension Grandfather (Maternal) Diabetes Hypertension Sister Kidney stones Hypertension Mother Thyroid disorder Other No family history of adverse response to anesthesia Social History Smoking Status: Former smoker Tobacco Type: Cigarettes Cigarettes Per Day: Quit 09/2019. Smoked 0.5-1ppd x 5 years; Second Hand Exposure: No; Do You Dip or Chew Tobacco: No; Hx Alcohol Use: No Hx Substance Use: No Preferred Language: [place] Communication Ability: Effective Pen And Pencil Repairer Required: No Beliefs That Will Affect Care: None marital status: Single Current Living Situation: Other Current Living Situation Comment: family/friends current occupational status: disabled Feels Safe at Home: Yes Assistive Devices: None Physical Exam Physical Exam: Obese woman - Left-sided chest pain No elevation in JVP S1S2 no pericardial friction rub CTA B except for mildly decreased Breath Sounds - Left base No pleural rub noted + Chest wall tenderness Abdomen - obese + distended No LE edema Bilateral Knee replacements No rash Results & Data Vital Signs (Past 12 Hours) Vital Signs Temp Pulse Resp BP Pulse Ox O2 Del Method 03/09/23 13:30 93 H 23 97 Room Air 03/09/23 13:03 96 H 20 96 Room Air 03/09/23 13:03 168/134 H 03/09/23 12:31 168/96 H 03/09/23 12:31 99 H 17 97 Room Air 03/09/23 12:30 98 H 16 97 Room Air 03/09/23 12:00 95 H 24 97 Room Air 03/09/23 12:00 147/103 H 03/09/23 11:30 91 H 24 97 Room Air 03/09/23 11:30 154/98 H 03/09/23 11:18 94 H 03/09/23 11:00 95 H 21 159/106 H 97 Room Air 03/09/23 10:52 95 H 21 136/94 96 Room Air 03/09/23 10:49 95 H 22 144/99 H 96 Room Air 03/09/23 10:38 95 H 144/99 H 03/09/23 10:31 89 21 166/106 H 95 Room Air 03/09/23 10:02 105 H 22 174/98 H 97 Room Air 03/09/23 09:37 113 H 19 152/111 H 96 Room Air 03/09/23 09:30 129 H 20 164/108 H 96 Room Air 03/09/23 10:23 119 H 174/98 H 03/09/23 08:00 117 H 20 161/103 H 98 Room Air 03/09/23 07:30 121 H 23 179/110 H 97 Room Air 03/09/23 07:25 132 H 23 189/127 H 97 Room Air 03/09/23 07:28 131 H 03/09/23 07:12 36.0 C L 138 H 20 161/103 H 97 Room Air Laboratory Results Cardiac Enzymes 03/09/23 03/09/23 03/09/23 Range/Units 07:30 11:55 11:55 AST 31 (13-39) U/L Troponin I High Sens 75.8 H* 114.5 H* D (0-14) pg/ml B-Natriuretic Peptide 472 H (0-100) pg/ml Coagulation 03/09/23 03/09/23 Range/Units 07:30 11:55 PT 10.1 (9.0-12.0) Seconds APTT 28.8 (21.0-31.0) Seconds B-Natriuretic Peptide 472 H (0-100) pg/ml CBC 03/09/23 Range/Units 07:30 WBC 8.82 (4.8-10.8) K/ul RBC 4.11 L (4.20-5.40) M/uL Hgb 12.1 (12.0-16.0) g/dl Hct 36.2 L (37.0-47.0) % Plt Count 427 H (130-400) K/uL Neut # (Auto) 5.72 (1.40-6.50) K/uL Lymph # (Auto) 2.36 (1.2-3.4) K/uL [place] # (Auto) 0.54 (0.11-0.59) K/uL Eos # (Auto) 0.06 (0-0.50) K/uL Baso # (Auto) 0.12 (0-0.2) K/uL Comprehensive Metabolic Panel 03/09/23 Range/Units 07:30 Sodium 135 L (136-145) mmol/L Potassium 3.6 (3.5-5.1) mmol/L Chloride 103 (98-107) mmol/L Carbon Dioxide 20 L (21-32) mmol/L BUN 8 (6-23) mg/dl Creatinine 0.56 L (0.6-1.2) mg/dl Glucose 166 H (70-99(Fasting)) mg/dl Calcium 9.2 (8.6-10.3) mg/dl AST 31 (13-39) U/L ALT 29 (7-52) U/L Alkaline Phosphatase 103 (34-104) U/L Total Protein 7.5 (6.0-8.3) gm/dl Albumin 3.9 (3.4-5.0) gm/dl Intake and Output 03/09/23 03/09/23 03/09/23 06:59 14:59 22:59 Intake Total 2119 Balance 2119 Intake: IV 2119 Piperacillin/Tazobactam 4.5 gm 120 / 120 In Dextrose 5% 100 ml @ 240 mls /hr IV NOW ONE Rx#:[id number] Sodium Chloride 0.9% 1000ML 1, 2000 / 1999 000 ml @ 999 mls/hr IV .Q1H1M ONE Rx#:[id number] Other: Weight 109.6 kg Weight Measurement Method Chair Scale Patient Weight 03/10/23 06:59 Weight 109.6 kg Diagnostic Findings ECHOcardiogram: 03/09/2023 LVEF 65-70% Hyperdynamic No WMA No major valvular pathology No pericarfial effusion
[2023-03-09] MEDS ORDERED: PROMETHAZINE HCL 12.5 MG in SODIUM CHLORIDE 0.9% 50 ML IV PRN (15:28)
[2023-03-09] MEDS ORDERED: GLUCOSE 40% GEL 15 GM TUBE PO PRN (15:28)
[2023-03-09] MEDS ORDERED: ALUMINUM/MAGNESIUM SUSP 30 ML UDC PO PRN (15:28)
[2023-03-09] MEDS ORDERED: GLUCOSE 10 TAB/TUBE PO PRN (15:28)
[2023-03-09] MEDS ORDERED: DEXTROSE 50% 50 ML SYRINGE IV PRN (15:28)
[2023-03-09] MEDS ORDERED: DICYCLOMINE HCL 10 MG CAP PO PRN (15:28)
[2023-03-09] MEDS ORDERED: CARBOHYDRATES FOR HYPOGLYCEMIA PO PRN (15:28)
[2023-03-09] MEDS ORDERED: GLUCAGON FOR INJ 1 MG VIAL SQ PRN (15:28)
[2023-03-09] MEDS ORDERED: ALBUTEROL HFA 8 GM INHALER INH PRN (15:28)
[2023-03-09] MEDS ORDERED: lisinopril 10 MG TAB PO SCH (15:30)
[2023-03-09] MEDS ORDERED: carvediloL 3.125 MG TAB PO SCH (16:00)
[2023-03-09] MEDS: MoRPHine SULFATE 4 MG/ML 1 ML CARP\\VIAL IV PRN ×2 (17:31→22:39)
[2023-03-09] MEDS: INSULIN ASPART PER UNIT CHARGE SC SCH ×3 (18:06→21:02)
[2023-03-09] MEDS: METOPROLOL SUCC 25MG EXT REL TAB PO SCH (18:10)
[2023-03-09] MEDS: PIPERACILLIN/TAZOBACTAM 4.5 GM in DEXTROSE 5% 100 ML IV SCH (19:34)
--- NOTE | 2023-03-09 19:36 | Electrocardiogram Report ---
Test Reason : Blood Pressure : / mmHG Vent. Rate : 121 BPM Atrial Rate : 121 BPM P-R Int : 112 ms QRS Dur : 088 ms QT Int : 430 ms P-R-T Axes : -04 033 109 degrees QTc Int : 610 ms Sinus tachycardia Nonspecific ST abnormality Abnormal ECG When compared with ECG of 26-FEB-2023 08:54, Non-specific change in ST segment in Lateral leads T wave inversion now evident in Inferior leads T wave inversion more evident in Anterolateral leads Confirmed by Izaiah Bishop [id number] on 03/09/2023 7:35:36 PM Referred By: REFERRED SELF Confirmed By:Lit Bishop
[2023-03-09] MEDS: PRAZOSIN HCL 1 MG CAP PO SCH (21:06)
[2023-03-09] MEDS: oxyCODONE HCL IR 5 MG TAB (IMMEDIATE RELEASE) PO PRN (21:06)
[2023-03-09] MEDS: QUEtiapine FUMARATE 300 MG TABLET PO SCH (21:07)
[2023-03-09] MEDS: PANTOprazole 40 MG TAB PO SCH (21:07)
[2023-03-09] MEDS: ENOXAPARIN INJ 40 MG/0.4 ML SYR SQ SCH (21:11)
[2023-03-10] MEDS: PIPERACILLIN/TAZOBACTAM 4.5 GM in DEXTROSE 5% 100 ML IV SCH ×3 (00:50→18:21)
[2023-03-10] MEDS: MoRPHine SULFATE 4 MG/ML 1 ML CARP\\VIAL IV PRN ×2 (03:24→09:14)
[2023-03-10] MEDS: oxyCODONE HCL IR 5 MG TAB (IMMEDIATE RELEASE) PO PRN ×3 (03:25→20:15)
--- NOTE | 2023-03-10 06:42 | Cardiology Progress Note ---
Date of Service March 10, 2023 Assessment & Plan (1) Left-sided chest pain: (2) Elevated troponin: (3) Tachycardia: (4) Pleural effusion, left: Plan Please refer to physician addendum for additional info and full plan of care. Admission and Anticipated Discharge Date Admission Date: March 09, 2023 Supervising Physician Co-Signing Physician Notes 42 yo woman presenting with left sided chest discomfort Chest discomfort localized to left chest Worse with deep inspiration Reported recent bout of PNA - treated Chest CTA performed - No evidence of PE- residual Left-sided pleural effusion. Pt underwent Left Thoracentesis - no immediate complications Chest "pressure" relieved by thoracentesis - residual pleuritic pain Troponin elevated - [address]/T wave abnormalities ECHOcardiogram - LVEF 65%, no Wall Motion Abnormalities reported, No major valvular pathology - no vegetations Markedly elevated BP in ED ESR markedly elevated No Dx of Vasculitis made + Proteinuria No hematuria Plan: * Troponin elevation -secondary to myocarditis vs demand ischemia in the setting of severely elevated SBP * Presentation not c/w Aortic Dissection * EKG not consistent with ACS * Chest pain appears to be secondary to pleurisy/pleural based * No PE noted - no immediate indication for Anticoagulation. * Patient may have an underlying vasculitis (markedly elevated ESR) or inflammat ory state that makes coronary disease more likely vs a myocarditis picture * Cardiac MRI is a good way to distinguish myocardial damage that is Ischemic vs Inflammatory - no immediate access to cMRI @ present * Will arrange for Cardiac MRI as an outpt * LVEF is WNL and treatment would be supportive * Suspect that patient may benefit from rheumatologic evaluation including SLE, RA etc * For marked HTN - start- * Increase Lisinopril to 20 mg po per day - escalate as needed to max dose of 40 mg/day * Increase Toprol XL to 50 mg po per day * Goal SBP 120 mmHg * Quantify degree of proteinuria * Consider checking LESTER, ANCA (hx of sinusitis - ? Bridgette's or FAM) - some of these are less likely given lack of hematuria (PENDING) * Effusion may be parapneumonic - no infiltrate noted, however. * Rx of pleurisy * Continue ASA 81 mg po per day * LDL 138 * Continue Crestor 20 mg po per day * No cardiac indication for steroids or colchicine - would defer to Rheumatology for anti-inflammatory regimen as dictated by whatever her underlying systemic d/o * Will arrange for Cardiology F/U * Please call back with any additional questions Valentín Spencer Subjective Events overnight: * Ongoing pleuritic pain - left chest * No chest pressure reported * SBP improved Review of Systems Review of Systems: All systems reviewed & are unremarkable except as noted in HPI & below Physical Exam Physical Exam: Obese woman - Left-sided chest pain No elevation in JVP S1S2 no pericardial friction rub CTA B except for mildly decreased Breath Sounds - Left base No pleural rub noted + Chest wall tenderness Abdomen - obese + distended No LE edema Bilateral Knee replacements No rash Results & Data Vital Signs (Past 12 Hours) Vital Signs Temp Pulse Resp BP Pulse Ox O2 Del Method 03/10/23 03:42 36.9 C 112 H 20 135/86 112 H Room Air 03/09/23 22:30 Room Air 03/09/23 22:42 36.7 C 119 H 20 135/84 95 Room Air 03/09/23 19:32 174/117 H 03/09/23 19:31 36.7 C 92 H 18 171/115 H 96 Room Air Laboratory Results Cardiac Enzymes 03/09/23 03/09/23 03/09/23 Range/Units 11:55 11:55 17:43 AST (13-39) U/L Lactate Dehydrogenase (86-244) U/L Troponin I High Sens 114.5 H* D 73.6 H* D (0-14) pg/ml B-Natriuretic Peptide 472 H (0-100) pg/ml 03/10/23 03/10/23 03/10/23 Range/Units 00:22 06:25 06:25 AST 19 (13-39) U/L Lactate Dehydrogenase 183 (86-244) U/L Troponin I High Sens 63.0 H* D (0-14) pg/ml B-Natriuretic Peptide (0-100) pg/ml Coagulation 03/09/23 Range/Units 11:55 B-Natriuretic Peptide 472 H (0-100) pg/ml Lipids 03/10/23 Range/Units 06:25 Triglycerides 197 H (0-150) mg/dl Cholesterol 192 (0-200) mg/dl HDL Cholesterol 55 mg/dl Cholesterol/HDL Ratio 3.5 (0-5) CBC 03/10/23 Range/Units 06:25 WBC 7.20 (4.8-10.8) K/ul RBC 3.46 L (4.20-5.40) M/uL Hgb 10.3 L (12.0-16.0) g/dl Hct 31.0 L (37.0-47.0) % Plt Count 374 (130-400) K/uL Neut # (Auto) 4.76 (1.40-6.50) K/uL Lymph # (Auto) 1.73 (1.2-3.4) K/uL [place] # (Auto) 0.52 (0.11-0.59) K/uL Eos # (Auto) 0.05 (0-0.50) K/uL Baso # (Auto) 0.12 (0-0.2) K/uL Comprehensive Metabolic Panel 03/10/23 Range/Units 06:25 Sodium 136 (136-145) mmol/L Potassium 3.4 L (3.5-5.1) mmol/L Chloride 103 (98-107) mmol/L Carbon Dioxide 25 (21-32) mmol/L BUN 7 (6-23) mg/dl Creatinine 0.53 L (0.6-1.2) mg/dl Glucose 133 H (70-99(Fasting)) mg/dl Calcium 8.6 (8.6-10.3) mg/dl AST 19 (13-39) U/L ALT 24 (7-52) U/L Alkaline Phosphatase 86 (34-104) U/L Total Protein 6.7 (6.0-8.3) gm/dl Albumin 3.6 (3.4-5.0) gm/dl Intake and Output 03/09/23 03/10/23 03/10/23 22:59 06:59 14:59 Intake Total 150 / 2510 240 / 2510 74.0 / 74.0 Balance 150 / 2510 240 / 2510 74.0 / 74.0 Intake: IV 240 / 2360 74.0 / 74.0 Piperacillin/Tazobactam 4.5 gm 240 / 240 23.5 / 23.5 In Dextrose 5% 100 ml @ 30 mls/ hr IV Q8H LUIS M Rx#:[id number] Promethazine HCl 12.5 mg In 50.5 / 50.5 Sodium Chloride 0.9% 50 ml @ 202 mls/hr IV Q6H PRN Rx#: [id number] Oral 150 / 150 Other: # Unmeasured Voids 2 Weight 109.6 kg 109.6 kg Weight Measurement Method Built in Bedscale Built in Bedscale Medications Administered Current Inpatient Medications Al Hydrox/Mg Hydrox/Simethicone (Aluminum/Magnesium Susp 30 Ml Udc) 15 ml PO Q4H PRN PRN Reason: Dyspepsia Stop: 04/08/23 15:27 Albuterol (Albuterol Hfa 8 Gm Inhaler) 2 puffs INH Q4H PRN PRN Reason: sob/wheeze Stop: 04/08/23 15:27 Aspirin (Aspirin 81 Mg Ectab) [address] [facility] Stop: 04/09/23 08:59 Last Admin: 03/10/23 08:58 Dose: 81 mg Carvedilol (Carvedilol 3.125 Mg Tab) 3.[address] [facility] Stop: 04/08/23 15:59 Last Admin: 03/09/23 18:09 Dose: 3.125 mg Colestipol HCl (Colestipol Hcl 1 Gm Tab) [address] [facility] Stop: 04/09/23 08:59 Last Admin: 03/10/23 09:01 Dose: 1 gm Dextrose (Dextrose 50% 50 Ml Syringe) 25 - 50 ml IV UD PRN; Protocol PRN Reason: Hypoglycemia Protocol Stop: 04/08/23 15:27 Dicyclomine HCl (Dicyclomine Hcl 10 Mg Cap) 10 mg PO TID PRN PRN Reason: Cramps Stop: 04/08/23 15:27 Duloxetine HCl (Duloxetine Hcl 60 Mg Cap) [address] [facility] Stop: 04/09/23 08:59 Last Admin: 03/10/23 08:58 Dose: 120 mg Enoxaparin Sodium (Enoxaparin Inj 40 Mg/0.4 Ml Syr) 40 mg SQ HS [facility]IS M Stop: 04/08/23 20:59 Last Admin: 03/09/23 21:11 Dose: 40 mg Glucagon (Glucagon For Inj 1 Mg Vial) 1 mg SQ UD PRN; Protocol PRN Reason: Hypoglycemia Protocol Stop: 04/08/23 15:27 Glucose (Glucose 10 Tab/Tube) 4 - 8 tab PO UD PRN; Protocol PRN Reason: Hypoglycemia Treatment Stop: 04/08/23 15:27 Glucose (Glucose 40% Gel 15 Gm Tube) 15 - 30 gm PO UD PRN; Protocol PRN Reason: Hypoglycemia Protocol Stop: 04/08/23 15:27 Piperacillin Sod/Tazobactam (Sod 4.5 gm/ Dextrose) 120 mls @ 30 mls/hr IV Q8H [facility]; Protocol Stop: 03/16/23 16:29 Last Infusion: 03/10/23 10:00 Dose: 30 mls/hr Promethazine HCl 12.5 mg/ (Sodium Chloride) 50.5 mls @ 202 mls/hr IV Q6H PRN PRN Reason: Nausea And Vomiting Stop: 04/08/23 15:27 Last Infusion: 03/10/23 10:00 Dose: Infused Insulin Aspart (Insulin Aspart Per Unit Charge) [address] [facility] Stop: 04/08/23 15:27 Last Admin: 03/10/23 08:54 Dose: Not Given Lactobacillus Acidophilus (Advanced Probiotic 1250 Mg Capsule) [address] [facility] Stop: 04/09/23 08:59 Last Admin: 03/10/23 08:59 Dose: 2 cap Lisinopril (Lisinopril 20 Mg Tab) 20 mg PO [facility] Stop: 04/09/23 08:59 Last Admin: 03/10/23 09:01 Dose: 20 mg Loratadine (Loratadine 10 Mg Tab) 10 mg PO [facility] Stop: 04/09/23 08:59 Last Admin: 03/10/23 08:58 Dose: 10 mg Metoprolol Succinate (Metoprolol Succ 25mg Ext Rel Tab) 25 mg PO [facility] Stop: 04/08/23 15:29 Last Admin: 03/10/23 08:58 Dose: 25 mg Miscellaneous (Remove Lidoderm Patch) 1 each N/A DAILY@2100 [facility] Stop: 04/08/23 20:59 Last Admin: 03/09/23 21:11 Dose: 1 each Miscellaneous (Carbohydrates For Hypoglycemia ) 15 - 30 gm PO UD PRN PRN Reason: Hypoglycemia Protocol Stop: 04/08/23 15:27 Morphine Sulfate (Morphine Sulfate 4 Mg/Ml 1 Ml Carp\\Vial) 4 mg IV Q4H PRN PRN Reason: severe pain 8,9,10 Stop: 03/23/23 15:27 Last Admin: 03/10/23 09:14 Dose: 4 mg Oxycodone HCl (Oxycodone Hcl Ir 5 Mg Tab (Immediate Release)) 5 mg PO Q6H PRN PRN Reason: severe pain 7,8,9,10 Stop: 03/23/23 15:27 Last Admin: 03/10/23 03:25 Dose: 5 mg Pantoprazole Sodium (Pantoprazole 40 Mg Tab) 40 mg PO BID [facility] Stop: 04/08/23 20:59 Last Admin: 03/10/23 11:02 Dose: 40 mg Prazosin HCl (Prazosin Hcl 1 Mg Cap) 2 mg PO [facility] Stop: 04/08/23 20:59 Last Admin: 03/09/23 21:06 Dose: 2 mg Quetiapine Fumarate (Quetiapine Fumarate 300 Mg Tablet) 600 mg PO [facility] Stop: 04/08/23 20:59 Last Admin: 03/09/23 21:07 Dose: 600 mg Rosuvastatin Calcium (Rosuvastatin Calcium 20 Mg Tab) [facility] [place]: 04/09/23 08:59 Last Admin: 03/10/23 09:00 Dose: 20 mg
[2023-03-10 07:25] LABS: Basophils # (auto) 0.12 K/uL (0-0.2); Basophils % (auto) 1.7 %; Eosinophils # (auto) 0.05 K/uL (0-0.50); Eosinophils % (auto) 0.7 %; Hemoglobin 10.3 g/dl (12.0-16.0); Immature Granulocytes # (auto) 0.02 K/uL (0.01-0.20); Immature Granulocytes % (auto) 0.3 %; Lymphocytes # (auto) 1.73 K/uL (1.2-3.4); Mean Corpuscular Hemoglobin 29.8 pg (25.0-34.0); Mean Corpuscular Hgb Conc 33.2 g/dL (32.0-36.0); Mean Corpuscular Volume 89.6 fL (80.0-100.0); Mean Platelet Volume 9.3 fL (9.4-12.4); Monocytes # (auto) 0.52 K/uL (0.11-0.59); Monocytes % (auto) 7.2 %; Neutrophils # (auto) 4.76 K/uL (1.40-6.50); Neutrophils % (auto) 66.1 %; Platelet Count 374 K/uL (130-400); RDW Coefficient of Variation 13.3 % (11.5-14.5); RDW Standard Deviation 43.6 fL (36.4-46.3); Red Blood Count 3.46 M/uL (4.20-5.40)
[2023-03-10 07:46] LABS: Albumin Globulin Ratio 1.2 (0.9-2); Albumin Level 3.6 gm/dl (3.4-5.0); BUN Creatinine Ratio 13.2 (10-20); Bilirubin,Total 0.9 mg/dl (0.2-1.0); Calcium 8.6 mg/dl (8.6-10.3); Chol HDL Ratio 3.5 (0-5); Creatinine Clr Calc Pharmacy 171.6 ml/min; Est GFR (African American) 134.8 ml/min; Est GFR (Non-African American) 116.3 ml/min; Globulin 3.1 gm/dl (2.5-4.0); Magnesium 1.7 mg/dl (1.7-2.4); Potassium 3.4 mmol/L (3.5-5.1); Total Protein 6.7 gm/dl (6.0-8.3)
[2023-03-10] MEDS ORDERED: POTASSIUM CHLORIDE CRTAB 20 MEQ TABCR PO STA (08:02)
[2023-03-10] MEDS: INSULIN ASPART PER UNIT CHARGE SC SCH ×4 (08:54→20:42)
[2023-03-10] MEDS: DULoxetine HCL 60 MG CAP PO SCH (08:58)
[2023-03-10] MEDS: METOPROLOL SUCC 25MG EXT REL TAB PO SCH (08:58)
[2023-03-10] MEDS: LORATADINE 10 MG TAB PO SCH (08:58)
[2023-03-10] MEDS: ASPIRIN 81 MG ECTAB PO SCH (08:58)
[2023-03-10] MEDS: ADVANCED PROBIOTIC 1250 MG CAPSULE PO SCH (08:59)
[2023-03-10] MEDS: ROSUVASTATIN CALCIUM 20 MG TAB PO SCH (09:00)
[2023-03-10] MEDS: COLESTIPOL HCL 1 GM TAB PO SCH (09:01)
[2023-03-10] MEDS: lisinopril 20 MG TAB PO SCH (09:01)
[2023-03-10 10:44] LABS: Estimated Average Glucose 134 mg/dl; Hemoglobin A1C 6.3 % (4.5-5.6)
[2023-03-10] MEDS ORDERED: KETOROLAC 30 MG/ML VIAL IV ONE (10:46)
[2023-03-10] MEDS: PANTOprazole 40 MG TAB PO SCH ×2 (11:02→20:18)
--- NOTE | 2023-03-10 11:05 | Hospitalist Progress Note ---
Date of Service March 10, 2023 Assessment & Plan (1) Left-sided chest pain: (2) Pleural effusion, left: (3) Elevated troponin I level: (4) Lactic acidosis: (5) Bipolar I disorder, single manic episode: Plan 42-year-old female who has a significant past medical history of bipolar disorder, fibromyalgia, HTN, COPD, HLD, prediabetes, prior history of tobacco abuse, GERD, chronic migraine, bilateral occipital neuralgia who presents to ED secondary to left-sided chest pain x2 days. Left-sided chest pain, Pleuritic Moderate left pleural effusion Status post recent left upper lobe pneumonia status post completion of antibiotic therapy, imaging revealed resolution Elevated troponin Lactic acidosis CTA did not show PE but noted moderate left pleural effusion Trop trend: 75->114-->73->63 EKG noted sinus tachy, non specific ST T changes S/p diagnostic thoracentesis by Pulm Follow up cultures Cardiology on board Concern for some systemic inflammatory process involving cardiopulmonary system. Discussed with Rheum Dr Britton who will evaluate later Previous chart review noted patient had seen Dr Fran Ruby (Rheumatology) outpatient in the office in 06/2019 and televisit 12/2019 for long standing elevated ESR since 1999 and joint pains. Per Dr Ruby's note, there was no synovitis/dactylitis. She did have tenderness over all MCP, PIP, wrist and soft tiss tenderness over arms, leg, back, neck and ant chst wall. He thought it was more likely fibromyalgia than autoimmune syndrome at the time Outpatient labs noted ESR of 43 and CRP of 8 on 11/21/22. Old labs also noted LESTER/RF/CCP were negative in 08/2018 Patient currently does not have any knee/ankle/wrist/MCP/PIP tenderness or swelling Rheum note/patient's outpatient's chart does not have a confirmed diagnosis of RA Follow up LESTER, CCP, RF in lab ESR is 84.CRP 1.21 No leukocytosis. Procal is 0.12 (was upto 11 during recent pneumonia) Optimize pain control with IV toradol Will follow up Cards/Pulm/Rhuem recs Continue empirical antibiotics for now and follow up cultures Lactate was 3.4 on admission. Resolved with IVF Hypertension Poorly controlled Cards recs noted Increased lisinopril to 20mg daily Stopped carvedilol for now. Now on Toprol XL per cards Monitor Pre DM Last a1c 5.7 11/2022 HbA1c is 6.3 today Monitor Will need more education and lifestyle modification HLD pt with elevated lipid panel in OP setting in November Lipid panel reviewed Started on crestor per cardiology COPD Prior tobacco abuse Prn albuterol Bipolar disorder Stable Recent increase in seroquel as OP Continue prazosin Chronic Pain Migraine Fibromyalgia pt is prescribed oxy for this Chronic Positive Lyme IGM Previously positive in past, recently completed course of doxy DVT ppx: SCD for now. Plan to start chemical DVT ppx by tomorrow FULL CODE PCP: Miguel Chaudhry PA-C I spent a total of 55 minutes coordinating, documenting and providing care for this patient excluding time spent in performance of separately billed services Admission and Anticipated Discharge Date Admission Date: March 09, 2023 Subjective Patient seen and examined Reports severe chest pain, more left sided, pleuritic, worse with movement and deep breaths, not referred, associated with SOB Reports chronic back pain Denied any joint pains or swelling at this time Denied chills. Reports subjective fever at home. None since admission Reported some nausea earlier but no vomiting Denied abd pain Reports chronic loose bowel movement since a "salmonella infection' in september. No hematochezia or melena Denied dysuria, freq, urgency Physical Exam Constitutional: + well hydrated and + obese Eyes: PERRL, conjunctivae normal, anicteric sclerae ENMT: external ear and nose normal, oropharynx normal Respiratory: normal respiratory effort; no respiratory distress Diminished breath sounds, No crackles Cardiovascular: Rate/Rhythm: regular rate and regular rhythm S1 S2 Gastrointestinal (Abdomen): normal bowel sounds, soft, nontender, no hepatosplenomegaly Musculoskeletal: no cyanosis or clubbing, extremities motor strength 5/5 No pedal edema Neurologic: PERRL, EOMI, accommodation nl, no face palsy, no dysarthria Psychiatric: A+Ox3, euthymic affect Results & Data Results & Data Vital Signs (Past 12 Hours) Vital Signs Temp Pulse Pulse Resp BP Pulse Ox O2 Del Method 03/10/23 07:51 36.7 C 128 H 16 137/85 96 Room Air 03/10/23 03:42 36.9 C 112 H 20 135/86 112 H Room Air Laboratory Results Abnormal lab results 03/09/23 03/09/23 03/09/23 Range/Units 11:55 11:55 17:43 RBC (4.20-5.40) M/uL Hgb (12.0-16.0) g/dl Hct (37.0-47.0) % MPV (9.4-12.4) fL Potassium (3.5-5.1) mmol/L Creatinine (0.6-1.2) mg/dl Glucose (70-99(Fasting)) mg/dl POC Glucose (70-99) mg/dl Hemoglobin A1c (4.5-5.6) % Troponin I High Sens 114.5 H* D 73.6 H* D (0-14) pg/ml B-Natriuretic Peptide 472 H (0-100) pg/ml Triglycerides (0-150) mg/dl VLDL Cholesterol, Calc (0-30) mg/dl 03/09/23 03/10/23 03/10/23 Range/Units 20:11 00:22 06:25 RBC 3.46 L (4.20-5.40) M/uL Hgb 10.3 L (12.0-16.0) g/dl Hct 31.0 L (37.0-47.0) % MPV 9.3 L (9.4-12.4) fL Potassium (3.5-5.1) mmol/L Creatinine (0.6-1.2) mg/dl Glucose (70-99(Fasting)) mg/dl POC Glucose 100 H (70-99) mg/dl Hemoglobin A1c (4.5-5.6) % Troponin I High Sens 63.0 H* D (0-14) pg/ml B-Natriuretic Peptide (0-100) pg/ml Triglycerides (0-150) mg/dl VLDL Cholesterol, Calc (0-30) mg/dl 03/10/23 03/10/23 03/10/23 Range/Units 06:25 06:25 07:23 RBC (4.20-5.40) M/uL Hgb (12.0-16.0) g/dl Hct (37.0-47.0) % MPV (9.4-12.4) fL Potassium 3.4 L (3.5-5.1) mmol/L Creatinine 0.53 L (0.6-1.2) mg/dl Glucose 133 H (70-99(Fasting)) mg/dl POC Glucose 140 H (70-99) mg/dl Hemoglobin A1c 6.3 H (4.5-5.6) % Troponin I High Sens (0-14) pg/ml B-Natriuretic Peptide (0-100) pg/ml Triglycerides 197 H (0-150) mg/dl VLDL Cholesterol, Calc 39 H (0-30) mg/dl 03/10/23 Range/Units 11:00 RBC (4.20-5.40) M/uL Hgb (12.0-16.0) g/dl Hct (37.0-47.0) % MPV (9.4-12.4) fL Potassium (3.5-5.1) mmol/L Creatinine (0.6-1.2) mg/dl Glucose (70-99(Fasting)) mg/dl POC Glucose 126 H (70-99) mg/dl Hemoglobin A1c (4.5-5.6) % Troponin I High Sens (0-14) pg/ml B-Natriuretic Peptide (0-100) pg/ml Triglycerides (0-150) mg/dl VLDL Cholesterol, Calc (0-30) mg/dl
[2023-03-10] MEDS ORDERED: METOPROLOL SUCC 25MG EXT REL TAB PO ONE (11:30)
--- NOTE | 2023-03-10 13:07 | Rheumatology Consultation ---
Rheumatology Consultation DOS March 10, [address] Moss Reason for Consultation Pleural effusion Assessment & Plan (1) Pleural effusion, left: (2) Left-sided chest pain: (3) History of rheumatoid arthritis: Plan Concern regarding rheumatoid arthritis and its implications regarding pleuropericardial disease This patient does not have rheumatoid arthritis. She never had rheumatoid arthritis. This diagnosis was speculative based on recurrent knee problems which in fact was on the basis of patellofemoral syndrome. She has had multiple surgeries. She does not have evidence of inflammatory joint disease and has not had inflammatory joint disease leading up to hospital presentations this summer. I have removed rheumatoid arthritis from her past medical history. Highly atypical for pleuropericardial disease to be the initial presenting symptom of rheumatoid arthritis especially in the absence of inflammatory joint disease. Rheumatoid factor is pending and is a part of the immune system. Rheumatoid factor is commonly elevated with systemic inflammatory processes and I would not be surprised if a low positive RF is identified. I do not identify an indication to proceed with aggressive steroids or immunosuppressive therapies based on concerns that she is exhibiting extra- articular manifestations of RA There were also concerns regarding systemic vasculitis. Currently, I do not identify additional sequelae of systemic vasculitis at this time. Today's urinalysis reveals 2+ protein which is new compared to previous urinalyses with the exception of an isolated trace value previously. It looks as if today's value also had significant epithelial cells and hyaline casts with an elevated specific gravity suggestive of somewhat concentrated specimen. It would be beneficial to repeat this and if we have persistent proteinuria, this will need to be evaluated to determine the etiology Diagnosis of a systemic vasculitis often includes tissue and therefore if ongoing parenchymal lung disease is present without a diagnosis and if concerns for active vasculitis continues, then a biopsy would be necessary in most clinical situations. Likewise if we have persistent proteinuria, additional evaluation often will require a biopsy. I do not feel lung or renal biopsy is indicated at this moment and I recommend continued evaluation to identify etiology of her presenting symptoms I do not identify oral ulcerations, cutaneous lesions, inflammatory disease, leukopenia, or thrombocytopenia that can often be associated with SLE. If her LESTER is positive, please order C3, C4, [place], ACIDIZER HELPER, and double-stranded DNA. Please contact me with any additional questions or concerns or if you feel continued outpatient rheumatology follow-up is required. Thank you for this referral. Please feel free to contact me with any questions or concerns. Portions of this note were generated with [employer] voice recognition software. Time spent with the care of the patient today including chart review, discussing case with primary team, obtaining history, examining patient, discussing treatment plan, and documenting in the electronic health record: 65 History of Present Illness Attending Physician: Kayy Moss MD History of Present Illness This is a 42-year-old woman who presents on 03/09/2023 with increasing shortness of breath and chest discomfort. She was admitted between 02/23 and 02/26/2023 with sepsis secondary to left upper lobe pneumonia. She was sent home on antibiotics and completed these on 03/07/2023. She began developing chest discomfort early in the morning of 03/07/2023 which evolved and changed to include shortness of breath and discomfort with deep inspiration on the morning of 03/09. She denies cough. Denies skin rashes. She denies joint swelling. She has had some mild discomfort in the neck and occasionally in the knees. Denies history consistent with uveitis or scleritis. Denies hematuria or history of kidney disease or kidney stones. She denies new numbness or weakness to her extremities. She is currently being evaluated by pulmonology as well as cardiology as there have been concerns for pleural and pericardial effusions. Patient indicates that there were concerns about the possible diagnosis of rheumatoid arthritis in the past secondary to ongoing knee abnormalities and problems. She was given a diagnosis of patellofemoral syndrome and has had multiple knee surgeries including a total knee replacement in the past. She was seen by rheumatology and another provider and the patient was given a diagnosis of fibromyalgia and was placed on Lyrica. She denies being on immunosuppressive medications including conventional synthetic disease modifying antirheumatic drugs and/or biologic DMARDs. Allergies Allergy/AdvReac Type Severity Reaction Status Date / Time Sulfa (Sulfonamide Allergy Mild RASH, Verified 01/05/23 12:02 Antibiotics) NAUSEA Home Medications Medication Instructions Recorded Confirmed Type albuterol sulfate 90 mcg/actuation 2 puffs inhalation Q4H PRN 10/20/19 03/09/23 History aerosol inhaler Shortness Of Breath Or Wheezing tizanidine 4 mg tablet 4 mg PO Q6H PRN Muscle Spasm 01/14/20 03/09/23 History sumatriptan succinate 6 mg/0.5 mL 6 mg (0.5 mL) subcut DIRECTED 08/09/20 03/09/23 Rx subcutaneous solution (Imitrex) PRN migraine headache #3 mL loratadine 10 mg tablet (Claritin) 10 mg PO QAM 02/15/21 03/09/23 History colestipol 1 gram tablet (Colestid) 1 g PO DAILY 09/24/22 03/09/23 History prazosin 2 mg capsule 2 mg PO HS 09/24/22 03/09/23 History loperamide 2 mg capsule (Imodium 2 mg PO Q6H PRN loose stool #14 09/30/22 03/09/23 Rx A-D) caps oxycodone 5 mg tablet 5 mg PO Q6H PRN pain #15 tabs 12/01/22 03/09/23 Rx dicyclomine 10 mg capsule 10 mg PO TID PRN Cramps 01/05/23 03/09/23 History pantoprazole 40 mg tablet,delayed 40 mg PO BID 01/05/23 03/09/23 History release quetiapine 400 mg tablet 600 mg PO HS 01/05/23 03/09/23 History duloxetine 60 mg capsule,delayed 120 mg PO DAILY 02/23/23 03/09/23 History release carvedilol 3.125 mg tablet 3.125 mg PO BIDM #60 tabs 02/26/23 03/09/23 Rx lactobacillus combination no.4 3 3,000 mmu cells PO DAILY 2 weeks 02/26/23 03/09/23 Rx billion cell capsule (Probiotic) #14 caps Patient History Medical History (Updated 03/10/23 @ 12:58 by Henrique Britton DO) Allergy-induced asthma NO INHALER USED FOR >YEAR Well controlled and stable Anxiety and depression Bipolar 1 disorder Cervical stenosis of spinal canal Dyslipidemia Fibromyalgia History of high blood pressure History of kidney stones NO SURGERY No current issues Hypertension IBS (irritable bowel syndrome) Combination of diarrhea and constipation Insomnia Lumbar pain Migraine Mood disorder Septic colitis Surgical History History of arthroscopy MULTIPLE RT/LEFT KNEE SCOPES History of bilateral tubal ligation History of endometrial ablation History of esophagogastroduodenoscopy (EGD) History of hysterectomy History of partial knee replacement b/l History of tonsillectomy and adenoidectomy History of total knee replacement LEFT S/P colonoscopy S/P inguinal hernia repair S/P sinus surgery [place] teeth removed Family History Daughter Depression Allergies Grandmother (Paternal) Arthritis Grandfather (Paternal) Diabetes Arthritis Grandmother (Maternal) Diabetes Hypertension Grandfather (Maternal) Diabetes Hypertension Sister Kidney stones Hypertension Mother Thyroid disorder Other No family history of adverse response to anesthesia Social History Smoking Status: Former smoker Tobacco Type: Cigarettes Cigarettes Per Day: Quit 09/2019. 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 She has had ongoing chest discomfort and shortness of breath. Denies cough. Denies hemoptysis. She has had nausea. She has had loose stools for 6 months. Denies dark or black stools. She has had upper and lower scopes and was told that there was a polyp. Denies history consistent with uveitis or scleritis. No joint swelling. Physical Exam Physical Exam: General: Alert and oriented. No acute distress Eyes: Pupils are equal. Extraocular muscles intact. Mouth: No oral sores Neck: Supple, no adenopathy Cardiovascular: Heart regular, no rubs Pulmonary: Seems to have reduced sounds left lung field but I do not identify significant rales or crackles Abdomen: Soft, nontender. Positive bowel sounds. Extremities: No pitting edema noted Skin: No purpuric lesions identified Musculoskeletal: No synovitis. No effusions. No dactylitis. Results & Data Vital Signs (Past 12 Hours) Vital Signs Temp Pulse Pulse Resp BP Pulse Ox O2 Del Method 03/10/23 11:51 36.7 C 100 H 16 157/99 H 94 Room Air 03/10/23 07:51 36.7 C 128 H 16 137/85 96 Room Air 03/10/23 03:42 36.9 C 112 H 20 135/86 112 H Room Air Diagnostic Findings 03/09/2023 chest x-ray: IMPRESSION: 1. No pneumothorax. 2. A trace left pleural effusion persists status post thoracentesis. This has im proved. 03/09/2023 CTA: FINDINGS: Lungs and pleura: Previously noted left upper lobe focus of consolidation has resolved. There is a moderate left pleural effusion. Heart and pericardium: Heart size is normal. No pericardial effusion. Vessels: No evidence of pulmonary embolism. Mediastinum and grace: Unremarkable. Chest wall and lower neck: Unremarkable. Abdomen: Unremarkable. Bones: Mild degenerative changes are seen. IMPRESSION: No evidence of pulmonary embolus. Previously noted focus of consolidation in the left upper lobe has resolved. There is a moderate left pleural effusion, new from prior exam. Reviewed echo report indicating no evidence of pericardial effusion Results Rheum Results - DMARD: RBC 3.46 M/uL (4.20-5.40) L 03/10/23 06:25 WBC 7.20 K/ul (4.8-10.8) 03/10/23 06:25 Hgb 10.3 g/dl (12.0-16.0) L 03/10/23 06:25 Hct 31.0 % (37.0-47.0) L 03/10/23 06:25 MCV 89.6 fL (80.0-100.0) 03/10/23 06:25 MCH 29.8 pg (25.0-34.0) 03/10/23 06:25 MCHC 33.2 g/dL (32.0-36.0) 03/10/23 06:25 RDW Std Deviation 43.6 fL (36.4-46.3) 03/10/23 06:25 RDW Coeff of Nate 13.3 % (11.5-14.5) 03/10/23 06:25 Plt Count 374 K/uL (130-400) 03/10/23 06:25 MPV 9.3 fL (9.4-12.4) L 03/10/23 06:25 Neut % (Auto) 66.1 % 03/10/23 06:25 Lymph % (Auto) 24.0 % 03/10/23 06:25 [place] # (Auto) 0.52 K/uL (0.11-0.59) 03/10/23 06:25 Eos # (Auto) 0.05 K/uL (0-0.50) 03/10/23 06:25 Immature Gran % (Auto) 0.3 % 03/10/23 06:25 Neut # (Auto) 4.76 K/uL (1.40-6.50) 03/10/23 06:25 Lymph # (Auto) 1.73 K/uL (1.2-3.4) 03/10/23 06:25 [place] # (Auto) 0.52 K/uL (0.11-0.59) 03/10/23 06:25 Eos # (Auto) 0.05 K/uL (0-0.50) 03/10/23 06:25 Baso # (Auto) 0.12 K/uL (0-0.2) 03/10/23 06:25 Immature Gran # (Auto) 0.02 K/uL (0.01-0.20) 03/10/23 06:25 Dohle Bodies 1+ 02/23/23 11:00 Sodium 136 mmol/L (136-145) 03/10/23 06:25 Potassium 3.4 mmol/L (3.5-5.1) L 03/10/23 06:25 Chloride 103 mmol/L (98-107) 03/10/23 06:25 Carbon Dioxide 25 mmol/L (21-32) 03/10/23 06:25 Anion Gap 8 (3-11) 03/10/23 06:25 BUN 7 mg/dl (6-23) 03/10/23 06:25 Creatinine 0.53 mg/dl (0.6-1.2) L 03/10/23 06:25 Est GFR ( Amer) 134.8 ml/min 03/10/23 06:25 Est GFR (Non-Af Amer) 116.3 ml/min 03/10/23 06:25 BUN/Creatinine Ratio 13.2 (10-20) 03/10/23 06:25 Glucose 133 mg/dl (70-99(Fasting)) H 03/10/23 06:25 Calcium 8.6 mg/dl (8.6-10.3) 03/10/23 06:25 Phosphorus 3.4 mg/dl (2.5-4.9) 02/23/23 11:00 Total Bilirubin 0.9 mg/dl (0.2-1.0) 03/10/23 06:25 Direct Bilirubin 0.1 mg/dl (0-0.2) 09/24/22 08:07 AST 19 U/L (13-39) 03/10/23 06:25 ALT 24 U/L (7-52) 03/10/23 06:25 Alkaline Phosphatase 86 U/L (34-104) 03/10/23 06:25 Total Protein 6.7 gm/dl (6.0-8.3) 03/10/23 06:25 Albumin 3.6 gm/dl (3.4-5.0) 03/10/23 06:25 Globulin 3.1 gm/dl (2.5-4.0) 03/10/23 06:25 Albumin/Globulin Ratio 1.2 (0.9-2) 03/10/23 06:25 Lactate Dehydrogenase 183 U/L (86-244) 03/10/23 06:25 ESR 84 mm/hr (0-20) H 03/09/23 07:30 C-Reactive Protein 1.21 mg/dl (0-0.5) H 03/09/23 07:30 Results Urinalysis: Urine Color Dark Yellow 02/23/23 Urine Appearance Turbid (Clear) A 02/23/23 Urine pH 5.0 (4.5-7.5) 02/23/23 Ur Specific [place] 1.025 (1.000-1.030) 02/23/23 Urine Protein 2+ (Negative) H 02/23/23 Urine Glucose (UA) Negative (Negative) 02/23/23 Urine Ketones Trace (Negative) H 02/23/23 Urine Blood Negative (Negative) 02/23/23 Urine Nitrite Positive (Negative) A 02/23/23 Urine Bilirubin 1+ (Negative) H 02/23/23 Urine Urobilinogen Negative (Negative) 02/23/23 Ur Leukocyte Esterase Negative (Negative) 02/23/23 Urine WBC (Auto) 5-10 /hpf (0-5) H 02/23/23 Urine RBC (Auto) 0-4 /hpf (0-4) 02/23/23 Urine Hyaline Casts (Auto) >30 /lpf (0-5) H 02/23/23 Urine Epithelial Cells (Auto) >30 /lpf (0-5) H 02/23/23 Urine Bacteria (Auto) 1+ (Negative) H 02/23/23 Urine Yeast Not Reportable 11/25/19 Urine Culture: Micro Urine Specimen 02/23/23 PG Care Time/CCT Total # of Minutes Spent Total Time Spent with Patient: Total time spent is greater than 50% in coordination of care (as documented) at patient's floor/unit and/or counseling patient: Coding Level of Care Code 97005 IN/OBS CONSULT LVL 4,60M Diagnoses Pleural effusion, left J90 Left-sided chest pain R07.9 History of rheumatoid arthritis Z87.39
[2023-03-10] MEDS: MAGNESIUM OXIDE 400 MG TAB PO SCH (13:29)
--- NOTE | 2023-03-10 14:55 | Pulmonology Progress Note ---
Date of Service March 10, 2023 Assessment & Plan (1) Pleural effusion, left: (2) Left-sided chest pain: Plan Impression: 42-year-old female admitted with chest pain found to have left-sided pleural effusion with small pericardial effusion she is status post thoracentesis with fluid demonstrating a neutrophilic exudate. Recommendations: 1. Pleural effusion: Appears resolved on chest x-ray. Await final culture data and cytology but suspect these to be unrevealing. Would recommend a trial of nonsteroidal anti-inflammatories. I do not see an indication for continued antimicrobial therapy and from a lung standpoint antibiotics can be discontinued. . 2. Chest discomfort: Agree with nonsteroidal anti-inflammatories in the form of Toradol with the patient tolerated well. Will defer colchicine to our cardiology colleagues. This point time her pleural effusion appears resolved. Pulmonary will sign off. Feel free to contact us with additional questions or concerns. Admission and Anticipated Discharge Date Admission Date: March 09, 2023 Subjective Patient seen and examined. EMR reviewed. The patient is doing well. The chest tightness she was experiencing previously is resolved. She continues to have some pleuritic discomfort on the left. She is on room air. She had rheumatology consultations completed. She denies fevers chills night sweats or other constitutional symptoms. Review of Systems Review of Systems: All systems reviewed & are unremarkable except as noted in Subjective Physical Exam Constitutional: WD/WN, vitals as above Neck: trachea midline, no thyromegaly Respiratory: no respiratory distress, no labored breathing, no cough and not tachypneic Auscultation: + diminished lung sounds Cardiovascular: RRR, no murmur, no edema Gastrointestinal (Abdomen): normal bowel sounds, soft, nontender, no hepatosplenomegaly Musculoskeletal: Extremities: extremities normal to inspection Skin: no rashes, warm and dry Lymphatic: no cervical lymphadenopathy Results & Data Results & Data Vital Signs (Past 12 Hours) Vital Signs Temp Pulse Pulse Resp BP Pulse Ox O2 Del Method 03/10/23 11:51 36.7 C 100 H 16 157/99 H 94 Room Air 03/10/23 07:51 36.7 C 128 H 16 137/85 96 Room Air 03/10/23 03:42 36.9 C 112 H 20 135/86 112 H Room Air Laboratory Results 03/10/23 06:25 03/10/23 06:25 Pleural fluid studies: Differential: 66% neutrophils, 6% lymphocytes, 1% basophils, 27% mesothelial/macrophages Pleural pH 7.42 Pleural total protein 4.0 Pleural LDH 275 Pleural glucose 109 Pleural fluid cytology pending Pleural Gram stain, many white blood cells, no organisms, cultures pending Diagnostic Findings Postthoracentesis chest x-ray: No pneumothorax. No residual pleural fluid. Low lung volumes. Linear atelectasis more prominent at the left lung base PG Care Time/CCT Total # of Minutes Spent Total Time Spent with Patient: Total time spent is greater than 50% in coordination of care (as documented) at patient's floor/unit and/or counseling patient: Coding Level of Care Code 19255 SUB INP/OBS CARE 2/35MIN Diagnoses Pleural effusion, left J90 Left-sided chest pain R07.9
[2023-03-10 17:42] LABS: 18KDIGG Band NON-REACTIVE; 23KDIGG Band NON-REACTIVE; 23KDIGM Band REACTIVE; 28KDIGG Band NON-REACTIVE; 30KDIGG Band NON-REACTIVE; 39KDIGG Band NON-REACTIVE; 39KDIGM Band NON-REACTIVE; 41KDIGG Band REACTIVE; 41KDIGM Band NON-REACTIVE; 45KDIGG Band NON-REACTIVE; 58KDIGG Band NON-REACTIVE; 66KDIGG Band NON-REACTIVE; 93KDIGG Band NON-REACTIVE; Lyme Antibodies, WB IgG NEGATIVE (NEGATIVE); Lyme Antibodies, WB IgM NEGATIVE (NEGATIVE)
[2023-03-10] MEDS: KETOROLAC TROMETHAMINE 15 MG/ML VIAL IV PRN (19:05)
[2023-03-10] MEDS: ENOXAPARIN INJ 40 MG/0.4 ML SYR SQ SCH (20:17)
[2023-03-10] MEDS: PRAZOSIN HCL 1 MG CAP PO SCH (20:18)
[2023-03-10] MEDS: QUEtiapine FUMARATE 300 MG TABLET PO SCH (20:19)
[2023-03-11] MEDS: KETOROLAC TROMETHAMINE 15 MG/ML VIAL IV PRN ×3 (05:46→20:48)
[2023-03-11] MEDS: oxyCODONE HCL IR 5 MG TAB (IMMEDIATE RELEASE) PO PRN ×2 (06:22→21:41)
[2023-03-11 06:51] LABS: Hematocrit (blood only) 30.4 % (37.0-47.0); Hemoglobin 10.1 g/dl (12.0-16.0); Mean Corpuscular Hgb Conc 33.2 g/dL (32.0-36.0); Mean Corpuscular Volume 90.2 fL (80.0-100.0); Mean Platelet Volume 9.2 fL (9.4-12.4); Platelet Count 408 K/uL (130-400); RDW Coefficient of Variation 13.1 % (11.5-14.5); RDW Standard Deviation 43.5 fL (36.4-46.3); Red Blood Count 3.37 M/uL (4.20-5.40); White Blood Count 4.81 K/ul (4.8-10.8)
[2023-03-11 07:07] LABS: BUN Creatinine Ratio 15.2 (10-20); Creatinine Clr Calc Pharmacy 195.7 ml/min; Est GFR (African American) 141.2 ml/min; Est GFR (Non-African American) 121.8 ml/min; Potassium 3.8 mmol/L (3.5-5.1)
--- NOTE | 2023-03-11 08:14 | Electrocardiogram Report ---
Test Reason : Blood Pressure : / mmHG Vent. Rate : 101 BPM Atrial Rate : 101 BPM P-R Int : 112 ms QRS Dur : 098 ms QT Int : 428 ms P-R-T Axes : 027 028 146 degrees QTc Int : 554 ms Sinus tachycardia T wave abnormality, consider anterolateral ischemia Abnormal ECG When compared with ECG of 09-MAR-2023 07:30, T wave inversion no longer evident in Inferior leads Confirmed by Izaiah Bishop ([id number]) on 03/10/2023 12:04:32 PM Also confirmed by Izaiah Bishop ([id number]), mixing supervisor Kenneth García ([id number]) on 03/11/2023 8:13:54 AM Referred By: REFERRED SELF Confirmed By:Lit Bishop
[2023-03-11] MEDS: INSULIN ASPART PER UNIT CHARGE SC SCH ×4 (08:16→20:36)
[2023-03-11] MEDS: ROSUVASTATIN CALCIUM 20 MG TAB PO SCH (08:20)
[2023-03-11] MEDS: LORATADINE 10 MG TAB PO SCH (08:20)
[2023-03-11] MEDS: MAGNESIUM OXIDE 400 MG TAB PO SCH (08:20)
[2023-03-11] MEDS: PANTOprazole 40 MG TAB PO SCH ×2 (08:20→20:37)
[2023-03-11] MEDS: ASPIRIN 81 MG ECTAB PO SCH (08:20)
[2023-03-11] MEDS: DULoxetine HCL 60 MG CAP PO SCH (08:21)
[2023-03-11] MEDS: lisinopril 20 MG TAB PO SCH (08:21)
[2023-03-11] MEDS: ADVANCED PROBIOTIC 1250 MG CAPSULE PO SCH (08:22)
[2023-03-11] MEDS: METOPROLOL SUCC 50MG EXT REL TAB PO SCH (08:22)
[2023-03-11] MEDS: COLESTIPOL HCL 1 GM TAB PO SCH (09:26)
[2023-03-11 12:01] LABS: A calco-baum cmplx NotReported Not Detected (NotDetected); Bact fragilis Not Reported Not Detected (NotDetected); C auris Not Reported Not Detected (NotDetected); Calbicans Not Reported Not Detected (NotDetected); Candida glabrata Not Reported Not Detected (NotDetected); Candida krusei Not Reported Not Detected (NotDetected); Cneoformans/gatti Not Reported Not Detected (NotDetected); Cparapsilosis Not Reported Not Detected (NotDetected); Ctropicalis Not Reported Not Detected (NotDetected); E cloacae compx Not Reported Not Detected (NotDetected); Efaecalis Not Reported Not Detected (NotDetected); Efaecium Not Reported Not Detected (NotDetected); Enterobacterales Not Reported Not Detected (NotDetected); Escherichia coli Not Reported Not Detected (NotDetected); H influenzae Not Reported Not Detected (NotDetected); K aerogenes Not Reported Not Detected (NotDetected); Koxytoca Not Reported Not Detected (NotDetected); Kpneumoniae grp Not Reported Not Detected (NotDetected); Lmonocyt Not Reported Not Detected (NotDetected); N meningitidis Not Reported Not Detected (NotDetected); P aeruginosa Not Reported Not Detected (NotDetected); Proteus spp Not Reported Not Detected (NotDetected); Salmonella spp Not Reported Not Detected (NotDetected); Smarcescens Not Reported Not Detected (NotDetected); Staph lugdunensis Not Reported Not Detected (NotDetected); Staph spp. Not Reported DETECTED (NotDetected); Staphaureus Not Reported Not Detected (NotDetected); Staphepi Not Reported DETECTED (NotDetected); Staphylococcus spp. DETECTED (NotDetected); Stenmaltophilia Not Reported Not Detected (NotDetected); Strep agal(GrpB) Not Reported Not Detected (NotDetected); Strep pneum Not Reported Not Detected (NotDetected); Strep pyog (GrpA) Not Reported Not Detected (NotDetected); Strep spp Not Reported Not Detected (NotDetected)
[2023-03-11 12:24] LABS: mecAC Resistant Gene DETECTED (NotDetected)
[2023-03-11 12:25] LABS: Staphylococcus epidermidis DETECTED (NotDetected)
[2023-03-11] MEDS ORDERED: VANCOMYCIN CONSULT ACTIVE PRN (12:26)
--- NOTE | 2023-03-11 14:16 | Electrocardiogram Report ---
Test Reason : Blood Pressure : / mmHG Vent. Rate : 100 BPM Atrial Rate : 100 BPM P-R Int : 132 ms QRS Dur : 088 ms QT Int : 416 ms P-R-T Axes : 024 019 098 degrees QTc Int : 536 ms Normal sinus rhythm Nonspecific T wave abnormality Abnormal ECG When compared with ECG of 10-MAR-2023 10:01, T wave inversion less evident in Anterior leads Confirmed by Izaiah Bishop ([id number]) on 03/11/2023 2:16:39 PM Referred By: REFERRED SELF Confirmed By:Lit Bishop
[2023-03-11] MEDS: MoRPHine SULFATE 4 MG/ML 1 ML CARP\\VIAL IV PRN (15:52)
[2023-03-11] MEDS: LIDOCAINE 5% 1 PATCH TD SCH (16:11)
--- NOTE | 2023-03-11 17:50 | Hospitalist Progress Note ---
Date of Service March 11, 2023 Assessment & Plan (1) Left-sided chest pain: (2) Pleural effusion, left: (3) Elevated troponin I level: (4) Lactic acidosis: (5) Bipolar I disorder, single manic episode: Plan 42-year-old female who has a significant past medical history of bipolar disorder, fibromyalgia, HTN, COPD, HLD, prediabetes, prior history of tobacco abuse, GERD, chronic migraine, bilateral occipital neuralgia who presents to ED secondary to left-sided chest pain x2 days. Left-sided chest pain, Pleuritic Moderate left pleural effusion Status post recent left upper lobe pneumonia status post completion of antibiotic therapy, imaging revealed resolution Elevated troponin Lactic acidosis Admitting blood culture positive, likely contaminant, follow final results CTA did not show PE but noted moderate left pleural effusion Trop trend: 75->114-->73->63 EKG noted sinus tachy, non specific ST T changes S/p diagnostic thoracentesis by Pulm Follow up cultures Cardiology evaluated, appreciate recommendation Concern for some systemic inflammatory process involving cardiopulmonary system. Rheumatology evaluated, appreciate recommendation. Previous chart review noted patient had seen Dr Fran Ruby (Rheumatology) outpatient in the office in 06/2019 and televisit 12/2019 for long standing elevated ESR since 1999 and joint pains. Per Dr Ruby's note, there was no synovitis/dactylitis. She did have tenderness over all MCP, PIP, wrist and soft tiss tenderness over arms, leg, back, neck and ant chst wall. He thought it was more likely fibromyalgia than autoimmune syndrome at the time Outpatient labs noted ESR of 43 and CRP of 8 on 11/21/22. Old labs also noted LESTER/RF/CCP were negative in 08/2018 Patient currently does not have any knee/ankle/wrist/MCP/PIP tenderness or swelling Rheum note/patient's outpatient's chart does not have a confirmed diagnosis of RA Follow up LESTER, CCP, RF in lab ESR is 84.CRP 1.21 No leukocytosis. Procal is 0.12 (was upto 11 during recent pneumonia) Optimize pain control with IV toradol, lidocaine patch, possible transition to p.o. NSAIDs. Appreciate cards/Pulm/Rhuem recs Antibiotic discontinued, monitor off antibiotic, follow final results of blood culture. Lactate was 3.4 on admission. Resolved with IVF Patient reports improving pain on the left side. Follow-up final results on pleural fluid studies and culture. Hypertension Poorly controlled Cards recs noted, continue with lisinopril 20mg daily Stopped carvedilol for now. Now on Toprol XL per cards Monitor Pre DM Last a1c 5.7 11/2022 HbA1c is 6.3 today Monitor Will need ongoing education on lifestyle modification A1c in 3 months upon discharge. HLD pt with elevated lipid panel in OP setting in November Lipid panel reviewed Started on crestor per cardiology COPD Prior tobacco abuse Prn albuterol Bipolar disorder Stable Recent increase in seroquel as OP Continue prazosin Chronic Pain Migraine Fibromyalgia pt is prescribed oxy for this Chronic Positive Lyme IGM Previously positive in past, recently completed course of doxy DVT ppx: sq enox FULL CODE PCP: Miguel Chaudhry PA-C Admission and Anticipated Discharge Date Admission Date: March 09, 2023 Subjective Patient seen and examined at bedside as a follow-up of likely pleuritic chest pain x left-sided associated with moderate left pleural effusion in the background of recent left upper lobe pneumonia. Patient was lying in bed, on room air, NAD, reports improving left-sided pleuritic chest pain, is status post left thoracentesis, reports eating okay and moving bowels okay. Physical Exam Physical Exam: Constitutional:I + well hydrated an d + obese Eyes: PERRL, conjunctiva e normal, anicteri c sclerae ENMT: external ear and n ose normal, oropha rynx normal Respiratory: normal respiratory effort; no respir atory distress Di minished breath so unds, No crackles Cardiovascular:I Rate/Rhythm: regul ar rate and regula r rhythm S1 S2 Gastrointestinal ( Abdomen): normal bowel sound s, soft, nontender , no hepatosplenom egaly Musculoskeletal: no cyanosis or clu bbing, extremities motor strength 5/ 5 No pedal edema Neurologic: PERRL, EOMI, accom modation nl, no fa ce palsy, no dysar thria Psychiatric: A+Ox3, euthymic af fect Results & Data Results & Data Vital Signs (Past 12 Hours) Vital Signs Temp Pulse Pulse Resp BP Pulse Ox O2 Del Method 03/11/23 15:39 36.7 C 98 H 19 155/92 H 95 Room Air 03/11/23 12:22 36.9 C 95 H 19 141/97 H 94 Room Air 03/11/23 08:00 103 H 03/11/23 08:00 Room Air 03/11/23 07:54 36.7 C 101 H 19 135/87 95 Room Air
[2023-03-11 19:51] LABS: Urine Total Protein 4.9 mg/dl
[2023-03-11 20:11] LABS: Total Protein 24 Hour Urine < 144.5 mg/24 Hr (0-149.1); Total Volume Urine 2890 mL
[2023-03-11] MEDS: QUEtiapine FUMARATE 300 MG TABLET PO SCH (20:37)
[2023-03-11] MEDS: PRAZOSIN HCL 1 MG CAP PO SCH (20:37)
[2023-03-11] MEDS: ENOXAPARIN INJ 40 MG/0.4 ML SYR SQ SCH (20:38)
[2023-03-12 00:47] LABS: Anti Nuclear Antibody Screen NEGATIVE (NEGATIVE); Cyclic Citrullinated Pep IgG <16 UNITS; Rheumatoid Factor <14 IU/mL (<14)
[2023-03-12 06:46] LABS: Hematocrit (blood only) 29.9 % (37.0-47.0); Mean Corpuscular Hemoglobin 29.7 pg (25.0-34.0); Mean Corpuscular Hgb Conc 33.4 g/dL (32.0-36.0); Mean Corpuscular Volume 88.7 fL (80.0-100.0); Mean Platelet Volume 9.2 fL (9.4-12.4); Platelet Count 420 K/uL (130-400); Red Blood Count 3.37 M/uL (4.20-5.40); White Blood Count 4.17 K/ul (4.8-10.8)
[2023-03-12 06:52] LABS: BUN Creatinine Ratio 20.9 (10-20); Creatinine Clr Calc Pharmacy 208.7 ml/min; Est GFR (African American) 144.4 ml/min; Est GFR (Non-African American) 124.6 ml/min; Phosphorus 4.4 mg/dl (2.5-4.9); Potassium 3.7 mmol/L (3.5-5.1)
[2023-03-12] MEDS: KETOROLAC TROMETHAMINE 15 MG/ML VIAL IV PRN (08:02)
[2023-03-12] MEDS: LIDOCAINE 5% 1 PATCH TD SCH (08:04)
[2023-03-12] MEDS: LORATADINE 10 MG TAB PO SCH (08:05)
[2023-03-12] MEDS: lisinopril 20 MG TAB PO SCH (08:05)
[2023-03-12] MEDS: METOPROLOL SUCC 50MG EXT REL TAB PO SCH (08:06)
[2023-03-12] MEDS: ASPIRIN 81 MG ECTAB PO SCH (08:06)
[2023-03-12] MEDS: ROSUVASTATIN CALCIUM 20 MG TAB PO SCH (08:06)
[2023-03-12] MEDS: DULoxetine HCL 60 MG CAP PO SCH (08:06)
[2023-03-12] MEDS: MAGNESIUM OXIDE 400 MG TAB PO SCH (08:06)
[2023-03-12] MEDS: PANTOprazole 40 MG TAB PO SCH (08:06)
[2023-03-12] MEDS: ADVANCED PROBIOTIC 1250 MG CAPSULE PO SCH (08:07)
[2023-03-12] MEDS: INSULIN ASPART PER UNIT CHARGE SC SCH ×2 (08:10→11:52)
[2023-03-12] MEDS ORDERED: KETOROLAC TROMETHAMINE 10 MG TABLET PO PRN (09:24)
[2023-03-12] MEDS: COLESTIPOL HCL 1 GM TAB PO SCH (09:32)
[2023-03-12] MEDS ORDERED: DICLOFENAC SOD 1% GEL 100 GM TUBE EXT PRN (11:40)
--- NOTE | 2023-03-12 14:50 | Discharge Summary ---
Date of Service March 12, 2023 Admission HPI Per Admitting Provider This is a 42-year-old female who has a significant past medical history of bipolar disorder, fibromyalgia, HTN, COPD, HLD, prediabetes, prior history of tobacco abuse, GERD, chronic migraine, bilateral occipital neuralgia who presents to ED secondary to left-sided chest pain x2 days. Of significance patient was recently hospitalized 02/23 to 02/26 secondary to sepsis and left upper lobe pneumonia. She was initially treated with IV Zosyn and azithromycin and transition to IV Rocephin and oral Doxy. Upon admission patient did meet septic criteria and had leukocytosis of 30,000. This had since resolved. She completed her antibiotic course. She states on Thursday, 2 days ago, she developed constant left-sided chest pain that was above her left breast. This migrated then to below her left breast and is been constant and persistent since. Pain has progressively been getting worse and is also associated with shortness of breath. Initially shortness of breath was just with exertion but now is with rest and conversation as well. She does complain of orthopnea but denies any PND or lower extremity edema. Overall she has had poor appetite for the last 2 days. She denies any documented fever but feels chilled and sweats. She denies any nahed cough. Chest pain is constant but is significantly worse with a small amount of inspiration. Pain is not positional. She denies any lightheadedness, dizziness, hemoptysis, URI symptoms, vomiting, abdominal pain, change in bowel or urinary habits. She does feel nauseated. She does have chronic loose stool ever since having a bout of colitis in September. She feels this is unchanged. Patient was recently started on Coreg 3.125 mg twice daily during last hospital stay secondary to high blood pressure. She does admit to being compliant with this. Patient's medical record in [facility] was reviewed. Patient does have elevated blood pressure readings in outpatient setting as well. In ED patient made hemodynamically stable although she was significantly hypertensive with systolic blood pressures in the 170s and diastolic in the 100s. She also was tachycardic. She was afebrile and without leukocytosis. Her CBC and CMP was generally unremarkable but did reveal glucose of 166, sodium 135, anion gap 12. She did have elevated troponin at 75.8, CRP 1.21, ESR 84 and EKG with anterior lateral T wave inversions. Her procalcitonin was normal and d uring previous admission was elevated.Patient's medical record in [facility] was reviewed. She underwent chest CTA which was negative for PE but did reveal moderate left pleural effusion which is new from prior exam. Previous left upper lobe consolidation has resolved. CT abdomen pelvis was negative for any infectious or inflammatory findings, hepatomegaly with hepatic steatosis was also noted. She received 2 doses of nitroglycerin in ED without significant improvement. She was started on 2 L of IV fluid in setting of lactic acid. Admission Exam Per Admitting Provider Constitutional: WD/WN, morbidly obese, female, lying on right side, tachypneic with conversation, vitals as above, NAD, sitting up in bed, pleasant, conversing easily Head: Normocephalic, Atraumatic Eyes: PERRL, conjunctivae normal, anicteric sclerae ENMT: external ear and nose normal, oropharynx normal Neck: trachea midline, no thyromegaly normal visual inspection Respiratory: Increased respiratory effort, decreased inspiratory ability secondary to pain, diminished lung sounds left lower lobe, otherwise clear and no wheeze, rales, rhonchi. no accessory muscle use Cardiovascular: Tachycardic rate, regular rhythm, no murmur, no edema Vessels: no JVD or carotid bruit Chest: normal inspection of chest Abdomen: normal bowel sounds, soft, nontender, no hepatosplenomegaly Musculoskeletal: no cyanosis or clubbing, extremities motor strength 5/5, scars to bilateral knees Skin: no rashes, warm and dry normal turgor Neurologic: PERRL, EOMI, accommodation nl, no face palsy, no dysarthria CN's II-XI intact bilaterally and moves all extremities Psychiatric: A+Ox3, euthymic affect Lymphatic: no cervical or axillary lymphadenopathy : deferred Principal Diagnosis Left-sided chest pain, Pleuritic Moderate left pleural effusion Status post recent left upper lobe pneumonia status post completion of antibiotic therapy, imaging revealed resolution Elevated troponin Lactic acidosis Admitting blood culture positive, contaminant HTN Discharge Exam Constitutional: + well hydrated and + obese Eyes: PERRL, conjunctivae normal, anicteric sclerae ENMT: external ear and nose normal, oropharynx normal Respiratory: normal respiratory effort; no respiratory distress Diminished breath sounds, No crackles Cardiovascular: Rate/Rhythm: regular rate and regular rhythm S1 S2 Gastrointestinal (Abdomen): normal bowel sounds, soft, nontender, no hepatosplenomegaly Musculoskeletal: no cyanosis or clubbing, extremities motor strength 5/5 No pedal edema Neurologic: PERRL, EOMI, accommodation nl, no face palsy, no dysarthria Psychiatric: A+Ox3, euthymic affect Discharge Data Allergies Allergy/AdvReac Type Severity Reaction Status Date / Time Sulfa (Sulfonamide Allergy Mild RASH, Verified 01/05/23 12:02 Antibiotics) NAUSEA Consultations 03/09/23 09:56 Consult Cardiology Routine Consult Pulmonology Routine 03/10/23 07:57 Consult Rheumatology Routine Ordered Studies 03/09/23 07:30 CT angio chest PE protocol Stat 03/09/23 07:32 CT abd pelvis IV con only Stat 03/09/23 10:21 sono, invasive monitoring [US point of care ultrasound] Routine Hospital Course (1) Left-sided chest pain: (2) Pleural effusion, left: (3) Elevated troponin I level: (4) Lactic acidosis: (5) Bipolar I disorder, single manic episode: Plan 42-year-old female who has a significant past medical history of bipolar disorder, fibromyalgia, HTN, COPD, HLD, prediabetes, prior history of tobacco abuse, GERD, chronic migraine, bilateral occipital neuralgia who presents to ED secondary to left-sided chest pain x2 days. Left-sided chest pain, Pleuritic Moderate left pleural effusion Status post recent left upper lobe pneumonia status post completion of antibiotic therapy, imaging revealed resolution Elevated troponin Lactic acidosis Admitting blood culture positive, likely contaminant, follow final results CTA did not show PE but noted moderate left pleural effusion Trop trend: 75->114-->73->63 EKG noted sinus tachy, non specific ST T changes S/p diagnostic thoracentesis by Pulm Follow up cultures Cardiology evaluated, appreciate recommendation Concern for some systemic inflammatory process involving cardiopulmonary system. Rheumatology evaluated, appreciate recommendation. Previous chart review noted patient had seen Dr Fran Ruby (Rheumatology) outpatient in the office in 06/2019 and televisit 12/2019 for long standing elevated ESR since 1999 and joint pains. Per Dr Ruby's note, there was no synovitis/dactylitis. She did have tenderness over all MCP, PIP, wrist and soft tiss tenderness over arms, leg, back, neck and ant chst wall. He thought it was more likely fibromyalgia than autoimmune syndrome at the time Outpatient labs noted ESR of 43 and CRP of 8 on 11/21/22. Old labs also noted LESTER/RF/CCP were negative in 08/2018 Patient currently does not have any knee/ankle/wrist/MCP/PIP tenderness or swelling Rheum note/patient's outpatient's chart does not have a confirmed diagnosis of RA Follow up LESTER, CCP, RF in lab --> all negative ESR is 84.CRP 1.21 No leukocytosis. Procal is 0.12 (was upto 11 during recent pneumonia) Patient reports improving chest pain, now only with deep inspiration. Continue with naproxen with food up to 3 times a day for severe pain. Can use diclofenac gel every 4-6 hours for mild to moderate pain. Appreciate cards/Pulm/Rhuem recs Antibiotic discontinued, monitor off antibiotic, follow final results of blood culture. Patient has been afebrile. Lactate was 3.4 on admission. Resolved with IVF Follow-up final results on pleural fluid studies and culture during PCP visit in a week time upon discharge. Patient is made aware. Hypertension Poorly controlled Cards recs noted, continue with lisinopril 20mg daily Stopped carvedilol for now. Now on Toprol XL per cards Fairly better Pre DM Last a1c 5.7 11/2022 HbA1c is 6.3 this admission. Patient is aware. fine wire drawer consulted. Monitor Will need ongoing education on lifestyle modification A1c in 3 months upon discharge. HLD pt with elevated lipid panel in OP setting in November Lipid panel reviewed Started on crestor per cardiology COPD Prior tobacco abuse Prn albuterol Bipolar disorder Stable Recent increase in seroquel as OP Continue prazosin Chronic Pain Migraine Fibromyalgia pt is prescribed oxy for this Chronic Positive Lyme IGM Previously positive in past, recently completed course of doxy DVT ppx: sq enox FULL CODE PCP: Miguel Chaudhry PA-C Patient being discharged home with following instruction at the point of discharge: Follow-up with your primary care physician within a week time and likely you will need labs CBC/CMP/magnesium/phosphorus. You will need follow-up on your pleural fluid final culture studies, coordinate with the PCP office during your next visit within a week time. You have been evaluated by cardiology, rheumatology, pulmonology for your left- sided pleuritic chest pain. You are being discharged on Voltaren gel to be applied locally every 4-6 hours for mild to moderate pain. For severe pain, you can use [id number] naproxen [with food] every 6-8 hours. Continue taking your home pantoprazole as prior. Follow-up with your rheumatology as prior. Your A1c was elevated at 6.3 during this admission, so you have prediabetes. Encourage lifestyle modification/weight loss as discussed at bedside. You will need repeat A1c in 3 months, continue follow-up with your PCP for long-term management. You are also started on rosuvastatin for your hyperlipidemia while in the hospital. You will need lipid profile testing in 3 to 6 months upon discharge. Maintain follow-up with psychiatry as prior. Please make sure that you are able to get your medications today by calling your pharmacy before you leave the hospital so that your treatment continuity is not broken. Home Health Attestation I certify that this patient is under my care and that I, or a physicians medication assistant working with me, had a face to-face encounter that meets the home health [id number] encounter requirements with this patient. The encounter with the patient was in whole, or in part, for the following medical condition, which is the primary reason for home health care (list medical condition): I certify that, based on my findings, the following services are medically necessary home health services: My clinical findings support the need for the above services because: Further, I certify that my clinical findings support that this patient is homebound (i.e. absences from home require considerable and taxing effort and are for medical reasons or alevism services or infrequently or of short duration when for other reasons) because: Certification for Home Health Services: Based on the above findings, I certify that this patient is confined to the home and needs intermittent jail care, physical therapy and/or speech therapy or continues to need occupational therapy. The patient is under my care, and I have initiated the establishment of the plan of care. This patient will be followed by a physician who will periodically review the plan of care. Total Time Total Time Spent Total Time Spent (In Minutes): 45 Discharge Plan Discharge Items Patient Disposition: Home - Self-Care Reason For Visit: L SIDED CHEST PAIN, ELEVATED TROPONIN Discharge Diagnosis: Left-sided chest pain, Pleuritic Moderate left pleural effusion Status post recent left upper lobe pneumonia status post completion of antibiotic therapy, imaging revealed resolution Elevated troponin Lactic acidosis Admitting blood culture positive, contaminant HTN Activity: Resume your previous activity Non-emergency contact: Primary Care Provider Call non-emergency contact if: you have any medication questions, your symptoms worsen and your temperature is above 101 Follow-up/Referrals: Miguel Chaudhry PA-C [Primary Care Provider] - Diet: Carb Consistent or DM2 and Heart Healthy Addtl Attending Provider Instructions: Follow-up with your primary care physician within a week time and likely you will need labs CBC/CMP/magnesium/phosphorus. You will need follow-up on your pleural fluid final culture studies, coordinate with the PCP office during your next visit within a week time. You have been evaluated by cardiology, rheumatology, pulmonology for your left- sided pleuritic chest pain. You are being discharged on Voltaren gel to be applied locally every 4-6 hours for mild to moderate pain. For severe pain, you can use [id number] naproxen [with food] every 6-8 hours. Continue taking your home pantoprazole as prior. Follow-up with your rheumatology as prior. Your A1c was elevated at 6.3 during this admission, so you have prediabetes. Encourage lifestyle modification/weight loss as discussed at bedside. You will need repeat A1c in 3 months, continue follow-up with your PCP for long-term management. You are also started on rosuvastatin for your hyperlipidemia while in the hospital. You will need lipid profile testing in 3 to 6 months upon discharge. Maintain follow-up with psychiatry as prior. Please make sure that you are able to get your medications today by calling your pharmacy before you leave the hospital so that your treatment continuity is not broken. Pending Studies at Discharge: Yes Stand-Alone Forms: [facility] Sm[facility] Medications and DC Order Prescriptions: New lisinopril 20 mg Tablet 20 mg PO QAM Qty: 30 0RF metoprolol succinate 50 mg Tablet Extended Release 24 Hr 50 mg PO QAM Qty: 30 0RF rosuvastatin [Crestor] 20 mg Tablet 20 mg PO QAM Qty: 30 0RF aspirin 81 mg Tablet,Delayed Release (Dr/Ec) 81 mg PO QAM Qty: 30 0RF diclofenac sodium [Voltaren Arthritis Pain] 1 % Gel 2 g EXT Q4H PRN (Reason: mild to moderate pain) Qty: 100 0RF naproxen [Naprosyn] 500 mg tablet 500 mg PO Q8H PRN (Reason: pain (scale score 7-10)) Qty: 30 0RF Continued sumatriptan succinate [Imitrex] 6 mg/0.5 mL solution 6 mg SQ DIRECTED PRN (Reason: migraine headache) Qty: 3 3RF Patient Comments: patient has not taken in awhile Rx Instructions: take at start of headache, no more than 2 times per week albuterol sulfate 90 mcg/actuation HFA aerosol inhaler 2 puffs INH Q4H PRN (Reason: Shortness Of Breath Or Wheezing) tizanidine 4 mg tablet 4 mg PO Q6H PRN (Reason: Muscle Spasm) colestipol [Colestid] 1 gram Tablet 1 g PO DAILY prazosin 2 mg Capsule 2 mg PO HS loperamide [Imodium A-D] 2 mg capsule 2 mg PO Q6H PRN (Reason: loose stool) Qty: 14 0RF oxycodone 5 mg tablet 5 mg PO Q6H PRN (Reason: pain) Qty: 15 0RF pantoprazole 40 mg tablet,delayed release (DR/EC) 40 mg PO BID dicyclomine 10 mg capsule 10 mg PO TID PRN (Reason: Cramps) quetiapine 400 mg tablet 600 mg PO HS loratadine [Claritin] 10 mg Tablet 10 mg PO QAM duloxetine 60 mg capsule,delayed release(DR/EC) 120 mg PO DAILY Probiotic 3 billion cell capsule 3,000 mmu cells PO DAILY 14 Days Qty: 14 0RF Rx Instructions: administer with a meal Discontinued carvedilol 3.125 mg Tablet 3.125 mg PO BIDM Qty: 60 0RF Discharge Orders: Discharge Order (Routine); Ordered 03/12/23 Ordered By: Lobito Mitchell/Other Patient Handouts: Prediabetes, 5 Steps for Eating Healthier Admission Data Admit Date/Time: 03/09/23 10:10 Attending Provider: Lobito Huff Admit Provider: Stephanie Garcia Primary Care Provider: Miguel Chaudhry Other Providers: Henrique Ortez ; Stephanie Garcia ; Henrique Britton
[2023-03-13 08:52] LABS: Albumin 3.3 g/dL (3.8-4.8); Alpha 1 Globulin 0.4 g/dL (0.2-0.3); Alpha 2 Globulin 0.9 g/dL (0.5-0.9); Beta-1-Globulin 0.5 g/dL (0.4-0.6); Beta-2-Globulin 0.4 g/dL (0.2-0.5); Monoclonal Protein Band 1 DNR g/dL (NONE DETECTED); Monoclonal Protein Band 2 DNR g/dL (NONE DETECTED); Monoclonal Protein Band 3 DNR g/dL (NONE DETECTED); Total Protein 6.5 g/dL (6.1-8.1)
== END 2023-03-12 16:21 | disposition home or self-care (01) | DRG 187 ==
LOC: ED 07:09 → EDINP 10:10 → SUATTDRO 10:10 → 2S 15:00 → 4W 03-10 18:55